=== PATIENT | male | born 1960 | race Caucasian/White ===

== ENCOUNTER 2022-07-19 09:27 | Emergency (ER) | payer MEDICARE, MEDICAID, SELFPAY ==
[2022-07-19] VITALS (9 sets, daily range): BP systolic 114–127; BP diastolic 62–79; PULSE 50–151; RESP 14–19; TEMP 36.8; O2SAT 91–99; BMI 34.1
--- NOTE | 2022-07-19 09:53 | XR_ITS ---
The [address] [address] Patient Name: YELENA NOLASCO MRN: [id number] date: 1960 Sex: M Assigned Patient Location: ER Current Patient Location: ER Accession/Order Number: [id number] Exam Date: 07/19/2022 09:58 Report Date: 07/19/2022 10:14 At the request of: STAN OLEARY Procedure: XR chest 1V Exam: Radiographs: XR chest 1V Reason for exam: Chest pain Comparison: None IMPRESSION: Minimal linear atelectasis or scarring in the left lower lung. Tracheostomy tube with tip in the midthoracic trachea. Cervical spine fusion hardware. Old left clavicle fracture. Remainder the chest is unremarkable. Electronically authenticated by: JUJU HERNANDEZ Date: 07/19/2022 10:14
--- NOTE | 2022-07-19 09:53 | ECG_ITS ---
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
[2022-07-19 10:42] LABS: Alanine Aminotransferase 40 U/L (16-63); Albumin Globulin Ratio 0.7; Albumin Level 3.2 g/dL (3.4-5.0); Alkaline Phosphatase 102 U/L (46-116); Aspartate Amino Transferase 19 U/L (15-37); BUN Creatinine Ratio 9.4; Bilirubin Total 0.3 mg/dL (0.2-1.0); Calcium 9.1 mg/dL (8.5-10.1); Carbon Dioxide 29.6 mmol/L (21.0-32.0); Chloride 88 mmol/L (98-107); Estimated GFR (African America >60 (>=60); Estimated GFR (Non-African Ame >60 (>=60); Globulin 4.6 g/dL; Glucose 123 mg/dL (74-106); Potassium 3.6 mmol/L (3.5-5.1); Sodium 126 mmol/L (136-145); Total Protein 7.8 g/dL (6.4-8.2); Troponin I High Sensitivity 5.5 pg/mL (4.0-76.1)
[2022-07-19 10:49] LABS: Basophils Absolute Auto 0.1 10^3/uL (0.0-0.1); Basophils Percent Auto 0.9 % (0.2-2.0); Eosinophils Absolute Auto 0.1 10^3/uL (0.0-0.7); Eosinophils Percent Auto 0.9 % (0.9-7.0); Hematocrit 38.5 % (42.0-54.0); Hemoglobin 12.6 g/dL (14.0-18.0); Immature Granulocytes Abs Auto 0.13 10^3/uL (0.00-0.03); Immature Granulocytes Pct Auto 0.9 % (0.0-0.5); Lymphocytes Absolute Auto 1.4 10^3/uL (1.2-3.8); Lymphocytes Percent Auto 9.6 % (20.5-60.0); Mean Corpuscular HGB Conc 32.7 g/dL (29.9-35.2); Mean Corpuscular Hemoglobin 29.3 pg (25.9-34.0); Mean Corpuscular Volume 89.5 fL (80.0-94.0); Mean Platelet Volume 8.7 fL (9.5-13.5); Monocytes Percent Auto 6.9 % (1.7-12.0); Neutrophils Percent Auto 80.8 % (43.0-75.0); Nucleated Red Blood Cells 0; Platelet Count 490 10^3/uL (150-450); Red Cell Distribution Width 13.3 % (11.0-15.0); White Blood Count 14.8 10^3/uL (4.0-11.0)
--- NOTE | 2022-07-19 10:49 | PC.NURSE ---
pt placed on 3L per trach mask. pt states he does wear O2 at night while he sleeps but did not wear it last night.
--- NOTE | 2022-07-19 10:51 | PC.NURSE ---
Patient brother at bedside asking if trach care information can be sent with patient when discharge back to care facility
[2022-07-19] MEDS: 0.9 % SODIUM CHLORIDE 1,000 ML 1000 ML IV (11:55)
== END 2022-07-19 13:13 | disposition home or self-care (01) ==
PROVIDERS: Emergency Provider Emergency Medicine; PCP Family Medicine
DX: Z43.0 Encounter for attention to tracheostomy (principal); R06.00 Dyspnea, unspecified; E87.1 Hypo-osmolality and hyponatremia
CPT/HCPCS: 36415; 71045; 80053; 83690; 83880; 84484; 85025; 93005; 99284

== ENCOUNTER 2022-10-06 03:52 | Emergency (ER) | payer MEDICARE, MEDICAID, SELFPAY ==
[2022-10-06] VITALS (10 sets, daily range): BP systolic 136; BP diastolic 96; PULSE 52–59; RESP 13–20; TEMP 36.5; O2SAT 96–99; BMI 30.6
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
--- NOTE | 2022-10-06 04:18 | XR_ITS ---
The [address] [address] Patient Name: YELENA NOLASCO MRN: [id number] date: 1960 Sex: M Assigned Patient Location: ER Current Patient Location: ER Accession/Order Number: [id number] Exam Date: 10/06/2022 04:40 Report Date: 10/06/2022 06:39 At the request of: VICKI DOBSON Procedure: XR chest 1V Exam: Radiographs: XR chest 1V Reason for exam: dyspnea Comparison: Chest x-ray dated 07/19/2022 XR/XR chest 1V IMPRESSION: Small amount of right apical scarring. Cervical spine fusion hardware. Old left clavicle fracture. Remainder the chest is unremarkable. Electronically authenticated by: JUJU HERNANDEZ Date: 10/06/2022 06:39
--- NOTE | 2022-10-06 04:18 | ECG_ITS ---
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
[2022-10-06] MEDS: ONDANSETRON PF 4 MG/2 ML VIAL IV (04:57)
[2022-10-06 05:28] LABS: Basophils Absolute Auto 0.1 10^3/uL (0.0-0.1); Eosinophils Absolute Auto 0.2 10^3/uL (0.0-0.7); Eosinophils Percent Auto 1.5 % (0.9-7.0); Hematocrit 44.4 % (42.0-54.0); Hemoglobin 15.1 g/dL (14.0-18.0); Immature Granulocytes Abs Auto 0.04 10^3/uL (0.00-0.03); Immature Granulocytes Pct Auto 0.4 % (0.0-0.5); Lymphocytes Absolute Auto 2.2 10^3/uL (1.2-3.8); Lymphocytes Percent Auto 19.8 % (20.5-60.0); Mean Corpuscular Hemoglobin 29.2 pg (25.9-34.0); Mean Corpuscular Volume 85.7 fL (80.0-94.0); Mean Platelet Volume 11.2 fL (9.5-13.5); Monocytes Percent Auto 9.4 % (1.7-12.0); Neutrophils Absolute Auto 7.5 10^3/uL (1.4-6.5); Neutrophils Percent Auto 67.9 % (43.0-75.0); Platelet Count 343 10^3/uL (150-450); Red Blood Count 5.18 10^6/uL (4.70-6.10); Red Cell Distribution Width 13.4 % (11.0-15.0); White Blood Count 11.1 10^3/uL (4.0-11.0)
[2022-10-06 06:27] LABS: Alanine Aminotransferase 31 U/L (16-63); Albumin Level 3.9 g/dL (3.4-5.0); Alkaline Phosphatase 79 U/L (46-116); Anion Gap 11.3; Aspartate Amino Transferase 22 U/L (15-37); BUN Creatinine Ratio 8.5; Bilirubin Total 0.5 mg/dL (0.2-1.0); Calcium 9.3 mg/dL (8.5-10.1); Carbon Dioxide 30.7 mmol/L (21.0-32.0); Chloride 94 mmol/L (98-107); Estimated GFR (African America >60 (>=60); Estimated GFR (Non-African Ame >60 (>=60); Globulin 4.1 g/dL; Glucose 112 mg/dL (74-106); Sodium 133 mmol/L (136-145); Troponin I High Sensitivity 6.9 pg/mL (4.0-76.1)
[2022-10-06] MEDS: POTASSIUM CHLORIDE 10 MEQ ER TABLET 40 MEQ PO (06:46)
== END 2022-10-06 07:03 | disposition home or self-care (01) ==
PROVIDERS: Emergency Provider Emergency Medicine; PCP Family Medicine
DX: R06.00 Dyspnea, unspecified (principal); Z99.81 Dependence on supplemental oxygen; Z86.718 Personal history of other venous thrombosis and embolism; Z79.899 Other long term (current) drug therapy; Z79.01 Long term (current) use of anticoagulants
CPT/HCPCS: 36415; 71045; 80053; 83880; 84484; 85025; 93005; 96374; 99285

== ENCOUNTER 2022-10-15 12:31 | Outpatient (OUT) | payer MEDICARE, MEDICAID, SELFPAY ==
[2022-10-15 13:20] LABS: Anion Gap 8.2; BUN Creatinine Ratio 18.2; Calcium 9.4 mg/dL (8.5-10.1); Carbon Dioxide 32.6 mmol/L (21.0-32.0); Chloride 101 mmol/L (98-107); Estimated GFR (African America >60 (>=60); Estimated GFR (Non-African Ame >60 (>=60); Glucose 91 mg/dL (74-106); Potassium 3.8 mmol/L (3.5-5.1); Sodium 138 mmol/L (136-145)
== END 2022-10-15 12:32 | disposition home or self-care (01) ==
PROVIDERS: PCP Family Medicine; Visit Provider Family Medicine
DX: I10 Essential (primary) hypertension (principal); E87.6 Hypokalemia; T50.905A Adverse effect of unspecified drugs, medicaments and biological substances, initial encounter
CPT/HCPCS: 36415; 80048

== ENCOUNTER 2022-12-28 08:57 | Outpatient (OUT) | payer MEDICARE, MEDICAID, SELFPAY ==
[2022-12-28 09:21] LABS: Basophils Absolute Auto 0.1 10^3/uL (0.0-0.1); Basophils Percent Auto 1.5 % (0.2-2.0); Eosinophils Absolute Auto 0.3 10^3/uL (0.0-0.7); Eosinophils Percent Auto 2.8 % (0.9-7.0); Hemoglobin 15.3 g/dL (14.0-18.0); Immature Granulocytes Abs Auto 0.03 10^3/uL (0.00-0.03); Immature Granulocytes Pct Auto 0.3 % (0.0-0.5); Lymphocytes Absolute Auto 2.5 10^3/uL (1.2-3.8); Lymphocytes Percent Auto 26.1 % (20.5-60.0); Mean Corpuscular HGB Conc 31.9 g/dL (29.9-35.2); Mean Corpuscular Hemoglobin 29.2 pg (25.9-34.0); Mean Corpuscular Volume 91.6 fL (80.0-94.0); Mean Platelet Volume 9.2 fL (9.5-13.5); Monocytes Absolute Auto 0.8 10^3/uL (0.3-0.8); Monocytes Percent Auto 8.7 % (1.7-12.0); Neutrophils Absolute Auto 5.7 10^3/uL (1.4-6.5); Neutrophils Percent Auto 60.6 % (43.0-75.0); Platelet Count 402 10^3/uL (150-450); Red Blood Count 5.24 10^6/uL (4.70-6.10); Red Cell Distribution Width 12.7 % (11.0-15.0); White Blood Count 9.4 10^3/uL (4.0-11.0)
== END 2022-12-28 08:58 | disposition home or self-care (01) ==
LOC: LAB 08:57
PROVIDERS: PCP Family Medicine
DX: Z01.812 Encounter for preprocedural laboratory examination (principal)
CPT/HCPCS: 36415; 85025

== ENCOUNTER 2023-05-19 07:25 | Outpatient (OUT) | payer MEDICARE, MEDICAID, SELFPAY ==
--- OUTSIDE RECORDS SUMMARY | 2023-05-19 07:29 | XMS_ITS | CCD ---
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 06-27-2022 Resolved: 05-15-2023 07-03-2022 Episodic Mood disorders (11 sources) Major depression, single episode; Translations: [Major depressive disorder, single episode, in full remission] Onset: 07-05-2022 Resolved: 05-15-2023 07-05-2022 Chronic Mood disorders (8 sources) Mood disorders Onset: 01-13-2023 Resolved: 05-15-2023 01-13-2023 Other fractures (9 sources) Fracture of multiple ribs ; Translations: [Multiple fractures of ribs, unspecified side, initial encounter for closed fracture] Onset: 07-05-2022 Resolved: 10-07-2022 05-31-2022 Episodic Other fractures (20 sources) Closed fracture of multiple left ribs; Translations: [Multiple fractures of ribs, left side, initial encounter for closed fracture] Onset: 06-27-2022 Resolved: 05-15-2023 07-03-2022 Episodic Other gastrointestinal disorders (20 sources) Hemorrhage into peritoneal cavity; Translations: [Hemoperitoneum] Onset: 06-27-2022 Resolved: 07-03-2022 05-31-2022 Episodic Other gastrointestinal disorders (8 sources) Oral phase dysphagia; Translations: [Dysphagia, oral phase] Onset: 09-27-2022 01-13-2023 Episodic Other nervous system disorders (20 sources) Acute pain due to injury; Translations: [Acute pain due to trauma] Onset: 06-27-2022 07-03-2022 Episodic Other nervous system disorders (1 source) Unspecified abnormalities of gait and mobility; Translations: [Unspecified abnormalities of gait and mobility] Onset: 07-23-2022 Episodic Other non-traumatic joint disorders (20 sources) Knee joint effusion; Translations: [Effusion, unspecified knee] Onset: 07-01-2022 07-03-2022 Episodic Other nutritional; endocrine; and metabolic disorders (1 source) Body mass index (BMI) 29.0-29.9, adult; Translations: [Body mass index (BMI) 29.0-29.9, adult] Onset: 10-01-2022 Episodic Other upper respiratory disease (20 sources) Tracheostomy present; Translations: [Tracheostomy status] Onset: 06-27-2022 Resolved: 10-07-2022 07-03-2022 Chronic Respiratory failure; insufficiency; arrest (adult) (20 sources) Acute hypoxemic respiratory failure; Translations: [Acute respiratory failure with hypoxia] Onset: 05-31-2022 Resolved: 06-27-2022 05-31-2022 Episodic Skull and face fractures (20 sources) Fractured nasal bones; Translations: [Fracture of nasal bones, initial encounter for closed fracture] Onset: 06-27-2022 05-31-2022 Episodic Sprains and strains (20 sources) Rupture of anterior cruciate ligament of left knee; Translations: [Sprain of anterior cruciate ligament of left knee, initial encounter] Onset: 07-01-2022 07-22-2022 Episodic Superficial injury; contusion (8 sources) Abrasion of head; Translations: [Abrasion of scalp, initial encounter] Onset: 07-19-2022 Resolved: 10-07-2022 10-07-2022 Episodic Unclassified (1 source) CONTACT W/AND (SUSP) EXPOS COVID-19; Translations: [CONTACT W/AND (SUSP) EXPOS COVID-19] Onset: 02-01-2022 Results Test Name Value Interpretation Reference Range Facility APTTon 05-01-2023 aPTT Coag (PPP) [Time] 41 s High Pr [facility] Comment on above: NEW REFERENCE RANGE BASIC METABOLIC PANLon 04-30 Anion gap [Moles/Vol] 10 mmol/L Normal 5-15 [facility] Comment on above: Performed By: #### P INR, 49517-0 #### [facility] ([id number]) [address] [place] [address] #### BMP, CBCA #### [facility] ([id number]) [address], [address] [place] [address] Calcium [Mass/Vol] 9.6 mg/dL Normal 8.5-10.5 [facility] Comment on above: Performed By: #### P INR, 94702-1 #### [facility] ([id number]) [address] [place] [address] 09540 #### BMP, CBCA #### [facility] ([id number]) [address], [address] [place] [address] Chloride [Moles/Vol] 101 mmol/L Normal 98-109 [facility] Comment on above: Performed By: #### P INR, 80620-3 #### [facility] ([id number]) [address] [place] [address] 08974 #### BMP, CBCA #### [facility] ([id number]) [address], [address] [place] [address] CO2 [Moles/Vol] 29 mmol/L Normal 22-32 [facility] Comment on above: Performed By: #### P INR, 25591-7 #### [facility] ([id number]) [address] [place] [address]281 #### CAROL CBCA #### [facility] ([id number]) [address], [address] [place] [address] Creatinine [Mass/Vol] 0.50 mg/dL Low 0.60-1.30 [facility] Comment on above: Result Comment: METH OD TRACEABLE TO IDMS STANDARD Performed By: #### P INR, 83348-0 #### [facility] ([id number]) [address] [place] [address]37 #### CAROL CBCA #### [facility] ([id number]) [address], [address] [place] [address] eGFR (CKD-EPI) NON-RACE DEPENDENT >90 Normal >59 [facility] Comment on above: Result Comment: Reported eGFR is based on the CKD-EPI 2020 equation that does not use a race coefficient. Performed By: #### P INR, 86088-3 #### [facility] ([id number]) [address] [place] [address]79 #### CAROL CBCA #### [facility] ([id number]) [address], [address] [place] [address] Glucose [Mass/Vol] 83 mg/dL Normal 65-99 [facility] Comment on above: Performed By: #### P INR, 80144-1 #### [facility] ([id number]) [address] [place] [address] 16300 #### CAROL, CBCA #### [facility] ([id number]) [address], [address] [place] [address] Potassium [Moles/Vol] 3.7 mmol/L Normal 3.5-5.0 [facility] Comment on above: Performed By: #### P INR, 58979-3 #### [facility] ([id number]) [address] [place] [address] 58631 #### BMP, CBCA #### [facility] ([id number]) [address], [address] [place] [address] Sodium [Moles/Vol] 140 mmol/L Normal 134-146 [facility] Comment on above: Performed By: #### P INR, 28742-1 #### [facility] ([id number]) [address] [place] [address] 27247 #### BMP, CBCA #### [facility] ([id number]) [address], [address] [place] [address] Urea nitrogen [Mass/Vol] 10 mg/dL Normal 5-27 [facility] Comment on above: Performed By: #### P INR, 40678-1 #### [facility] ([id number]) [address] [place] [address] #### BMP, CBCA #### [facility] ([id number]) [address], [address] [place] [address] Basic Metabolic Panelon 04-17 Anion gap [Moles/Vol] 10 mmol/L 5 - 15 mmol/L [facility] Calcium [Mass/Vol] 9.6 mg/dL 8.5 - 10. 5 mg/dL [facility] Chloride [Moles/Vol] 101 mmol/L 98 - 10 9 mmol/L [facility] CO2 [Moles/Vol] 29 mmol/L 22 - 32 mmol/L [facility] Creatinine [Mass/Vol] 0.50 mg/dL Low 0.60 - 1.30 mg/dL [facility] Comment on above: METHOD TRACEABLE TO IDMS STANDARD eGFR (CKD-EPI)non-race dependent - PINF [facility] Comment on above: Reported eGFR is based on the CKD-EPI 2020 equation that does not use a race coefficient. Glucose [Mass/Vol] 83 mg/dL 65 - 99 mg/dL [facility] Interpretation and review of laboratory results Abnormal [facility] Potassium [Moles/Vol] 3.7 mmol/L 3.5 - 5.0 mmol/L [facility] Sodium [Moles/Vol] 140 mmol/L 134 - 146 mmol/L [facility] Urea nitrogen [Mass/Vol] 10 mg/dL 5 - 27 mg/dL [facility] CBC AND AUTO DIFFon 05-01-19 ABSOLUTE BASOPHIL 0.2 X10E9/L Normal 0.0-0.2 [facility] Comment on above: Performed By: #### P INR, 41083-0 #### [facility] ([id number]) [address] [place] [address] 84894 #### BMP, CBCA #### [facility] ([id number]) [address], [address] [place] [address] Basophils/100 WBC (Bld) 2.0 % Normal [facility] Comment on above: Performed By: #### P INR, 00090-3 #### [facility] ([id number]) [address] [place] [address] 35046 #### BMP, CBCA #### [facility] ([id number]) [address], [address] [place] [address] Eosinophils (Bld) [#/Vol] 0.1 10*3/uL Normal 0.0-0.4 [facility] Comment on above: Performed By: #### P INR, 33428-9 #### [facility] ([id number]) [address] [place] [address] 84591 #### BMP, CBCA #### [facility] ([id number]) [address], [address] [place] [address] Eosinophils/100 WBC (Bld) 1.0 % Normal [facility] Comment on above: Performed By: #### P INR, 37951-6 #### [facility] ([id number]) [address] [place] [address] 89355 #### BMP, CBCA #### [facility] ([id number]) [address], [address] [place] [address] Erythrocyte distribution width (RBC) [Ratio] 14.3 % Normal 11.5-15.0 [facility] Comment on above: Performed By: #### P INR, 64304-3 #### [facility] ([id number]) [address] [place] [address] 68543 #### BMP, CBCA #### [facility] ([id number]) [address], [address] [place] [address] Hematocrit (Bld) [Volume fraction] 45.0 % Normal 39-49 [facility] Comment on above: Performed By: #### P INR, 17149-6 #### [facility] ([id number]) [address] [place] [address] 80985 #### BMP, CBCA #### [facility] ([id number]) [address], [address] [place] [address] Hemoglobin (Bld) [Mass/Vol] 14.8 g/dL Normal 13.0-17.0 [facility] Comment on above: Performed By: #### P INR, 22786-7 #### [facility] ([id number]) [address] [place] [address] 69810 #### BMP, CBCA #### [facility] ([id number]) [address], [address] [place] [address] Lymphocytes (Bld) [#/Vol] 4.4 10*3/uL High 1.0-3.5 [facility] Comment on above: Performed By: #### P INR, 93514-3 #### [facility] ([id number]) [address] [place] [address] 14296 #### BMP, CBCA #### [facility] ([id number]) [address], [address] [place] [address] Lymphocytes/100 WBC (Bld) 38.0 % Normal [facility] Comment on above: Performed By: #### P INR, 69150-7 #### [facility] ([id number]) [address] [place] [address] 60744 #### BMP, CBCA #### [facility] ([id number]) [address], [address] [place] [address] MCH (RBC) [Entitic mass] 30.1 pg Normal 27-34 [facility] Comment on above: Performed By: #### P INR, 44461-7 #### [facility] ([id number]) [address] [place] [address] 97274 #### BMP, CBCA #### [facility] ([id number]) [address], [address] [place] [address] MCHC (RBC) [Mass/Vol] 32.9 g/dL Normal 32-36 [facility] Comment on above: Performed By: #### P INR, 53948-2 #### [facility] ([id number]) [address] [place] [address] 90504 #### BMP, CBCA #### [facility] ([id number]) [address], [address] [place] [address] MCV (RBC) [Entitic vol] 92 fL Normal 80-100 [facility] Comment on above: Performed By: #### P INR, 96475-5 #### [facility] ([id number]) [address] [place] [address] 37996 #### BMP, CBCA #### [facility] ([id number]) [address], [address] [place] [address] Monocytes (Bld) [#/Vol] 0.7 10*3/uL Normal 0-0.9 [facility] Comment on above: Performed By: #### P INR, 21804-9 #### [facility] ([id number]) [address] [place] [address] 52592 #### BMP, CBCA #### [facility] ([id number]) [address], [address] [place] [address] Monocytes/100 WBC (Bld) 6.0 % Normal [facility] Comment on above: Performed By: #### P INR, 74867-7 #### [facility] ([id number]) [address] [place] [address] 73950 #### BMP, CBCA #### [facility] ([id number]) [address], [address] [place] [address] MPV PLATELET CLUMPS PREC LUDE COUNT Normal 7-12 [facility] Comment on above: Performed By: #### P INR, 43009-4 #### [facility] ([id number]) [address] [place] [address] 15338 #### BMP, CBCA #### [facility] ([id number]) [address], [address] [place] [address] MYELOCYTE 1.0 % Normal [facility] Comment on above: Performed By: #### P INR, 32714-0 #### [facility] ([id number]) [address] [place] [address] 28289 #### BMP, CBCA #### [facility] ([id number]) [address], [address] [place] [address] Neutrophils (Bld) [#/Vol] 6.2 10*3/uL Normal 1.5-6.6 [facility] Comment on above: Performed By: #### P INR, 49504-4 #### [facility] ([id number]) [address] [place] [address] 05591 #### BMP, CBCA #### [facility] ([id number]) [address] [place] [address] PLATELET COUNT ESTIMATE OF PLATELET S, NORMAL Normal 150-450 [facility] Comment on above: Result Comment: PLAT ELET CLUMPS PRECLUDE COUNT Performed By: #### P INR, 99579-3 #### [facility] ([id number]) [address] [place] [address] 88231 #### BMP, CBCA #### [facility] ([id number]) [address], [address] [place] [address] RBC COUNT 4.92 X10E12/L Normal 4.10-5.70 [facility] Comment on above: Performed By: #### P INR, 29435-4 #### [facility] ([id number]) [address] [place] [address] 47785 #### BMP, CBCA #### [facility] ([id number]) [address] [place] [address] RBC morphology finding Nom (Bld) NORMAL Normal [facility] Comment on above: Performed By: #### P INR, 88587-1 #### [facility] ([id number]) [address] [place] [address] 55009 #### BMP, CBCA #### [facility] ([id number]) [address], [address] [place] [address] SEG NEUTROPHIL 52.0 % Normal [facility] Comment on above: Performed By: #### P INR, 97605-1 #### [facility] ([id number]) [address] [place] [address] #### BMP, CBCA #### [facility] ([id number]) [address], [address] [place] [address] WBC (Bld) [#/Vol] 11.7 10*3/uL High 4.0-11.0 [facility] Comment on above: Performed By: #### P INR, 26982-2 #### [facility] ([id number]) [address] [place] [address] 09699 #### BMP, CBCA #### [facility] ([id number]) [address], [address] [place] [address] CBC auto differentialon - Basophils (Bld) [#/Vol] 0.2 10*3/uL [facility] Basophils/100 WBC (Bld) 2.0 % [facility] Eosinophils (Bld) [#/Vol] 0.1 10*3/uL [facility] Eosinophils/100 WBC (Bld) 1.0 % [facility] Erythrocyte distribution width (RBC) [Ratio] 14.3 % 11.5 - 15.0 % [facility] Hematocrit (Bld) [Volume fraction] 45.0 % 39 - 49 % [facility] Hemoglobin (Bld) [Mass/Vol] 14.8 g/dL 13.0 - 17.0 g/dL [facility] Interpretation and review of laboratory results Abnormal [facility] Lymphocytes (Bld) [#/Vol] 4.4 10*3/uL High [facility] Lymphocytes/100 WBC (Bld) 38.0 % [facility] MCH (RBC) [Entitic mass] 30.1 pg 27 - 34 pg [facility] MCHC (RBC) [Mass/Vol] 32.9 g/dL 32 - 3 6 g/dL [facility] MCV (RBC) [Entitic vol] 92 fL 80 - 100 fL [facility] Monocytes (Bld) [#/Vol] 0.7 10*3/uL [facility] Monocytes/100 WBC (Bld) 6.0 % [facility] Myelocytes/100 WBC (Bld) 1.0 % [facility] Neutrophils (Bld) [#/Vol] 6.2 10*3/uL [facility] Platelet mean volume (Bld) [Entitic vol] PLATELET CLUMPS PRECLUDE COUNT 7 - 12 fL [facility] Platelets (Bld) [#/Vol] ESTIMATE OF PLATELETS, NORMAL [facility] Comment on above: PLATELET CLUMPS PREC LUDE COUNT Polymorphonuclear cells/100 WBC (Bld) NORMAL [facility] RBC (Bld) [#/Vol] 4.92 10*6/uL [facility] Segmented neutrophils/100 WBC (Bld) 52.0 % [facility] WBC corrected for nucl RBC Auto (Bld) [#/Vol] 11.7 High [facility] No Panel Informationon 04-30 Interpretation and review of laboratory results Abnormal [facility] PROTIME AND INRon 05-01-2023 INR Coag (PPP) [Relative time] 1.2 {INR} High 0.8-1.1 [facility] Comment on above: Performed By: #### P INR, 38687-3 #### [facility] ([id number]) [address] [place] [address], [place] [address] #### BMP, CBCA #### [facility] ([id number]) [address], [address] [place] [address] PT Coag (PPP) [Time] 13.4 s High 9.8-13.2 [facility] Comment on above: Result Comment: NEW REFERENCE RANGE Performed By: #### P INR, 52279-0 #### [facility] ([id number]) [address] [place] [address] #### CAROL, CBCA #### [facility] ([id number]) [address] [place] [address], [address] [place] [address] Protime & INRon 05-01-2023 INR Coag (PPP) [Relative time] 1.2 {INR} High [facility] Coag (PPP) [Time] 13.4 s High [facility] Comment on above: NEW REFERENCE RANGE XR Chest PA and Lateralon Yelena Ferreira MD - 05/01/2023 Clinical history:Preop evaluation. PA and lateral chest:1424 Comparison:None Findings: 2 views of the chest were obtained. 2 views of the chest were obtained. A total of 4 images were submitted. There is no focal pulmonary opacity. No pneumothorax or pleural effusion is present. There is mild aortic tortuosity of uncertain chronicity. IMPRESSION: No acute infiltrate or pulmonary edema. Finalized by Yelena Ferreira MD on 05/01/2023 1:23 PM [facility] Study observation (narrative) [employer] XR Chest PA and LateralOrder ed By: Yelena Ferreira on 05-01-2023 [facility] Work Phone: aPTT Coag (PPP) [Time]on aPTT Coag (Bld) [Time] 41 s High 26-37 [facility] Comment on above: Result Comment: NEW REFERENCE RANGE Performed By: #### P INR, 42753-2 #### [facility] ([id number]) [address] [place] [address] 11381 #### BMP, CBCA #### [facility] ([id number]) [address] [place] [address], [address] [place] [address] Surgical Pathologyon 024 Surgical Pathology Normal [facility] Comment on above: Result Comment: [facility] [address] [place] [address] Surgical Pathology Consultation Patient Name:YELENA BENITEZ:1960 (Age: 62)Gender:MTaken:4Reported:04/01/2023hysician(s):Wiliam Trevino MD ([phone])Copy To: Rec. #:[id number]: #[id number] Final Pathologic Diagnosis 1. Colon polyp at 100 cm; polypectomy: Hyperplastic polyp (2 fragments). 2. Colon polyp at 90 cm; polypectomy: Tubular adenoma. 3. Colon polyp at 85 cm; polypectomy: Slight focal hyperplastic changes suggestive of hyperplastic polyp. 4. Colon polyp at 75 cm; polypectomy: Tubular adenoma. 5. Rectal polyp; polypectomy: Hyperplastic polyp. 6. Polyp; polypectomy: Hyperplastic polyp. Report Electronically Signed Out [facility]/04/01/2023Eloy Parekh MD [place] [address], License number: [id number]. Clinical History Positive FIT test. Gross Description 1. Received in formalin labeled BLACK, colon polyp at 100 cm are two light parker soft tissue bits, 0.3 and 0.4 cm. The specimen is filtered and entirely submitted in a single cassette. (1, ns, [id number],m3) DM. 2. Received in formalin labeled BLACK, colon polyp at 90 cm is a light parker soft tissue bit, 0.2 cm. The specimen is filtered and entirely submitted in a single cassette. (1, ns, [id number],m3) DM. 3. Received in formalin labeled BLACK, colon polyp at 85 cm is a light parker soft tissue bit, 0.2 cm. The specimen is filtered and entirely submitted in a single cassette. (1, ns, [id number],m3) DM. 4. Received in formalin labeled BLACK, colon polyp at 75 cm is a light parker soft tissue bit, 0.3 cm. The specimen is filtered and entirely submitted in a single cassette. (1, ns, [id number],m3) DM. 5. Received in formalin labeled BLACK, rectal polyp is a light parker soft tissue bit, 0.3 cm. The specimen is filtered and entirely submitted in a single cassette. (1, ns, [id number],m3) DM. 6. Received in formalin labeled BLACK, anal verge polyp is a light parker soft tissue bit, 0.4 cm. The specimen is filtered and entirely submitted in a single cassette. (1, ns, [id number],m3) DM. dm/03/29/2023GR Specimen(s) Received 1: Colon polyps at 100cm 2: Colon polyp at 90cm 3: Colon polyp at 85cm 4: Colon polyp at 75cm 5: Rectal polyp 6: Anal verge polyp Fee Codes(s): 1; 04401 2; 47614 3; 63597 4; 33599 5; 74831 6; 78548 Progress Noteson 12-31-2022 Lawn [employer]ower Authentication Interface Message Text Normal [employer] [facility] Progress Noteson 11-22-2022 Lawn Mower Authentication Interface Message Text Normal [employer] La[employer]ower Authentication Interface Message Text Patient was identified by name, address, and date of . Provider notified. Pt notified of high blood pressure. States in a lot of pain. Will follow with PCP as needed for medication changes. Savana Madrid RN Normal [employer] [facility] Telephone Encounteron 2022 La[employer]ower Authentication Interface Message Text Patient aware. Normal [facility] [employer] [facility] La[employer] Authentication Interface Message Text Normal [facility] [employer] [facility] Cardiologyon 10-01-2022 P wave axis 36 degrees [facility] P-R Interval 146 ms [facility] interval 446 ms [facility] Q-T interval corrected 446 ms [facility] QRS axis -25 degrees [facility] QRS duration 94 ms [facility] T wave axis 8 degrees [facility] No Panel Informationon 10-01 Diagnosis Normal sinus rhythm Moderate voltage criteria for LVH, may be normal variant Borderline No previous ECGs available Confirmed by MISAEL MCGRAW ([id number]) on 10/01/2022 11:17:54 PM [facility] P wave [facility] by EKG 60 BPM Metr [facility] Patient Instructionson 10-01 Lawn Mower Authentication Interface Message Text Normal [employer] [facility] PSE Appt H AND Kenan Lawn Mower Authentication Interface Message Text Normal [facility] Telephone Encounteron 2022 Lawn Mower Authentication Interface Message Text Situation: Pt calling to reschedule today's appt with Radiology Background: Pt had surgery scheduled today at 8 am Assessment: Pt is currently in [facility] which is almost 2 hours away from . Recommendation: Pt will call back after 8 am Normal The [facility] Progress Noteson 08-30-2022 Lawn Mower Authentication Interface Message Text Normal [facility] Lawn Mower Authentication Interface Message Text Patient was identified by name and date of . Patient at risk for falls:Yes Falls Risk protocol implemented: Yes wheelchair in locked position when not in use for transport Normal [facility] Lawn Mower Authentication Interface Message Text Normal [facility] XR CLAVICLE LEFT 2 VIEWSon 0 08-30-2022 XR CLAVICLE LEFT 2 VIEWS Normal [facility] Patient Instructionson 08-21 Lawn Mower Authentication Interface Message Text Normal [facility] Progress Noteson 08-21-2022 Lawn Mower Authentication Interface Message Text Patient was identified by name and date of . ROMEL Mariano Patient in exam room, vital signs taken, ready for MD exam. Normal [facility] Lawn Mower Authentication Interface Message Text Normal [facility] AUDIOGRAMon 08-14-2022 [facility] Patient Instructionson 08-14 Lawn Mower Authentication Interface Message Text Normal [facility] Progress Noteson 08-14-2022 Lawn Mower Authentication Interface Message Text Normal [facility] Lawn Mower Authentication Interface Message Text Normal [facility] Lawn Mower Authentication Interface Message Text Identification was verified by patient verbalizing his name and date of . Patient in exam room, vital signs taken, ready for MD exam. Normal [facility] Telephone Encounteron 2022 Lawn Mower Authentication Interface Message Text Normal [facility] Progress Noteson 08-12-2022 Lawn Mower Authentication Interface Message Text Normal [facility] Telephone Encounteron 2022 Lawn Mower Authentication Interface Message Text Normal [facility] Lawn Mower Authentication Interface Message Text Normal [facility] Patient Instructionson 08-07 Lawn Mower Authentication Interface Message Text -no need for further neurosurgery follow up -follow up with your other doctors - ENT, orthopedics, vascular surgery -ok to continue your xarelto Normal [facility] Progress Noteson 08-07-2022 Lawn Mower Authentication Interface Message Text Normal [facility] Lawn Mower Authentication Interface Message Text Patient was identified by name and date of . Travis Mathur Patient at risk for falls:No Falls Risk protocol implemented: N/A Normal [facility] Telephone Encounteron 2022 Lawn Mower Authentication Interface Message Text Normal [facility] CT HEAD W/O CONTRASTon 08-02 CT HEAD W/O CONTRAST Normal [facility] Head WO contrastOrdered B y: Lucho Orr on 08-02-2022 CT DLP 831.38 (mGy.cm) [facility] Work Phone: CT Series Topogram,HEAD WO [facility] Work Phone: CTDI VOL 0.11 (mGy),44.68 (mGy) [facility] Work Phone: PHANTOM TYPE IEC Head Dosimetry Phantom,IEC Head Dosimetry Phantom [facility] Work Phone: [facility] Work Phone: CT Head WO contraston 2022 EXAMINATION: CT HEAD W/O CONTRAST 08/02/2022 08:11 AM CLINICAL HISTORY: f/u RT contusion ASSOCIATED DIAGNOSIS: Intracranial contusion (HCC) ORDERING PROVIDER: TENISHA MCGRATH TECHNOLOGISTS NOTE: COMPARISON: Head CTs from 06/16/2022 06/15/2022, and 06/01/2022 TECHNIQUE: Thin axial imaging of the head was performed without intravenous contrast. FINDINGS: No acute intracranial hemorrhage or CT evidence of acute territorial infarction. No mass, significant mass effect, or extra-axial fluid collection. There is unchanged encephalomalacia of the right occipital pole, likely sequelae of prior parenchymal contusion. No significant stigmata of prior right temporal parenchymal contusion. Remote right petrous temporal skull base fractures are unchanged. Scattered paranasal sinus mucosal thickening with complete opacification of the maxillary sinuses. Improved aeration of the tympanomastoid cavities. 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 MACRO: None RADIOLOGY Lucho Orr MD - 08/02/2022 EXAMINATION: CT HEAD W/O CONTRAST 08/02/2022 08:11 AM CLINICAL HISTORY: f/u RT contusion ASSOCIATED DIAGNOSIS: Intracranial contusion (HCC) ORDERING PROVIDER: TENISHA MCGRATH TECHNOLOGISTS NOTE: COMPARISON: Head CTs from 06/16/2022 06/15/2022, and 06/01/2022 TECHNIQUE: Thin axial imaging of the head was performed without intravenous contrast. FINDINGS: No acute intracranial hemorrhage or CT evidence of acute territorial infarction. No mass, significant mass effect, or extra-axial fluid collection. There is unchanged encephalomalacia of the right occipital pole, likely sequelae of prior parenchymal contusion. No significant stigmata of prior right temporal parenchymal contusion. Remote right petrous temporal skull base fractures are unchanged. Scattered paranasal sinus mucosal thickening with complete opacification of the maxillary sinuses. Improved aeration of the tympanomastoid cavities. 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 MACRO: None [facility] Radiology Study observation (narrative) [facility] Telephone Encounteron 2022 Lawn Mower Authentication Interface Message Text Left a voicemail for the facility patient is staying at- gave them the number to call and schedule an optho appointment for the patient. Normal [facility] Progress Noteson 07-22-2022 Lawn Mower Authentication Interface Message Text Patient was identified by name and date of . Frederic Whitney Patient was dispensed and fitted with a hinged wrap around knee brace. Care and instructions provided. Normal [facility] Lawn Mower Authentication Interface Message Text Normal [facility] Lawn Mower Authentication Interface Message Text Patient was identified by name and date of . Jasmin Mendoza RN Patient at risk for falls:Yes Falls Risk protocol implemented: Yes Patient on cart Jasmin Mendoza RN Normal [facility] Lawn Mower Authentication Interface Message Text Normal [facility] XR CLAVICLE LEFT 2 VIEWSon 0 07-22-2022 XR CLAVICLE LEFT 2 VIEWS Normal [facility] XR Clavicle - left Viewson 0 07-22-2022 EXAMINATION: XR CLAV ICLE LEFT 2 VIEWSPRO/LT 07/22/2022 01:30 PM CLINICAL HISTORY: f/u fracture healing ASSOCIATED DIAGNOSIS: Closed displaced fracture of shaft of left clavicle, initial encounter ORDERING PROVIDER: NAZ REAGAN TECHNOLOGISTS NOTE: COMPARISON: XR CLAVICLE LEFT 2 VIEWS 06/19/2022, 1:08 PM FINDINGS: Bone: Healing, comminuted, displaced fracture of the clavicular mid diaphysis with unchanged alignment of the fracture fragments and callus formation and persistent radiolucent fracture lines at the fracture site. Lower cervical anterior spinal fixation hardware. No destructive bone lesion. Joint: Mild acromioclavicular joint osteoarthritis. No dislocation. Soft tissues: Tracheostomy tube terminating overlying the tracheal air column. IMPRESSION: 1. Healing, comminuted, displaced fracture of the left clavicular mid diaphysis. 2. Mild left acromioclavicular joint osteoarthritis. 3. Tracheostomy tube. 4. Lower cervical anterior spinal fixation hardware. Left clavicle MACRO: None RADIOLOGY Valdez Saldana, DO - 07/22/2022 EXAMINATION: XR CLAVICLE LEFT 2 VIEWSPRO/LT 07/22/2022 01:30 PM CLINICAL HISTORY: f/u fracture healing ASSOCIATED DIAGNOSIS: Closed displaced fracture of shaft of left clavicle, initial encounter ORDERING PROVIDER: NAZ BENTLEY NOTE: COMPARISON: XR CLAVICLE LEFT 2 VIEWS 06/19/2022, 1:08 PM FINDINGS: Bone: Healing, comminuted, displaced fracture of the clavicular mid diaphysis with unchanged alignment of the fracture fragments and callus formation and persistent radiolucent fracture lines at the fracture site. Lower cervical anterior spinal fixation hardware. No destructive bone lesion. Joint: Mild acromioclavicular joint osteoarthritis. No dislocation. Soft tissues: Tracheostomy tube terminating overlying the tracheal air column. IMPRESSION: 1. Healing, comminuted, displaced fracture of the left clavicular mid diaphysis. 2. Mild left acromioclavicular joint osteoarthritis. 3. Tracheostomy tube. 4. Lower cervical anterior spinal fixation hardware. Left clavicle MACRO: None [facility] Radiology Study observation (narrative) [facility] XR Clavicle - left ViewsOrde red By: Valdez Saldana on 07-22-2022 [facility] Work Phone: Progress Noteson 07-11-2022 Lawn Mower Authentication Interface Message Text Orders placed for follow up appointments post hospitalization after trauma at the request of Post-hospital facility for scheduled follow ups from service related to inpatient stay. Normal [facility] Tele[facility] Encounteron 2022 Lawn Mower Authentication Interface Message Text Normal [facility] Telephone Encounteron 2022 Lawn Mower Authentication Interface Message Text Called SWATHI of [facility]. Left Neva muñiz msg informing of pt's appts scheduled on 07/22/22 with providers names, times and appt location. If any questions please call ortho dept. [phone] Normal [facility] Telephone Encounteron 2022 Lawn Mower Authentication Interface Message Text Normal [facility] Care Plan Noteon 07-04-2022 Lawn Mower Authentication Interface Message Text Normal [facility] Lawn Mower Authentication Interface Message Text Normal [facility] Discharge Planning Noteon Lawn Mower Authentication Interface Message Text Normal [facility] Progress Noteson 07-04-2022 Lawn Mower Authentication Interface Message Text Normal [facility] Care Plan Noteon 07-03-2022 Lawn Mower Authentication Interface Message Text Normal [facility] Consultson 07-03-2022 Lawn Mower Authentication Interface Message Text Normal [facility] Lawn Mower Authentication Interface Message Text Normal [facility] Progress Noteson 07-03-2022 Lawn Mower Authentication Interface Message Text Facilities oxygen max is 5L and the need to order pt's tube feeds. SW canceled the transport and will attempt dc tomorrow SW will continue to follow ZACHERY Gordon Normal [facility] Lawn Mower Authentication Interface Message Text Normal [facility] Lawn Mower Authentication Interface Message Text Normal [facility] Lawn Mower Authentication Interface Message Text Pt is rec for SNF Pt has been accepted by [facility] Precert is pending SW will continue to follow ZACHERY Gordon Normal [facility] Consultson 07-02-2022 Lawn Mower Authentication Interface Message Text Normal [facility] Progress Noteson 07-02-2022 Lawn Mower Authentication Interface Message Text Pt is rec for SNF Pt has been accepted by [facility] Precert is pending SW will continue to follow ZACHERY Gordon Normal [facility] Lawn Mower Authentication Interface Message Text Normal [facility] Care Plan Noteon 07-01-2022 Lawn Mower Authentication Interface Message Text Normal [facility] Consultson 07-01-2022 Lawn Mower Authentication Interface Message Text Normal [facility] MR KNEE LEFT W/Oon MR KNEE LEFT W/O Normal [facility] Progress Noteson 07-01-2022 Lawn Mower Authentication Interface Message Text Normal [facility] Lawn Mower Authentication Interface Message Text Normal [facility] Lawn Mower Authentication Interface Message Text Normal [facility] Care Plan Noteon 06-30-2022 Lawn Mower Authentication Interface Message Text Normal [facility] Consultson 06-30-2022 Lawn Mower Authentication Interface Message Text Normal [facility] Progress Noteson 06-30-2022 Lawn Mower Authentication Interface Message Text Normal [facility] Care Plan Noteon 06-29-2022 Lawn Mower Authentication Interface Message Text Normal [facility] Consultson 06-29-2022 Lawn Mower Authentication Interface Message Text Normal [facility] Lawn Mower Authentication Interface Message Text Normal [facility] Progress Noteson 06-29-2022 Lawn Mower Authentication Interface Message Text ENT reengaged to re-examine patient's right ear since it started bothering him --muffled hearing. Exam showed evidence of old dried blood mixed with cerumen. TM intact. Recs: apply ofloxacin drops to right ear as well. Normal [facility] Lawn Mower Authentication Interface Message Text Normal [facility] BASIC METABOLIC PANELon 06-17 Anion gap [Moles/Vol] 13 mmol/L Normal 10-20 [facility] Comment on above: Performed By: #### P HOS, MG, CH8 ####[facility] [id number] [place], [place], Calcium [Mass/Vol] 9.1 mg/dL Normal 8.4-10.4 [facility] Comment on above: Performed By: #### P HOS, MG, CH8 ####[facility] [id number] [place], [place], Chloride [Moles/Vol] 96 mmol/L Low 97-111 [facility] Comment on above: Performed By: #### P HOS, MG, CH8 ####[facility] [id number] [place], [place], CO2 [Moles/Vol] 30 mmol/L Normal 21-30 [facility] Comment on above: Performed By: #### P AUNDREA MG, CH8 ####[facility] [id number] [place], [place], Creatinine [Mass/Vol] 0.27 mg/dL Low 0.80-1.30 [facility] Comment on above: Performed By: #### P HOS MG, CH8 ####[facility] [id number] [place], [place], ESTIMATED GFR (CKD-EPI) 141 mL/min/1.73sqm Normal >=60 [facility] Comment on above: Result Comment: 2020 CKD EPI Equation using Creatinine without RaceComment: Estimated glomerular filtration rate (eGFR) is calculated without a race coefficient. Values should be interpreted in the context of the patient's full clinical presentation.Reference:1. Eddie C, Addy M, Griselda TORRES, et al.. A Unifying Approach for GFR Estimation: Recommendations of the NKF-ASN Task Force on Reassessing the Inclusion of Race in Diagnosing Kidney Disease. [place] Journal of Kidney Diseases 2021;79(2):268-88.e1.2. N Engl J Med 2020 Vol. 385 Issue 19 Pages 6893-3724 Performed By: #### Alexey GUILLAUME MG, CH8 ####[facility] [id number] [place], [place], Glucose [Mass/Vol] 109 mg/dL Normal 80-116 [facility] Comment on above: Performed By: #### P HOS MG, CH8 ####[facility] [id number] [place], [place], Potassium [Moles/Vol] 3.8 mmol/L Normal 3.3-5.3 [facility] Comment on above: Performed By: #### P HOS MG, CH8 ####[facility] [id number] [place], Sodium [Moles/Vol] 135 mmol/L Normal 135-148 [facility] Comment on above: Performed By: #### P HOS MG, CH8 ####S PATHOLOGY [id number] [place], Urea nitrogen [Mass/Vol] 16 mg/dL Normal 8-22 [facility] Comment on above: Performed By: #### P AUNDREA, MG, CH8 ####S PATHOLOGY [id number] [place], [place], COMPLETE BLOOD COUNTon 06-28 Erythrocyte distribution width (RBC) [Ratio] 14.8 % High 11.5-14.5 [facility] Comment on above: Performed By: #### C BC ####[facility] PATHOLOGY [id number] [place], [place], Hematocrit (Bld) [Volume fraction] 34.7 % Low 41.0-53.0 [facility] Comment on above: Performed By: #### C BC ####[facility] PATHOLOGY [id number] [place], Hemoglobin (Bld) [Mass/Vol] 11.4 g/dL Low 13.9-16.3 [facility] Comment on above: Performed By: #### C BC ####[facility] PATHOLOGY [id number] [place], [place], MCH (RBC) [Entitic mass] 29.8 pg Normal 26.0-34.0 [facility] Comment on above: Performed By: #### C BC ####[facility] PATHOLOGY [id number] [place], MCHC (RBC) [Mass/Vol] 32.9 g/dL Normal 32.0-35.9 [facility] Comment on above: Performed By: #### C BC ####[facility] PATHOLOGY [id number] [place], MCV (RBC) [Entitic vol] 91 fL Normal 80-100 [facility] Comment on above: Performed By: #### C BC ####S PATHOLOGY [id number] [place], Platelet mean volume (Bld) [Entitic vol] 7.2 fL Low 7.5-11.2 [facility] Comment on above: Performed By: #### C BC ####S PATHOLOGY [id number] [place], [place], Platelets (Bld) [#/Vol] 570 10*3/uL High 150-400 [facility] Comment on above: Performed By: #### C BC ####S PATHOLOGY [id number] [place], RBC (Bld) [#/Vol] 3.84 10*6/uL Low 4.50-5.90 [facility] Comment on above: Performed By: #### C BC ####S PATHOLOGY [id number] [place], WBC (Bld) [#/Vol] 10.8 10*3/uL Normal 4.5-11.5 [facility] Comment on above: Performed By: #### C BC ####[facility] PATHOLOGY [id number] [place], [place], Care Plan Noteon 06-28-2022 Lawn Mower Authentication Interface Message Text Normal [facility] Consultson 06-28-2022 Lawn Mower Authentication Interface Message Text Normal [facility] Lawn Mower Authentication Interface Message Text Normal [facility] Lawn Mower Authentication Interface Message Text Normal [facility] MAGNESIUMon 06-28-2022 Magnesium [Mass/Vol] 2.0 mg/dL Normal 1.6-2.8 [facility] Comment on above: Performed By: #### P HOS, MG, CH8 ####[facility] [id number] [place], [place], PHOSPHORUSon 06-28-2022 Phosphate [Mass/Vol] 4.0 mg/dL Normal 2.5-4.8 [facility] Comment on above: Performed By: #### P HOS, MG, CH8 ####[facility] [id number] [place], [place], Progress Noteson 06-28-2022 Lawn Mower Authentication Interface Message Text Normal [facility] Lawn Mower Authentication Interface Message Text [place] messaged the SW that to accept the pt must be denied by 5 [facility] SW will continue to follow Anmol Stringer [employer] SYSTEM ENGINEER Normal [facility] Lawn Mower Authentication Interface Message Text Normal [facility] Lawn Mower Authentication Interface Message Text Pt's trach was downsized 06/27 (6-0 proximal cuffed XLT Shiley) Normal [facility] XR KNEE LEFT AP+LAT 2 VIEWSo n 06-28-2022 XR KNEE LEFT AP+LAT 2 VIEWS Normal [facility] BASIC METABOLIC PANELon 06-17 Anion gap [Moles/Vol] 14 mmol/L Normal 10-20 [facility] Comment on above: Performed By: #### Tee Starkey MG, PHOS ####[facility] [id number] [place], Calcium [Mass/Vol] 9.0 mg/dL Normal 8.4-10.4 [facility] Comment on above: Performed By: #### Tee Starkey MG, PHOS ####[facility] [id number] [place], Chloride [Moles/Vol] 98 mmol/L Normal 97-111 [facility] Comment on above: Performed By: #### Tee Starkey MG, PHOS ####[facility] [id number] [place], CO2 [Moles/Vol] 28 mmol/L Normal 21-30 [facility] Comment on above: Performed By: #### Tee Starkey MG, PHOS ####[facility] [id number] [place], Creatinine [Mass/Vol] 0.30 mg/dL Low 0.80-1.30 [facility] Comment on above: Performed By: #### Tee HSuzi MG, PHOS ####[facility] [id number] [place], ESTIMATED GFR (CKD-EPI) 136 mL/min/1.73sqm Normal >=60 [facility] Comment on above: Result Comment: 2020 CKD EPI Equation using Creatinine without RaceComment: Estimated glomerular filtration rate (eGFR) is calculated without a race coefficient. Values should be interpreted in the context of the patient's full clinical presentation.Reference:1. Eddie C, Addy M, Griselda DC, et al.. A Unifying Approach for GFR Estimation: Recommendations of the NKF-ASN Task Force on Reassessing the Inclusion of Race in Diagnosing Kidney Disease. [place] Journal of Kidney Diseases 2021;79(2):268-88.e1.2. N Engl J Med 1 Vol. 385 Issue 19 Pages 2416-3143 Performed By: #### Tee Starkey MG, PHOS ####[facility] [id number] [place], Glucose [Mass/Vol] 118 mg/dL High 80-116 [facility] Comment on above: Performed By: #### Tee Starkey MG, PHOS ####[facility] [id number] [place], Potassium [Moles/Vol] 4.0 mmol/L Normal 3.3-5.3 [facility] Comment on above: Performed By: #### Tee H8 MG, PHOS ####[facility] [id number] [place], Sodium [Moles/Vol] 136 mmol/L Normal 135-148 [facility] Comment on above: Performed By: #### Tee HSuzi MG, PHOS ####[facility] [id number] [place], Urea nitrogen [Mass/Vol] 19 mg/dL Normal 8-22 [facility] Comment on above: Performed By: #### Tee H8 MG, PHOS ####[facility] [id number] [place], COMPLETE BLOOD COUNTon 06-27 Erythrocyte distribution width (RBC) [Ratio] 15.2 % High 11.5-14.5 [facility] Comment on above: Performed By: #### C BC ####[facility] [id number] [place], Hematocrit (Bld) [Volume fraction] 34.7 % Low 41.0-53.0 [facility] Comment on above: Performed By: #### C BC ####[facility] PATHOLOGY [id number] [place], Hemoglobin (Bld) [Mass/Vol] 11.2 g/dL Low 13.9-16.3 [facility] Comment on above: Performed By: #### C BC ####[facility] PATHOLOGY [id number] [place], MCH (RBC) [Entitic mass] 29.5 pg Normal 26.0-34.0 [facility] Comment on above: Performed By: #### C BC ####[facility] PATHOLOGY [id number] [place], MCHC (RBC) [Mass/Vol] 32.2 g/dL Normal 32.0-35.9 [facility] Comment on above: Performed By: #### C BC ####[facility] PATHOLOGY [id number] [place], MCV (RBC) [Entitic vol] 92 fL Normal 80-100 [facility] Comment on above: Performed By: #### C BC ####[facility] PATHOLOGY [id number] [place], Platelet mean volume (Bld) [Entitic vol] 7.7 fL Normal 7.5-11.2 [facility] Comment on above: Performed By: #### C BC ####[facility] PATHOLOGY [id number] [place], Platelets (Bld) [#/Vol] 640 10*3/uL High 150-400 [facility] Comment on above: Performed By: #### C BC ####[facility] PATHOLOGY [id number] [place], RBC (Bld) [#/Vol] 3.79 10*6/uL Low 4.50-5.90 [facility] Comment on above: Performed By: #### C BC ####[facility] PATHOLOGY [id number] [place], WBC (Bld) [#/Vol] 11.5 10*3/uL Normal 4.5-11.5 [facility] Comment on above: Performed By: #### Tee BC ####[facility] [id number] [place], Care Plan Noteon 06-27-2022 Lawn Mower Authentication Interface Message Text Normal [facility] Lawn Mower Authentication Interface Message Text Normal [facility] Consultson 06-27-2022 Lawn Mower Authentication Interface Message Text Normal [facility] Lawn Mower Authentication Interface Message Text Normal [facility] [place] MODIFIED BARIUM SWALLOWon 06-27-2022 [place] MODIFIED BARIUM SWALLOW Normal [facility] MAGNESIUMon 06-27-2022 Magnesium [Mass/Vol] 2.0 mg/dL Normal 1.6-2.8 [facility] Comment on above: Performed By: #### Tee Starkey, MG, PHOS ####[facility] [id number] [place], PHOSPHORUSon 06-27-2022 Phosphate [Mass/Vol] 4.2 mg/dL Normal 2.5-4.8 [facility] Comment on above: Performed By: #### Tee Starkey, MG, PHOS ####[facility] [id number] [place], [place], Progress Noteson 06-27-2022 Lawn Mower Authentication Interface Message Text Normal [facility] Lawn Mower Authentication Interface Message Text Normal [facility] BASIC METABOLIC PANELon 06-17 Anion gap [Moles/Vol] 11 mmol/L Normal 10-20 [facility] Comment on above: Performed By: #### TERESA Marshall, PHOS ####[facility] [id number] [place], Calcium [Mass/Vol] 8.9 mg/dL Normal 8.4-10.4 [facility] Comment on above: Performed By: #### TERESA Marshall, PHOS ####[facility] [id number] [place], Chloride [Moles/Vol] 98 mmol/L Normal 97-111 [facility] Comment on above: Performed By: #### TERESA Marshall, PHOS ####[facility] [id number] [place], CO2 [Moles/Vol] 29 mmol/L Normal 21-30 [facility] Comment on above: Performed By: #### TERESA Marshall PHOS ####[facility] [id number] [place], Creatinine [Mass/Vol] 0.29 mg/dL Low 0.80-1.30 [facility] Comment on above: Performed By: #### TERESA Marshall, SKYLERS ####[facility] [id number] [place], ESTIMATED GFR (CKD-EPI) 138 mL/min/1.73sqm Normal >=60 [facility] Comment on above: Result Comment: 2020 CKD EPI Equation using Creatinine without RaceComment: Estimated glomerular filtration rate (eGFR) is calculated without a race coefficient. Values should be interpreted in the context of the patient's full clinical presentation.Reference:1. Eddie C, Addy M, Griselda TORRES, et al.. A Unifying Approach for GFR Estimation: Recommendations of the NKF-ASN Task Force on Reassessing the Inclusion of Race in Diagnosing Kidney Disease. [place] Journal of Kidney Diseases 2021;79(2):268-88.e1.2. N Engl J Med 1 Vol. 385 Issue 19 Pages 1880-9615 Performed By: #### TERESA Marshall PHOS ####[facility] [id number] [place], Glucose [Mass/Vol] 114 mg/dL Normal 80-116 [facility] Comment on above: Performed By: #### TERESA Marshall PHOS ####[facility] [id number] [place], Potassium [Moles/Vol] 3.9 mmol/L Normal 3.3-5.3 [facility] Comment on above: Performed By: ###TERESA Caceres, SKYLERS ####[facility] [id number] [place], Sodium [Moles/Vol] 134 mmol/L Low 135-148 [facility] Comment on above: Performed By: #### TERESA Marshall, NAHID ####S PATHOLOGY [id number] [place], Urea nitrogen [Mass/Vol] 19 mg/dL Normal 8-22 [facility] Comment on above: Performed By: #### TERESA Marshall, NAHID ####S PATHOLOGY [id number] [place], COMPLETE BLOOD COUNTon 06-26 Erythrocyte distribution width (RBC) [Ratio] 14.7 % High 11.5-14.5 [facility] Comment on above: Performed By: #### C BC ####S PATHOLOGY [id number] [place], Hematocrit (Bld) [Volume fraction] 33.1 % Low 41.0-53.0 [facility] Comment on above: Performed By: #### C BC ####[facility] PATHOLOGY [id number] [place], Hemoglobin (Bld) [Mass/Vol] 10.9 g/dL Low 13.9-16.3 [facility] Comment on above: Performed By: #### C BC ####S PATHOLOGY [id number] [place], MCH (RBC) [Entitic mass] 30.2 pg Normal 26.0-34.0 [facility] Comment on above: Performed By: #### C BC ####S PATHOLOGY [id number] [place], MCHC (RBC) [Mass/Vol] 33.0 g/dL Normal 32.0-35.9 [facility] Comment on above: Performed By: #### C BC ####[facility] [id number] [place], MCV (RBC) [Entitic vol] 91 fL Normal 80-100 [facility] Comment on above: Performed By: #### C BC ####[facility] [id number] [place], Platelet mean volume (Bld) [Entitic vol] 7.6 fL Normal 7.5-11.2 [facility] Comment on above: Performed By: #### C BC ####S PATHOLOGY [id number] [place], Platelets (Bld) [#/Vol] 650 10*3/uL High 150-400 [facility] Comment on above: Performed By: #### C BC ####S PATHOLOGY [id number] [place], RBC (Bld) [#/Vol] 3.62 10*6/uL Low 4.50-5.90 [facility] Comment on above: Performed By: #### C BC ####S PATHOLOGY [id number] [place], WBC (Bld) [#/Vol] 10.0 10*3/uL Normal 4.5-11.5 [facility] Comment on above: Performed By: #### C BC ####[facility] PATHOLOGY [id number] [place], Care Plan Noteon 06-26-2022 Lawn Mower Authentication Interface Message Text Normal [facility] Consultson 06-26-2022 Lawn Mower Authentication Interface Message Text Normal [facility] Lawn Mower Authentication Interface Message Text Normal [facility] Lawn Mower Authentication Interface Message Text Normal [facility] Lawn Mower Authentication Interface Message Text Normal [facility] Lawn Mower Authentication Interface Message Text Normal [facility] MAGNESIUMon 06-26-2022 Magnesium [Mass/Vol] 2.1 mg/dL Normal 1.6-2.8 [facility] Comment on above: Performed By: #### TERESA Marshall, PHOS ####[facility] [id number] [place], PHOSPHORUSon 06-26-2022 Phosphate [Mass/Vol] 4.0 mg/dL Normal 2.5-4.8 [facility] Comment on above: Performed By: #### TERESA Marshall, PHOS ####[facility] PATH[facility] [id number] [place], Progress Noteson 06-26-2022 Lawn Mower Authentication Interface Message Text Normal [facility] Lawn Mower Authentication Interface Message Text Normal [facility] BASIC METABOLIC PANELon 05-0 Anion gap [Moles/Vol] 12 mmol/L Normal 10-20 [facility] Comment on above: Performed By: #### NAHID Marshall CH8 ####[facility] PATH[facility] [id number] [place], Calcium [Mass/Vol] 8.7 mg/dL Normal 8.4-10.4 [facility] Comment on above: Performed By: #### NAHID Marshall CH8 ####[facility] PATH[facility] [id number] [place], Chloride [Moles/Vol] 98 mmol/L Normal 97-111 [facility] Comment on above: Performed By: #### NAHID Marshall CH8 ####[facility] PATHOLOG[facility] [id number] [place], CO2 [Moles/Vol] 29 mmol/L Normal 21-30 [facility] Comment on above: Performed By: #### NAHID Marshall CH8 ####[facility] PATHOLOG[facility] [id number] [place], Creatinine [Mass/Vol] 0.32 mg/dL Low 0.80-1.30 [facility] Comment on above: Performed By: #### NAHID Marshall CH8 ####[facility] [id number] [place], ESTIMATED GFR (CKD-EPI) 134 mL/min/1.73sqm Normal >=60 [facility] Comment on above: Result Comment: 2020 CKD EPI Equation using Creatinine without RaceComment: Estimated glomerular filtration rate (eGFR) is calculated without a race coefficient. Values should be interpreted in the context of the patient's full clinical presentation.Reference:1. Eddie C, Addy M, Griselda TORRES, et al.. A Unifying Approach for GFR Estimation: Recommendations of the NKF-ASN Task Force on Reassessing the Inclusion of Race in Diagnosing Kidney Disease. [place] Journal of Kidney Diseases 2021;79(2):268-88.e1.2. N Engl J Med 2020 Vol. 385 Issue 19 Pages 6728-1610 Performed By: #### NAHID Marshall CH8 ####[facility] PATH[facility] [id number] [place], Glucose [Mass/Vol] 117 mg/dL High 80-116 [facility] Comment on above: Performed By: #### NAHID Marshall CH8 ####[facility] PATH[facility] [id number] [place], Potassium [Moles/Vol] 4.2 mmol/L Normal 3.3-5.3 [facility] Comment on above: Performed By: #### NAHID Marshall CH8 ####S PATHOLOGY [id number] [place], Sodium [Moles/Vol] 135 mmol/L Normal 135-148 [facility] Comment on above: Performed By: #### NAHID Marshall CH8 ####S PATHOLOGY [id number] [place], Urea nitrogen [Mass/Vol] 18 mg/dL Normal 8-22 [facility] Comment on above: Performed By: #### NAHID Marshall CH8 ####S PATHOLOGY [id number] [place], COMPLETE BLOOD COUNTon 06-25 Erythrocyte distribution width (RBC) [Ratio] 15.0 % High 11.5-14.5 [facility] Comment on above: Performed By: #### C BC ####[facility] [id number] [place], Hematocrit (Bld) [Volume fraction] 33.3 % Low 41.0-53.0 [facility] Comment on above: Performed By: #### C BC ####[facility] PATH[facility] [id number] [place], Hemoglobin (Bld) [Mass/Vol] 10.9 g/dL Low 13.9-16.3 [facility] Comment on above: Performed By: #### Tee BC ####[facility] PATHOLOG[facility] [id number] [place], MCH (RBC) [Entitic mass] 30.0 pg Normal 26.0-34.0 [facility] Comment on above: Performed By: #### C BC ####[facility] PATHOLOGY [id number] [place], MCHC (RBC) [Mass/Vol] 32.6 g/dL Normal 32.0-35.9 [facility] Comment on above: Performed By: #### C BC ####[facility] PATHOLOGY [id number] [place], MCV (RBC) [Entitic vol] 92 fL Normal 80-100 [facility] Comment on above: Performed By: #### C BC ####[facility] PATHOLOGY [id number] [place], Platelet mean volume (Bld) [Entitic vol] 7.8 fL Normal 7.5-11.2 [facility] Comment on above: Performed By: #### C BC ####[facility] PATHOLOGY [id number] [place], Platelets (Bld) [#/Vol] 686 10*3/uL High 150-400 [facility] Comment on above: Performed By: #### C BC ####[facility] PATHOLOGY [id number] [place], RBC (Bld) [#/Vol] 3.63 10*6/uL Low 4.50-5.90 [facility] Comment on above: Performed By: #### C BC ####[facility] PATHOLOGY [id number] [place], WBC (Bld) [#/Vol] 11.0 10*3/uL Normal 4.5-11.5 [facility] Comment on above: Performed By: #### C BC ####S PATHOLOGY [id number] [place], Care Plan Noteon 06-25-2022 Lawn Mower Authentication Interface Message Text Normal [facility] Consultson 06-25-2022 Lawn Mower Authentication Interface Message Text Normal [facility] Lawn Mower Authentication Interface Message Text Normal [facility] Lawn Mower Authentication Interface Message Text PM AND R consult received and case is currently being reviewed by Dr. Valdez Zavaleta. This liaison will follow and update CM/SW when determination is made. Thank you for the consult. Please reach out with any questions. Ry Goel, [employer] MANAGER PM AND R Liaison Normal [facility] MAGNESIUMon 06-25-2022 Magnesium [Mass/Vol] 2.0 mg/dL Normal 1.6-2.8 [facility] Comment on above: Performed By: #### M G, PHOS, CH8 ####[facility] PATHOLOG[facility] [id number] [place], PHOSPHORUSon 06-25-2022 Phosphate [Mass/Vol] 3.6 mg/dL Normal 2.5-4.8 [facility] Comment on above: Performed By: #### M G, PHOS, CH8 ####[facility] PATHOLOG[facility] [id number] [place], Progress Noteson 06-25-2022 Lawn Mower Authentication Interface Message Text Normal [facility] [facility] Lawn Mower Authentication Interface Message Text Normal [facility] Lawn Mower Authentication Interface Message Text Normal [facility] BASIC METABOLIC PANELon 05- Anion gap [Moles/Vol] 12 mmol/L Normal 10-20 [facility] Comment on above: Performed By: #### P HOS, CH8, MG ####[facility] PATHOLOGY [id number] [place], Calcium [Mass/Vol] 8.6 mg/dL Normal 8.4-10.4 [facility] Comment on above: Performed By: #### P HOS, CH8, MG ####[facility] PATHOLOGY [id number] [place], Chloride [Moles/Vol] 100 mmol/L Normal 97-111 [facility] Comment on above: Performed By: #### P HOS, CH8, MG ####[facility] PATHOLOG[facility] [id number] [place], CO2 [Moles/Vol] 27 mmol/L Normal 21-30 [facility] Comment on above: Performed By: #### P HOS, CH8, MG ####[facility] PATHOLOG[facility] [id number] [place], Creatinine [Mass/Vol] 0.27 mg/dL Low 0.80-1.30 [facility] Comment on above: Performed By: #### P HOS, CH8, MG ####[facility] PATHOLOG[facility] [id number] [place], ESTIMATED GFR (CKD-EPI) 141 mL/min/1.73sqm Normal >=60 [facility] Comment on above: Result Comment: 2020 CKD EPI Equation using Creatinine without RaceComment: Estimated glomerular filtration rate (eGFR) is calculated without a race coefficient. Values should be interpreted in the context of the patient's full clinical presentation.Reference:1. Eddie C, Addy M, Griselda TORRES, et al.. A Unifying Approach for GFR Estimation: Recommendations of the NKF-ASN Task Force on Reassessing the Inclusion of Race in Diagnosing Kidney Disease. [place] Journal of Kidney Diseases 2021;79(2):268-88.e1.2. N Engl J Med 2020 Vol. 385 Issue 19 Pages 3416-6712 Performed By: #### P HOS, CH8, MG ####[facility] PATHOLOG[facility] [id number] [place], Glucose [Mass/Vol] 120 mg/dL High 80-116 The [facility] Comment on above: Performed By: #### P HOS, CH8, MG ####[facility] PATHOLOGY [id number] [place], Potassium [Moles/Vol] 4.2 mmol/L Normal 3.3-5.3 [facility] Comment on above: Performed By: #### P HOS, CH8, MG ####[facility] PATHOLOGY [id number] [place], Sodium [Moles/Vol] 135 mmol/L Normal 135-148 [facility] Comment on above: Performed By: #### P HOS, CH8, MG ####[facility] PATHOLOGY [id number] [place], Urea nitrogen [Mass/Vol] 19 mg/dL Normal 8-22 [facility] Comment on above: Performed By: #### P HOS, CH8, MG ####[facility] PATHOLOGY [id number] [place], COMPLETE BLOOD COUNTon 06-24 Erythrocyte distribution width (RBC) [Ratio] 15.1 % High 11.5-14.5 [facility] Comment on above: Performed By: #### C BC ####[facility] PATHOLOGY [id number] [place] [address], Hematocrit (Bld) [Volume fraction] 32.1 % Low 41.0-53.0 [facility] Comment on above: Performed By: #### C BC ####[facility] PATHOLOGY [id number] [place] [address], Hemoglobin (Bld) [Mass/Vol] 10.7 g/dL Low 13.9-16.3 [facility] Comment on above: Performed By: #### C BC ####[facility] PATHOLOGY [id number] [place] [address], MCH (RBC) [Entitic mass] 31.0 pg Normal 26.0-34.0 [facility] Comment on above: Performed By: #### C BC ####[facility] PATHOLOGY [id number] [place] [address], MCHC (RBC) [Mass/Vol] 33.5 g/dL Normal 32.0-35.9 [facility] Comment on above: Performed By: #### C BC ####[facility] PATHOLOGY [id number] [place] [address], MCV (RBC) [Entitic vol] 92 fL Normal 80-100 [facility] Comment on above: Performed By: #### C BC ####[facility] PATHOLOGY [id number] [place] [address], Platelet mean volume (Bld) [Entitic vol] 7.8 fL Normal 7.5-11.2 [facility] Comment on above: Performed By: #### C BC ####[facility] PATHOLOGY [id number] [place] [address], Platelets (Bld) [#/Vol] 660 10*3/uL High 150-400 [facility] Comment on above: Performed By: #### C BC ####[facility] PATH[facility] [id number] [place], RBC (Bld) [#/Vol] 3.47 10*6/uL Low 4.50-5.90 [facility] Comment on above: Performed By: #### C BC ####[facility] PATHOLOG[facility] [id number] [place], WBC (Bld) [#/Vol] 10.4 10*3/uL Normal 4.5-11.5 [facility] Comment on above: Performed By: #### C BC ####[facility] PATHOLOG[facility] [id number] [place], Care Plan Noteon 06-24-2022 Lawn Mower Authentication Interface Message Text Normal [facility] Consultson 06-24-2022 Lawn Mower Authentication Interface Message Text Normal [facility] Lawn Mower Authentication Interface Message Text Normal [facility] Lawn Mower Authentication Interface Message Text Normal [facility] MAGNESIUMon 06-24-2022 Magnesium [Mass/Vol] 2.1 mg/dL Normal 1.6-2.8 [facility] Comment on above: Performed By: #### P HOS, CH8, MG ####[facility] PATHOLOGY [id number] [place], PHOSPHORUSon 06-24-2022 Phosphate [Mass/Vol] 3.7 mg/dL Normal 2.5-4.8 [facility] Comment on above: Performed By: #### P HOS, CH8, MG ####[facility] PATHOLOGY [id number] [place], Progress Noteson 06-24-2022 Lawn Mower Authentication Interface Message Text Normal [facility] Treatment Plan Noteon 2022 Lawn Mower Authentication Interface Message Text Normal [facility] BASIC METABOLIC PANELon 05- Anion gap [Moles/Vol] 12 mmol/L Normal 10-20 [facility] Comment on above: Performed By: #### P HOS, CH8, MG ####[facility] PATHOLOGY [id number] [place], Calcium [Mass/Vol] 8.6 mg/dL Normal 8.4-10.4 [facility] Comment on above: Performed By: #### P HOS, CH8, MG ####[facility] PATHOLOG[facility] [id number] [place], Chloride [Moles/Vol] 99 mmol/L Normal 97-111 [facility] Comment on above: Performed By: #### P HOS, CH8, MG ####[facility] PATHOLOGY [id number] [place], CO2 [Moles/Vol] 28 mmol/L Normal 21-30 [facility] Comment on above: Performed By: #### P HOS, CH8, MG ####[facility] PATHOLOG[facility] [id number] [place], Creatinine [Mass/Vol] 0.32 mg/dL Low 0.80-1.30 [facility] Comment on above: Performed By: #### P HOS, CH8, MG ####[facility] PATHOLOG[facility] [id number] [place], ESTIMATED GFR (CKD-EPI) 134 mL/min/1.73sqm Normal >=60 [facility] Comment on above: Result Comment: 2020 CKD EPI Equation using Creatinine without RaceComment: Estimated glomerular filtration rate (eGFR) is calculated without a race coefficient. Values should be interpreted in the context of the patient's full clinical presentation.Reference:1. Eddie C, Addy M, Griselda TORRES, et al.. A Unifying Approach for GFR Estimation: Recommendations of the NKF-ASN Task Force on Reassessing the Inclusion of Race in Diagnosing Kidney Disease. [place] Journal of Kidney Diseases 2021;79(2):268-88.e1.2. N Engl J Med 1 Vol. 385 Issue 19 Pages 1843-4950 Performed By: #### P HOS, CH8, MG ####[facility] PATH[facility] [id number] [place], Glucose [Mass/Vol] 111 mg/dL Normal 80-116 [facility] Comment on above: Performed By: #### P HOS, CH8, MG ####[facility] PATHOLOGY [id number] [place], Potassium [Moles/Vol] 4.3 mmol/L Normal 3.3-5.3 [facility] Comment on above: Performed By: #### P HOS, CH8, MG ####[facility] PATHOLOGY [id number] [place], Sodium [Moles/Vol] 135 mmol/L Normal 135-148 [facility] Comment on above: Performed By: #### P HOS, CH8, MG ####[facility] PATHOLOGY [id number] [place], Urea nitrogen [Mass/Vol] 13 mg/dL Normal 8-22 [facility] Comment on above: Performed By: #### P HOS, CH8, MG ####[facility] PATHOLOGY [id number] [place], COMPLETE BLOOD COUNTon 06-23 Erythrocyte distribution width (RBC) [Ratio] 15.3 % High 11.5-14.5 [facility] Comment on above: Performed By: #### C BC ####S PATHOLOGY [id number] [place], Hematocrit (Bld) [Volume fraction] 32.8 % Low 41.0-53.0 [facility] Comment on above: Performed By: #### C BC ####[facility] PATH[facility] [id number] [place], Hemoglobin (Bld) [Mass/Vol] 10.7 g/dL Low 13.9-16.3 [facility] Comment on above: Performed By: #### C BC ####[facility] PATH[facility] [id number] [place], MCH (RBC) [Entitic mass] 30.1 pg Normal 26.0-34.0 [facility] Comment on above: Performed By: #### C BC ####[facility] PATHOLOG[facility] [id number] [place], MCHC (RBC) [Mass/Vol] 32.5 g/dL Normal 32.0-35.9 [facility] Comment on above: Performed By: #### C BC ####[facility] PATHOLOGY [id number] [place], MCV (RBC) [Entitic vol] 93 fL Normal 80-100 [facility] Comment on above: Performed By: #### C BC ####[facility] PATHOLOGY [id number] [place], Platelet mean volume (Bld) [Entitic vol] 7.7 fL Normal 7.5-11.2 [facility] Comment on above: Performed By: #### C BC ####[facility] PATHOLOGY [id number] [place], Platelets (Bld) [#/Vol] 736 10*3/uL High 150-400 [facility] Comment on above: Performed By: #### C BC ####[facility] PATHOLOGY [id number] [place] [address], RBC (Bld) [#/Vol] 3.54 10*6/uL Low 4.50-5.90 [facility] Comment on above: Performed By: #### C BC ####[facility] PATHOLOGY [id number] [place] [address], WBC (Bld) [#/Vol] 12.3 10*3/uL High 4.5-11.5 [facility] Comment on above: Performed By: #### C BC ####[facility] PATHOLOGY [id number] [place], Care Plan Noteon 06-23-2022 Lawn Mower Authentication Interface Message Text Normal [facility] MAGNESIUMon 06-23-2022 Magnesium [Mass/Vol] 2.1 mg/dL Normal 1.6-2.8 [facility] Comment on above: Performed By: #### P HOS, CH8, MG ####S PATHOLOGY [id number] [place], PHOSPHORUSon 06-23-2022 Phosphate [Mass/Vol] 3.7 mg/dL Normal 2.5-4.8 [facility] Comment on above: Performed By: #### P HOS CH8, MG ####[facility] PATH[facility] [id number] [place], Progress Noteson 06-23-2022 Lawn Mower Authentication Interface Message Text Normal [facility] Lawn Mower Authentication Interface Message Text Normal [facility] BASIC METABOLIC PANELon 05-0 Anion gap [Moles/Vol] 14 mmol/L Normal 10-20 [facility] Comment on above: Performed By: #### NAHID Marshall CH8 ####[facility] PATH[facility] [id number] [place], Calcium [Mass/Vol] 8.3 mg/dL Low 8.4-10.4 [facility] Comment on above: Performed By: #### NAHID Marshall, CH8 ####[facility] [id number] [place], [place], Chloride [Moles/Vol] 103 mmol/L Normal 97-111 [facility] Comment on above: Performed By: #### NAHID Marshall, CH8 ####[facility] [id number] [place], CO2 [Moles/Vol] 25 mmol/L Normal 21-30 [facility] Comment on above: Performed By: #### NAHID Marshall, CH8 ####[facility] [id number] [place], Creatinine [Mass/Vol] 0.33 mg/dL Low 0.80-1.30 [facility] Comment on above: Performed By: #### NAHID Marshall, CH8 ####[facility] [id number] [place], ESTIMATED GFR (CKD-EPI) 132 mL/min/1.73sqm Normal >=60 [facility] Comment on above: Result Comment: 2020 CKD EPI Equation using Creatinine without RaceComment: Estimated glomerular filtration rate (eGFR) is calculated without a race coefficient. Values should be interpreted in the context of the patient's full clinical presentation.Reference:1. Eddie Oliveira, Addy M, Griselda TORRES, et al.. A Unifying Approach for GFR Estimation: Recommendations of the NKF-ASN Task Force on Reassessing the Inclusion of Race in Diagnosing Kidney Disease. [place] Journal of Kidney Diseases 2021;79(2):268-88.e1.2. N Engl J Med 2020 Vol. 385 Issue 19 Pages 9281-4625 Performed By: #### NAHID Marshall CH8 ####[facility] [id number] [place], Glucose [Mass/Vol] 123 mg/dL High 80-116 [facility] Comment on above: Performed By: #### NAHID Marshall CH8 ####[facility] [id number] [place], Potassium [Moles/Vol] 4.5 mmol/L Normal 3.3-5.3 [facility] Comment on above: Performed By: #### NAHID Marshall CH8 ####S PATHOLOGY [id number] [place], Sodium [Moles/Vol] 137 mmol/L Normal 135-148 [facility] Comment on above: Performed By: #### NAHID Marshall CH8 ####[facility] [id number] [place], Urea nitrogen [Mass/Vol] 13 mg/dL Normal 8-22 [facility] Comment on above: Performed By: #### NAHID Marshall CH8 ####[facility] [id number] [place], COMPLETE BLOOD COUNTon 06-22 Erythrocyte distribution width (RBC) [Ratio] 15.6 % High 11.5-14.5 [facility] Comment on above: Performed By: #### Tee BC ####[facility] [id number] [place], Hematocrit (Bld) [Volume fraction] 30.8 % Low 41.0-53.0 [facility] Comment on above: Performed By: #### Tee BC ####[facility] [id number] [place], Hemoglobin (Bld) [Mass/Vol] 9.9 g/dL Low 13.9-16.3 [facility] Comment on above: Performed By: #### C BC ####[facility] PATHOLOGY [id number] [place], MCH (RBC) [Entitic mass] 29.8 pg Normal 26.0-34.0 [facility] Comment on above: Performed By: #### C BC ####[facility] PATHOLOGY [id number] [place], MCHC (RBC) [Mass/Vol] 32.1 g/dL Normal 32.0-35.9 [facility] Comment on above: Performed By: #### C BC ####[facility] PATHOLOGY [id number] [place], MCV (RBC) [Entitic vol] 93 fL Normal 80-100 [facility] Comment on above: Performed By: #### C BC ####[facility] PATHOLOGY [id number] [place] [address], Platelet mean volume (Bld) [Entitic vol] 7.8 fL Normal 7.5-11.2 [facility] Comment on above: Performed By: #### C BC ####[facility] PATHOLOGY [id number] [place], Platelets (Bld) [#/Vol] 743 10*3/uL High 150-400 [facility] Comment on above: Performed By: #### C BC ####[facility] PATHOLOGY [id number] [place], RBC (Bld) [#/Vol] 3.31 10*6/uL Low 4.50-5.90 [facility] Comment on above: Performed By: #### C BC ####[facility] PATHOLOGY [id number] [place], WBC (Bld) [#/Vol] 11.5 10*3/uL Normal 4.5-11.5 [facility] Comment on above: Performed By: #### C BC ####[facility] PATHOLOGY [id number] [place], MAGNESIUMon 06-22-2022 Magnesium [Mass/Vol] 2.1 mg/dL Normal 1.6-2.8 [facility] Comment on above: Performed By: #### NAHID Marshall CH8 ####[facility] [id number] [place], PHOSPHORUSon 06-22-2022 Phosphate [Mass/Vol] 3.9 mg/dL Normal 2.5-4.8 [facility] Comment on above: Performed By: #### NAHID Marshall CH8 ####[facility] PATH[facility] [id number] [place], Progress Noteson 06-22-2022 Lawn Mower Authentication Interface Message Text Normal [facility] Lawn Mower Authentication Interface Message Text Normal [facility] Lawn Mower Authentication Interface Message Text Normal [facility] 1:1 Interactionon 06-21-2022 Lawn Mower Authentication Interface Message Text Normal [facility] ANTI FXA-LMW HEPARINon 06-21 ANTI FXA-LMW HEPARIN ASSAY 0.78 IU/mL Normal [facility] Comment on above: Order Comment: The r ecommended therapeutic range for treatment of thrombosis with Low Molecular Weight Heparin is 0.5 - 1.0 IU/mLThe recommended range for VTE prophylaxis with Low Molecular Weight Heparin is 0.2 - 0.4 IU/mL. Performed By: #### A XL ####[facility] [id number] [place], BASIC METABOLIC PANELon Anion gap [Moles/Vol] 11 mmol/L Normal 10-20 [facility] Comment on above: Performed By: #### P HOS, MG, CH8 ####[facility] [id number] [place], Calcium [Mass/Vol] 8.2 mg/dL Low 8.4-10.4 [facility] Comment on above: Performed By: #### P HOS, MG, CH8 ####[facility] PATH[facility] [id number] [place], Chloride [Moles/Vol] 102 mmol/L Normal 97-111 [facility] Comment on above: Performed By: #### P HOS, MG, CH8 ####[facility] [id number] [place], CO2 [Moles/Vol] 27 mmol/L Normal 21-30 [facility] Comment on above: Performed By: #### P HOS, MG, CH8 ####[facility] [id number] [place], Creatinine [Mass/Vol] 0.29 mg/dL Low 0.80-1.30 [facility] Comment on above: Performed By: #### P HOS, MG, CH8 ####[facility] [id number] [place], ESTIMATED GFR (CKD-EPI) 138 mL/min/1.73sqm Normal >=60 [facility] Comment on above: Result Comment: 2020 CKD EPI Equation using Creatinine without RaceComment: Estimated glomerular filtration rate (eGFR) is calculated without a race coefficient. Values should be interpreted in the context of the patient's full clinical presentation.Reference:1. Eddie C, Addy M, Griselda DC, et al.. A Unifying Approach for GFR Estimation: Recommendations of the NKF-ASN Task Force on Reassessing the Inclusion of Race in Diagnosing Kidney Disease. [place] Journal of Kidney Diseases 2021;79(2):268-88.e1.2. N Engl J Med 2020 Vol. 385 Issue 19 Pages 6797-0194 Performed By: #### P HOS, MG, CH8 ####[facility] [id number] [place], Glucose [Mass/Vol] 120 mg/dL High 80-116 [facility] Comment on above: Performed By: #### P HOS, MG, CH8 ####[facility] [id number] [place], Potassium [Moles/Vol] 4.3 mmol/L Normal 3.3-5.3 [facility] Comment on above: Performed By: #### P HOS, MG, CH8 ####[facility] [id number] [place], Sodium [Moles/Vol] 136 mmol/L Normal 135-148 [facility] Comment on above: Performed By: #### P AUNDREA MG, CH8 ####[facility] PATHOLOGY [id number] [place], Urea nitrogen [Mass/Vol] 15 mg/dL Normal 8-22 [facility] Comment on above: Performed By: #### P AUNDREA MG, CH8 ####[facility] PATHOLOGY [id number] [place], COMPLETE BLOOD COUNTon 06-21 Erythrocyte distribution width (RBC) [Ratio] 15.9 % High 11.5-14.5 [facility] Comment on above: Performed By: #### C BC ####[facility] PATHOLOGY [id number] [place], Hematocrit (Bld) [Volume fraction] 30.7 % Low 41.0-53.0 [facility] Comment on above: Performed By: #### C BC ####[facility] PATHOLOGY [id number] [place], Hemoglobin (Bld) [Mass/Vol] 9.7 g/dL Low 13.9-16.3 [facility] Comment on above: Performed By: #### C BC ####[facility] PATHOLOGY [id number] [place], MCH (RBC) [Entitic mass] 29.5 pg Normal 26.0-34.0 [facility] Comment on above: Performed By: #### C BC ####[facility] PATHOLOGY [id number] [place], MCHC (RBC) [Mass/Vol] 31.6 g/dL Low 32.0-35.9 [facility] Comment on above: Performed By: #### C BC ####[facility] PATHOLOGY [id number] [place], MCV (RBC) [Entitic vol] 93 fL Normal 80-100 [facility] Comment on above: Performed By: #### C BC ####S PATHOLOGY [id number] [place], Platelet mean volume (Bld) [Entitic vol] 8.0 fL Normal 7.5-11.2 [facility] Comment on above: Performed By: #### C BC ####[facility] PATHOLOGY [id number] [place], Platelets (Bld) [#/Vol] 714 10*3/uL High 150-400 [facility] Comment on above: Performed By: #### C BC ####[facility] PATHOLOGY [id number] [place] [address], RBC (Bld) [#/Vol] 3.29 10*6/uL Low 4.50-5.90 [facility] Comment on above: Performed By: #### C BC ####[facility] PATHOLOGY [id number] [place] [address], WBC (Bld) [#/Vol] 11.7 10*3/uL High 4.5-11.5 [facility] Comment on above: Performed By: #### C BC ####[facility] PATHOLOGY [id number] [place] [address], MAGNESIUMon 06-21-2022 Magnesium [Mass/Vol] 2.1 mg/dL Normal 1.6-2.8 [facility] Comment on above: Performed By: #### P HOS, MG, CH8 ####[facility] PATHOLOGY [id number] [place] [address], PHOSPHORUSon 06-21-2022 Phosphate [Mass/Vol] 3.2 mg/dL Normal 2.5-4.8 [facility] Comment on above: Performed By: #### P HOS, MG, CH8 ####[facility] PATHOLOGY [id number] [place], BASIC METABOLIC PANELon Anion gap [Moles/Vol] 13 mmol/L Normal 10-20 [facility] Comment on above: Performed By: #### C H8, PHOS, MG ####[facility] PATHOLOGY [id number] [place], Calcium [Mass/Vol] 8.0 mg/dL Low 8.4-10.4 [facility] Comment on above: Performed By: #### NAHID Franks MG ####[facility] [id number] [place], Chloride [Moles/Vol] 104 mmol/L Normal 97-111 [facility] Comment on above: Performed By: #### NAHID Franks, MG ####[facility] [id number] [place], CO2 [Moles/Vol] 25 mmol/L Normal 21-30 [facility] Comment on above: Performed By: #### NAHID Franks MG ####[facility] PATH[facility] [id number] [place], Creatinine [Mass/Vol] 0.29 mg/dL Low 0.80-1.30 [facility] Comment on above: Performed By: #### NAHID Franks MG ####[facility] [id number] [place], ESTIMATED GFR (CKD-EPI) 138 mL/min/1.73sqm Normal >=60 [facility] Comment on above: Result Comment: 2020 CKD EPI Equation using Creatinine without RaceComment: Estimated glomerular filtration rate (eGFR) is calculated without a race coefficient. Values should be interpreted in the context of the patient's full clinical presentation.Reference:1. Eddie C, Addy M, Griselda TORRES, et al.. A Unifying Approach for GFR Estimation: Recommendations of the NKF-ASN Task Force on Reassessing the Inclusion of Race in Diagnosing Kidney Disease. [place] Journal of Kidney Diseases 2021;79(2):268-88.e1.2. N Engl J Med 1 Vol. 385 Issue 19 Pages 7487-1156 Performed By: #### NAHID Franks MG ####[facility] [id number] [place], Glucose [Mass/Vol] 129 mg/dL High 80-116 [facility] Comment on above: Performed By: #### NAHID Franks, MG ####[facility] PATH[facility] [id number] [place], Potassium [Moles/Vol] 4.5 mmol/L Normal 3.3-5.3 [facility] Comment on above: Performed By: #### C HNAHID Archer, MG ####[facility] PATH[facility] [id number] [place], Sodium [Moles/Vol] 137 mmol/L Normal 135-148 [facility] Comment on above: Performed By: #### C HNAHID Archer, MG ####[facility] [id number] [place], Urea nitrogen [Mass/Vol] 14 mg/dL Normal 8-22 [facility] Comment on above: Performed By: #### NAHID Franks, MG ####[facility] [id number] [place], COMPLETE BLOOD COUNTon 06-20 Erythrocyte distribution width (RBC) [Ratio] 15.8 % High 11.5-14.5 [facility] Comment on above: Performed By: #### C BC ####[facility] PATHOLOGY [id number] [place], Hematocrit (Bld) [Volume fraction] 28.0 % Low 41.0-53.0 [facility] Comment on above: Performed By: #### C BC ####[facility] PATHOLOGY [id number] [place], Hemoglobin (Bld) [Mass/Vol] 8.9 g/dL Low 13.9-16.3 [facility] Comment on above: Performed By: #### C BC ####[facility] [id number] [place], MCH (RBC) [Entitic mass] 29.4 pg Normal 26.0-34.0 [facility] Comment on above: Performed By: #### C BC ####[facility] PATH[facility] [id number] [place], MCHC (RBC) [Mass/Vol] 31.6 g/dL Low 32.0-35.9 [facility] Comment on above: Performed By: #### C BC ####S PATHOLOGY [id number] [place], MCV (RBC) [Entitic vol] 93 fL Normal 80-100 [facility] Comment on above: Performed By: #### C BC ####S PATHOLOGY [id number] [place], Platelet mean volume (Bld) [Entitic vol] 8.2 fL Normal 7.5-11.2 [facility] Comment on above: Performed By: #### C BC ####[facility] PATHOLOGY [id number] [place], Platelets (Bld) [#/Vol] 774 10*3/uL High 150-400 [facility] Comment on above: Performed By: #### C BC ####[facility] PATHOLOGY [id number] [place], RBC (Bld) [#/Vol] 3.02 10*6/uL Low 4.50-5.90 [facility] Comment on above: Performed By: #### C BC ####[facility] PATHOLOGY [id number] [place], WBC (Bld) [#/Vol] 11.7 10*3/uL High 4.5-11.5 [facility] Comment on above: Performed By: #### C BC ####[facility] PATHOLOGY [id number] [place], MAGNESIUMon 06-20-2022 Magnesium [Mass/Vol] 2.1 mg/dL Normal 1.6-2.8 [facility] Comment on above: Performed By: #### C H8, PHOS, MG ####S PATHOLOGY [id number] [place], PARTIAL THROMBOPLASTIN TIMEo n 06-20-2022 aPTT Coag (Bld) [Time] 69 s High 25-37 Th [facility] Comment on above: Performed By: #### A PTT ####S PATHOLOGY [id number] [place], PHOSPHORUSon 06-20-2022 Phosphate [Mass/Vol] 3.9 mg/dL Normal 2.5-4.8 [facility] Comment on above: Performed By: #### C H8 PHOS, MG ####[facility] [id number] [place], Progress Noteson 06-20-2022 Lawn Mower Authentication Interface Message Text Normal [facility] Lawn Mower Authentication Interface Message Text Social Work ICU Note Note entered in error. See previous inpatient SW notes from SW needs/DC plan. Normal [facility] Lawn Mower Authentication Interface Message Text Normal [facility] Lawn Mower Authentication Interface Message Text Normal The [employer] [facility] BASIC METABOLIC PANELon Anion gap [Moles/Vol] 12 mmol/L Normal 10-20 [facility] Comment on above: Performed By: #### P HOS, CH8, MG ####[facility] PATH[facility] [id number] [place], Calcium [Mass/Vol] 8.1 mg/dL Low 8.4-10.4 [facility] Comment on above: Performed By: #### P HOS, CH8, MG ####[facility] PATH[facility] [id number] [place], Chloride [Moles/Vol] 106 mmol/L Normal 97-111 [facility] Comment on above: Performed By: #### P HOS, CH8, MG ####[facility] PATH[facility] [id number] [place], CO2 [Moles/Vol] 26 mmol/L Normal 21-30 [facility] Comment on above: Performed By: #### P HOS, CH8, MG ####[facility] PATH[facility] [id number] [place], Creatinine [Mass/Vol] 0.27 mg/dL Low 0.80-1.30 [facility] Comment on above: Performed By: #### P HOS, CH8, MG ####[facility] PATH[facility] [id number] [place], ESTIMATED GFR (CKD-EPI) 141 mL/min/1.73sqm Normal >=60 [facility] Comment on above: Result Comment: 2020 CKD EPI Equation using Creatinine without RaceComment: Estimated glomerular filtration rate (eGFR) is calculated without a race coefficient. Values should be interpreted in the context of the patient's full clinical presentation.Reference:1. Eddie Oliveira, Addy M, Griselda TORRES, et al.. A Unifying Approach for GFR Estimation: Recommendations of the NKF-ASN Task Force on Reassessing the Inclusion of Race in Diagnosing Kidney Disease. [place] Journal of Kidney Diseases 2021;79(2):268-88.e1.2. N Engl J Med 2020 Vol. 385 Issue 19 Pages 6740-0661 Performed By: #### P HOS CH8, MG ####[facility] PATH[facility] [id number] [place], Glucose [Mass/Vol] 104 mg/dL Normal 80-116 [facility] Comment on above: Performed By: #### P HOS CH8, MG ####[facility] PATH[facility] [id number] [place], Potassium [Moles/Vol] 4.5 mmol/L Normal 3.3-5.3 [facility] Comment on above: Performed By: #### P HOS CH8, MG ####[facility] PATH[facility] [id number] [place], Sodium [Moles/Vol] 139 mmol/L Normal 135-148 [facility] Comment on above: Performed By: #### P HOS, CH8, MG ####[facility] PATH[facility] [id number] [place], Urea nitrogen [Mass/Vol] 14 mg/dL Normal 8-22 [facility] Comment on above: Performed By: #### P HOS CH8, MG ####[facility] PATH[facility] [id number] [place], COMPLETE BLOOD COUNTon 06-19 Erythrocyte distribution width (RBC) [Ratio] 15.7 % High 11.5-14.5 [facility] Comment on above: Performed By: #### C BC ####[facility] PATH[facility] [id number] [place], Hematocrit (Bld) [Volume fraction] 27.7 % Low 41.0-53.0 [facility] Comment on above: Performed By: #### C BC ####[facility] PATHOLOGY [id number] [place], Hemoglobin (Bld) [Mass/Vol] 8.6 g/dL Low 13.9-16.3 [facility] Comment on above: Performed By: #### C BC ####[facility] PATHOLOGY [id number] [place] [address], MCH (RBC) [Entitic mass] 29.0 pg Normal 26.0-34.0 [facility] Comment on above: Performed By: #### C BC ####[facility] PATHOLOGY [id number] [place] [address], MCHC (RBC) [Mass/Vol] 31.0 g/dL Low 32.0-35.9 [facility] Comment on above: Performed By: #### C BC ####[facility] PATHOLOGY [id number] [place] [address], MCV (RBC) [Entitic vol] 93 fL Normal 80-100 [facility] Comment on above: Performed By: #### C BC ####[facility] PATHOLOGY [id number] [place] [address], Platelet mean volume (Bld) [Entitic vol] 8.9 fL Normal 7.5-11.2 [facility] Comment on above: Performed By: #### C BC ####[facility] PATHOLOGY [id number] [place] [address], Platelets (Bld) [#/Vol] 646 10*3/uL High 150-400 [facility] Comment on above: Performed By: #### C BC ####[facility] PATHOLOGY [id number] [place] [address], RBC (Bld) [#/Vol] 2.96 10*6/uL Low 4.50-5.90 [facility] Comment on above: Performed By: #### C BC ####[facility] PATHOLOGY [id number] [place] [address] [place], WBC (Bld) [#/Vol] 12.1 10*3/uL High 4.5-11.5 [facility] Comment on above: Performed By: #### C BC ####[facility] PATH[facility] [id number] [place], Consultson 06-19-2022 Lawn Mower Authentication Interface Message Text Normal [facility] Lawn Mower Authentication Interface Message Text Normal [facility] Lawn Mower Authentication Interface Message Text Normal [facility] Lawn Mower Authentication Interface Message Text Normal [facility] Lawn Mower Authentication Interface Message Text Normal [facility] MAGNESIUMon 06-19-2022 Magnesium [Mass/Vol] 2.2 mg/dL Normal 1.6-2.8 [facility] Comment on above: Performed By: #### P HOS, CH8, MG ####[facility] PATH[facility] [id number] [place], PHOSPHORUSon 06-19-2022 Phosphate [Mass/Vol] 3.5 mg/dL Normal 2.5-4.8 [facility] Comment on above: Performed By: #### P HOS, CH8, MG ####[facility] PATH[facility] [id number] [place], Progress Noteson 06-19-2022 Lawn Mower Authentication Interface Message Text Normal [facility] Lawn Mower Authentication Interface Message Text This encounter was opened in error. Patient was a No-Show. Please disregard. Normal [facility] Lawn Mower Authentication Interface Message Text Normal [facility] Lawn Mower Authentication Interface Message Text Normal [facility] Lawn Mower Authentication Interface Message Text Normal [facility] XR CLAVICLE LEFT 2 VIEWSon 0 06-19-2022 XR CLAVICLE LEFT 2 VIEWS Normal [facility] BASIC METABOLIC PANELon 05 Anion gap [Moles/Vol] 10 mmol/L Normal 10-20 [facility] Comment on above: Performed By: #### M G, PHOS, CH8 ####[facility] [id number] [place], Calcium [Mass/Vol] 8.0 mg/dL Low 8.4-10.4 [facility] Comment on above: Performed By: #### NAHID Marshall CH8 ####[facility] [id number] [place], Chloride [Moles/Vol] 107 mmol/L Normal 97-111 [facility] Comment on above: Performed By: #### NAHID Marshall CH8 ####[facility] [id number] [place], CO2 [Moles/Vol] 27 mmol/L Normal 21-30 [facility] Comment on above: Performed By: #### NAHID Marshall CH8 ####[facility] PATH[facility] [id number] [place], Creatinine [Mass/Vol] 0.28 mg/dL Low 0.80-1.30 [facility] Comment on above: Performed By: #### NAHID Marshall CH8 ####[facility] [id number] [place], ESTIMATED GFR (CKD-EPI) 139 mL/min/1.73sqm Normal >=60 [facility] Comment on above: Result Comment: 2020 CKD EPI Equation using Creatinine without RaceComment: Estimated glomerular filtration rate (eGFR) is calculated without a race coefficient. Values should be interpreted in the context of the patient's full clinical presentation.Reference:1. Eddie C, Addy M, Griselda TORRES, et al.. A Unifying Approach for GFR Estimation: Recommendations of the NKF-ASN Task Force on Reassessing the Inclusion of Race in Diagnosing Kidney Disease. [place] Journal of Kidney Diseases 2021;79(2):268-88.e1.2. N Engl J Med 2020 Vol. 385 Issue 19 Pages 4893-0297 Performed By: #### NAHID Marshall CH8 ####[facility] [id number] [place], [place], Glucose [Mass/Vol] 120 mg/dL High 80-116 [facility] Comment on above: Performed By: #### NAHID Marshall CH8 ####[facility] [id number] [place], Potassium [Moles/Vol] 4.3 mmol/L Normal 3.3-5.3 [facility] Comment on above: Performed By: #### NAHID Marshall CH8 ####[facility] PATHOLOGY [id number] [place], Sodium [Moles/Vol] 140 mmol/L Normal 135-148 [facility] Comment on above: Performed By: #### NAHID Marshall CH8 ####[facility] PATHOLOGY [id number] [place], Urea nitrogen [Mass/Vol] 13 mg/dL Normal 8-22 [facility] Comment on above: Performed By: #### NAHID Marshall CH8 ####[facility] PATHOLOGY [id number] [place], COMPLETE BLOOD COUNTon 06-18 Erythrocyte distribution width (RBC) [Ratio] 16.2 % High 11.5-14.5 [facility] Comment on above: Performed By: #### C BC ####[facility] PATHOLOGY [id number] [place], Hematocrit (Bld) [Volume fraction] 26.4 % Low 41.0-53.0 [facility] Comment on above: Performed By: #### C BC ####[facility] PATHOLOGY [id number] [place], Hemoglobin (Bld) [Mass/Vol] 8.4 g/dL Low 13.9-16.3 [facility] Comment on above: Performed By: #### C BC ####S PATHOLOGY [id number] [place], MCH (RBC) [Entitic mass] 29.9 pg Normal 26.0-34.0 [facility] Comment on above: Performed By: #### C BC ####S PATHOLOGY [id number] [place], MCHC (RBC) [Mass/Vol] 31.7 g/dL Low 32.0-35.9 [facility] Comment on above: Performed By: #### C BC ####S PATHOLOGY [id number] [place], MCV (RBC) [Entitic vol] 95 fL Normal 80-100 [facility] Comment on above: Performed By: #### C BC ####S PATHOLOGY [id number] [place], Platelet mean volume (Bld) [Entitic vol] 8.4 fL Normal 7.5-11.2 [facility] Comment on above: Performed By: #### C BC ####S PATHOLOGY [id number] [place], Platelets (Bld) [#/Vol] 692 10*3/uL High 150-400 [facility] Comment on above: Performed By: #### C BC ####[facility] PATHOLOGY [id number] [place], RBC (Bld) [#/Vol] 2.80 10*6/uL Low 4.50-5.90 [facility] Comment on above: Performed By: #### C BC ####[facility] PATHOLOGY [id number] [place], WBC (Bld) [#/Vol] 13.3 10*3/uL High 4.5-11.5 [facility] Comment on above: Performed By: #### C BC ####[facility] PATHOLOGY [id number] [place], Care Plan Noteon 06-18-2022 Lawn Mower Authentication Interface Message Text Normal [facility] Consultson 06-18-2022 Lawn Mower Authentication Interface Message Text Normal [facility] Lawn Mower Authentication Interface Message Text Normal [facility] MAGNESIUMon 06-18-2022 Magnesium [Mass/Vol] 2.2 mg/dL Normal 1.6-2.8 [facility] Comment on above: Performed By: #### NAHID Marshall, CH8 ####[facility] PATHOLOGY [id number] [place], PARTIAL THROMBOPLASTIN TIMEo n 06-18-2022 aPTT Coag (Bld) [Time] 66 s High 25-37 [facility] Comment on above: Performed By: #### A PTT ####[facility] [id number] [place], PHOSPHORUSon 06-18-2022 Phosphate [Mass/Vol] 3.5 mg/dL Normal 2.5-4.8 [facility] Comment on above: Performed By: #### NAHID Marshall CH8 ####[facility] [id number] [place], Progress Noteson 06-18-2022 Lawn Mower Authentication Interface Message Text Normal [facility] Lawn Mower Authentication Interface Message Text Normal [facility] Lawn Mower Authentication Interface Message Text Normal [facility] Lawn Mower Authentication Interface Message Text Normal [facility] BASIC METABOLIC PANELon 05 Anion gap [Moles/Vol] 9 mmol/L Low 10-20 [facility] Comment on above: Performed By: #### TERESA Marshall PHOS ####[facility] [id number] [place], Calcium [Mass/Vol] 7.8 mg/dL Low 8.4-10.4 [facility] Comment on above: Performed By: ###TERESA Caceres PHOS ####[facility] [id number] [place], Chloride [Moles/Vol] 109 mmol/L Normal 97-111 [facility] Comment on above: Performed By: #### TERESA Marshall PHOS ####[facility] [id number] [place], CO2 [Moles/Vol] 27 mmol/L Normal 21-30 [facility] Comment on above: Performed By: #### TERESA Marshall PHOS ####[facility] [id number] [place], Creatinine [Mass/Vol] 0.23 mg/dL Low 0.80-1.30 [facility] Comment on above: Performed By: #### TERESA Marshall PHOS ####[facility] [id number] [place], ESTIMATED GFR (CKD-EPI) 148 mL/min/1.73sqm Normal >=60 [facility] Comment on above: Result Comment: 2020 CKD EPI Equation using Creatinine without RaceComment: Estimated glomerular filtration rate (eGFR) is calculated without a race coefficient. Values should be interpreted in the context of the patient's full clinical presentation.Reference:1. Eddie C, Addy M, Griselda TORRES, et al.. A Unifying Approach for GFR Estimation: Recommendations of the NKF-ASN Task Force on Reassessing the Inclusion of Race in Diagnosing Kidney Disease. [place] Journal of Kidney Diseases 2021;79(2):268-88.e1.2. N Engl J Med 1 Vol. 385 Issue 19 Pages 9515-7969 Performed By: #### TERESA Marshall, PHOS ####[facility] [id number] [place], Glucose [Mass/Vol] 111 mg/dL Normal 80-116 [facility] Comment on above: Performed By: #### TERESA Marshall, PHOS ####[facility] [id number] [place], Potassium [Moles/Vol] 4.2 mmol/L Normal 3.3-5.3 [facility] [facility] Comment on above: Performed By: #### TERESA Marshall, PHOS ####[facility] [id number] [place], Sodium [Moles/Vol] 141 mmol/L Normal 135-148 [facility] Comment on above: Performed By: #### TERESA Marshall, PHOS ####[facility] [id number] [place], Urea nitrogen [Mass/Vol] 13 mg/dL Normal 8-22 [facility] Comment on above: Performed By: #### TERESA Marshall, PHOS ####[facility] [id number] [place], COMPLETE BLOOD COUNTon 06-17 Erythrocyte distribution width (RBC) [Ratio] 16.0 % High 11.5-14.5 [facility] Comment on above: Performed By: #### C BC ####[facility] PATHOLOGY [id number] [place], Hematocrit (Bld) [Volume fraction] 26.2 % Low 41.0-53.0 [facility] Comment on above: Performed By: #### C BC ####[facility] PATHOLOGY [id number] [place], Hemoglobin (Bld) [Mass/Vol] 8.5 g/dL Low 13.9-16.3 [facility] Comment on above: Performed By: #### C BC ####[facility] PATHOLOGY [id number] [place], MCH (RBC) [Entitic mass] 30.7 pg Normal 26.0-34.0 [facility] Comment on above: Performed By: #### C BC ####[facility] PATHOLOGY [id number] [place], MCHC (RBC) [Mass/Vol] 32.4 g/dL Normal 32.0-35.9 [facility] Comment on above: Performed By: #### C BC ####[facility] PATHOLOGY [id number] [place], MCV (RBC) [Entitic vol] 95 fL Normal 80-100 [facility] Comment on above: Performed By: #### C BC ####[facility] PATHOLOGY [id number] [place], Platelet mean volume (Bld) [Entitic vol] 8.6 fL Normal 7.5-11.2 [facility] Comment on above: Performed By: #### C BC ####[facility] PATHOLOGY [id number] [place], Platelets (Bld) [#/Vol] 679 10*3/uL High 150-400 [facility] Comment on above: Performed By: #### C BC ####[facility] PATHOLOGY [id number] [place], RBC (Bld) [#/Vol] 2.76 10*6/uL Low 4.50-5.90 [facility] Comment on above: Performed By: #### C BC ####[facility] [id number] [place], WBC (Bld) [#/Vol] 14.8 10*3/uL High 4.5-11.5 [facility] Comment on above: Performed By: #### C BC ####[facility] [id number] [place], Care Plan Noteon 06-17-2022 Lawn Mower Authentication Interface Message Text Normal [facility] Consultson 06-17-2022 Lawn Mower Authentication Interface Message Text Normal [facility] MAGNESIUMon 06-17-2022 Magnesium [Mass/Vol] 2.1 mg/dL Normal 1.6-2.8 [facility] Comment on above: Performed By: #### M G CH8, PHOS ####[facility] [id number] [place], PARTIAL THROMBOPLASTIN TIMEo n 06-17-2022 aPTT Coag (Bld) [Time] 65 s High 25-37 Th e [facility] Comment on above: Performed By: #### A PTT ####[facility] [id number] [place], PHOSPHORUSon 06-17-2022 Phosphate [Mass/Vol] 3.3 mg/dL Normal 2.5-4.8 [facility] Comment on above: Performed By: #### M G, CH8, PHOS ####[facility] [id number] [place], Progress Noteson 06-17-2022 Lawn Mower Authentication Interface Message Text Normal [facility] Lawn Mower Authentication Interface Message Text Normal [facility] Lawn Mower Authentication Interface Message Text Normal [facility] BASIC METABOLIC PANELon -3 Anion gap [Moles/Vol] 8 mmol/L Low 10-20 [facility] Comment on above: Performed By: #### P HOS, CH8, MG ####[facility] [id number] [place], Calcium [Mass/Vol] 7.9 mg/dL Low 8.4-10.4 [facility] Comment on above: Performed By: #### P HOS, CH8, MG ####[facility] [id number] [place], Chloride [Moles/Vol] 111 mmol/L Normal 97-111 [facility] Comment on above: Performed By: #### P HOS, CH8, MG ####[facility] [id number] [place], CO2 [Moles/Vol] 28 mmol/L Normal 21-30 [facility] Comment on above: Performed By: #### P HOS, CH8, MG ####[facility] [id number] [place], Creatinine [Mass/Vol] 0.27 mg/dL Low 0.80-1.30 [facility] Comment on above: Performed By: #### P HOS, CH8, MG ####[facility] [id number] [place], ESTIMATED GFR (CKD-EPI) 141 mL/min/1.73sqm Normal >=60 [facility] Comment on above: Result Comment: 2020 CKD EPI Equation using Creatinine without RaceComment: Estimated glomerular filtration rate (eGFR) is calculated without a race coefficient. Values should be interpreted in the context of the patient's full clinical presentation.Reference:1. Eddie C, Addy M, Griselda TORRES, et al.. A Unifying Approach for GFR Estimation: Recommendations of the NKF-ASN Task Force on Reassessing the Inclusion of Race in Diagnosing Kidney Disease. [place] Journal of Kidney Diseases 202;79(2):268-88.e1.2. N Engl J Med 2020 Vol. 385 Issue 19 Pages 1984-3350 Performed By: #### P HOS, CH8, MG ####[facility] [id number] [place], Glucose [Mass/Vol] 125 mg/dL High 80-116 [facility] Comment on above: Performed By: #### P HOS, CH8, MG ####[facility] [id number] [place], Potassium [Moles/Vol] 4.4 mmol/L Normal 3.3-5.3 [facility] Comment on above: Performed By: #### P AUNDREA CH8, MG ####S PATHOLOGY [id number] [place], Sodium [Moles/Vol] 143 mmol/L Normal 135-148 [facility] Comment on above: Performed By: #### P AUNDREA CH8, MG ####S PATHOLOGY [id number] [place], Urea nitrogen [Mass/Vol] 14 mg/dL Normal 8-22 [facility] Comment on above: Performed By: #### P RAQUEL GUILLAUME8, MG ####[facility] PATHOLOGY [id number] [place], COMPLETE BLOOD COUNTon 06-16 Erythrocyte distribution width (RBC) [Ratio] 15.6 % High 11.5-14.5 [facility] Comment on above: Performed By: #### C BC ####[facility] PATHOLOGY [id number] [place], Hematocrit (Bld) [Volume fraction] 26.3 % Low 41.0-53.0 [facility] Comment on above: Performed By: #### C BC ####[facility] PATHOLOGY [id number] [place], Hemoglobin (Bld) [Mass/Vol] 8.5 g/dL Low 13.9-16.3 [facility] Comment on above: Performed By: #### C BC ####S PATHOLOGY [id number] [place], MCH (RBC) [Entitic mass] 30.5 pg Normal 26.0-34.0 [facility] Comment on above: Performed By: #### C BC ####S PATHOLOGY [id number] [place] [address], MCHC (RBC) [Mass/Vol] 32.3 g/dL Normal 32.0-35.9 [facility] Comment on above: Performed By: #### C BC ####S PATHOLOGY [id number] [place], MCV (RBC) [Entitic vol] 95 fL Normal 80-100 [facility] Comment on above: Performed By: #### C BC ####S PATHOLOGY [id number] [place], Platelet mean volume (Bld) [Entitic vol] 8.9 fL Normal 7.5-11.2 [facility] Comment on above: Performed By: #### C BC ####[facility] PATHOLOGY [id number] [place], Platelets (Bld) [#/Vol] 666 10*3/uL High 150-400 [facility] Comment on above: Performed By: #### C BC ####[facility] PATHOLOGY [id number] [place], RBC (Bld) [#/Vol] 2.78 10*6/uL Low 4.50-5.90 [facility] Comment on above: Performed By: #### C BC ####[facility] PATHOLOGY [id number] [place], WBC (Bld) [#/Vol] 16.3 10*3/uL High 4.5-11.5 [facility] Comment on above: Performed By: #### C BC ####[facility] PATHOLOGY [id number] [place], CT HEAD W/O CONTRASTon 06-16 CT HEAD W/O CONTRAST Normal [facility] Care Plan Noteon 06-16-2022 Lawn Mower Authentication Interface Message Text Normal [facility] MAGNESIUMon 06-16-2022 Magnesium [Mass/Vol] 2.1 mg/dL Normal 1.6-2.8 [facility] Comment on above: Performed By: #### P HOS, CH8, MG ####[facility] PATHOLOGY [id number] [place], PARTIAL THROMBOPLASTIN TIMEo n 06-16-2022 aPTT Coag (Bld) [Time] 63 s High 25-37 Th e [facility] Comment on above: Performed By: #### A PTT ####S PATHOLOGY [id number] [place], aPTT Coag (Bld) [Time] 46 s High -37 [facility] Comment on above: Performed By: #### A PTT ####[facility] [id number] [place], aPTT Coag (Bld) [Time] 32 s Normal -37 [facility] Comment on above: Performed By: #### A PTT ####[facility] [id number] [place], aPTT Coag (Bld) [Time] 34 s Normal -37 [facility] Comment on above: Performed By: #### A PTT ####[facility] PATHOLOGY [id number] [place], PHOSPHORUSon 06-16-2022 Phosphate [Mass/Vol] 3.2 mg/dL Normal 2.5-4.8 [facility] Comment on above: Performed By: #### P HOS, CH8, MG ####S PATHOLOGY [id number] [place], Progress Noteson 06-16-2022 Lawn Mower Authentication Interface Message Text [email or web address] [id number] Normal [facility] Lawn Mower Authentication Interface Message Text Normal [facility] Lawn Mower Authentication Interface Message Text Normal [facility] BASIC METABOLIC PANELon - Anion gap [Moles/Vol] 11 mmol/L Normal 10-20 [facility] Comment on above: Performed By: #### C H8, MG, PHOS ####[facility] [id number] [place], Calcium [Mass/Vol] 7.6 mg/dL Low 8.4-10.4 [facility] Comment on above: Performed By: #### C H8, MG, PHOS ####[facility] [id number] [place], Chloride [Moles/Vol] 112 mmol/L High 97-111 [facility] Comment on above: Performed By: #### Tee Starkey MG, PHOS ####[facility] [id number] [place], CO2 [Moles/Vol] 28 mmol/L Normal 21-30 [facility] Comment on above: Performed By: #### MG Tiny, PHOS ####[facility] [id number] [place], Creatinine [Mass/Vol] 0.26 mg/dL Low 0.80-1.30 [facility] Comment on above: Performed By: #### Tee Starkey MG, PHOS ####[facility] [id number] [place], ESTIMATED GFR (CKD-EPI) 142 mL/min/1.73sqm Normal >=60 [facility] Comment on above: Result Comment: 2020 CKD EPI Equation using Creatinine without RaceComment: Estimated glomerular filtration rate (eGFR) is calculated without a race coefficient. Values should be interpreted in the context of the patient's full clinical presentation.Reference:1. Eddie C, Addy M, Griselda TORRES, et al.. A Unifying Approach for GFR Estimation: Recommendations of the NKF-ASN Task Force on Reassessing the Inclusion of Race in Diagnosing Kidney Disease. [place] Journal of Kidney Diseases 2021;79(2):268-88.e1.2. N Engl J Med 2020 Vol. 385 Issue 19 Pages 2773-6807 Performed By: #### Tee H8 MG, PHOS ####[facility] [id number] [place], Glucose [Mass/Vol] 132 mg/dL High 80-116 [facility] Comment on above: Performed By: #### Tee H8 MG, PHOS ####[facility] [id number] [place], Potassium [Moles/Vol] 4.2 mmol/L Normal 3.3-5.3 [facility] Comment on above: Performed By: #### C H8, MG, PHOS ####S PATHOLOGY [id number] [place], Sodium [Moles/Vol] 147 mmol/L Normal 135-148 [facility] Comment on above: Performed By: #### C H8, MG, PHOS ####S PATHOLOGY [id number] [place], Urea nitrogen [Mass/Vol] 20 mg/dL Normal 8-22 [facility] Comment on above: Performed By: #### C H8, MG, PHOS ####[facility] PATHOLOGY [id number] [place], BLOOD GAS, ARTERIALon 2022 CR SEFERINO 4.9 mmol/L High -2.0-2.0 [facility] Comment on above: Performed By: #### C R BGA ####[facility] PATHOLOGY [id number] [place] [address], CR PCO2 39.4 mm Hg Normal 35.0-45.0 [facility] Comment on above: Performed By: #### C R BGA ####S PATHOLOGY [id number] [place], CR PHA 7.472 High 7.35-7.45 [facility] Comment on above: Performed By: #### C R BGA ####[facility] [id number] [place], CR PO2 85 mm Hg Normal 80-100 [facility] Comment on above: Performed By: #### C R BGA ####[facility] [id number] [place], FIO2 (CATEGORY) 60% Normal [facility] Comment on above: Performed By: #### C R BGA ####[facility] [id number] [place], HCO3 (Bld) [Moles/Vol] 29 mmol/L High 22-28 [facility] Comment on above: Performed By: #### C R BGA ####[facility] PATHOLOGY [id number] [place], MODE Vent Normal [facility] Comment on above: Performed By: #### C R BGA ####[facility] PATHOLOGY [id number] [place], Oxygen saturation in Blood 96.9 % Normal >=95.1 [facility] Comment on above: Performed By: #### C R BGA ####[facility] PATHOLOGY [id number] [place] [address], COMPLETE BLOOD COUNTon 06-15 Erythrocyte distribution width (RBC) [Ratio] 15.3 % High 11.5-14.5 [facility] Comment on above: Performed By: #### C BC ####[facility] PATHOLOGY [id number] [place] [address], Hematocrit (Bld) [Volume fraction] 26.2 % Low 41.0-53.0 [facility] Comment on above: Performed By: #### C BC ####[facility] PATHOLOGY [id number] [place] [address], Hemoglobin (Bld) [Mass/Vol] 8.2 g/dL Low 13.9-16.3 [facility] Comment on above: Performed By: #### C BC ####[facility] PATHOLOGY [id number] [place] [address], MCH (RBC) [Entitic mass] 30.0 pg Normal 26.0-34.0 [facility] Comment on above: Performed By: #### C BC ####[facility] PATHOLOGY [id number] [place] [address], MCHC (RBC) [Mass/Vol] 31.3 g/dL Low 32.0-35.9 [facility] Comment on above: Performed By: #### C BC ####[facility] PATHOLOGY [id number] [place], MCV (RBC) [Entitic vol] 96 fL Normal 80-100 [facility] Comment on above: Performed By: #### C BC ####[facility] PATHOLOGY [id number] [place], Platelet mean volume (Bld) [Entitic vol] 9.3 fL Normal 7.5-11.2 [facility] Comment on above: Performed By: #### C BC ####[facility] PATHOLOGY [id number] [place], Platelets (Bld) [#/Vol] 631 10*3/uL High 150-400 [facility] Comment on above: Performed By: #### C BC ####[facility] PATHOLOGY [id number] [place], RBC (Bld) [#/Vol] 2.74 10*6/uL Low 4.50-5.90 [facility] Comment on above: Performed By: #### C BC ####[facility] PATHOLOGY [id number] [place], WBC (Bld) [#/Vol] 17.7 10*3/uL High 4.5-11.5 [facility] Comment on above: Performed By: #### C BC ####[facility] PATHOLOGY [id number] [place], [place] HEAD W/O CONTRASTon 06-15 CT HEAD W/O CONTRAST Normal [facility] Care Plan Noteon 06-15-2022 Lawn Mower Authentication Interface Message Text Normal [facility] Lawn Mower Authentication Interface Message Text Patient actively working towards care plan goals. Normal [facility] MAGNESIUMon 06-15-2022 Magnesium [Mass/Vol] 2.2 mg/dL Normal 1.6-2.8 [facility] Comment on above: Performed By: #### C H8, MG, PHOS ####[facility] PATHOLOGY [id number] [place], PARTIAL THROMBOPLASTIN TIMEo n 06-15-2022 aPTT Coag (Bld) [Time] 33 s Normal 25-37 Th e [facility] Comment on above: Performed By: #### A PTT ####[facility] PATHOLOGY [id number] [place], PHOSPHORUSon 04-29-2023 Phosphate [Mass/Vol] 3.2 mg/dL Normal 2.5-4.8 [facility] Comment on above: Performed By: #### C H8, MG, PHOS ####[facility] [id number] [place], Progress Noteson 06-15-2022 Lawn Mower Authentication Interface Message Text Normal [facility] Lawn Mower Authentication Interface Message Text Normal [facility] BASIC METABOLIC PANELon 05-19 Anion gap [Moles/Vol] 12 mmol/L Normal 10-20 [facility] Communications System Comment on above: Performed By: #### C H8, PHOS, MG ####[facility] [id number] [place], [place], Calcium [Mass/Vol] 7.5 mg/dL Low 8.4-10.4 [facility] Comment on above: Performed By: #### C H8, PHOS, MG ####[facility] [id number] [place], Chloride [Moles/Vol] 113 mmol/L High 97-111 [facility] Comment on above: Performed By: #### C H8, PHOS, MG ####[facility] [id number] [place], CO2 [Moles/Vol] 29 mmol/L Normal 21-30 [facility] Comment on above: Performed By: #### C H8, PHOS, MG ####[facility] [id number] [place], Creatinine [Mass/Vol] 0.39 mg/dL Low 0.80-1.30 [facility] Comment on above: Performed By: #### C H8, PHOS, MG ####[facility] [id number] [place], ESTIMATED GFR (CKD-EPI) 126 mL/min/1.73sqm Normal >=60 [facility] Comment on above: Result Comment: 2020 CKD EPI Equation using Creatinine without RaceComment: Estimated glomerular filtration rate (eGFR) is calculated without a race coefficient. Values should be interpreted in the context of the patient's full clinical presentation.Reference:1. Eddie C, Addy M, Griselda DC, et al.. A Unifying Approach for GFR Estimation: Recommendations of the NKF-ASN Task Force on Reassessing the Inclusion of Race in Diagnosing Kidney Disease. [place] Journal of Kidney Diseases 2021;79(2):268-88.e1.2. N Engl J Med 2020 Vol. 385 Issue 19 Pages 1048-4740 Performed By: #### NAHID Franks MG ####[facility] [id number] [place], Glucose [Mass/Vol] 136 mg/dL High 80-116 [facility] Comment on above: Performed By: #### NAHID Franks MG ####[facility] [id number] [place], Potassium [Moles/Vol] 3.7 mmol/L Normal 3.3-5.3 [facility] Comment on above: Performed By: #### NAHID Franks MG ####[facility] [id number] [place], Sodium [Moles/Vol] 150 mmol/L High 135-148 [facility] Comment on above: Performed By: #### NAHID Franks MG ####[facility] [id number] [place], Urea nitrogen [Mass/Vol] 28 mg/dL High 8-22 [facility] Comment on above: Performed By: #### NAHID Franks MG ####[facility] [id number] [place], BLOOD CULTUREon 06-14-2022 Bacteria identified Cx Nom (Bld) C BLOOD: No Growth Normal [facility] Comment on above: Performed By: #### C BLOOD ####[facility] Ffeygirnv5449 [place], [place] BLOOD GAS, ARTERIALon 2022 CR SEFERINO 6.0 mmol/L High -2.0-2.0 [facility] Comment on above: Performed By: #### C R BGA ####[facility] [id number] [place], CR PCO2 38.1 mm Hg Normal 35.0-45.0 [facility] Comment on above: Performed By: #### C R BGA ####[facility] PATHOLOGY [id number] [place], CR PHA 7.499 High 7.35-7.45 [facility] Comment on above: Performed By: #### C R BGA ####[facility] PATHOLOGY [id number] [place], CR PO2 89 mm Hg Normal 80-100 [facility] Comment on above: Performed By: #### C R BGA ####[facility] PATHOLOGY [id number] [place] [address], FIO2 (CATEGORY) 70% Normal [facility] Comment on above: Performed By: #### C R BGA ####[facility] PATHOLOGY [id number] [place], HCO3 (Bld) [Moles/Vol] 29 mmol/L High 22-28 [facility] Comment on above: Performed By: #### C R BGA ####[facility] PATHOLOGY [id number] [place] [address], MODE Vent Normal [facility] Comment on above: Performed By: #### C R BGA ####[facility] PATHOLOGY [id number] [place], Oxygen saturation in Blood 97.5 % Normal >=95.1 [facility] Comment on above: Performed By: #### C R BGA ####[facility] PATHOLOGY [id number] [place], COMPLETE BLOOD COUNTon 06-14 Erythrocyte distribution width (RBC) [Ratio] 15.4 % High 11.5-14.5 [facility] Comment on above: Performed By: #### C BC ####[facility] PATHOLOGY [id number] [place], Hematocrit (Bld) [Volume fraction] 24.9 % Low 41.0-53.0 [facility] Comment on above: Performed By: #### C BC ####[facility] PATHOLOGY [id number] [place], Hemoglobin (Bld) [Mass/Vol] 7.9 g/dL Low 13.9-16.3 [facility] Comment on above: Performed By: #### C BC ####[facility] PATHOLOGY [id number] [place], MCH (RBC) [Entitic mass] 29.5 pg Normal 26.0-34.0 [facility] Comment on above: Performed By: #### C BC ####[facility] PATHOLOGY [id number] [place], MCHC (RBC) [Mass/Vol] 31.7 g/dL Low 32.0-35.9 [facility] Comment on above: Performed By: #### C BC ####[facility] PATHOLOGY [id number] [place], MCV (RBC) [Entitic vol] 93 fL Normal 80-100 [facility] Comment on above: Performed By: #### C BC ####[facility] PATHOLOGY [id number] [place], Platelet mean volume (Bld) [Entitic vol] 9.3 fL Normal 7.5-11.2 [facility] Comment on above: Performed By: #### C BC ####[facility] PATHOLOGY [id number] [place], Platelets (Bld) [#/Vol] 633 10*3/uL High 150-400 [facility] Comment on above: Performed By: #### C BC ####[facility] PATHOLOGY [id number] [place], RBC (Bld) [#/Vol] 2.67 10*6/uL Low 4.50-5.90 [facility] Comment on above: Performed By: #### C BC ####[facility] PATHOLOGY [id number] [place], WBC (Bld) [#/Vol] 17.8 10*3/uL High 4.5-11.5 [facility] Comment on above: Performed By: #### C BC ####[facility] [id number] [place], [place], [place] CHEST/ABD/PELVIS W/ CONTR Christa 06-14-2022 CT CHEST/ABD/PELVIS W/ CONTRAST Normal [facility] Care Plan Noteon 06-14-2022 Lawn Mower Authentication Interface Message Text Normal [facility] Consultson 06-14-2022 Lawn Mower Authentication Interface Message Text Normal [facility] MAGNESIUMon 06-14-2022 Magnesium [Mass/Vol] 2.3 mg/dL Normal 1.6-2.8 [facility] Comment on above: Performed By: #### Tee Starkey, PHOS, MG ####[facility] [id number] [place], PHOSPHORUSon 06-14-2022 Phosphate [Mass/Vol] 2.6 mg/dL Normal 2.5-4.8 [facility] Comment on above: Performed By: #### Tee Starkey, PHOS, MG ####[facility] [id number] [place], Progress Noteson 06-14-2022 Lawn Mower Authentication Interface Message Text Normal [facility] Lawn Mower Authentication Interface Message Text Normal [facility] Lawn Mower Authentication Interface Message Text Normal [facility] BASIC METABOLIC PANELon 05-19 Anion gap [Moles/Vol] 10 mmol/L Normal 10-20 [facility] Comment on above: Performed By: #### Tee Starkey, MG, PHOS ####[facility] [id number] [place], Calcium [Mass/Vol] 7.1 mg/dL Low 8.4-10.4 [facility] Comment on above: Performed By: #### Tee Starkey, MG, PHOS ####[facility] [id number] [place], Chloride [Moles/Vol] 110 mmol/L Normal 97-111 [facility] Comment on above: Performed By: #### Tee Starkey, MG, PHOS ####[facility] [id number] [place], CO2 [Moles/Vol] 30 mmol/L Normal 21-30 [facility] Comment on above: Performed By: #### MG Franks PHOS ####[facility] [id number] [place], Creatinine [Mass/Vol] 0.50 mg/dL Low 0.80-1.30 [facility] Comment on above: Performed By: #### MG Tiny PHOS ####[facility] [id number] [place], ESTIMATED GFR (CKD-EPI) 117 mL/min/1.73sqm Normal >=60 [facility] Comment on above: Result Comment: 2020 CKD EPI Equation using Creatinine without RaceComment: Estimated glomerular filtration rate (eGFR) is calculated without a race coefficient. Values should be interpreted in the context of the patient's full clinical presentation.Reference:1. Eddie C, Addy M, Griselda TORRES, et al.. A Unifying Approach for GFR Estimation: Recommendations of the NKF-ASN Task Force on Reassessing the Inclusion of Race in Diagnosing Kidney Disease. [place] Journal of Kidney Diseases 2021;79(2):268-88.e1.2. N Engl J Med 1 Vol. 385 Issue 19 Pages 6614-5584 Performed By: #### MG Franks PHOS ####[facility] [id number] [place], Glucose [Mass/Vol] 184 mg/dL High 80-116 [facility] Comment on above: Performed By: #### MG Franks PHOS ####[facility] [id number] [place], Potassium [Moles/Vol] 3.7 mmol/L Normal 3.3-5.3 [facility] Comment on above: Performed By: #### MG Tiny, PHOS ####[facility] [id number] [place], Sodium [Moles/Vol] 146 mmol/L Normal 135-148 [facility] Comment on above: Performed By: #### C H8, MG, PHOS ####S PATHOLOGY [id number] [place], Urea nitrogen [Mass/Vol] 39 mg/dL High 8-22 [facility] Comment on above: Performed By: #### C H8, MG, PHOS ####S PATHOLOGY [id number] [place], BLOOD GAS, ARTERIALon 2022 CR SEFERINO 7.4 mmol/L High -2.0-2.0 [facility] Comment on above: Performed By: #### C R BGA ####[facility] PATHOLOGY [id number] [place], CR PCO2 39.8 mm Hg Normal 35.0-45.0 [facility] Comment on above: Performed By: #### C R BGA ####[facility] PATHOLOGY [id number] [place], CR PHA 7.502 High 7.35-7.45 [facility] Comment on above: Performed By: #### C R BGA ####[facility] PATHOLOGY [id number] [place], CR PO2 71 mm Hg Low 80-100 [facility] Comment on above: Performed By: #### C R BGA ####S PATHOLOGY ERVCTCEYNX8858 [place], FIO2 (CATEGORY) 60% Normal [facility] Comment on above: Performed By: #### C R BGA ####S PATHOLOGY [id number] [place], HCO3 (Bld) [Moles/Vol] 31 mmol/L High 22-28 [facility] Comment on above: Performed By: #### C R BGA ####S PATHOLOGY [id number] [place], MODE Vent Normal [facility] Comment on above: Performed By: #### C R BGA ####S PATHOLOGY [id number] [place], Oxygen saturation in Blood 94.9 % Low >=95.1 [facility] Comment on above: Performed By: #### C R BGA ####[facility] PATHOLOGY [id number] [place] [address], COMPLETE BLOOD COUNTon 06-13 Erythrocyte distribution width (RBC) [Ratio] 15.1 % High 11.5-14.5 [facility] Comment on above: Performed By: #### C BC ####[facility] PATHOLOGY [id number] [place] [address], Hematocrit (Bld) [Volume fraction] 23.3 % Low 41.0-53.0 [facility] Comment on above: Performed By: #### C BC ####[facility] PATHOLOGY [id number] [place] [address], Hemoglobin (Bld) [Mass/Vol] 7.3 g/dL Low 13.9-16.3 [facility] Comment on above: Performed By: #### C BC ####[facility] PATHOLOGY [id number] [place] [address], MCH (RBC) [Entitic mass] 29.3 pg Normal 26.0-34.0 [facility] Comment on above: Performed By: #### C BC ####[facility] PATHOLOGY [id number] [place] [address], MCHC (RBC) [Mass/Vol] 31.2 g/dL Low 32.0-35.9 [facility] Comment on above: Performed By: #### C BC ####[facility] PATHOLOGY [id number] [place] [address], MCV (RBC) [Entitic vol] 94 fL Normal 80-100 [facility] Comment on above: Performed By: #### C BC ####[facility] PATHOLOGY [id number] [place] [address], Platelet mean volume (Bld) [Entitic vol] 9.3 fL Normal 7.5-11.2 [facility] Comment on above: Performed By: #### C BC ####[facility] PATHOLOGY [id number] [place] [address], Platelets (Bld) [#/Vol] 577 10*3/uL High 150-400 [facility] Comment on above: Performed By: #### C BC ####[facility] [id number] [place], RBC (Bld) [#/Vol] 2.48 10*6/uL Low 4.50-5.90 [facility] Comment on above: Performed By: #### C BC ####[facility] [id number] [place], WBC (Bld) [#/Vol] 20.1 10*3/uL High 4.5-11.5 [facility] Comment on above: Performed By: #### C BC ####[facility] [id number] [place], Care Plan Noteon 06-13-2022 Lawn Mower Authentication Interface Message Text Normal [facility] Consultson 06-13-2022 Lawn Mower Authentication Interface Message Text Normal [facility] Lawn Mower Authentication Interface Message Text Normal [facility] MAGNESIUMon 06-13-2022 Magnesium [Mass/Vol] 2.7 mg/dL Normal 1.6-2.8 [facility] Comment on above: Performed By: #### C H8, MG, PHOS ####[facility] [id number] [place], PHOSPHORUSon 06-13-2022 Phosphate [Mass/Vol] 2.4 mg/dL Low 2.5-4.8 [facility] Comment on above: Performed By: #### C H8, MG, PHOS ####[facility] [id number] [place], Progress Noteson 06-13-2022 Lawn Mower Authentication Interface Message Text Normal [facility] Lawn Mower Authentication Interface Message Text Normal [facility] XR CHEST AP OR PA 1 VIEWon 0 06-13-2022 XR CHEST AP OR PA 1 VIEW Normal [facility] Anesthesia Postprocedure Belkis luationon 06-12-2022 Lawn Mower Authentication Interface Message Text Normal [facility] Anesthesia Preprocedure Eval uationon 06-12-2022 Lawn Mower Authentication Interface Message Text Normal [facility] Anesthesia Transfer Of Careo n 06-12-2022 Lawn Mower Authentication Interface Message Text Normal [facility] BASIC METABOLIC PANELon 05-19 Anion gap [Moles/Vol] 10 mmol/L Normal 10-20 [facility] Comment on above: Performed By: #### C HSuzi PHOS, MG ####[facility] [id number] [place], Calcium [Mass/Vol] 7.3 mg/dL Low 8.4-10.4 [facility] Comment on above: Performed By: #### Tee HSuzi PHOS, MG ####[facility] [id number] [place], Chloride [Moles/Vol] 112 mmol/L High 97-111 [facility] Comment on above: Performed By: #### Tee HSuzi PHOS, MG ####[facility] [id number] [place], CO2 [Moles/Vol] 30 mmol/L Normal 21-30 [facility] Comment on above: Performed By: #### Tee HSuzi PHOS, MG ####[facility] [id number] [place], Creatinine [Mass/Vol] 0.45 mg/dL Low 0.80-1.30 [facility] Comment on above: Performed By: #### Tee HSuzi PHOS, MG ####[facility] [id number] [place], ESTIMATED GFR (CKD-EPI) 121 mL/min/1.73sqm Normal >=60 [facility] Comment on above: Result Comment: 2020 CKD EPI Equation using Creatinine without RaceComment: Estimated glomerular filtration rate (eGFR) is calculated without a race coefficient. Values should be interpreted in the context of the patient's full clinical presentation.Reference:1. Eddie Oliveira, Addy M, Griselda TORRES, et al.. A Unifying Approach for GFR Estimation: Recommendations of the NKF-ASN Task Force on Reassessing the Inclusion of Race in Diagnosing Kidney Disease. [place] Journal of Kidney Diseases 2021;79(2):268-88.e1.2. N Engl J Med 1 Vol. 385 Issue 19 Pages 2384-7867 Performed By: #### NAHID Franks MG ####[facility] [id number] [place], Glucose [Mass/Vol] 145 mg/dL High 80-116 [facility] Comment on above: Performed By: #### NAHID Franks MG ####[facility] [id number] [place], Potassium [Moles/Vol] 3.7 mmol/L Normal 3.3-5.3 [facility] Comment on above: Performed By: #### NAHID Franks MG ####[facility] [id number] [place], Sodium [Moles/Vol] 148 mmol/L Normal 135-148 [facility] Comment on above: Performed By: #### NAHID Franks MG ####[facility] [id number] [place], Urea nitrogen [Mass/Vol] 31 mg/dL High 8-22 [facility] Comment on above: Performed By: #### NAHID Franks MG ####[facility] [id number] [place], BLOOD GAS, ARTERIALon 2022 CR SEFERINO 7.2 mmol/L High -2.0-2.0 [facility] Comment on above: Performed By: #### C R BGA ####[facility] [id number] [place], CR PCO2 38.8 mm Hg Normal 35.0-45.0 [facility] Comment on above: Performed By: #### C R BGA ####[facility] [id number] [place], CR PHA 7.508 High 7.35-7.45 [facility] Comment on above: Performed By: #### C R BGA ####S PATHOLOGY [id number] [place], CR PO2 67 mm Hg Low 80-100 [facility] Comment on above: Performed By: #### C R BGA ####[facility] [id number] [place], FIO2 (CATEGORY) 60% Normal [facility] Comment on above: Performed By: #### C R BGA ####S PATHOLOGY [id number] [place], HCO3 (Bld) [Moles/Vol] 31 mmol/L High 22-28 [facility] Comment on above: Performed By: #### C R BGA ####[facility] PATHOLOGY [id number] [place], MODE Vent Normal [facility] Comment on above: Performed By: #### C R BGA ####[facility] PATHOLOGY [id number] [place], Oxygen saturation in Blood 94.7 % Low >=95.1 [facility] Comment on above: Performed By: #### C R BGA ####[facility] PATHOLOGY [id number] [place], Blood Attestationon 06-13-19 Lawn Mower Authentication Interface Message Text Normal [facility] Brief Operative Noteon 06-12 Lawn Mower Authentication Interface Message Text Normal [facility] COMPLETE BLOOD COUNTon 06-12 Erythrocyte distribution width (RBC) [Ratio] 15.0 % High 11.5-14.5 [facility] Comment on above: Performed By: #### C BC ####[facility] PATHOLOGY [id number] [place], Hematocrit (Bld) [Volume fraction] 24.7 % Low 41.0-53.0 [facility] Comment on above: Performed By: #### C BC ####S PATHOLOGY [id number] [place], Hemoglobin (Bld) [Mass/Vol] 7.9 g/dL Low 13.9-16.3 [facility] Comment on above: Performed By: #### C BC ####S PATHOLOGY [id number] [place], MCH (RBC) [Entitic mass] 29.7 pg Normal 26.0-34.0 [facility] Comment on above: Performed By: #### C BC ####[facility] [id number] [place], MCHC (RBC) [Mass/Vol] 32.0 g/dL Normal 32.0-35.9 [facility] Comment on above: Performed By: #### C BC ####S PATHOLOGY [id number] [place], MCV (RBC) [Entitic vol] 93 fL Normal 80-100 [facility] Comment on above: Performed By: #### C BC ####[facility] PATHOLOGY [id number] [place], Platelet mean volume (Bld) [Entitic vol] 9.3 fL Normal 7.5-11.2 [facility] Comment on above: Performed By: #### C BC ####[facility] PATHOLOGY [id number] [place], Platelets (Bld) [#/Vol] 585 10*3/uL High 150-400 [facility] Comment on above: Performed By: #### C BC ####[facility] PATHOLOGY [id number] [place], RBC (Bld) [#/Vol] 2.66 10*6/uL Low 4.50-5.90 [facility] Comment on above: Performed By: #### C BC ####S PATHOLOGY [id number] [place], WBC (Bld) [#/Vol] 24.4 10*3/uL High 4.5-11.5 [facility] Comment on above: Performed By: #### C BC ####[facility] [id number] [place], Care Plan Noteon 06-12-2022 Lawn Mower Authentication Interface Message Text Normal [facility] MAGNESIUMon 06-12-2022 Magnesium [Mass/Vol] 2.4 mg/dL Normal 1.6-2.8 [facility] Comment on above: Performed By: #### C H8, SKYLERS, MG ####[facility] [id number] [place], OP Noteon 06-12-2022 Lawn Mower Authentication Interface Message Text Normal [facility] OR Nursingon 06-12-2022 Lawn Mower Authentication Interface Message Text 5 minute notification given to unit, extra trach collar and obturator sent with chart and patient Normal [facility] Lawn Mower Authentication Interface Message Text Reort and 1/2 hour notice called to ICU nurse. Normal [facility] PHOSPHORUSon 06-12-2022 Phosphate [Mass/Vol] 2.4 mg/dL Low 2.5-4.8 [facility] Comment on above: Performed By: #### C H8, PHOS, MG ####[facility] [id number] [place], Progress Noteson 06-12-2022 Lawn Mower Authentication Interface Message Text Normal [facility] Lawn Mower Authentication Interface Message Text Normal [facility] Lawn Mower Authentication Interface Message Text Normal [facility] XA INS ENDOVAS VENA CAVA HEATHER TER (JODI)on 06-12-2022 XA INS ENDOVAS VENA CAVA FILTER (JODI) Normal [facility] XR CHEST AP OR PA 1 VIEWon 0 06-12-2022 XR CHEST AP OR PA 1 VIEW Normal [facility] XR CHEST AP OR PA 1 VIEW Normal [facility] XR Chest Single viewon 06-12 EXAMINATION: XR CHES T AP OR PA 1 VIEW 06/12/2022 10:06 AM CLINICAL HISTORY: s/p tracheostomy ASSOCIATED DIAGNOSIS: s/p tracheostomy ORDERING PROVIDER: CARLOS ALBERTO [employer] NOTE: COMPARISON: XR CHEST AP OR PA 1 VIEW 06/12/2022, 6:17 AM FINDINGS: Limitation: Body habitus and suboptimal inspiratory volume. Semi-recumbant exam. Sensitivity for pneumothorax, pleural fluid, or fluid overload, if present, will be decreased on an examination done supine or near supine. Lines, tubes, and devices: Tracheostomy appears as expected.. Lungs and pleura: Lower zone atelectasis. Some consolidation is not excluded Cardiomediastinal silhouette: Cardiac silhouette is not enlarged Musculoskeletal: Limited visualization. IMPRESSION: Tracheostomy tube appears as expected. Lower zone atelectasis. Some consolidation/aspiration is not excludable Likewise, given the inspiratory volume as well as semirecumbent nature of the study, the examination will be limited with respect to evaluation for fluid status MACRO: None RADIOLOGY Negrito Spain MD - 06/12/2022 EXAMINATION: XR CHEST AP OR PA 1 VIEW 06/12/2022 10:06 AM CLINICAL HISTORY: s/p tracheostomy ASSOCIATED DIAGNOSIS: s/p tracheostomy ORDERING PROVIDER: CARLOS ALBERTO SMITH TECHNOLOGISTS NOTE: COMPARISON: XR CHEST AP OR PA 1 VIEW 06/12/2022, 6:17 AM FINDINGS: Limitation: Body habitus and suboptimal inspiratory volume. Semi-recumbant exam. Sensitivity for pneumothorax, pleural fluid, or fluid overload, if present, will be decreased on an examination done supine or near supine. Lines, tubes, and devices: Tracheostomy appears as expected.. Lungs and pleura: Lower zone atelectasis. Some consolidation is not excluded Cardiomediastinal silhouette: Cardiac silhouette is not enlarged Musculoskeletal: Limited visualization. IMPRESSION: Tracheostomy tube appears as expected. Lower zone atelectasis. Some consolidation/aspiration is not excludable Likewise, given the inspiratory volume as well as semirecumbent nature of the study, the examination will be limited with respect to evaluation for fluid status MACRO: None [facility] Study observation (narrative) [facility] XR Chest Single viewOrdered By: Negrito [place] on 06-12-2022 [employer] Work Phone: BASIC METABOLIC PANELon 05-19 Anion gap [Moles/Vol] 9 mmol/L Low 10-20 The [facility] [facility] Comment on above: Performed By: #### C MG Lalito PHOS ####[facility] [id number] [place], [address] Calcium [Mass/Vol] 7.4 mg/dL Low 8.4-10.4 [facility] Comment on above: Performed By: #### C H8, MG, PHOS ####[facility] [id number] [place], Chloride [Moles/Vol] 113 mmol/L High 97-111 [facility] Comment on above: Performed By: #### Tee H8 MG, PHOS ####[facility] [id number] [place], CO2 [Moles/Vol] 32 mmol/L High 21-30 [facility] Comment on above: Performed By: #### Tee H8 MG, PHOS ####[facility] [id number] [place], Creatinine [Mass/Vol] 0.53 mg/dL Low 0.80-1.30 [facility] Comment on above: Performed By: #### Tee HSuzi MG, PHOS ####[facility] [id number] [place], ESTIMATED GFR (CKD-EPI) 115 mL/min/1.73sqm Normal >=60 [facility] Comment on above: Result Comment: 2020 CKD EPI Equation using Creatinine without RaceComment: Estimated glomerular filtration rate (eGFR) is calculated without a race coefficient. Values should be interpreted in the context of the patient's full clinical presentation.Reference:1. Eddie C, Addy M, Griselda TORRES, et al.. A Unifying Approach for GFR Estimation: Recommendations of the NKF-ASN Task Force on Reassessing the Inclusion of Race in Diagnosing Kidney Disease. [place] Journal of Kidney Diseases 2021;79(2):268-88.e1.2. N Engl J Med 2020 Vol. 385 Issue 19 Pages 0455-3004 Performed By: #### C H8, MG, PHOS ####[facility] [id number] [place], Glucose [Mass/Vol] 144 mg/dL High 80-116 [facility] Comment on above: Performed By: #### C H8, MG, PHOS ####[facility] [id number] [place], Potassium [Moles/Vol] 4.2 mmol/L Normal 3.3-5.3 [facility] Comment on above: Performed By: #### MG Franks PHOS ####S PATHOLOGY [id number] [place], Sodium [Moles/Vol] 150 mmol/L High 135-148 [facility] Comment on above: Performed By: #### MG Tiny, NAHID ####S PATHOLOGY [id number] [place], Urea nitrogen [Mass/Vol] 33 mg/dL High 8-22 [facility] Comment on above: Performed By: #### MG Tiny, NAHID ####[facility] PATHOLOGY [id number] [place], BLOOD GAS, ARTERIALon 2022 CR SEFERINO 6.4 mmol/L High -2.0-2.0 [facility] Comment on above: Performed By: #### C R BGA ####[facility] PATHOLOGY [id number] [place], CR PCO2 39.9 mm Hg Normal 35.0-45.0 [facility] Comment on above: Performed By: #### C R BGA ####[facility] PATHOLOGY [id number] [place], CR PHA 7.489 High 7.35-7.45 [facility] Comment on above: Performed By: #### C R BGA ####[facility] [id number] [place], CR PO2 62 mm Hg Low 80-100 [facility] Comment on above: Performed By: #### C R BGA ####S PATHOLOGY [id number] [place], FIO2 (CATEGORY) 50% Normal [facility] Comment on above: Performed By: #### C R BGA ####S PATHOLOGY [id number] [place], HCO3 (Bld) [Moles/Vol] 30 mmol/L High 22-28 [facility] Comment on above: Performed By: #### C R BGA ####S PATHOLOGY [id number] [place], MODE Vent Normal [facility] Comment on above: Performed By: #### C R BGA ####S PATHOLOGY [id number] [place], Oxygen saturation in Blood 91.4 % Low >=95.1 [facility] Comment on above: Performed By: #### C R BGA ####[facility] PATHOLOGY [id number] [place], CR % O2 SAT Normal >=95.1 [facility] Comment on above: Result Comment: Canc ellation requested by nurseValentinas is a corrected result. Previous result on 06/11/2022 at 0026 EDT was 99.0 % Performed By: #### C R BGA ####[facility] PATHOLOGY [id number] [place] [address], CR SEFERINO Normal -2.0-2.0 [facility] Comment on above: Result Comment: Canc ellation requested by nurseValentinas is a corrected result. Previous result on 06/11/2022 at 0026 EDT was 6.3 mmol/L Performed By: #### C R BGA ####[facility] PATHOLOGY [id number] [place] [address], CR HCO3 Normal 22-28 [facility] Comment on above: Result Comment: Canc ellation requested by nurseValentinas is a corrected result. Previous result on 06/11/2022 at 0026 EDT was 30 mmol/L Performed By: #### C R BGA ####S PATHOLOGY [id number] [place], CR PCO2 Normal 35.0-45.0 [facility] Comment on above: Result Comment: Canc ellation requested by nurseValentinas is a corrected result. Previous result on 06/11/2022 at 0026 EDT was 42.4 mm Hg Performed By: #### C R BGA ####S PATHOLOGY [id number] [place], [place] PHA Normal 7.35-7.45 [facility] Comment on above: Result Comment: Canc ellation requested by Dony is a corrected result. Previous result on 06/11/2022 at 0026 EDT was 7.467 Performed By: #### C R BGA ####[facility] [id number] [place], CR PO2 Normal 80-100 [facility] Comment on above: Result Comment: Canc ellation requested by Dony is a corrected result. Previous result on 06/11/2022 at 0026 EDT was 128 mm Hg Performed By: #### C R BGA ####[facility] [id number] [place], FIO2 (CATEGORY) Normal [facility] Comment on above: Result Comment: This is a corrected result. Previous result on 06/11/2022 at 0026 EDT was 50% Performed By: #### C R BGA ####[facility] [id number] [place], MODE Normal [facility] Comment on above: Result Comment: This is a corrected result. Previous result on 06/11/2022 at 0026 EDT was Vent Performed By: #### C R BGA ####[facility] [id number] [place], COMPLETE BLOOD COUNTon 06-11 Erythrocyte distribution width (RBC) [Ratio] 14.8 % High 11.5-14.5 [facility] Comment on above: Performed By: #### C BC ####[facility] [id number] [place], Hematocrit (Bld) [Volume fraction] 26.6 % Low 41.0-53.0 [facility] Comment on above: Performed By: #### C BC ####[facility] [id number] [place], Hemoglobin (Bld) [Mass/Vol] 8.1 g/dL Low 13.9-16.3 [facility] Comment on above: Performed By: #### C BC ####[facility] [id number] [place], MCH (RBC) [Entitic mass] 28.5 pg Normal 26.0-34.0 [facility] Comment on above: Performed By: #### C BC ####[facility] PATHOLOGY [id number] [place], MCHC (RBC) [Mass/Vol] 30.6 g/dL Low 32.0-35.9 [facility] Comment on above: Performed By: #### C BC ####[facility] PATHOLOGY [id number] [place], MCV (RBC) [Entitic vol] 93 fL Normal 80-100 [facility] Comment on above: Performed By: #### C BC ####[facility] PATHOLOGY [id number] [place], Platelet mean volume (Bld) [Entitic vol] 9.2 fL Normal 7.5-11.2 [facility] Comment on above: Performed By: #### C BC ####[facility] PATHOLOGY [id number] [place], Platelets (Bld) [#/Vol] 523 10*3/uL High 150-400 [facility] Comment on above: Performed By: #### C BC ####[facility] PATHOLOGY [id number] [place], RBC (Bld) [#/Vol] 2.85 10*6/uL Low 4.50-5.90 [facility] Comment on above: Performed By: #### C BC ####[facility] PATHOLOGY [id number] [place], WBC (Bld) [#/Vol] 31.6 10*3/uL Critically high 4.5-11.5 [facility] Comment on above: Performed By: #### C BC ####[facility] PATHOLOGY [id number] [place], Care Plan Noteon 06-11-2022 Lawn M[employer] Authentication Interface Message Text Normal [facility] Consultson 06-11-2022 Lawn Mower Authentication Interface Message Text Normal [facility] Lawn Mower Authentication Interface Message Text Normal [facility] MAGNESIUMon 06-11-2022 Magnesium [Mass/Vol] 2.4 mg/dL Normal 1.6-2.8 [facility] Comment on above: Performed By: #### Tee Starkey MG, PHOS ####[facility] [id number] [place], PHOSPHORUSon 06-11-2022 Phosphate [Mass/Vol] 2.6 mg/dL Normal 2.5-4.8 [facility] Comment on above: Performed By: #### Tee Starkey MG, PHOS ####[facility] [id number] [place], Post-Procedure Noteon 2022 Lawn Mower Authentication Interface Message Text Normal [facility] Progress Noteson 06-11-2022 Lawn Mower Authentication Interface Message Text Normal [facility] Lawn Mower Authentication Interface Message Text Normal [facility] XR CHEST AP OR PA 1 VIEWon 0 06-11-2022 XR CHEST AP OR PA 1 VIEW Normal [facility] XR CHEST AP OR PA 1 VIEW Normal [facility] XR CHEST AP OR PA 1 VIEW Normal [facility] BASIC METABOLIC PANELon 05-19 Anion gap [Moles/Vol] 11 mmol/L Normal 10-20 [facility] Comment on above: Performed By: #### Tee Starkey, PHOEly MG ####[facility] [id number] [place], Calcium [Mass/Vol] 7.6 mg/dL Low 8.4-10.4 [facility] Comment on above: Performed By: #### Tee Starkey, PHOS, MG ####[facility] [id number] [place], Chloride [Moles/Vol] 113 mmol/L High 97-111 [facility] Comment on above: Performed By: #### Tee Starkey, PHOS, MG ####[facility] [id number] [place], CO2 [Moles/Vol] 29 mmol/L Normal 21-30 [facility] Comment on above: Performed By: #### NAHID Franks MG ####[facility] [id number] [place], Creatinine [Mass/Vol] 0.40 mg/dL Low 0.80-1.30 [facility] Comment on above: Performed By: #### NAHID Franks MG ####[facility] [id number] [place], ESTIMATED GFR (CKD-EPI) 125 mL/min/1.73sqm Normal >=60 [facility] Comment on above: Result Comment: 2020 CKD EPI Equation using Creatinine without RaceComment: Estimated glomerular filtration rate (eGFR) is calculated without a race coefficient. Values should be interpreted in the context of the patient's full clinical presentation.Reference:1. Eddie Oliveira, Addy M, Griselda TORRES, et al.. A Unifying Approach for GFR Estimation: Recommendations of the NKF-ASN Task Force on Reassessing the Inclusion of Race in Diagnosing Kidney Disease. [place] Journal of Kidney Diseases 2021;79(2):268-88.e1.2. N Engl J Med 2020 Vol. 385 Issue 19 Pages 2380-4522 Performed By: #### NAHID Franks MG ####[facility] [id number] [place], Glucose [Mass/Vol] 175 mg/dL High 80-116 [facility] Comment on above: Performed By: #### NAHID Franks MG ####[facility] JGEEGDUSCJ5012 [place], Potassium [Moles/Vol] 4.0 mmol/L Normal 3.3-5.3 [facility] Comment on above: Performed By: #### NAHID Franks MG ####[facility] [id number] [place], Sodium [Moles/Vol] 149 mmol/L High 135-148 [facility] Comment on above: Performed By: #### NAHID Franks MG ####[facility] [id number] [place], Urea nitrogen [Mass/Vol] 26 mg/dL High 8-22 [facility] Comment on above: Performed By: #### C H8, PHOS, MG ####[facility] PATHOLOGY [id number] [place], BLOOD CULTUREon 06-10-2022 Bacteria identified Cx Nom (Bld) C BLOOD: No Growth Normal [facility] Comment on above: Performed By: #### C BLOOD ####[facility] Otbptmige7278 [place], [place] BLOOD GAS, ARTERIALon 2022 CR SEFERINO 5.8 mmol/L High -2.0-2.0 [facility] Comment on above: Performed By: #### C R BGA ####[facility] PATHOLOGY [id number] [place], CR PCO2 39.6 mm Hg Normal 35.0-45.0 [facility] Comment on above: Performed By: #### C R BGA ####[facility] PATHOLOGY [id number] [place] [address], CR PHA 7.483 High 7.35-7.45 [facility] Comment on above: Performed By: #### C R BGA ####[facility] PATHOLOGY [id number] [place] [address], CR PO2 61 mm Hg Low 80-100 [facility] Comment on above: Performed By: #### C R BGA ####[facility] PATHOLOGY [id number] [place], FIO2 (CATEGORY) 50% Normal [facility] Comment on above: Performed By: #### C R BGA ####[facility] PATHOLOGY [id number] [place], HCO3 (Bld) [Moles/Vol] 29 mmol/L High 22-28 [facility] Comment on above: Performed By: #### C R BGA ####[facility] PATHOLOGY [id number] [place], MODE Vent Normal [facility] Comment on above: Performed By: #### C R BGA ####[facility] PATHOLOGY [id number] [place], Oxygen saturation in Blood 92.0 % Low >=95.1 [facility] Comment on above: Performed By: #### C R BGA ####[facility] PATHOLOGY [id number] [place], CLOSTRIDIUM DIFFICILEon 05-19 CLOSTRIDIUM DIFFICILE Negative Normal Negative [facility] Comment on above: Order Comment: Resul ts obtained by using a real-time PCR based qualitative in vitro diagnostic test for the direct detection of the C. difficile toxin A gene (tcdA) and toxin B gene (tcdB) targets in stool specimens.Results should be interpreted in conjunction with information from the patient clinical evaluation and other diagnostic testing Performed By: #### C DD ####[facility] [address] [place], [place] [address] COMPLETE BLOOD COUNTon 06-10 Erythrocyte distribution width (RBC) [Ratio] 15.1 % High 11.5-14.5 [facility] Comment on above: Performed By: #### C BC ####[facility] PATHOLOGY [id number] [place], Hematocrit (Bld) [Volume fraction] 27.8 % Low 41.0-53.0 [facility] Comment on above: Performed By: #### C BC ####[facility] PATHOLOGY [id number] [place], Hemoglobin (Bld) [Mass/Vol] 8.8 g/dL Low 13.9-16.3 [facility] Comment on above: Performed By: #### C BC ####[facility] PATHOLOGY [id number] [place], MCH (RBC) [Entitic mass] 29.3 pg Normal 26.0-34.0 [facility] Comment on above: Performed By: #### C BC ####[facility] PATHOLOGY [id number] [place], MCHC (RBC) [Mass/Vol] 31.6 g/dL Low 32.0-35.9 [facility] Comment on above: Performed By: #### C BC ####[facility] PATHOLOGY [id number] [place], MCV (RBC) [Entitic vol] 93 fL Normal 80-100 [facility] Comment on above: Performed By: #### C BC ####S PATHOLOGY [id number] [place], Platelet mean volume (Bld) [Entitic vol] 8.8 fL Normal 7.5-11.2 [facility] Comment on above: Performed By: #### C BC ####[facility] PATHOLOGY [id number] [place], Platelets (Bld) [#/Vol] 528 10*3/uL High 150-400 [facility] Comment on above: Performed By: #### C BC ####[facility] PATHOLOGY [id number] [place], RBC (Bld) [#/Vol] 3.00 10*6/uL Low 4.50-5.90 [facility] Comment on above: Performed By: #### C BC ####[facility] PATHOLOGY [id number] [place], WBC (Bld) [#/Vol] 29.7 10*3/uL Critically high 4.5-11.5 [facility] Comment on above: Performed By: #### C BC ####[facility] PATHOLOGY [id number] [place], Care Plan Noteon 06-10-2022 Lawn Mower Authentication Interface Message Text Normal [facility] Consultson 06-10-2022 Lawn Mower Authentication Interface Message Text Normal [facility] MAGNESIUMon 06-10-2022 Magnesium [Mass/Vol] 2.4 mg/dL Normal 1.6-2.8 [facility] Comment on above: Performed By: #### Tee H8, PHOS, MG ####[facility] PATHOLOGY [id number] [place], PHOSPHORUSon 06-10-2022 Phosphate [Mass/Vol] 2.6 mg/dL Normal 2.5-4.8 [facility] Comment on above: Performed By: #### C H8, PHOS, MG ####[facility] [id number] [place], [address] Procedureson 06-10-2022 Lawn Mower Authentication Interface Message Text Normal [facility] Lawn Mower Authentication Interface Message Text Normal [facility] Lawn Mower Authentication Interface Message Text Normal [facility] Progress Noteson 06-10-2022 Lawn Mower Authentication Interface Message Text Normal [facility] Lawn Mower Authentication Interface Message Text Normal [facility] Lawn Mower Authentication Interface Message Text Preliminary Vascular Lab Report Duplex Bilateral Upper Extremity Vein Scan There is evidence of superficial vein thrombus in the right basilic vein and left cephalic vein. Official report to follow. Ashley Kramer RVT Normal [facility] Lawn Mower Authentication Interface Message Text Normal [facility] RESPIRATORY CULTURE, MISCon 06-10-2022 CLYDE Normal [facility] Comment on above: Order Comment: No No rmal Upper Respiratory Velvet Performed By: #### C RESP ####[facility] Afialfkca0233 [place], [place] RESPIRATORY CULTURE, MISC Normal [facility] Comment on above: Order Comment: No No rmal Upper Respiratory Velvet Performed By: #### C RESP ####[facility] Pkzxbddsq5653 [place], [place] RESPIRATORY CULTURE, MISC MRSA: Methicillin-Resistant Staphylococcus aureus NOT detected by chromagar screen. C RESP: No Growth GRAM STAIN: No Polymorphonuclear Leukocytes seen No Squamous Epithelial Cells seen No organisms seen Normal [facility] Comment on above: Performed By: #### C RESP ####[facility] Xvhosjksg1614 [place], [place] Treatment Plan Noteon 2022 Lawn Mower Authentication Interface Message Text Normal [facility] XR CHEST 1 VIEW AP OR PAon 0 06-10-2022 XR CHEST 1 VIEW AP OR PA Normal [facility] XR CHEST AP OR PA 1 VIEWon 0 06-10-2022 XR CHEST AP OR PA 1 VIEW Normal [facility] BASIC METABOLIC PANELon - Anion gap [Moles/Vol] 13 mmol/L Normal 10-20 [facility] Comment on above: Performed By: #### C H8, PHOS, MG ####[facility] [id number] [place], Calcium [Mass/Vol] 7.5 mg/dL Low 8.4-10.4 [facility] Comment on above: Performed By: #### C H8, PHOS, MG ####[facility] [id number] [place], Chloride [Moles/Vol] 113 mmol/L High 97-111 [facility] Comment on above: Performed By: #### C H8, PHOS, MG ####[facility] [id number] [place], CO2 [Moles/Vol] 26 mmol/L Normal 21-30 [facility] Comment on above: Performed By: #### C H8, PHOS, MG ####[facility] [id number] [place], Creatinine [Mass/Vol] 0.44 mg/dL Low 0.80-1.30 [facility] Comment on above: Performed By: #### C H8, PHOS, MG ####[facility] [id number] [place], ESTIMATED GFR (CKD-EPI) 121 mL/min/1.73sqm Normal >=60 [facility] Comment on above: Result Comment: 2020 CKD EPI Equation using Creatinine without RaceComment: Estimated glomerular filtration rate (eGFR) is calculated without a race coefficient. Values should be interpreted in the context of the patient's full clinical presentation.Reference:1. Eddie C, Addy M, Griselda TORRES, et al.. A Unifying Approach for GFR Estimation: Recommendations of the NKF-ASN Task Force on Reassessing the Inclusion of Race in Diagnosing Kidney Disease. [place] Journal of Kidney Diseases 2021;79(2):268-88.e1.2. N Engl J Med 1 Vol. 385 Issue 19 Pages 8366-0756 Performed By: #### C H8, PHOS, MG ####[facility] [id number] [place], Glucose [Mass/Vol] 143 mg/dL High 80-116 [facility] Comment on above: Performed By: #### Tee HNAHID Archer, MG ####S PATHOLOGY [id number] [place], Potassium [Moles/Vol] 4.2 mmol/L Normal 3.3-5.3 [facility] Comment on above: Performed By: #### Tee HNAHID Archer MG ####S PATHOLOGY [id number] [place], Sodium [Moles/Vol] 148 mmol/L Normal 135-148 [facility] Comment on above: Performed By: #### Tee HNAHID Archer MG ####[facility] PATHOLOGY [id number] [place], Urea nitrogen [Mass/Vol] 26 mg/dL High 8-22 [facility] Comment on above: Performed By: #### NAHID Franks MG ####[facility] PATHOLOGY [id number] [place], BLOOD GAS, ARTERIALon 2022 CR SEFERINO 3.1 mmol/L High -2.0-2.0 [facility] Comment on above: Performed By: #### C R BGA ####[facility] [id number] [place], CR PCO2 42.1 mm Hg Normal 35.0-45.0 [facility] Comment on above: Performed By: #### C R BGA ####[facility] [id number] [place], CR PHA 7.427 Normal 7.35-7.45 [facility] Comment on above: Performed By: #### C R BGA ####S PATHOLOGY [id number] [place], CR PO2 76 mm Hg Low 80-100 [facility] Comment on above: Performed By: #### C R BGA ####[facility] [id number] [place], [place], FIO2 (CATEGORY) 50% Normal [facility] Comment on above: Performed By: #### C R BGA ####[facility] PATHOLOGY [id number] [place], [place], HCO3 (Bld) [Moles/Vol] 27 mmol/L Normal 22-28 Th e [facility] Comment on above: Performed By: #### C R BGA ####[facility] PATHOLOGY [id number] [place], [place], MODE Vent Normal [facility] Comment on above: Performed By: #### C R BGA ####[facility] PATHOLOGY [id number] [place], Oxygen saturation in Blood 95.1 % Normal >=95.1 [facility] Comment on above: Performed By: #### C R BGA ####[facility] PATHOLOGY [id number] [place] [address], COMPLETE BLOOD COUNTon 06-09 Erythrocyte distribution width (RBC) [Ratio] 14.6 % High 11.5-14.5 [facility] Comment on above: Performed By: #### C BC ####[facility] PATHOLOGY [id number] [place] [address], Hematocrit (Bld) [Volume fraction] 26.2 % Low 41.0-53.0 [facility] Comment on above: Performed By: #### C BC ####[facility] PATHOLOGY [id number] [place], Hemoglobin (Bld) [Mass/Vol] 8.6 g/dL Low 13.9-16.3 [facility] Comment on above: Performed By: #### C BC ####[facility] PATHOLOGY [id number] [place] [address], MCH (RBC) [Entitic mass] 30.0 pg Normal 26.0-34.0 [facility] Comment on above: Performed By: #### C BC ####[facility] PATHOLOGY [id number] [place], MCHC (RBC) [Mass/Vol] 32.7 g/dL Normal 32.0-35.9 [facility] Comment on above: Performed By: #### C BC ####[facility] [id number] [place], MCV (RBC) [Entitic vol] 92 fL Normal 80-100 [facility] Comment on above: Performed By: #### C BC ####[facility] PATHOLOGY [id number] [place], Platelet mean volume (Bld) [Entitic vol] 9.2 fL Normal 7.5-11.2 [facility] Comment on above: Performed By: #### C BC ####[facility] PATHOLOGY [id number] [place] [address], Platelets (Bld) [#/Vol] 463 10*3/uL High 150-400 [facility] Comment on above: Performed By: #### Tee BC ####[facility] PATHOLOGY [id number] [place] [address], RBC (Bld) [#/Vol] 2.85 10*6/uL Low 4.50-5.90 [facility] Comment on above: Performed By: #### Tee BC ####[facility] PATHOLOGY [id number] [place] [address], WBC (Bld) [#/Vol] 24.9 10*3/uL High 4.5-11.5 [facility] Comment on above: Performed By: #### Tee BC ####[facility] PATHOLOGY [id number] [place] [address], Care Plan Noteon 06-09-2022 Lawn Mower Authentication Interface Message Text Normal [facility] MAGNESIUMon 06-09-2022 Magnesium [Mass/Vol] 2.3 mg/dL Normal 1.6-2.8 [facility] Comment on above: Performed By: #### Tee Starkey, PHOS, MG ####[facility] PATHOLOGY [id number] [place] [address], PHOSPHORUSon 06-09-2022 Phosphate [Mass/Vol] 3.2 mg/dL Normal 2.5-4.8 [facility] Comment on above: Performed By: #### Tee Starkey, PHOS, MG ####[facility] PATHOLOGY [id number] [place] [address], [place], Progress Noteson 06-09-2022 Lawn Mower Authentication Interface Message Text Normal [facility] XR CHEST 1 VIEW AP OR PAon 0 06-09-2022 XR CHEST 1 VIEW AP OR PA Normal [facility] XR CHEST 1 VIEW AP OR PA Normal [facility] BASIC METABOLIC PANELon - Anion gap [Moles/Vol] 10 mmol/L Normal 10-20 [facility] Comment on above: Performed By: #### P HOS, CH8, MG ####[facility] [id number] [place], Calcium [Mass/Vol] 7.7 mg/dL Low 8.4-10.4 [facility] Comment on above: Performed By: #### P HOS, CH8, MG ####[facility] [id number] [place], Chloride [Moles/Vol] 115 mmol/L High 97-111 [facility] Comment on above: Performed By: #### P HOS, CH8, MG ####[facility] QOUVXFAPWL9327 [place], CO2 [Moles/Vol] 28 mmol/L Normal 21-30 [facility] Comment on above: Performed By: #### P HOS, CH8, MG ####[facility] [id number] [place], Creatinine [Mass/Vol] 0.47 mg/dL Low 0.80-1.30 [facility] Comment on above: Performed By: #### P HOS, CH8, MG ####[facility] [id number] [place], ESTIMATED GFR (CKD-EPI) 119 mL/min/1.73sqm Normal >=60 [facility] Comment on above: Result Comment: 2020 CKD EPI Equation using Creatinine without RaceComment: Estimated glomerular filtration rate (eGFR) is calculated without a race coefficient. Values should be interpreted in the context of the patient's full clinical presentation.Reference:1. Eddie Oliveira, Addy M, Griselda TORRES, et al.. A Unifying Approach for GFR Estimation: Recommendations of the NKF-ASN Task Force on Reassessing the Inclusion of Race in Diagnosing Kidney Disease. [place] Journal of Kidney Diseases 2021;79(2):268-88.e1.2. N Engl J Med 1 Vol. 385 Issue 19 Pages 5142-6011 Performed By: #### P HOS, CH8, MG ####[facility] [id number] [place], Glucose [Mass/Vol] 128 mg/dL High 80-116 [facility] Comment on above: Performed By: #### P HOS, CH8, MG ####[facility] [id number] [place], Potassium [Moles/Vol] 3.8 mmol/L Normal 3.3-5.3 [facility] Comment on above: Performed By: #### P HOS, CH8, MG ####[facility] EUDOEMRVSZ8862 [place], Sodium [Moles/Vol] 149 mmol/L High 135-148 [facility] Comment on above: Performed By: #### P HOS, CH8, MG ####[facility] [id number] [place], Urea nitrogen [Mass/Vol] 25 mg/dL High 8-22 [facility] Comment on above: Performed By: #### P HOS, CH8, MG ####[facility] [id number] [place], BLOOD GAS, ARTERIALon 2022 CR SEFERINO 1.6 mmol/L Normal -2.0-2.0 [facility] Comment on above: Performed By: #### C R BGA ####[facility] [id number] [place], CR PCO2 42.2 mm Hg Normal 35.0-45.0 [facility] Comment on above: Performed By: #### C R BGA ####[facility] [id number] [place], CR PHA 7.406 Normal 7.35-7.45 [facility] Comment on above: Performed By: #### C R BGA ####[facility] PATHOLOGY [id number] [place], CR PO2 96 mm Hg Normal 80-100 [facility] Comment on above: Performed By: #### C R BGA ####[facility] PATHOLOGY [id number] [place], FIO2 (CATEGORY) 50% Normal [facility] Comment on above: Performed By: #### C R BGA ####[facility] PATHOLOGY [id number] [place], HCO3 (Bld) [Moles/Vol] 26 mmol/L Normal 22-28 e [facility] Comment on above: Performed By: #### C R BGA ####[facility] PATHOLOGY [id number] [place] [address], MODE Vent Normal [facility] Comment on above: Performed By: #### C R BGA ####[facility] PATHOLOGY [id number] [place] [address], Oxygen saturation in Blood 97.5 % Normal >=95.1 [facility] Comment on above: Performed By: #### C R BGA ####[facility] PATHOLOGY [id number] [place] [address], CR SEFERINO 2.5 mmol/L High -2.0-2.0 [facility] Comment on above: Performed By: #### C R BGA ####[facility] PATHOLOGY GYOHXOJAOT[address] [place] [address], CR PCO2 39.6 mm Hg Normal 35.0-45.0 [facility] Comment on above: Performed By: #### C R BGA ####[facility] PATHOLOGY [id number] [place], CR PHA 7.438 Normal 7.35-7.45 [facility] Comment on above: Performed By: #### C R BGA ####[facility] PATHOLOGY [id number] [place] [address], CR PO2 84 mm Hg Normal 80-100 [facility] Comment on above: Performed By: #### C R BGA ####S PATHOLOGY [id number] [place], FIO2 (CATEGORY) 60% Normal [facility] Comment on above: Performed By: #### C R BGA ####[facility] PATHOLOGY [id number] [place], HCO3 (Bld) [Moles/Vol] 26 mmol/L Normal 22-28 e [facility] Comment on above: Performed By: #### C R BGA ####[facility] PATHOLOGY [id number] [place], MODE Vent Normal [facility] Comment on above: Performed By: #### C R BGA ####[facility] PATHOLOGY [id number] [place], Oxygen saturation in Blood 96.9 % Normal >=95.1 [facility] Comment on above: Performed By: #### C R BGA ####[facility] PATHOLOGY [id number] [place] [address], COMPLETE BLOOD COUNTon 06-08 Erythrocyte distribution width (RBC) [Ratio] 14.7 % High 11.5-14.5 [facility] Comment on above: Performed By: #### C BC ####[facility] PATHOLOGY [id number] [place] [address], Hematocrit (Bld) [Volume fraction] 25.6 % Low 41.0-53.0 [facility] Comment on above: Performed By: #### C BC ####[facility] PATHOLOGY [id number] [place] [address], Hemoglobin (Bld) [Mass/Vol] 8.2 g/dL Low 13.9-16.3 [facility] Comment on above: Performed By: #### C BC ####[facility] PATHOLOGY [id number] [place], MCH (RBC) [Entitic mass] 29.9 pg Normal 26.0-34.0 [facility] Comment on above: Performed By: #### C BC ####[facility] PATHOLOGY [id number] [place], MCHC (RBC) [Mass/Vol] 32.1 g/dL Normal 32.0-35.9 [facility] Comment on above: Performed By: #### C BC ####[facility] PATHOLOGY [id number] [place], MCV (RBC) [Entitic vol] 93 fL Normal 80-100 [facility] Comment on above: Performed By: #### C BC ####[facility] PATHOLOGY [id number] [place], Platelet mean volume (Bld) [Entitic vol] 9.2 fL Normal 7.5-11.2 [facility] Comment on above: Performed By: #### C BC ####[facility] PATHOLOGY [id number] [place], Platelets (Bld) [#/Vol] 371 10*3/uL Normal 150-400 [facility] Comment on above: Performed By: #### C BC ####[facility] PATHOLOGY [id number] [place], RBC (Bld) [#/Vol] 2.76 10*6/uL Low 4.50-5.90 [facility] Comment on above: Performed By: #### C BC ####[facility] PATHOLOGY [id number] [place] [address], WBC (Bld) [#/Vol] 24.7 10*3/uL High 4.5-11.5 [facility] Comment on above: Performed By: #### C BC ####[facility] PATHOLOGY [id number] [place] [address], Care Plan Noteon 06-08-2022 Lawn Mower Authentication Interface Message Text Normal [facility] Lawn Mower Authentication Interface Message Text Normal [facility] MAGNESIUMon 06-08-2022 Magnesium [Mass/Vol] 2.2 mg/dL Normal 1.6-2.8 [facility] Comment on above: Performed By: #### P HOS, CH8, MG ####[facility] PATHOLOGY [id number] [place], PHOSPHORUSon 06-08-2022 Phosphate [Mass/Vol] 3.9 mg/dL Normal 2.5-4.8 [facility] Comment on above: Performed By: #### P AUNDREA CH8, MG ####S PATHOLOGY [id number] [place], Progress Noteson 06-08-2022 Lawn Mower Authentication Interface Message Text Normal [facility] Lawn Mower Authentication Interface Message Text Normal [facility] XR CHEST 1 VIEW AP OR PAon 0 06-08-2022 XR CHEST 1 VIEW AP OR PA Normal [facility] XR CHEST 1 VIEW AP OR PA Normal [facility] BASIC METABOLIC PANELon - Anion gap [Moles/Vol] 12 mmol/L Normal 10-20 [facility] Comment on above: Performed By: #### C H8 ####S PATHOLOGY CDEUHOVKSR7129 [place], CO2 [Moles/Vol] 27 mmol/L Normal 21-30 [facility] Comment on above: Performed By: #### C H8 ####S PATHOLOGY [id number] [place], Glucose [Mass/Vol] 128 mg/dL High 80-116 [facility] Comment on above: Performed By: #### C H8 ####S PATHOLOGY [id number] [place], Potassium [Moles/Vol] 3.9 mmol/L Normal 3.3-5.3 [facility] Comment on above: Performed By: #### C H8 ####S PATHOLOGY VKTDVPVOSQ8844 [place], Sodium [Moles/Vol] 150 mmol/L High 135-148 [facility] Comment on above: Performed By: #### C H8 ####[facility] ZOKGDDVVSX7386 [place], Anion gap [Moles/Vol] 10 mmol/L Normal 10-20 [facility] Comment on above: Performed By: #### C H8 ####S PATHOLOGY FROIICOUFY3470 [place], Calcium [Mass/Vol] 7.8 mg/dL Low 8.4-10.4 [facility] Comment on above: Performed By: #### C H8 ####S PATHOLOGY [id number] [place], Performed By: #### TERESA Marshall, PHOS ####S PATHOLOGY [id number] [place], Chloride [Moles/Vol] 115 mmol/L High 97-111 [facility] Comment on above: Performed By: #### C H8 ####[facility] [id number] [place], Performed By: #### Sam Cleveland CH8, PHOS ####[facility] PATHOLOGY [id number] [place], CO2 [Moles/Vol] 30 mmol/L Normal 21-30 [facility] Comment on above: Performed By: #### C H8 ####[facility] SNWAJKMHJW2536 [place], Creatinine [Mass/Vol] 0.48 mg/dL Low 0.80-1.30 [facility] Comment on above: Performed By: #### C H8 ####S PATHOLOGY [id number] [place], ESTIMATED GFR (CKD-EPI) 118 mL/min/1.73sqm Normal >=60 [facility] Comment on above: Result Comment: 2020 CKD EPI Equation using Creatinine without RaceComment: Estimated glomerular filtration rate (eGFR) is calculated without a race coefficient. Values should be interpreted in the context of the patient's full clinical presentation.Reference:1. Eddie C, Addy M, Griselda TORRES, et al.. A Unifying Approach for GFR Estimation: Recommendations of the NKF-ASN Task Force on Reassessing the Inclusion of Race in Diagnosing Kidney Disease. [place] Journal of Kidney Diseases 2021;79(2):268-88.e1.2. N Engl J Med 1 Vol. 385 Issue 19 Pages 1094-1606 Performed By: #### C H8 ####S PATHOLOGY [id number] [place], Glucose [Mass/Vol] 133 mg/dL High 80-116 [facility] Comment on above: Performed By: #### Tee H8 ####S PATHOLOGY [id number] [place], Potassium [Moles/Vol] 3.7 mmol/L Normal 3.3-5.3 [facility] Comment on above: Performed By: #### Tee H8 ####S PATHOLOGY RAXTAEZTBX8806 [place], Sodium [Moles/Vol] 151 mmol/L High 135-148 [facility] Comment on above: Performed By: #### Tee Hurst8 ####S PATHOLOGY TSLYCFHBNY1141 [place], Urea nitrogen [Mass/Vol] 27 mg/dL High 8-22 [facility] Comment on above: Performed By: #### Tee Starkey ####[facility] PATHOLOGY [id number] [place] [address], Anion gap [Moles/Vol] 13 mmol/L Normal 10-20 [facility] Comment on above: Performed By: #### TERESA Marshall PHOS ####[facility] PATHOLOGY [id number] [place], CO2 [Moles/Vol] 29 mmol/L Normal 21-30 [facility] Comment on above: Performed By: ###TERESA Caceres PHOS ####S PATHOLOGY [id number] [place], Creatinine [Mass/Vol] 0.50 mg/dL Low 0.80-1.30 [facility] Comment on above: Performed By: ###Valentina Starkey ####[facility] [id number] [place] [address], Performed By: #### TERESA Marshall PHOS ####S PATHOLOGY [id number] [place], ESTIMATED GFR (CKD-EPI) 117 mL/min/1.73sqm Normal >=60 [facility] Comment on above: Result Comment: 2020 CKD EPI Equation using Creatinine without RaceComment: Estimated glomerular filtration rate (eGFR) is calculated without a race coefficient. Values should be interpreted in the context of the patient's full clinical presentation.Reference:1. Eddie Oliveira, Addy M, Griselda TORRES, et al.. A Unifying Approach for GFR Estimation: Recommendations of the NKF-ASN Task Force on Reassessing the Inclusion of Race in Diagnosing Kidney Disease. [place] Journal of Kidney Diseases 2021;79(2):268-88.e1.2. N Engl J Med 2020 Vol. 385 Issue 19 Pages 4229-1398 Performed By: #### Tee H8 ####[facility] [id number] [place], Performed By: #### TERESA Marshall, PHOS ####[facility] [id number] [place], Glucose [Mass/Vol] 151 mg/dL High 80-116 [facility] Comment on above: Performed By: #### TERESA Marshall, PHOS ####[facility] [id number] [place], Potassium [Moles/Vol] 3.5 mmol/L Normal 3.3-5.3 [facility] Comment on above: Performed By: #### Sam Cleveland CH8, PHOS ####[facility] [id number] [place], Sodium [Moles/Vol] 153 mmol/L High 135-148 [facility] Comment on above: Performed By: #### Sam Cleveland CH8, PHOS ####[facility] [id number] [place], Urea nitrogen [Mass/Vol] 28 mg/dL High 8-22 [facility] Comment on above: Performed By: #### Sam Cleveland CH8, PHOS ####[facility] [id number] [place], BLOOD CULTUREon 06-07-2022 Bacteria identified Cx Nom (Bld) C BLOOD: No Growth Normal [facility] Comment on above: Performed By: #### C BLOOD ####[facility] Pqabsfgxc9451 [place], [place] BLOOD GAS, ARTERIALon 2022 CR SEFERINO 4.8 mmol/L High -2.0-2.0 [facility] Comment on above: Performed By: #### C R BGA ####[facility] PATHOLOGY [id number] [place], CR PCO2 45.9 mm Hg High 35.0-45.0 [facility] Comment on above: Performed By: #### C R BGA ####[facility] PATHOLOGY [id number] [place], CR PHA 7.421 Normal 7.35-7.45 [facility] Comment on above: Performed By: #### C R BGA ####[facility] PATHOLOGY [id number] [place], CR PO2 72 mm Hg Low 80-100 [facility] Comment on above: Performed By: #### C R BGA ####[facility] PATHOLOGY [id number] [place], FIO2 (CATEGORY) 60% Normal [facility] Comment on above: Performed By: #### C R BGA ####[facility] PATHOLOGY [id number] [place], HCO3 (Bld) [Moles/Vol] 29 mmol/L High 22-28 Th [facility] Comment on above: Performed By: #### C R BGA ####S PATHOLOGY [id number] [place], MODE Vent Normal [facility] Comment on above: Performed By: #### C R BGA ####S PATHOLOGY [id number] [place], Oxygen saturation in Blood 94.2 % Low >=95.1 [facility] Comment on above: Performed By: #### C R BGA ####[facility] PATHOLOGY [id number] [place], COMPLETE BLOOD COUNTon 06-07 Erythrocyte distribution width (RBC) [Ratio] 14.7 % High 11.5-14.5 [facility] Comment on above: Performed By: #### C BC ####[facility] PATHOLOGY [id number] [place] [address], Hematocrit (Bld) [Volume fraction] 25.1 % Low 41.0-53.0 [facility] Comment on above: Performed By: #### C BC ####[facility] PATHOLOGY [id number] [place] [address], Hemoglobin (Bld) [Mass/Vol] 8.0 g/dL Low 13.9-16.3 [facility] Comment on above: Performed By: #### C BC ####[facility] PATHOLOGY [id number] [place] [address], MCH (RBC) [Entitic mass] 29.2 pg Normal 26.0-34.0 [facility] Comment on above: Performed By: #### C BC ####[facility] PATHOLOGY [id number] [place] [address], MCHC (RBC) [Mass/Vol] 31.6 g/dL Low 32.0-35.9 [facility] Comment on above: Performed By: #### C BC ####[facility] PATHOLOGY [id number] [place], MCV (RBC) [Entitic vol] 92 fL Normal 80-100 [facility] Comment on above: Performed By: #### C BC ####[facility] PATHOLOGY [id number] [place] [address], Platelet mean volume (Bld) [Entitic vol] 9.0 fL Normal 7.5-11.2 [facility] Comment on above: Performed By: #### C BC ####[facility] PATHOLOGY [id number] [place] [address], Platelets (Bld) [#/Vol] 306 10*3/uL Normal 150-400 [facility] Comment on above: Performed By: #### C BC ####[facility] PATHOLOGY [id number] [place] [address], RBC (Bld) [#/Vol] 2.73 10*6/uL Low 4.50-5.90 [facility] Comment on above: Performed By: #### C BC ####[facility] [id number] [place], WBC (Bld) [#/Vol] 27.4 10*3/uL Critically high 4.5-11.5 [facility] Comment on above: Performed By: #### C BC ####[facility] [id number] [place], [place], [place] CHEST/ABD/PELVIS W/ CONTR Christa 06-07-2022 CT CHEST/ABD/PELVIS W/ CONTRAST Normal [facility] Care Plan Noteon 06-07-2022 Lawn Mower Authentication Interface Message Text Normal [facility] Consultson 06-07-2022 Lawn Mower Authentication Interface Message Text Normal [facility] Lawn Mower Authentication Interface Message Text Normal [facility] MAGNESIUMon 06-07-2022 Magnesium [Mass/Vol] 2.1 mg/dL Normal 1.6-2.8 [facility] Comment on above: Performed By: #### Sam Cleveland CH8, PHOS ####[facility] [id number] [place], PHOSPHORUSon 06-07-2022 Phosphate [Mass/Vol] 3.4 mg/dL Normal 2.5-4.8 [facility] Comment on above: Performed By: #### TERESA Marshall, PHOS ####[facility] [id number] [place], Progress Noteson 06-07-2022 Lawn Mower Authentication Interface Message Text Normal [facility] Lawn Mower Authentication Interface Message Text Normal [facility] Lawn Mower Authentication Interface Message Text Normal The [facility] Progress Notes - NoteWritero n 06-07-2022 Lawn Mower Authentication Interface Message Text Normal [facility] RESPIRATORY CULTURE, MISCon 06-07-2022 CLYDE Normal [facility] Comment on above: Order Comment: THIS IS A PRELIMINARY REPORT. Final results will follow. Results of the preliminary report may be modified as additional information becomes available. Performed By: #### C RESP ####[facility] [address]fzkv[address] [place], [place] RESPIRATORY CULTURE, MISC Normal [facility] Comment on above: Order Comment: THIS IS A PRELIMINARY REPORT. Final results will follow. Results of the preliminary report may be modified as additional information becomes available. Performed By: #### C RESP ####[facility] [address]osb27[address] [place], [place] XR CHEST 1 VIEW AP OR PAon 0 06-07-2022 XR CHEST 1 VIEW AP OR PA Normal [facility] 1:1 Interactionon 06-06-2022 Lawn Mower Authentication Interface Message Text Normal [facility] BASIC METABOLIC PANELon 05-19 Anion gap [Moles/Vol] 13 mmol/L Normal 10-20 [facility] Comment on above: Performed By: #### C H8 ####S PATHOLOGY [id number] [place], [place], Calcium [Mass/Vol] 8.0 mg/dL Low 8.4-10.4 [facility] Comment on above: Performed By: #### C H8 ####S PATHOLOGY [id number] [place], Chloride [Moles/Vol] 113 mmol/L High 97-111 [facility] Comment on above: Performed By: #### C H8 ####S PATHOLOGY LXETRPAXWM6141 [place], CO2 [Moles/Vol] 30 mmol/L Normal 21-30 [facility] Comment on above: Performed By: #### C H8 ####S PATHOLOGY CMGJHCZCCR6275 [place], Creatinine [Mass/Vol] 0.52 mg/dL Low 0.80-1.30 [facility] Comment on above: Performed By: #### C H8 ####S PATHOLOGY WEYIGOPWEE0936 [place], ESTIMATED GFR (CKD-EPI) 115 mL/min/1.73sqm Normal >=60 [facility] Comment on above: Result Comment: 2020 CKD EPI Equation using Creatinine without RaceComment: Estimated glomerular filtration rate (eGFR) is calculated without a race coefficient. Values should be interpreted in the context of the patient's full clinical presentation.Reference:1. Eddie C, Addy M, Griselda TORRES, et al.. A Unifying Approach for GFR Estimation: Recommendations of the NKF-ASN Task Force on Reassessing the Inclusion of Race in Diagnosing Kidney Disease. [place] Journal of Kidney Diseases 2021;79(2):268-88.e1.2. N Engl J Med 1 Vol. 385 Issue 19 Pages 4359-6852 Performed By: #### C H8 ####[facility] [id number] [place], Glucose [Mass/Vol] 135 mg/dL High 80-116 [facility] Comment on above: Performed By: #### Tee H8 ####[facility] LEIZQYUZRW5722 [place], Potassium [Moles/Vol] 3.4 mmol/L Normal 3.3-5.3 [facility] Comment on above: Performed By: #### Tee H8 ####[facility] WRFHDCCPQX4864 [place], Sodium [Moles/Vol] 153 mmol/L High 135-148 [facility] Comment on above: Performed By: #### C H8 ####[facility] STEQEEDCPX0875 [place], Urea nitrogen [Mass/Vol] 27 mg/dL High 8-22 [facility] Comment on above: Performed By: #### Tee H8 ####[facility] [id number] [place], Anion gap [Moles/Vol] 10 mmol/L Normal 10-20 [facility] Comment on above: Performed By: ###NAHID Caceres CH8 ####[facility] [id number] [place], Calcium [Mass/Vol] 7.9 mg/dL Low 8.4-10.4 [facility] Comment on above: Performed By: #### M G, PHOS, CH8 ####[facility] INNXESTCDK8519 [place], Chloride [Moles/Vol] 113 mmol/L High 97-111 [facility] Comment on above: Performed By: #### NAHID Marshall CH8 ####[facility] [id number] [place], CO2 [Moles/Vol] 34 mmol/L High 21-30 [facility] Comment on above: Performed By: #### NAHID Marshall CH8 ####S PATHOLOGY XEYREWQTPO6615 [place], Creatinine [Mass/Vol] 0.48 mg/dL Low 0.80-1.30 [facility] Comment on above: Performed By: #### NAHID Marshall CH8 ####S PATHOLOGY [id number] [place], ESTIMATED GFR (CKD-EPI) 118 mL/min/1.73sqm Normal >=60 [facility] Comment on above: Result Comment: 2020 CKD EPI Equation using Creatinine without RaceComment: Estimated glomerular filtration rate (eGFR) is calculated without a race coefficient. Values should be interpreted in the context of the patient's full clinical presentation.Reference:1. Eddie C, Addy M, Griselda TORRES, et al.. A Unifying Approach for GFR Estimation: Recommendations of the NKF-ASN Task Force on Reassessing the Inclusion of Race in Diagnosing Kidney Disease. [place] Journal of Kidney Diseases 2021;79(2):268-88.e1.2. N Engl J Med 2020 Vol. 385 Issue 19 Pages 5407-0486 Performed By: #### NAHID Marshall CH8 ####[facility] [id number] [place], Glucose [Mass/Vol] 130 mg/dL High 80-116 [facility] Comment on above: Performed By: #### NAHID Marshall CH8 ####[facility] [id number] [place], Potassium [Moles/Vol] 3.5 mmol/L Normal 3.3-5.3 [facility] Comment on above: Performed By: #### NAHID Marshall, CH8 ####S PATHOLOGY [id number] [place], Sodium [Moles/Vol] 153 mmol/L High 135-148 [facility] Comment on above: Performed By: #### NAHID Marshall, CH8 ####S PATHOLOGY TKTPGUWTGP4533 [place], Urea nitrogen [Mass/Vol] 27 mg/dL High 8-22 [facility] Comment on above: Performed By: #### NAHID Marshall CH8 ####S PATHOLOGY KSKECSPWMC1724 [place], BLOOD GAS, ARTERIALon 2022 CR SEFERINO 8.7 mmol/L High -2.0-2.0 [facility] Comment on above: Performed By: #### C R BGA ####S PATHOLOGY GBLHHQADLT4988 [place], CR PCO2 43.9 mm Hg Normal 35.0-45.0 [facility] Comment on above: Performed By: #### C R BGA ####S PATHOLOGY UJDYAXHBQG5770 [place], CR PHA 7.486 High 7.35-7.45 [facility] Comment on above: Performed By: #### C R BGA ####[facility] [id number] [place], [place], CR PO2 53 mm Hg Low 80-100 [facility] Comment on above: Performed By: #### C R BGA ####[facility] EXADWXQZOP7089 [place], FIO2 (CATEGORY) 60% Normal [facility] Comment on above: Performed By: #### C R BGA ####[facility] UOLQEIDPEJ0143 [place], HCO3 (Bld) [Moles/Vol] 33 mmol/L High 22-28 e [facility] Comment on above: Performed By: #### C R BGA ####[facility] [id number] [place], MODE Vent Normal [facility] Comment on above: Performed By: #### C R BGA ####[facility] PATHOLOGY [id number] [place], Oxygen saturation in Blood 88.2 % Low >=95.1 [facility] Comment on above: Performed By: #### C R BGA ####[facility] PATHOLOGY UBOHWJSUSM[address] [place] [address], COMPLETE BLOOD COUNTon 06-06 Erythrocyte distribution width (RBC) [Ratio] 14.7 % High 11.5-14.5 [facility] Comment on above: Performed By: #### C BC ####[facility] PATHOLOGY [id number] [place] [address], Hematocrit (Bld) [Volume fraction] 23.2 % Low 41.0-53.0 [facility] Comment on above: Performed By: #### C BC ####[facility] PATHOLOGY [id number] [place] [address], Hemoglobin (Bld) [Mass/Vol] 7.4 g/dL Low 13.9-16.3 [facility] Comment on above: Performed By: #### C BC ####[facility] PATHOLOGY [id number] [place], MCH (RBC) [Entitic mass] 29.3 pg Normal 26.0-34.0 [facility] Comment on above: Performed By: #### C BC ####[facility] PATHOLOGY [id number] [place] [address], MCHC (RBC) [Mass/Vol] 32.0 g/dL Normal 32.0-35.9 [facility] Comment on above: Performed By: #### C BC ####[facility] PATHOLOGY [id number] [place] [address], MCV (RBC) [Entitic vol] 92 fL Normal 80-100 [facility] Comment on above: Performed By: #### C BC ####[facility] PATHOLOGY [id number] [place] [address], Platelet mean volume (Bld) [Entitic vol] 8.8 fL Normal 7.5-11.2 [facility] Comment on above: Performed By: #### C BC ####S PATHOLOGY [id number] [place], Platelets (Bld) [#/Vol] 244 10*3/uL Normal 150-400 [facility] Comment on above: Performed By: #### C BC ####[facility] PATHOLOGY [id number] [place], RBC (Bld) [#/Vol] 2.53 10*6/uL Low 4.50-5.90 [facility] Comment on above: Performed By: #### C BC ####[facility] PATHOLOGY [id number] [place], WBC (Bld) [#/Vol] 28.3 10*3/uL Critically high 4.5-11.5 [facility] Comment on above: Performed By: #### Tee BC ####[facility] PATHOLOGY [id number] [place], Care Plan Noteon 06-06-2022 Lawn Mower Authentication Interface Message Text Normal [facility] Consultson 06-06-2022 Lawn Mower Authentication Interface Message Text Normal [facility] MAGNESIUMon 06-06-2022 Magnesium [Mass/Vol] 2.2 mg/dL Normal 1.6-2.8 [facility] Comment on above: Performed By: ###NAHID Caceres CH8 ####[facility] [id number] [place], PHOSPHORUSon 06-06-2022 Phosphate [Mass/Vol] 1.8 mg/dL Low 2.5-4.8 [facility] Comment on above: Performed By: ###NAHID Caceres CH8 ####[facility] [id number] [place], Progress Noteson 06-06-2022 Lawn Mower Authentication Interface Message Text Chart accessed for [employer] follow up Normal [facility] Lawn Mower Authentication Interface Message Text Normal [facility] XR CHEST 1 VIEW AP OR PAon 0 06-06-2022 XR CHEST 1 VIEW AP OR PA Normal [facility] BASIC METABOLIC PANELon 04-1 Anion gap [Moles/Vol] 12 mmol/L Normal 10-20 [facility] Comment on above: Performed By: #### C H8, MG, PHOS ####[facility] OBMUFTOKEK6221 [place], Calcium [Mass/Vol] 7.6 mg/dL Low 8.4-10.4 [facility] Comment on above: Performed By: #### C H8, MG, PHOS ####[facility] MEJXEUUFMY6889 [place], Chloride [Moles/Vol] 114 mmol/L High 97-111 [facility] Comment on above: Performed By: #### C H8, MG, PHOS ####[facility] KVECMNHNXR2559 [place], CO2 [Moles/Vol] 28 mmol/L Normal -30 [facility] Comment on above: Performed By: #### C H8, MG, PHOS ####[facility] PATH[facility] OIWNNOUPZT5316 [place], Creatinine [Mass/Vol] 0.45 mg/dL Low 0.80-1.30 [facility] Comment on above: Performed By: #### C H8, MG, PHOS ####[facility] TIONXZTTJW5111 [place], ESTIMATED GFR (CKD-EPI) 121 mL/min/1.73sqm Normal >=60 The [facility] Comment on above: Result Comment: 2020 CKD EPI Equation using Creatinine without RaceComment: Estimated glomerular filtration rate (eGFR) is calculated without a race coefficient. Values should be interpreted in the context of the patient's full clinical presentation.Reference:1. Eddie Oliveira, Addy M, Griselda TORRES, et al.. A Unifying Approach for GFR Estimation: Recommendations of the NKF-ASN Task Force on Reassessing the Inclusion of Race in Diagnosing Kidney Disease. [place] Journal of Kidney Diseases 202;79(2):268-88.e1.2. N Engl J Med 2020 Vol. 385 Issue 19 Pages 0937-5519 Performed By: #### MG Franks PHOS ####S PATHOLOGY YIDTGBMCWU9742 [place], Glucose [Mass/Vol] 123 mg/dL High 80-116 [facility] Comment on above: Performed By: #### MG Franks PHOS ####S PATHOLOGY CDNUENLQSD8947 [place], Potassium [Moles/Vol] 3.8 mmol/L Normal 3.3-5.3 [facility] Comment on above: Performed By: #### MG Franks PHOS ####S PATHOLOGY BQOVMRUOVG7754 [place], Sodium [Moles/Vol] 150 mmol/L High 135-148 [facility] Comment on above: Performed By: #### MG Franks PHOS ####S PATHOLOGY APNQBVBELM9646 [place], Urea nitrogen [Mass/Vol] 23 mg/dL High 8-22 [facility] Comment on above: Performed By: #### MG Franks PHOS ####[facility] PATHOLOGY [id number] [place], BLOOD CULTUREon 06-05-2022 Bacteria identified Cx Nom (Bld) C BLOOD: No Growth Normal [facility] Comment on above: Performed By: #### C BLOOD ####[facility] Vewywwvdl8161 [place], [place] BLOOD GAS, ARTERIALon 2022 CR SEFERINO 5.6 mmol/L High -2.0-2.0 [facility] Comment on above: Performed By: #### C R BGA ####[facility] GIBAOGCGHZ8301 [place], CR PCO2 42.4 mm Hg Normal 35.0-45.0 [facility] Comment on above: Performed By: #### C R BGA ####[facility] YKMSOZKVLG040[address] [place] [address], CR PHA 7.457 High 7.35-7.45 [facility] Comment on above: Performed By: #### C R BGA ####[facility] PATHOLOGY LXOYTTSEBB596[address] [place] [address], CR PO2 146 mm Hg High 80-100 [facility] Comment on above: Performed By: #### C R BGA ####[facility] PATHOLOGY [id number] [place] [address], FIO2 (CATEGORY) 100% Normal [facility] Comment on above: Performed By: #### C R BGA ####[facility] PATHOLOGY [id number] [place] [address], HCO3 (Bld) [Moles/Vol] 30 mmol/L High 22-28 Th e [facility] Comment on above: Performed By: #### C R BGA ####[facility] PATHOLOGY [id number] [place] [address], MODE Vent Normal [facility] Comment on above: Performed By: #### C R BGA ####[facility] PATHOLOGY [id number] [place] [address], Oxygen saturation in Blood 99.0 % Normal >=95.1 [facility] Comment on above: Performed By: #### C R BGA ####[facility] PATHOLOGY [id number] [place] [address], CR SEFERINO 5.3 mmol/L High -2.0-2.0 [facility] Comment on above: Performed By: #### C R BGA ####[facility] PATHOLOGY SQKAXOWXLR877[address] [place] [address], CR PCO2 46.8 mm Hg High 35.0-45.0 [facility] Comment on above: Performed By: #### C R BGA ####[facility] PATHOLOGY [id number] [place] [address], CR PHA 7.420 Normal 7.35-7.45 [facility] Comment on above: Performed By: #### C R BGA ####[facility] PATHOLOGY [id number] [place] [address], [place], CR PO2 141 mm Hg High 80-100 [facility] Comment on above: Performed By: #### C R BGA ####S PATHOLOGY QNHSVPPVRJ3637 [place], FIO2 (CATEGORY) 100% Normal [facility] Comment on above: Performed By: #### C R BGA ####S PATHOLOGY JTCWAZPNMA5987 [place], HCO3 (Bld) [Moles/Vol] 30 mmol/L High 22-28 e [facility] Comment on above: Performed By: #### C R BGA ####S PATHOLOGY GTHGZDMQYM1055 [place], MODE Vent Normal [facility] Comment on above: Performed By: #### C R BGA ####[facility] PATHOLOGY [id number] [place], Oxygen saturation in Blood 99.0 % Normal >=95.1 [facility] Comment on above: Performed By: #### C R BGA ####[facility] PATHOLOGY [id number] [place], COMPLETE BLOOD COUNTon 06-05 Erythrocyte distribution width (RBC) [Ratio] 14.5 % Normal 11.5-14.5 [facility] Comment on above: Performed By: #### C BC ####[facility] PATHOLOGY [id number] [place], Hematocrit (Bld) [Volume fraction] 22.7 % Low 41.0-53.0 [facility] Comment on above: Performed By: #### C BC ####S PATHOLOGY [id number] [place], Hemoglobin (Bld) [Mass/Vol] 7.6 g/dL Low 13.9-16.3 [facility] Comment on above: Performed By: #### C BC ####[facility] PATHOLOGY [id number] [place], MCH (RBC) [Entitic mass] 30.2 pg Normal 26.0-34.0 [facility] Comment on above: Performed By: #### C BC ####S PATHOLOGY ZTPAIMJDHO1992 [place], MCHC (RBC) [Mass/Vol] 33.5 g/dL Normal 32.0-35.9 [facility] Comment on above: Performed By: #### C BC ####S PATHOLOGY [id number] [place], MCV (RBC) [Entitic vol] 90 fL Normal 80-100 [facility] Comment on above: Performed By: #### C BC ####S PATHOLOGY ESFOSGMCDB9972 [place], Platelet mean volume (Bld) [Entitic vol] 8.4 fL Normal 7.5-11.2 [facility] Comment on above: Performed By: #### C BC ####[facility] PATHOLOGY [id number] [place], Platelets (Bld) [#/Vol] 198 10*3/uL Normal 150-400 [facility] Comment on above: Performed By: #### C BC ####S PATHOLOGY JLNHNEWUNE3034 [place], RBC (Bld) [#/Vol] 2.52 10*6/uL Low 4.50-5.90 [facility] Comment on above: Performed By: #### C BC ####S PATHOLOGY [id number] [place], WBC (Bld) [#/Vol] 23.6 10*3/uL High 4.5-11.5 [facility] Comment on above: Performed By: #### C BC ####S PATHOLOGY RIVKRWMJAX2619 [place], Care Plan Noteon 06-05-2022 Lawn Mower Authentication Interface Message Text Normal [facility] MAGNESIUMon 06-05-2022 Magnesium [Mass/Vol] 2.2 mg/dL Normal 1.6-2.8 [facility] Comment on above: Performed By: #### C H8, MG, PHOS ####S PATHOLOGY [id number] [place], PHOSPHORUSon 06-05-2022 Phosphate [Mass/Vol] 1.7 mg/dL Low 2.5-4.8 [facility] Comment on above: Performed By: #### C H8, MG, PHOS ####[facility] YCNOVQUZCC0939 [place], Progress Noteson 06-05-2022 Lawn Mower Authentication Interface Message Text Normal [facility] Lawn Mower Authentication Interface Message Text Normal [facility] Lawn Mower Authentication Interface Message Text Normal [facility] Lawn Mower Authentication Interface Message Text 2054 Dr. Baez notified of critical blood culture: anaerobic bottle yields Gram Positive Cocci In Clusters and Staphylococcus aureus. Dr. Baez read back critical results. New orders received. Normal [facility] XR CHEST 1 VIEW AP OR PAon 0 06-05-2022 XR CHEST 1 VIEW AP OR PA Normal [facility] BASIC METABOLIC PANELon 05-18 Anion gap [Moles/Vol] 10 mmol/L Normal 10-20 [facility] Comment on above: Performed By: #### Tee HSuzi MG, PHOS ####[facility] LAKORDLIWR8089 [place], Calcium [Mass/Vol] 7.7 mg/dL Low 8.4-10.4 [facility] Comment on above: Performed By: #### Tee H8, MG, PHOS ####[facility] [id number] [place], Chloride [Moles/Vol] 112 mmol/L High 97-111 [facility] Comment on above: Performed By: #### C H8, MG, PHOS ####[facility] [id number] [place], CO2 [Moles/Vol] 27 mmol/L Normal 21-30 [facility] Comment on above: Performed By: #### C H8, MG, PHOS ####[facility] PATH[facility] YSZLXJNMRJ0607 [place], Creatinine [Mass/Vol] 0.63 mg/dL Low 0.80-1.30 [facility] Comment on above: Performed By: #### MG Tiny PHOS ####[facility] PATH[facility] NHSFFBTFNL0345 [place], ESTIMATED GFR (CKD-EPI) 109 mL/min/1.73sqm Normal >=60 [facility] Comment on above: Result Comment: 2020 CKD EPI Equation using Creatinine without RaceComment: Estimated glomerular filtration rate (eGFR) is calculated without a race coefficient. Values should be interpreted in the context of the patient's full clinical presentation.Reference:1. Eddie C, Addy M, Griselda TORRES, et al.. A Unifying Approach for GFR Estimation: Recommendations of the NKF-ASN Task Force on Reassessing the Inclusion of Race in Diagnosing Kidney Disease. [place] Journal of Kidney Diseases 2021;79(2):268-88.e1.2. N Engl J Med 2020 Vol. 385 Issue 19 Pages 2834-4610 Performed By: #### MG Franks PHOS ####[facility] KWRMAVQBTQ3706 [place], Glucose [Mass/Vol] 137 mg/dL High 80-116 [facility] Comment on above: Performed By: #### MG Franks PHOS ####[facility] PATH[facility] TTTBMRZLBH0201 [place], Potassium [Moles/Vol] 3.8 mmol/L Normal 3.3-5.3 [facility] Comment on above: Performed By: #### MG Tiny, PHOS ####[facility] PATH[facility] TNPSECVEBO8905 [place], Sodium [Moles/Vol] 145 mmol/L Normal 135-148 [facility] Comment on above: Performed By: #### MG Tiny PHOS ####[facility] PATH[facility] [id number] [place], Urea nitrogen [Mass/Vol] 33 mg/dL High 8-22 [facility] Comment on above: Performed By: #### MG Franks PHOS ####[facility] BOPBZQFKDT8019 [place], BLOOD GAS, ARTERIALon 2022 CR % O2 SAT > 99.4 Normal >=95.1 [facility] Comment on above: Performed By: #### C R BGA ####S PATHOLOGY HDYGAOCDPE9721 [place], CR SEFERINO 4.4 mmol/L High -2.0-2.0 [facility] Comment on above: Performed By: #### C R BGA ####[facility] PATHOLOGY [id number] [place], CR PCO2 44.9 mm Hg Normal 35.0-45.0 [facility] Comment on above: Performed By: #### C R BGA ####[facility] PATHOLOGY [id number] [place] [address], CR PHA 7.423 Normal 7.35-7.45 [facility] Comment on above: Performed By: #### C R BGA ####[facility] PATHOLOGY [id number] [place] [address], CR PO2 144 mm Hg High 80-100 [facility] Comment on above: Performed By: #### C R BGA ####[facility] PATHOLOGY [id number] [place] [address], FIO2 (CATEGORY) 100% Normal [facility] Comment on above: Performed By: #### C R BGA ####[facility] PATHOLOGY [id number] [place] [address], HCO3 (Bld) [Moles/Vol] 29 mmol/L High 22-28 Th e [facility] Comment on above: Performed By: #### C R BGA ####S PATHOLOGY ZTLTEQIVAV8682 [place], MODE Vent Normal [facility] Comment on above: Performed By: #### C R BGA ####S PATHOLOGY WREKMRMVOS7019 [place], CR SEFERINO 2.9 mmol/L High -2.0-2.0 [facility] Comment on above: Performed By: #### C R BGA ####[facility] [id number] [place], [place], CR PCO2 43.9 mm Hg Normal 35.0-45.0 [facility] Comment on above: Performed By: #### C R BGA ####[facility] PATHOLOGY [id number] [place] [address], CR PHA 7.409 Normal 7.35-7.45 [facility] Comment on above: Performed By: #### C R BGA ####[facility] PATHOLOGY [id number] [place] [address], CR PO2 86 mm Hg Normal 80-100 [facility] Comment on above: Performed By: #### C R BGA ####[facility] PATHOLOGY [id number] [place] [address], FIO2 (CATEGORY) 60% Normal [facility] Comment on above: Performed By: #### C R BGA ####[facility] PATHOLOGY [id number] [place] [address], HCO3 (Bld) [Moles/Vol] 27 mmol/L Normal 22-28 e [facility] Comment on above: Performed By: #### C R BGA ####[facility] PATHOLOGY [id number] [place] [address], MODE Vent Normal [facility] Comment on above: Performed By: #### C R BGA ####[facility] PATHOLOGY [id number] [place] [address], Oxygen saturation in Blood 97.3 % Normal >=95.1 [facility] Comment on above: Performed By: #### C R BGA ####[facility] PATHOLOGY [id number] [place], [place], CR SEFERINO 2.0 mmol/L Normal -2.0-2.0 [facility] Comment on above: Performed By: #### C R BGA ####[facility] PATHOLOGY [id number] [place] [address], CR PCO2 46.0 mm Hg High 35.0-45.0 [facility] Comment on above: Performed By: #### C R BGA ####[facility] [id number] [place], [place], CR PHA 7.384 Normal 7.35-7.45 [facility] Comment on above: Performed By: #### C R BGA ####[facility] PATHOLOGY [id number] [place], [place], CR PO2 111 mm Hg High 80-100 [facility] Comment on above: Performed By: #### C R BGA ####[facility] PATHOLOGY [id number] [place], FIO2 (CATEGORY) 80% Normal [facility] Comment on above: Performed By: #### C R BGA ####[facility] PATHOLOGY [id number] [place] [address], Oxygen saturation in Blood 98.9 % Normal >=95.1 [facility] Comment on above: Performed By: #### C R BGA ####[facility] PATHOLOGY [id number] [place] [address], COMPLETE BLOOD COUNT 06-04 Erythrocyte distribution width (RBC) [Ratio] 14.3 % Normal 11.5-14.5 [facility] Comment on above: Performed By: #### C BC ####[facility] PATHOLOGY [id number] [place] [address], Hematocrit (Bld) [Volume fraction] 22.6 % Low 41.0-53.0 [facility] Comment on above: Performed By: #### C BC ####[facility] PATHOLOGY [id number] [place] [address], Hemoglobin (Bld) [Mass/Vol] 7.5 g/dL Low 13.9-16.3 [facility] Comment on above: Performed By: #### C BC ####[facility] PATHOLOGY [id number] [place] [address], MCH (RBC) [Entitic mass] 30.1 pg Normal 26.0-34.0 [facility] Comment on above: Performed By: #### C BC ####[facility] PATHOLOGY [id number] [place] [address], MCHC (RBC) [Mass/Vol] 33.5 g/dL Normal 32.0-35.9 [facility] Comment on above: Performed By: #### C BC ####[facility] PATHOLOGY [id number] [place], MCV (RBC) [Entitic vol] 90 fL Normal 80-100 [facility] Comment on above: Performed By: #### C BC ####[facility] PATHOLOGY [id number] [place], Platelet mean volume (Bld) [Entitic vol] 8.9 fL Normal 7.5-11.2 [facility] Comment on above: Performed By: #### C BC ####[facility] PATHOLOGY [id number] [place], Platelets (Bld) [#/Vol] 179 10*3/uL Normal 150-400 [facility] Comment on above: Performed By: #### C BC ####[facility] PATHOLOGY [id number] [place] [address], RBC (Bld) [#/Vol] 2.51 10*6/uL Low 4.50-5.90 [facility] Comment on above: Performed By: #### C BC ####[facility] PATHOLOG[facility] [id number] [place], WBC (Bld) [#/Vol] 22.9 10*3/uL High 4.5-11.5 [facility] Comment on above: Performed By: #### C BC ####[facility] PATHOLOGY [id number] [place] [address], Erythrocyte distribution width (RBC) [Ratio] 13.4 % Normal 11.5-14.5 [facility] Comment on above: Performed By: #### C BC ####[facility] PATHOLOGY [id number] [place], Hematocrit (Bld) [Volume fraction] 18.3 % Critically low 41.0-53.0 [facility] Comment on above: Performed By: #### C BC ####S PATHOLOGY [id number] [place] [address], Hemoglobin (Bld) [Mass/Vol] 5.8 g/dL Critically low 13.9-16.3 [facility] Comment on above: Performed By: #### C BC ####[facility] PATHOLOG[facility] [id number] [place], MCH (RBC) [Entitic mass] 29.5 pg Normal 26.0-34.0 [facility] Comment on above: Performed By: #### C BC ####[facility] PATHOLOGY [id number] [place] [address], MCHC (RBC) [Mass/Vol] 31.6 g/dL Low 32.0-35.9 [facility] Comment on above: Performed By: #### C BC ####[facility] PATHOLOGY [id number] [place] [address], MCV (RBC) [Entitic vol] 93 fL Normal 80-100 [facility] Comment on above: Performed By: #### C BC ####[facility] PATHOLOGY [id number] [place] [address], Platelet mean volume (Bld) [Entitic vol] 8.7 fL Normal 7.5-11.2 [facility] Comment on above: Performed By: #### C BC ####[facility] PATHOLOGY [id number] [place] [address], Platelets (Bld) [#/Vol] 189 10*3/uL Normal 150-400 [facility] Comment on above: Performed By: #### C BC ####[facility] PATHOLOGY [id number] [place] [address], RBC (Bld) [#/Vol] 1.96 10*6/uL Low 4.50-5.90 [facility] Comment on above: Performed By: #### C BC ####[facility] PATHOLOGY [id number] [place] [address], WBC (Bld) [#/Vol] 22.3 10*3/uL High 4.5-11.5 [facility] Comment on above: Performed By: #### C BC ####[facility] PATHOLOGY [id number] [place] [address], Erythrocyte distribution width (RBC) [Ratio] 13.4 % Normal 11.5-14.5 [facility] Comment on above: Performed By: #### C BC ####[facility] PATHOLOGY [id number] [place] [address], Hematocrit (Bld) [Volume fraction] 18.3 % Critically low 41.0-53.0 [facility] Comment on above: Performed By: #### C BC ####[facility] PATHOLOGY [id number] [place] [address], Hemoglobin (Bld) [Mass/Vol] 6.0 g/dL Critically low 13.9-16.3 [facility] Comment on above: Performed By: #### C BC ####[facility] PATHOLOGY [id number] [place] [address], MCH (RBC) [Entitic mass] 30.2 pg Normal 26.0-34.0 [facility] Comment on above: Performed By: #### C BC ####[facility] PATHOLOGY [id number] [place] [address], MCHC (RBC) [Mass/Vol] 32.7 g/dL Normal 32.0-35.9 [facility] Comment on above: Performed By: #### C BC ####[facility] PATHOLOGY [id number] [place] [address], MCV (RBC) [Entitic vol] 92 fL Normal 80-100 [facility] Comment on above: Performed By: #### C BC ####[facility] PATHOLOGY [id number] [place] [address], Platelet mean volume (Bld) [Entitic vol] 8.9 fL Normal 7.5-11.2 [facility] Comment on above: Performed By: #### C BC ####[facility] PATHOLOGY [id number] [place] [address], Platelets (Bld) [#/Vol] 187 10*3/uL Normal 150-400 [facility] Comment on above: Performed By: #### C BC ####[facility] PATHOLOGY [id number] [place], RBC (Bld) [#/Vol] 1.98 10*6/uL Low 4.50-5.90 [facility] Comment on above: Performed By: #### C BC ####S PATHOLOGY [id number] [place], WBC (Bld) [#/Vol] 22.7 10*3/uL High 4.5-11.5 [facility] Comment on above: Performed By: #### C BC ####[facility] PATHOLOGY [id number] [place], MAGNESIUMon 06-04-2022 Magnesium [Mass/Vol] 2.2 mg/dL Normal 1.6-2.8 [facility] Comment on above: Performed By: #### C H8, MG, PHOS ####[facility] PATHOLOGY [id number] [place], PHOSPHORUSon 06-04-2022 Phosphate [Mass/Vol] 1.4 mg/dL Low 2.5-4.8 [facility] Comment on above: Performed By: #### C H8, MG, PHOS ####[facility] PATHOLOGY [id number] [place], [place], Procedureson 06-04-2022 Lawn Mower Authentication Interface Message Text Normal [facility] Progress Noteson 06-04-2022 Lawn Mower Authentication Interface Message Text Normal [facility] Lawn Mower Authentication Interface Message Text Normal [facility] Lawn Mower Authentication Interface Message Text Normal [facility] RED BLOOD CELL COMPONENTon 0 06-04-2022 BB ORDER ITEM Product status info to follow Normal [facility] Comment on above: Performed By: #### R AMBROCIO ####S PATHOLOGY [id number] [place], RED BLOOD CELL UNIT STATUSon 06-04-2022 BLOOD PRODUCT CODE [id number] Normal [facility] Comment on above: Performed By: #### R BU ####S PATHOLOGY [id number] [place] [address], BLOOD PRODUCT DESCRIPTION Red Blood Cells Normal [facility] Comment on above: Performed By: #### R BU ####S PATHOLOGY [id number] [place], BLOOD PRODUCT STATUS Transfused Normal [facility] Comment on above: Performed By: #### R BU ####S PATHOLOGY [id number] [place], BLOOD PRODUCT UNIT INFO [id number] Normal [facility] Comment on above: Performed By: #### R BU ####S PATHOLOGY [id number] [place], BLOOD PRODUCT UNIT INFO [id number] Normal [facility] Comment on above: Performed By: #### R BU ####S PATHOLOGY [id number] [place], BLOOD PRODUCT UNIT TYPE 9500 Normal [facility] Comment on above: Result Comment: O Ne g Performed By: #### R BU ####S PATHOLOGY [id number] [place], CROSSMATCH INTERPRETATION Compatible (E) Normal [facility] Comment on above: Performed By: #### R BU ####[facility] PATHOLOGY [id number] [place], TYPE AND SCREENon 06-04-2022 ABO and Rh group Nom (Bld) Blood group O Rh(D) negative Normal [facility] Comment on above: Result Comment: Weak D (Du) testing not performed on this specimen. Two or more specimens were previously tested as Weak D negative on this patient. Performed By: #### T S ####S PATHOLOGY [id number] [place], ABSC INT Negative Normal [facility] Comment on above: Performed By: #### T S ####S PATHOLOGY [id number] [place], XR CHEST 1 VIEW AP OR PAon 0 06-04-2022 XR CHEST 1 VIEW AP OR PA Normal [facility] XR KNEE LEFT AP+LATon 2022 XR KNEE LEFT AP+LAT Normal [facility] XR LT FEMUR MIN 2 VIEWSon XR LT FEMUR MIN 2 VIEWS Normal [facility] BASIC METABOLIC PANELon 04-1 Anion gap [Moles/Vol] 13 mmol/L Normal 10-20 [facility] Comment on above: Performed By: #### P HOS, TRIG, MG, CH8 ####[facility] [id number] [place], Calcium [Mass/Vol] 7.7 mg/dL Low 8.4-10.4 [facility] Comment on above: Performed By: #### P HOS, TRIG, MG, CH8 ####[facility] [id number] [place], Chloride [Moles/Vol] 109 mmol/L Normal 97-111 [facility] Comment on above: Performed By: #### P HOS, TRIG, MG, CH8 ####[facility] [id number] [place], CO2 [Moles/Vol] 25 mmol/L Normal 21-30 [facility] Comment on above: Performed By: #### P HOS, TRIG, MG, CH8 ####[facility] [id number] [place], Creatinine [Mass/Vol] 1.13 mg/dL Normal 0.80-1.30 [facility] Comment on above: Performed By: #### P HOS, TRIG, MG, CH8 ####S PATHOLOGY [id number] [place], ESTIMATED GFR (CKD-EPI) 74 mL/min/1.73sqm Normal >=60 [facility] Comment on above: Result Comment: 2020 CKD EPI Equation using Creatinine without RaceComment: Estimated glomerular filtration rate (eGFR) is calculated without a race coefficient. Values should be interpreted in the context of the patient's full clinical presentation.Reference:1. Eddie C, Addy M, Griselda TORRES, et al.. A Unifying Approach for GFR Estimation: Recommendations of the NKF-ASN Task Force on Reassessing the Inclusion of Race in Diagnosing Kidney Disease. [place] Journal of Kidney Diseases 2021;79(2):268-88.e1.2. N Engl J Med 2020 Vol. 385 Issue 19 Pages 3851-2305 Performed By: #### P HOS, TRIG, MG, CH8 ####[facility] [id number] [place], Glucose [Mass/Vol] 126 mg/dL High 80-116 [facility] Comment on above: Performed By: #### P HOS, TRIG, MG, CH8 ####[facility] [id number] [place], Potassium [Moles/Vol] 4.7 mmol/L Normal 3.3-5.3 [facility] Comment on above: Performed By: #### P HOS, TRIG, MG, CH8 ####[facility] [id number] [place], Sodium [Moles/Vol] 142 mmol/L Normal 135-148 [facility] Comment on above: Performed By: #### P HOS, TRIG, MG, CH8 ####[facility] [id number] [place], Urea nitrogen [Mass/Vol] 34 mg/dL High 8-22 [facility] Comment on above: Performed By: #### P HOS, TRIG, MG, CH8 ####[facility] [id number] [place], BLOOD CULTUREon 06-03-2022 Bacteria identified Cx Nom (Bld) C BLOOD: Positive Culture Report STAPHYLOCOCCUS AUREUS Anaerobic bottle yields Staphylococcus aureus Identification by nucleic acid based testing GRAM STAIN: Anaerobic bottle yields Gram Positive Cocci In Clusters Normal [facility] Comment on above: Performed By: #### C BLOOD ####[facility] Fkxopibxf9838 [place], [place] Bacteria identified Cx Nom (Bld) C BLOOD: No Growth Normal The [facility] Comment on above: Performed By: #### C BLOOD ####[facility] Tmefynwhc1216 [place], [place] CLYDE Normal The [facility] Comment on above: Performed By: #### C BLOOD ####[facility] Xcovbldya3819 [place], [place] BLOOD GAS, ARTERIALon 2022 CR SEFERINO 0.4 mmol/L Normal -2.0-2.0 [facility] Comment on above: Performed By: #### C R BGA ####[facility] PATHOLOGY [id number] [place], CR PCO2 44.0 mm Hg Normal 35.0-45.0 [facility] Comment on above: Performed By: #### C R BGA ####[facility] PATHOLOGY [id number] [place] [address], CR PHA 7.375 Normal 7.35-7.45 [facility] Comment on above: Performed By: #### C R BGA ####[facility] PATHOLOGY [id number] [place] [address], CR PO2 168 mm Hg High 80-100 [facility] Comment on above: Performed By: #### C R BGA ####[facility] PATHOLOGY [id number] [place] [address], FIO2 (CATEGORY) 90% Normal [facility] Comment on above: Result Comment: 09/02 Performed By: #### C R BGA ####[facility] PATHOLOGY [id number] [place] [address], HCO3 (Bld) [Moles/Vol] 25 mmol/L Normal 22-28 [facility] Comment on above: Performed By: #### C R BGA ####[facility] PATHOLOGY [id number] [place] [address], MODE Vent Normal [facility] Comment on above: Performed By: #### C R BGA ####[facility] PATHOLOGY [id number] [place], Oxygen saturation in Blood 99.1 % Normal >=95.1 [facility] Comment on above: Performed By: #### C R BGA ####[facility] PATHOLOGY [id number] [place] [address], CR % O2 SAT > 99.4 Normal >=95.1 [facility] Comment on above: Performed By: #### C R BGA ####[facility] PATHOLOG[facility] [id number] [place], CR SEFERINO -0.9 mmol/L Normal -2.0-2.0 [facility] Comment on above: Performed By: #### C R BGA ####[facility] PATHOLOGY [id number] [place] [address], CR PCO2 49.3 mm Hg High 35.0-45.0 [facility] Comment on above: Performed By: #### C R BGA ####[facility] PATHOLOGY [id number] [place] [address], CR PHA 7.318 Low 7.35-7.45 [facility] Comment on above: Performed By: #### C R BGA ####[facility] PATHOLOGY [id number] [place] [address], CR PO2 211 mm Hg High 80-100 [facility] Comment on above: Performed By: #### C R BGA ####[facility] PATHOLOGY [id number] [place] [address], FIO2 (CATEGORY) 100% Normal [facility] Comment on above: Performed By: #### C R BGA ####[facility] PATHOLOGY [id number] [place] [address], HCO3 (Bld) [Moles/Vol] 25 mmol/L Normal 22-28 [facility] Comment on above: Performed By: #### C R BGA ####[facility] PATHOLOGY [id number] [place] [address], MODE Vent Normal [facility] Comment on above: Performed By: #### C R BGA ####[facility] PATHOLOG[facility] [id number] [place], CR SEFERINO -1.6 mmol/L Normal -2.0-2.0 [facility] Comment on above: Performed By: #### C R BGA ####S PATHOLOGY STNAOWDZRB62[address] [place] [address], CR PCO2 49.0 mm Hg High 35.0-45.0 [facility] Comment on above: Performed By: #### C R BGA ####[facility] PATHOLOG[facility] [id number] [place], CR PHA 7.310 Low 7.35-7.45 [facility] Comment on above: Performed By: #### C R BGA ####[facility] PATHOLOGY [id number] [place] [address], CR PO2 175 mm Hg High 80-100 [facility] Comment on above: Performed By: #### C R BGA ####[facility] PATHOLOGY [id number] [place] [address], FIO2 (CATEGORY) 100% Normal [facility] Comment on above: Performed By: #### C R BGA ####[facility] PATHOLOGY [id number] [place] [address], HCO3 (Bld) [Moles/Vol] 24 mmol/L Normal 22-28 e [facility] Comment on above: Performed By: #### C R BGA ####[facility] PATHOLOGY [id number] [place] [address], MODE Vent Normal [facility] Comment on above: Performed By: #### C R BGA ####[facility] PATHOLOGY [id number] [place] [address], Oxygen saturation in Blood 99.1 % Normal >=95.1 [facility] Comment on above: Performed By: #### C R BGA ####[facility] PATHOLOGY [id number] [place] [address], CR SEFERINO -0.8 mmol/L Normal -2.0-2.0 [facility] Comment on above: Performed By: #### C R BGA ####[facility] PATHOLOGY [id number] [place] [address], CR PCO2 60.5 mm Hg High 35.0-45.0 [facility] Comment on above: Performed By: #### C R BGA ####[facility] PATHOLOGY [id number] [place] [address], CR PHA 7.257 Low 7.35-7.45 [facility] Comment on above: Performed By: #### C R BGA ####S PATHOLOGY [id number] [place], CR PO2 115 mm Hg High 80-100 [facility] Comment on above: Performed By: #### C R BGA ####S PATHOLOGY [id number] [place] [address], FIO2 (CATEGORY) 100% Normal [facility] Comment on above: Performed By: #### C R BGA ####[facility] PATHOLOGY [id number] [place] [address], HCO3 (Bld) [Moles/Vol] 26 mmol/L Normal 22-28 e [facility] Comment on above: Performed By: #### C R BGA ####[facility] PATHOLOGY [id number] [place] [address], MODE Vent Normal [facility] Comment on above: Performed By: #### C R BGA ####[facility] PATHOLOGY [id number] [place] [address], Oxygen saturation in Blood 98.2 % Normal >=95.1 [facility] Comment on above: Performed By: #### C R BGA ####[facility] PATHOLOGY [id number] [place] [address], CR SEFERINO -2.1 mmol/L Low -2.0-2.0 [facility] Comment on above: Performed By: #### C R BGA ####[facility] PATHOLOGY [id number] [place] [address], CR PCO2 69.1 mm Hg Critically high 35.0-45.0 [facility] Comment on above: Performed By: #### C R BGA ####[facility] PATHOLOGY [id number] [place] [address], CR PHA 7.197 Critically low 7.35-7.45 [facility] Comment on above: Performed By: #### C R BGA ####S PATHOLOGY [id number] [place] [address], CR PO2 120 mm Hg High 80-100 [facility] Comment on above: Performed By: #### C R BGA ####[facility] PATHOLOG[facility] [id number] [place], FIO2 (CATEGORY) 100% Normal The [facility] Comment on above: Performed By: #### C R BGA ####[facility] [id number] [place], [place], HCO3 (Bld) [Moles/Vol] 26 mmol/L Normal 22-28 Th e [facility] Comment on above: Performed By: #### C R BGA ####[facility] [id number] [place] [address], MODE Vent Normal The [facility] Comment on above: Performed By: #### C R BGA ####[facility] [id number] [place], Oxygen saturation in Blood 98.3 % Normal >=95.1 The [facility] Comment on above: Performed By: #### C R BGA ####[facility] PATH[facility]Y [id number] [place] [address], COMPLETE BLOOD COUNTon 06-03 Erythrocyte distribution width (RBC) [Ratio] 13.2 % Normal 11.5-14.5 [facility] Comment on above: Performed By: #### C BC ####[facility] PATH[facility] [id number] [place] [address], Hematocrit (Bld) [Volume fraction] 23.0 % Low 41.0-53.0 [facility] Comment on above: Performed By: #### C BC ####[facility] PATH[facility] [id number] [place] [address], Hemoglobin (Bld) [Mass/Vol] 7.6 g/dL Low 13.9-16.3 The [facility] Comment on above: Performed By: #### C BC ####[facility] PATH[facility] [id number] [place] [address], MCH (RBC) [Entitic mass] 31.1 pg Normal 26.0-34.0 The [facility] Comment on above: Performed By: #### C BC ####[facility] PATH[facility] [id number] [place] [address], MCHC (RBC) [Mass/Vol] 33.1 g/dL Normal 32.0-35.9 The [facility] Comment on above: Performed By: #### C BC ####[facility] [id number] [place], MCV (RBC) [Entitic vol] 94 fL Normal 80-100 The [facility] Comment on above: Performed By: #### C BC ####[facility] [id number] [place], Platelet mean volume (Bld) [Entitic vol] 8.3 fL Normal 7.5-11.2 The [facility] Comment on above: Performed By: #### C BC ####[facility] [id number] [place] [address], Platelets (Bld) [#/Vol] 199 10*3/uL Normal 150-400 The [facility] Comment on above: Performed By: #### C BC ####[facility] PATH[facility] [id number] [place] [address], RBC (Bld) [#/Vol] 2.45 10*6/uL Low 4.50-5.90 The [facility] Comment on above: Performed By: #### C BC ####[facility] PATH[facility] [id number] [place] [address], WBC (Bld) [#/Vol] 26.5 10*3/uL Critically high 4.5-11.5 The [facility] Comment on above: Performed By: #### C BC ####[facility] [id number] [place], MAGNESIUMon 06-03-2022 Magnesium [Mass/Vol] 2.3 mg/dL Normal 1.6-2.8 The [facility] Comment on above: Performed By: #### P HOS, TRIG, MG, CH8 ####[facility] [id number] [place], PHOSPHORUSon 06-03-2022 Phosphate [Mass/Vol] 2.9 mg/dL Normal 2.5-4.8 The [facility] Comment on above: Performed By: #### P HOS, TRIG, MG, CH8 ####[facility] [id number] [place], [place], Progress Noteson 06-03-2022 Lawn Mower Authentication Interface Message Text Normal The [employer] [facility] Lawn Mower Authentication Interface Message Text 1345: I have reviewed and agree with Patricia Reno's (Student Nurse) documentation for [id number] shift. Normal The [facility] Lawn Mower Authentication Interface Message Text Normal The [facility] Progress Notes - NoteWritero n 06-03-2022 Lawn Mower Authentication Interface Message Text 2244: Dr. Baez notified of critical pH result of 7.19 and PCO2 or 69. Dr. Baez read back these results. New orders pending. 2247: Dr. Baez notified of critical WBC result of 26.5. Dr. Baez read back results. No new orders at this time. Normal The [employer] [facility] TRIGLYCERIDESon 06-03-2022 Triglyceride [Mass/Vol] 144 mg/dL Normal <151 The [facility] [facility] Comment on above: Performed By: #### P HOS, TRIG, MG, CH8 ####[facility] [id number] [place], XR CHEST 1 VIEW AP OR PAon 0 06-03-2022 XR CHEST 1 VIEW AP OR PA Normal The [employer] [facility] 1:1 Interactionon 06-02-2022 Lawn Mower Authentication Interface Message Text Normal The [employer] [facility] BASIC METABOLIC PANELon 05-18 Anion gap [Moles/Vol] 12 mmol/L Normal 10-20 [facility] Comment on above: Performed By: #### TERESA Marshall, PHOS ####[facility] [id number] [place], Calcium [Mass/Vol] 7.7 mg/dL Low 8.4-10.4 [facility] Comment on above: Performed By: #### TERESA Marshall, PHOS ####[facility] [id number] [place], Chloride [Moles/Vol] 109 mmol/L Normal 97-111 [facility] Comment on above: Performed By: #### TERESA Marshall, PHOS ####[facility] [id number] [place], CO2 [Moles/Vol] 25 mmol/L Normal 21-30 [facility] Comment on above: Performed By: #### TERESA Marshall, PHOS ####[facility] [id number] [place], Creatinine [Mass/Vol] 1.23 mg/dL Normal 0.80-1.30 [facility] Comment on above: Performed By: #### TERESA Marshall, PHOS ####[facility] [id number] [place], ESTIMATED GFR (CKD-EPI) 67 mL/min/1.73sqm Normal >=60 [facility] Comment on above: Result Comment: 2020 CKD EPI Equation using Creatinine without RaceComment: Estimated glomerular filtration rate (eGFR) is calculated without a race coefficient. Values should be interpreted in the context of the patient's full clinical presentation.Reference:1. Eddie C, Addy M, Griselda TORRES, et al.. A Unifying Approach for GFR Estimation: Recommendations of the NKF-ASN Task Force on Reassessing the Inclusion of Race in Diagnosing Kidney Disease. [place] Journal of Kidney Diseases 2021;79(2):268-88.e1.2. N Engl J Med 2020 Vol. 385 Issue 19 Pages 9106-5128 Performed By: #### TERESA Marshall, PHOS ####[facility] [id number] [place], Glucose [Mass/Vol] 147 mg/dL High 80-116 [facility] Comment on above: Performed By: #### TERESA Marshall, PHOS ####[facility] [id number] [place], Potassium [Moles/Vol] 4.1 mmol/L Normal 3.3-5.3 [facility] Comment on above: Performed By: #### TERESA Marshall, PHOS ####[facility] [id number] [place], Sodium [Moles/Vol] 142 mmol/L Normal 135-148 The [facility] Comment on above: Performed By: #### M RAQUEL Cleveland8, PHOS ####S PATHOLOGY [id number] [place], Urea nitrogen [Mass/Vol] 23 mg/dL High 8-22 The [facility] Comment on above: Performed By: #### TERESA Marshall, PHOS ####S PATHOLOGY [id number] [place], BLOOD GAS, ARTERIALon 2022 CR SEFERINO -2.6 mmol/L Low -2.0-2.0 The [facility] Comment on above: Performed By: #### C R BGA ####[facility] PATH[facility] [id number] [place], CR PCO2 58.7 mm Hg High 35.0-45.0 The [facility] Comment on above: Performed By: #### C R BGA ####[facility] PATH[facility] [id number] [place] [address], CR PHA 7.249 Low 7.35-7.45 The [facility] Comment on above: Performed By: #### C R BGA ####[facility] PATH[facility] [id number] [place], CR PO2 72 mm Hg Low 80-100 The [facility] Comment on above: Performed By: #### C R BGA ####S PATHOLOGY [id number] [place], FIO2 (CATEGORY) 100% Normal The [facility] Comment on above: Performed By: #### C R BGA ####S PATHOLOGY [id number] [place], HCO3 (Bld) [Moles/Vol] 25 mmol/L Normal 22-28 e [facility] Comment on above: Performed By: #### C R BGA ####[facility] [id number] [place], MODE Vent Normal [facility] Comment on above: Performed By: #### C R BGA ####S PATHOLOGY [id number] [place], Oxygen saturation in Blood 92.1 % Low >=95.1 The [facility] Comment on above: Performed By: #### C R BGA ####[facility] PATHOLOGY [id number] [place] [address], CR SEFERINO 0.9 mmol/L Normal -2.0-2.0 The [facility] Comment on above: Performed By: #### C R BGA ####[facility] PATHOLOGY [id number] [place] [address], CR PCO2 49.4 mm Hg High 35.0-45.0 The [facility] Comment on above: Performed By: #### C R BGA ####[facility] PATHOLOGY [id number] [place] [address], CR PHA 7.345 Low 7.35-7.45 [facility] Comment on above: Performed By: #### C R BGA ####[facility] PATHOLOGY [id number] [place] [address], CR PO2 118 mm Hg High 80-100 The [facility] Comment on above: Performed By: #### C R BGA ####[facility] PATHOLOGY [id number] [place] [address], FIO2 (CATEGORY) 100% Normal [facility] Comment on above: Performed By: #### C R BGA ####[facility] PATHOLOGY [id number] [place] [address], HCO3 (Bld) [Moles/Vol] 26 mmol/L Normal 22-28 Th e [facility] Comment on above: Performed By: #### C R BGA ####[facility] PATH[facility] [id number] [place], MODE Vent Normal [facility] Comment on above: Performed By: #### C R BGA ####[facility] PATHOLOG[facility] [id number] [place] [address], Oxygen saturation in Blood 99.2 % Normal >=95.1 The [facility] Comment on above: Performed By: #### C R BGA ####[facility] PATHOLOG[facility] [id number] [place] [address], CR SEFERINO 1.0 mmol/L Normal -2.0-2.0 The [facility] Comment on above: Performed By: #### C R BGA ####[facility] PATHOLOG[facility] [id number] [place] [address], CR PCO2 50.1 mm Hg High 35.0-45.0 The [facility] Comment on above: Performed By: #### C R BGA ####[facility] PATHOLOGY [id number] [place] [address], CR PHA 7.343 Low 7.35-7.45 The [facility] Comment on above: Performed By: #### C R BGA ####[facility] PATHOLOG[facility] [id number] [place] [address], CR PO2 88 mm Hg Normal 80-100 The [facility] Comment on above: Performed By: #### C R BGA ####[facility] PATHOLOG[facility] [id number] [place] [address], FIO2 (CATEGORY) 100% Normal The [facility] Comment on above: Performed By: #### C R BGA ####[facility] PATHOLOGY [id number] [place] [address], HCO3 (Bld) [Moles/Vol] 26 mmol/L Normal 22-28 e [facility] Comment on above: Performed By: #### C R BGA ####[facility] PATHOLOGY [id number] [place] [address], MODE Vent Normal The [facility] Comment on above: Performed By: #### C R BGA ####[facility] PATHOLOG[facility] [id number] [place] [address], Oxygen saturation in Blood 97.0 % Normal >=95.1 The [facility] Comment on above: Performed By: #### C R BGA ####[facility] PATHOLOG[facility] [id number] [place] [address], CR SEFERINO 1.3 mmol/L Normal -2.0-2.0 The [facility] Comment on above: Performed By: #### C R BGA, LACT ####[facility] PATH[facility] [id number] [place], CR PCO2 47.1 mm Hg High 35.0-45.0 The [facility] Comment on above: Performed By: #### C R BGA, LACT ####[facility] PATHOLOG[facility] [id number] [place] [address], CR PHA 7.367 Normal 7.35-7.45 [facility] Comment on above: Performed By: #### C R BGA, LACT ####[facility] PATHOLOG[facility] [id number] [place] [address], CR PO2 77 mm Hg Low 80-100 [facility] Comment on above: Performed By: #### C R BGA, LACT ####[facility] PATHOLOGY [id number] [place] [address], FIO2 (CATEGORY) 50% Normal The [facility] Comment on above: Performed By: #### C R BGA, LACT ####[facility] PATHOLOGY [id number] [place] [address], HCO3 (Bld) [Moles/Vol] 26 mmol/L Normal 22-28 e [facility] Comment on above: Performed By: #### C R BGA, LACT ####[facility] PATHOLOG[facility] [id number] [place] [address], MODE Vent Normal [facility] Comment on above: Performed By: #### C R BGA, LACT ####[facility] PATH[facility] [id number] [place] [address], Oxygen saturation in Blood 95.7 % Normal >=95.1 [facility] Comment on above: Performed By: #### C R BGA, LACT ####[facility] [id number] [place], COMPLETE BLOOD COUNTon 06-02 Erythrocyte distribution width (RBC) [Ratio] 13.2 % Normal 11.5-14.5 The [facility] Comment on above: Performed By: #### C BC ####[facility] PATHOLOG[facility] [id number] [place] [address], Hematocrit (Bld) [Volume fraction] 22.7 % Low 41.0-53.0 The [facility] Comment on above: Performed By: #### C BC ####[facility] [id number] [place], Hemoglobin (Bld) [Mass/Vol] 7.2 g/dL Low 13.9-16.3 The [facility] Comment on above: Performed By: #### C BC ####[facility] [id number] [place], MCH (RBC) [Entitic mass] 29.7 pg Normal 26.0-34.0 [facility] Comment on above: Performed By: #### C BC ####[facility] [id number] [place], MCHC (RBC) [Mass/Vol] 31.9 g/dL Low 32.0-35.9 [facility] Comment on above: Performed By: #### C BC ####[facility] [id number] [place], MCV (RBC) [Entitic vol] 93 fL Normal 80-100 [facility] Comment on above: Performed By: #### C BC ####[facility] PATH[facility] [id number] [place], Platelet mean volume (Bld) [Entitic vol] 8.4 fL Normal 7.5-11.2 [facility] Comment on above: Performed By: #### C BC ####[facility] [id number] [place], Platelets (Bld) [#/Vol] 195 10*3/uL Normal 150-400 [facility] Comment on above: Performed By: #### C BC ####[facility] [id number] [place], RBC (Bld) [#/Vol] 2.43 10*6/uL Low 4.50-5.90 [facility] Comment on above: Performed By: #### C BC ####[facility] PATH[facility] [id number] [place], WBC (Bld) [#/Vol] 23.4 10*3/uL High 4.5-11.5 [facility] Comment on above: Performed By: #### C BC ####[facility] PATH[facility] [id number] [place], Erythrocyte distribution width (RBC) [Ratio] 13.2 % Normal 11.5-14.5 [facility] Comment on above: Performed By: #### C BC ####[facility] [id number] [place], Hematocrit (Bld) [Volume fraction] 22.2 % Low 41.0-53.0 [facility] Comment on above: Performed By: #### C BC ####[facility] [id number] [place], Hemoglobin (Bld) [Mass/Vol] 7.2 g/dL Low 13.9-16.3 [facility] Comment on above: Performed By: #### C BC ####[facility] PATHOLOG[facility] [id number] [place] [address], MCH (RBC) [Entitic mass] 29.8 pg Normal 26.0-34.0 [facility] Comment on above: Performed By: #### C BC ####[facility] PATHOLOG[facility] [id number] [place] [address], MCHC (RBC) [Mass/Vol] 32.3 g/dL Normal 32.0-35.9 [facility] Comment on above: Performed By: #### C BC ####[facility] PATH[facility] [id number] [place] [address], MCV (RBC) [Entitic vol] 92 fL Normal 80-100 The [facility] Comment on above: Performed By: #### C BC ####[facility] PATH[facility] [id number] [place], Platelet mean volume (Bld) [Entitic vol] 8.6 fL Normal 7.5-11.2 [facility] Comment on above: Performed By: #### C BC ####[facility] [id number] [place], Platelets (Bld) [#/Vol] 172 10*3/uL Normal 150-400 [facility] Comment on above: Performed By: #### C BC ####[facility] [id number] [place], RBC (Bld) [#/Vol] 2.41 10*6/uL Low 4.50-5.90 The [facility] Comment on above: Performed By: #### C BC ####[facility] [id number] [place], WBC (Bld) [#/Vol] 22.5 10*3/uL High 4.5-11.5 [facility] Comment on above: Performed By: #### C BC ####[facility] [id number] [place], Erythrocyte distribution width (RBC) [Ratio] 13.0 % Normal 11.5-14.5 [facility] Comment on above: Performed By: #### C BC ####[facility] PATHOLOG[facility] [id number] [place] [address], Hematocrit (Bld) [Volume fraction] 25.5 % Low 41.0-53.0 [facility] Comment on above: Performed By: #### C BC ####[facility] [id number] [place] [address], Hemoglobin (Bld) [Mass/Vol] 8.5 g/dL Low 13.9-16.3 [facility] Comment on above: Performed By: #### C BC ####[facility] [id number] [place], MCH (RBC) [Entitic mass] 31.0 pg Normal 26.0-34.0 [facility] Comment on above: Performed By: #### C BC ####[facility] [id number] [place] [address], MCHC (RBC) [Mass/Vol] 33.3 g/dL Normal 32.0-35.9 [facility] Comment on above: Performed By: #### C BC ####[facility] [id number] [place] [address], MCV (RBC) [Entitic vol] 93 fL Normal 80-100 [facility] Comment on above: Performed By: #### C BC ####[facility] [id number] [place], Platelet mean volume (Bld) [Entitic vol] 8.4 fL Normal 7.5-11.2 [facility] Comment on above: Performed By: #### C BC ####[facility] [id number] [place] [address], Platelets (Bld) [#/Vol] 198 10*3/uL Normal 150-400 [facility] Comment on above: Performed By: #### C BC ####[facility] [id number] [place] [address], RBC (Bld) [#/Vol] 2.74 10*6/uL Low 4.50-5.90 [facility] Comment on above: Performed By: #### C BC ####[facility] [id number] [place] [address], WBC (Bld) [#/Vol] 19.1 10*3/uL High 4.5-11.5 [facility] Comment on above: Performed By: #### C BC ####[facility] [id number] [place] [address], Erythrocyte distribution width (RBC) [Ratio] 13.1 % Normal 11.5-14.5 [facility] Comment on above: Performed By: #### C BC ####[facility] [id number] [place], Hematocrit (Bld) [Volume fraction] 25.4 % Low 41.0-53.0 [facility] Comment on above: Performed By: #### C BC ####S PATHOLOGY [id number] [place] [address], Hemoglobin (Bld) [Mass/Vol] 8.5 g/dL Low 13.9-16.3 [facility] Comment on above: Performed By: #### C BC ####[facility] [id number] [place] [address], MCH (RBC) [Entitic mass] 31.0 pg Normal 26.0-34.0 [facility] Comment on above: Performed By: #### C BC ####[facility] [id number] [place], MCHC (RBC) [Mass/Vol] 33.3 g/dL Normal 32.0-35.9 [facility] Comment on above: Performed By: #### C BC ####[facility] [id number] [place], MCV (RBC) [Entitic vol] 93 fL Normal 80-100 [facility] Comment on above: Performed By: #### C BC ####[facility] [id number] [place], Platelet mean volume (Bld) [Entitic vol] 8.4 fL Normal 7.5-11.2 [facility] Comment on above: Performed By: #### C BC ####[facility] [id number] [place] [address], Platelets (Bld) [#/Vol] 213 10*3/uL Normal 150-400 [facility] Comment on above: Performed By: #### C BC ####[facility] [id number] [place], RBC (Bld) [#/Vol] 2.73 10*6/uL Low 4.50-5.90 [facility] Comment on above: Performed By: #### C BC ####[facility] [id number] [place], WBC (Bld) [#/Vol] 15.5 10*3/uL High 4.5-11.5 [facility] Comment on above: Performed By: #### C BC ####[facility] [id number] [place], COVID/INFLUENZAon 06-02-2022 INFLUENZA A Not detected Normal Not Detected [facility] Comment on above: Order Comment: This test is intended for use only under Emergency Use Authorization (EUA). This test was developed, and its performance characteristics determined by [facility] which is certified under CLIA as qualified to perform high complexity clinical laboratory testing.Not Detected results are indicative of the absence of SARS-CoV-2 in the specimen submitted for testing. False negative results are possible based on the timing and quality of specimen submitted for testing. Result Comment: This assay was performed using [employer] RTPCR technology. Performed By: #### F RONY/COVID ####[facility] [id number] [place], INFLUENZA B Not detected Normal Not Detected [facility] Comment on above: Order Comment: This test is intended for use only under Emergency Use Authorization (EUA). This test was developed, and its performance characteristics determined by [facility] which is certified under CLIA as qualified to perform high complexity clinical laboratory testing.Not Detected results are indicative of the absence of SARS-CoV-2 in the specimen submitted for testing. False negative results are possible based on the timing and quality of specimen submitted for testing. Result Comment: This assay was performed using Marty JE RTPCR technology. Performed By: #### F RONY/COVID ####[facility] [id number] [place], [place], SARS-CoV-2 (COVID-19) RNA CALIN+probe Ql (Unsp spec) Not detected Normal Not Detected [facility] Comment on above: Order Comment: This test is intended for use only under Emergency Use Authorization (EUA). This test was developed, and its performance characteristics determined by [facility] which is certified under CLIA as qualified to perform high complexity clinical laboratory testing.Not Detected results are indicative of the absence of SARS-CoV-2 in the specimen submitted for testing. False negative results are possible based on the timing and quality of specimen submitted for testing. Result Comment: This assay was performed using Marty JE RTPCR technology. Performed By: #### F RONY/COVID ####[facility] PATHOLOGY [id number] [place], [place], CT CHEST W/ CONTRASTon 06-02 CT CHEST W/ CONTRAST Normal [facility] HEAD W/O CONTRASTon 06-02 CT HEAD W/O CONTRAST Normal [facility] Consultson 06-02-2022 Lawn Mower Authentication Interface Message Text Normal [facility] LACTIC ACIDon 06-02-2022 CR LACT 1.5 mmol/L Normal 0.5-2.0 [facility] Comment on above: Performed By: #### C R BGA, LACT ####[facility] [id number] [place], [place], MAGNESIUMon 06-02-2022 Magnesium [Mass/Vol] 1.9 mg/dL Normal 1.6-2.8 [facility] Comment on above: Performed By: #### TERESA Marshall, PHOS ####[facility] [id number] [place], PHOSPHORUSon 06-02-2022 Phosphate [Mass/Vol] 3.4 mg/dL Normal 2.5-4.8 [facility] Comment on above: Performed By: #### TERESA Marshall, PHOS ####[facility] [id number] [place], [place], Procedureson 06-02-2022 Lawn Mower Authentication Interface Message Text Normal [facility] Lawn Mower Authentication Interface Message Text Normal [facility] Progress Noteson 06-02-2022 Lawn Mower Authentication Interface Message Text Normal [facility] Lawn Mower Authentication Interface Message Text Normal [facility] Lawn Mower Authentication Interface Message Text Normal [facility] RESPIRATORY CULTURE, MISCon 06-02-2022 CLYDE Normal [facility] Comment on above: Performed By: #### C RESP ####[facility] Xygnxnbid5230 [place], [place] RESPIRATORY CULTURE, MISC Normal [facility] Comment on above: Performed By: #### C RESP ####[facility] Vosxnzbwr3482 [place], [place] XR CHEST 1 VIEW AP OR PAon 0 06-02-2022 XR CHEST 1 VIEW AP OR PA Normal [facility] XR CHEST 1 VIEW AP OR PA Normal [facility] XR CHEST 1 VIEW AP OR PA Normal [facility] 1:1 Interactionon 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 Interface Message Text Normal [facility] BASIC METABOLIC PANELon 05-18 Anion gap [Moles/Vol] 17 mmol/L Normal 10-20 [facility] Comment on above: Performed By: #### NAHID Franks, MG ####[facility] [id number] [place], Calcium [Mass/Vol] 8.2 mg/dL Low 8.4-10.4 [facility] Comment on above: Performed By: #### NAHID Franks, MG ####[facility] [id number] [place], Chloride [Moles/Vol] 102 mmol/L Normal 97-111 [facility] Comment on above: Performed By: #### NAHID Franks MG ####[facility] [id number] [place], CO2 [Moles/Vol] 27 mmol/L Normal 21-30 [facility] Comment on above: Performed By: #### NAHID Franks, MG ####[facility] PMGPENRSXO3709 [place], Creatinine [Mass/Vol] 1.25 mg/dL Normal 0.80-1.30 [facility] Comment on above: Performed By: #### NAHID Franks, MG ####[facility] [id number] [place], ESTIMATED GFR (CKD-EPI) 66 mL/min/1.73sqm Normal >=60 [facility] Comment on above: Result Comment: 2020 CKD EPI Equation using Creatinine without RaceComment: Estimated glomerular filtration rate (eGFR) is calculated without a race coefficient. Values should be interpreted in the context of the patient's full clinical presentation.Reference:1. Eddie C, Addy M, Griselda DC, et al.. A Unifying Approach for GFR Estimation: Recommendations of the NKF-ASN Task Force on Reassessing the Inclusion of Race in Diagnosing Kidney Disease. [place] Journal of Kidney Diseases 2021;79(2):268-88.e1.2. N Engl J Med 1 Vol. 385 Issue 19 Pages 7999-0923 Performed By: #### C H8, PHOS, MG ####[facility] [id number] [place], Glucose [Mass/Vol] 133 mg/dL High 80-116 [facility] Comment on above: Performed By: #### C H8, PHOS, MG ####[facility] [id number] [place], Potassium [Moles/Vol] 4.3 mmol/L Normal 3.3-5.3 [facility] Comment on above: Performed By: #### C H8, PHOS, MG ####[facility] [id number] [place], Sodium [Moles/Vol] 142 mmol/L Normal 135-148 [facility] Comment on above: Performed By: #### Tee H8, PHOS, MG ####[facility]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
--- NOTE | 2023-05-19 08:00 | CA_ITS ---
Patient Name: YELENA NOLASCO MR#: [id number] : 1960 Exam Date: 05/19/2023 Ordering Doctor: KEDAR QUINTERO ECHOCARDIOGRAM REPORT PROCEDURE: CA ECHO DOPPLER COMPLETE INDICATIONS: Hypertension, Pre-op evaluation, CAD COMPARISON: None. DESCRIPTION: COMPLETE ECHOCARDIOGRAM Real-time transthoracic echocardiography with 2D, M-mode, spectral and color flow Doppler performed. QUALITY: Technical quality was adequate. 76 , 250#, BSA 2.44 m2, BP 144/70 LEFT VENTRICLE: Normal chamber size. Mild concentric left ventricular hypertrophy. LV EF: Global left ventricular systolic function is normal; visually estimated ejection fraction is 60-65%. No significant wall motion abnormalities. DIASTOLIC: Normal diastolic function. ATRIAL SEPTUM: Visually appears intact. LEFT ATRIUM: Normal chamber size. RIGHT ATRIUM: Normal chamber size. RIGHT VENTRICLE: Normal chamber size. Normal right ventricular systolic function. TRICUSPID VALVE: Normal mobility and thickness. No stenosis with no regurgitation. MITRAL VALVE: Normal mobility and thickness. No evidence of mitral valve stenosis. Mild mitral annular calcification. Trivial mitral regurgitation. AORTIC VALVE: Normal trileaflet appearance. No visible sclerosis. Normal leaflet mobility. No evidence of aortic valve stenosis. No aortic regurgitation. AORTIC ROOT: Normal diameter and appearance. PULMONIC VALVE: Normal thickness and mobility. No stenosis. No regurgitation. PERICARDIUM: No evidence of pericardial effusion. IVC: Collapses with inspirations. CONCLUSION: 1. Global left ventricular systolic function is normal; visually estimated ejection fraction is 60 to 65% 2. Normal right ventricular size and systolic function 3. Mildly increased left ventricular wall thickness 4. Normal diastolic function 5. No significant valvular abnormalities Adult Echocardiography Procedure Report Left Ventricle LVEDD (3.7 - 5.6 cm): 4.94 cm LVESD (2.2 - 4.0 cm): 3.83 cm LVIVS thickness (0.6 - 1.2 cm): 1.12 cm LVPW thickness (0.5 - 1.0 cm): 1.15 cm LVOT Max Gradient: 3 mm[Hg] Peak Velocity (LVOT): 79.70 cm/s Mean Velocity (LVOT): 51.40 cm/s LVOT Diameter 3.10 cm Left Atrium LA Volume Index (2D A2C): 01538 mm3 Left Atrium Systolic Dimension: 4.20 cm Mitral Valve MV E to A Ratio: 1 Mitral Valve A-Wave Peak Velocity: 62.20 cm/s Mitral Valve E-Wave Peak Velocity: 60.20 cm/s Cardiovascular Orifice Area: 1.18 cm2 Right Ventricle Aorta AO Root Diam: 4.00 cm Aortic Valve AoV Area (Peak Joo): 5.62 cm2 AoV Area (VTI): 5.42 cm2 Peak Velocity(Antegrade Flow): 107.00 cm/s Peak Gradient(Antegrade Flow): 5 mm[Hg] Mean Velocity(Antegrade Flow): 75.20 cm/s Mean Gradient(Antegrade Flow): 3 mm[Hg] Velocity Time Integral: 25.20 cm Tricuspid Valve Peak Velocity: 36.20 cm/s Pulmonic Valve Peak Velocity: 84.50 cm/s Peak Gradient: 3 mm[Hg] Right Atrium Dictated by: Clarence Cortez M.D. on 05/19/2023 at 13:38 Approved by: Clarence Cortez M.D. on 05/19/2023 at 13:42
== END 2023-05-19 07:26 | disposition home or self-care (01) ==
LOC: CARD 07:25
PROVIDERS: PCP Family Medicine; Visit Provider Nurse Practitioner
DX: Z01.818 Encounter for other preprocedural examination (principal); I10 Essential (primary) hypertension
CPT/HCPCS: 93306

== ENCOUNTER 2023-06-10 09:57 | Outpatient (OUT) | payer MEDICARE, MEDICAID, SELFPAY ==
[2023-06-10 10:49] LABS: Basophils Absolute Auto 0.1 10^3/uL (0.0-0.1); Eosinophils Absolute Auto 0.3 10^3/uL (0.0-0.7); Eosinophils Percent Auto 2.1 % (0.9-7.0); Hematocrit 49.1 % (42.0-54.0); Hemoglobin 16.1 g/dL (14.0-18.0); Immature Granulocytes Abs Auto 0.06 10^3/uL (0.00-0.03); Immature Granulocytes Pct Auto 0.5 % (0.0-0.5); Lymphocytes Percent Auto 23.2 % (20.5-60.0); Mean Corpuscular HGB Conc 32.8 g/dL (29.9-35.2); Mean Corpuscular Hemoglobin 29.5 pg (25.9-34.0); Mean Corpuscular Volume 89.9 fL (80.0-94.0); Mean Platelet Volume 9.5 fL (9.5-13.5); Neutrophils Absolute Auto 8.5 10^3/uL (1.4-6.5); Neutrophils Percent Auto 65.2 % (43.0-75.0); Platelet Count 381 10^3/uL (150-450); Red Blood Count 5.46 10^6/uL (4.70-6.10); Red Cell Distribution Width 12.8 % (11.0-15.0); White Blood Count 13.1 10^3/uL (4.0-11.0)
== END 2023-06-10 09:58 | disposition home or self-care (01) ==
LOC: LAB 09:58
PROVIDERS: PCP Family Medicine
DX: H21.01 Hyphema, right eye (principal)
CPT/HCPCS: 36415; 85025

== ENCOUNTER 2023-11-14 09:22 | Outpatient (OUT) | payer MEDICARE, MEDICAID, SELFPAY ==
[2023-11-14 09:59] LABS: Alanine Aminotransferase 40 U/L (16-63); Albumin Globulin Ratio 0.9; Albumin Level 3.5 g/dL (3.4-5.0); Alkaline Phosphatase 76 U/L (46-116); Aspartate Amino Transferase 28 U/L (15-37); Bilirubin Direct 0.1 mg/dL (0.0-0.2); Bilirubin Total 0.5 mg/dL (0.2-1.0); Chol HDL Ratio 3.5; Cholesterol 184 mg/dL (<=200); HDL Cholesterol 53 mg/dL (40-60); Total Protein 7.5 g/dL (6.4-8.2); Triglycerides 70 mg/dL (<=150)
== END 2023-11-14 09:23 | disposition home or self-care (01) ==
LOC: LAB 09:25
PROVIDERS: PCP Family Medicine; Visit Provider Nurse Practitioner
DX: E78.2 Mixed hyperlipidemia (principal); I25.10 Atherosclerotic heart disease of native coronary artery without angina pectoris
CPT/HCPCS: 36415; 80061; 80076

== ENCOUNTER 2024-10-15 14:20 | Outpatient (OUT) | payer MEDICARE, MEDICAID, SELFPAY ==
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
--- OUTSIDE RECORDS SUMMARY | 2024-10-15 14:23 | XMS_ITS | Encounter Summary ---
Author Organization [employer] Address [id number] [address] [place] [address] Care Team Providers Care Concentrator Operator Name Role Phone Bean Altman Primary Care Provider [phone] Encounter Details Date Type Department Care Team (Late st Contact Info) Description 03/14/2023 Telephone [facility] - Family Medicine [address] [place] [phone] Charito Downs CMA Social History Tobacco Use Types Packs/Day Years Used Date Smoking Tobacco: Every Day Cigarettes 0.5 45 Started: 10/21/2022 Passive Smoke Exposure: Past Smokeless Tobacco: Never Alcohol Use Standard Drinks/Week Comments Not Currently 0 (1 standard drink = 0.6 oz pur e alcohol) [facility] Utilities Answer Date Recorded In the past 12 months has [employer] electric, gas, oil, or water company threatened to shut off services in your home? No 01/13/2023 Social Connection and Isolat ion Panel [NHANES] Answer Date Recorded In a typical week, how many times do you talk on the phone with family, friends, or neighbors? More than three times a week 01/13/2023 How often do you get togethe r with friends or relatives? Twice a week 01/13/2023 How often do you attend chur ch or islam services? 1 to 4 times per year 01/13/2023 Do you belong to any clubs o r organizations such as hindu groups, unions, fraternal or athletic groups, or school groups? No 01/13/2023 How often do you attend meet ings of the clubs or organizations you belong to? Never 01/13/2023 Are you , , di vorced, , never , or living with a partner? Living with partner 01/13/2023 AUDIT-C Answer Date Recorded Q1: How often do you have a drink containing alcohol? Never 01/13/2023 Q2: How many drinks containi ng alcohol do you have on a typical day when you are drinking? Patient does not drink Q3: How often do you have si x or more drinks on one occasion? Never 01/13/2023 Overall Financial Resource Strain (CARDIA) Answe r Date Recorded How hard is it for you to pa y for the very basics like food, housing, medical care, and heating? Not hard at all 01/13/2023 PHQ-2 Answer Date Recorded Total Score 1 01/13/2023 [facility] - Occupational Stress Questionnaire Answer Date Recorded Do you feel stress - tense, restless, nervous, or anxious, or unable to sleep at night because your mind is troubled all the time - these days? Not at all 01/13/2023 Exercise Vital Sign Answer Date Recorde d On average, how many days pe r week do you engage in moderate to strenuous exercise (like a brisk walk)? 0 days 01/13/2023 On average, how many minutes do you engage in exercise at this level? 0 min 01/13/2023 PRAPARE - Transportation Answer Date Re corded In the past 12 months, has l ack of transportation kept you from medical appointments or from getting medications? Yes 12/19 In the past 12 months, has l ack of transportation kept you from meetings, work, or from getting things needed for daily living? Yes 01/13/2023 Housing Instability Answer Date Recorde d Are you worried or concerned that in the next two months you may not have stable housing that you own, rent or stay in as a part of a household? No 01/13/2023 Childcare Answer Date Recorded Do problems getting child ca re make it difficult for you to work or study? No 01/13/2023 Employment Answer Date Recorded Do you need help finding a [facility] career [facility] and/or a training program? No 01/13/2023 Hunger Screening Answer Date Recorded Within the past 12 months we worried whether our food would run out before we got money to buy more. Never True 01/13/2023 Within the past 12 months th e food we bought just didn't last and we didn't have money to get more. Never True 01/13/2023 Purpose - Life Answer Date Recorded I have a purpose and direction in my life. Juan An palmira Agree 01/13/2023 Sex and Gender Information Value Date Recorded Sex Assigned at Not on file Legal Sex Male 12:09 PM EDT Gender Identity Not on file Sexual Orientation Not on file documented as of this encounter Miscellaneous Notes * Telephone Encounter - Charito Downs CMA - 03/14/2023 12:32 PM EST This patient is scheduled for his Colonoscopy for a pos FIT Test on Mar 28 at 2:30pm. Please send whichever Prep kit his insurance pays to [facility] * Telephone Encounter - Kumar Dye DO - 03/14/2023 12:32 PM EST Message noted. H&P done. Rx Sutab sent to pharmacy documented in this encounter Plan of Treatment Upcoming Encounters Date Type Department Care Team (Late st Contact Info) Description 11/04/2024 1:30 PM EDT Office Visit [facility] - [facility] Medicine [address] [place] [address] Bean Altman DO [address] [facility] [place] [address] 05/24/2025 3:00 PM EDT Office Visit [facility] - Family Medicine [address] [place] [address] documented as of this encounter Visit Diagnoses Not on filedocumented in this encounter Additional Health Concerns Assessment Noted Time PHQ-9 Depression Total Score: 1 01/14/20 23 2:13 PM EST documented as of this encounter Care Teams Concentrator Operator Relationship Specialty Start Date End Date George Altmannis G, DO [address] [facility] [place] [address] PCP - General Family Medicine 09/30/22 documented as of this encounter
--- OUTSIDE RECORDS SUMMARY | 2024-10-15 14:23 | XMS_ITS | Encounter Summary ---
Author Organization [employer] Address [id number] [address] [place] [address] Care Team Providers Care Hand Polisher Name Role Phone Bean Altman Primary Care Provider [phone] Encounter Details Date Type Department Care Team (Late st Contact Info) Description 03/10/2023 Telephone [facility] - Family Medicine [address] [place] [phone] Kena Watson CMA Social History Tobacco Use Types Packs/Day Years Used Date Smoking Tobacco: Every Day Cigarettes 0.5 45 Started: 10/21/2022 Passive Smoke Exposure: Past Smokeless Tobacco: Never Alcohol Use Standard Drinks/Week Comments Not Currently 0 (1 standard drink = 0.6 oz pur e alcohol) [facility] Utilities Answer Date Recorded In the past 12 months has [employer] electric, gas, oil, or water company threatened [...] often do you attend chur ch or denominational services? 1 to 4 times per year 01/13/2023 Do you belong to any clubs o r organizations such as episcopal groups, unions, fraternal or athletic groups, or [...] Answer Date Recorded Total Score 1 01/13/2023 [facility] - Occupational Stress [...] Recorded Do you need help finding a [facility] career center and/or a training [...] a purpose and direction in my life. Lola chavis Agree 01/13/2023 Sex and Gender Information Value Date Recorded Sex Assigned at Not on file Legal Sex Male 12:09 PM EDT Gender Identity Not on file Sexual Orientation Not on file documented as of this encounter Miscellaneous Notes * Telephone Encounter - Kena Watson CMA - 03/10/2023 1:51 PM EST Pt called and would like a refferal for a insulation engineman clearance so he can get his knee done. * Telephone Encounter - Bean Altman DO - 03/10/2023 1:51 PM EST He will need medical clearance from me. I do not see where he has any heart problems to see a insulation engineman. If he already sees a insulation engineman then he can call them and set up an appointment for medical clearance. He is somewhat new to me. [facility] * Telephone Encounter - Kena Watson CMA - 03/10/2023 1:51 PM EST I called pt and left message to call office and schedule appt with Dr Altman documented in this encounter Plan of Treatment Upcoming Encounters Date Type Department Care Team (Late st Contact Info) Description 11/04/2024 1:30 PM EDT Office Visit [facility] - [facility] Medicine [address] [place] [address] Bean Altman DO [address] [facility] [place] [address] 05/24/2025 3:00 PM EDT Office Visit [facility] - Family Medicine [address] [place] [address] documented as of this encounter Visit Diagnoses Not on filedocumented in this encounter Additional Health Concerns Assessment Noted Time PHQ-9 Depression Total Score: 1 01/14/20 2:13 PM EST documented as of this encounter Care Teams Hand Polisher Relationship Specialty Start Date End Date Bean Altman DO [address] [facility] [place] [address] PCP - General Family Medicine 09/30/22 documented as of this encounter
--- OUTSIDE RECORDS SUMMARY | 2024-10-15 14:23 | XMS_ITS | Encounter Summary ---
Author Organization [facility] tem Address [id number] [address] [place] [address] Care Team Providers Care Psych Arnp Name Role Phone Bean Altman DO Primary Care Provider [phone] Encounter Details Date Type Department Care Team (Late st Contact Info) Description 02/03/2023 Orders Only [facility] - Family Medicine [address] [place] [phone] Bean Altman DO [address] [place], [place] [phone] Posterior tibial plateau fracture, unspecified laterality, closed, initial encounter; Acute medial meniscus tear of left knee, subsequent encounter Social History Tobacco Use Types Packs/Day Years Used Date Smoking Tobacco: Every Day Cigarettes 0.5 45 Started: 10/21/2022 Passive Smoke Exposure: Past Smokeless Tobacco: Never Alcohol Use Standard Drinks/Week Comments Not Currently 0 (1 standard drink = 0.6 oz pur e alcohol) [facility] Utilities Answer Date Recorded In the past 12 months has [employer], gas, oil, or water [employer] threatened to shut off services in your [...] week 01/13/2023 How often do you attend [facility] or catholic services? 1 to 4 times per year 01/13/2023 Do you belong to any clubs o r organizations such as confucianist groups, unions, fraternal or athletic groups, or [...] Answer Date Recorded Total Score 1 01/13/2023 [facility] Occupat ional Health - Occupational Stress [...] Recorded Do you need help finding a [facility] career center and/or a training program? No [...] a purpose and direction in my life. Stron gly Agree 01/13/2023 Sex and Gender Information Value Date Recorded Sex Assigned at Not on file Legal Sex Male 12:09 PM EDT Gender Identity Not on file Sexual Orientation Not on file documented as of this encounter Plan of Treatment Upcoming Encounters Date Type Department Care Team (Late st Contact Info) Description 11/04/2024 1:30 PM EDT Office Visit [facility] - Family [facility] [address] [place] [address] Bean Altman DO [address] [facility] [place] [address] 05/24/2025 3:00 PM EDT [facility] [address] [place] [address] documented as of this encounter Procedures Procedure Name Priority Date/Time Associated Diagnosis Comments AMB REFERRAL TO ORTHOPEDIC SURGERY Routine 01/29/2023 2:50 PM EST Posterior tibial plateau fracture, unspecified laterality, closed, initial encounter Acute medial meniscus tear of left knee, subsequent encounter documented in this encounter Results * Ambulatory referral to Orthopedic Surgery ([facility]) (01/29/2023 2:50 PM EST) us Bean Altman DO OUTPATIENT REFERRAL ORDERABL ES Final Result MANUALLY TRANSCRIBED RESULTS documented in this encounter Visit Diagnoses Diagnosis Posterior tibial plateau fracture, unspecified laterality, closed, initial encounter Acute medial meniscus tear of left knee, subsequent encounter documented in this encounter Additional Health Concerns Assessment Noted Time PHQ-9 Depression Total Score: 1 01/14/20 23 2:13 PM EST documented as of this encounter Care Teams Psych Arnp Relationship Specialty Start Date End Date Bean Altman DO [address] [facility] [place] [address] PCP - General Family Medicine 09/30/22 documented as of this encounter
--- OUTSIDE RECORDS SUMMARY | 2024-10-15 14:23 | XMS_ITS | Encounter Summary ---
Author Organization [facility] Address [address] [place] [address] Care Team Providers Care Pump Room Operator Name Role Phone Bean Altman MD Primary Care Provider [phone]- [phone] Encounter Details Date Type Department Care Team (Late st Contact Info) Description 05/01/2023 External Result Encounter [facility] [address] [place] [address] Ritesh Grijalva DO [address] [place] [address] Social History Tobacco Use Types Packs/Day Years Used Date Smoking Tobacco: Every Day Cigarettes Smokeless Tobacco: Never Comments:When did you start smoking? 40 years Alcohol Use Standard Drinks/Week Comments Not Currently 0 (1 standard drink = 0.6 oz pur e alcohol) Sex and Gender Information Value Date Recorded Sex Assigned at Not on file Legal Sex Male 6:44 PM EDT Gender Identity Not on file Sexual Orientation Not on file documented as of this encounter Plan of Treatment Not on file documented as of this encounter Procedures Procedure Name Priority Date/Time Associated Diagnosis Comments XR CHEST 2 VIEWS 05/01/2023 1:25 PM EDT CBC WITH AUTO DIFFERENTIAL STAT 05/01/2023 1:02 PM EDT PARTIAL THROMBOPLASTIN TIME, ACTIVATED STAT 05/01/2023 1:02 PM EDT PROTHROMBIN TIME-INR STAT 05/01/2023 1:02 PM EDT BASIC METABOLIC PANEL STAT 05/01/2023 1:02 PM EDT documented in this encounter Results * XR chest 2 views (05/01/2023 1:25 PM EDT) Anatomical Region Laterality Modality Chest Radiographic Mary ging 05/01/2023 1:25 PM EDT Narrative 05/01/2023 1:23 PM EDT THIS EXAM WAS PERFORMED AT [facility] ([place], [place]) Clinical history:Preop evaluation. PA and lateral chest:1424 Comparison:None Findings: 2 views of the chest were obtained. 2 views of the chest were obtained. A total of 4 images were submitted. There is no focal pulmonary opacity. No pneumothorax or pleural effusion is present. There is mild aortic tortuosity of uncertain chronicity. IMPRESSION: No acute infiltrate or pulmonary edema. Finalized by Thang Ferreira MD on 05/01/2023 1:23 PM Procedure Note Radiology, Radiologist, MD - 05/01/2023 THIS EXAM WAS PERFORMED AT [facility] ([place], [place]) Clinical history:Preop evaluation. PA and lateral chest:1424 Comparison:None Findings: 2 views of the chest were obtained. 2 views of the chest were obtained.A total of 4 images were submitted. There is no focal pulmonary opacity.No pneumothorax or pleural effusion is present. There is mild aortictortuosity of uncertain chronicity. IMPRESSION: No acute infiltrate or pulmonary edema. Finalized by Thnag Ferreira MD on 05/01/2023 1:23 PM us Ritesh Grijalva DO IMG XR PROCEDURES Final Re sult * (ABNORMAL) CBC auto differential (05/01/2023 1:02 PM EDT) WHITE BLOOD CELL COUNT, WBC 11.7(H) 4.0 - 11.0 X10E9/L [facility] RED BLOOD CELL COUNT, RBC 4.92 4.10 - 5.70 X10E12/L [facility] HEMOGLOBIN 14.8 13.0 - 17.0 g/dL [facility] HEMATOCRIT 45.0 39 - 49 % [facility] MEAN CELL VOLUME, MCV 92 80 - 100 fL [facility] MEAN CELL HEMOGLOBIN, MCH 30.1 27 - 34 pg [facility] MEAN CELL HEMOGLOGIN CONCENTRATION, MCHC 32.9 32 - 36 g/dL [facility] RED CELL DISTRIBUTION WIDTH, RDW 14.3 11.5 - 15.0 % [facility] PLATELET COUNT ESTIMATE OF PLATELETS, NORMAL 150 - 450 X10E9/L [facility] Comment:PLATELET CLUMPS PREC LUDE COUNT MEAN PLATELET VOLUME, MPV PLATELET CLUMPS PRECLUDE COUNT 7 - 12 fL [facility] MYELOCYTE 1.0 % [facility] SEG NEUTROPHIL 52.0 % [facility] LYMPHOCYTE 38.0 % [facility] MONOCYTE 6.0 % [facility] EOSINOPHIL 1.0 % [facility] BASOPHIL 2.0 % [facility] ABSOLUTE NEUTROPHILS 6.2 1.5 - 6.6 X10E9/L [facility] ABSOLUTE LYMPHOCYTE 4.4(H) 1.0 - 3.5 X10E9/L [facility] ABSOLUTE MONOCYTE 0.7 0 - 0.9 X10E9/L [facility] ABSOLUTE EOSINOPHIL 0.1 0.0 - 0.4 X10E9/L [facility] ABSOLUTE BASOPHIL 0.2 0.0 - 0.2 X10E9/L [facility] RBC MORPHOLOGY NORMAL [facility] Comment:PERFORMED AT [facility] [address],[place] [address] 05/01/2023 1:02 PM EDT 05/01/2023 1:03 PM EDT Ritesh Grijalva DO LAB BLOOD ORDERABLES Final Result [facility] * (ABNORMAL) Basic metabolic panel (05/01/2023 1:02 PM EDT) [facility] Sodium 140 134 - 146 mmol/L [facility] Potassium, Bld 3.7 3.5 - 5.0 mmol/L [facility] Chloride 101 98 - 109 mmol/L [facility] Carbon Dioxide 29 22 - 32 mmol/L [facility] Anion Gap 10 5 - 15 mmol/L [facility] BUN 10 5 - 27 mg/dL [facility] Creatinine 0.50(L) 0.60 - 1.30 mg/dL [facility] Comment:METHOD TRACEABLE TO IDMS STANDARD Glucose 83 65 - 99 mg/dL [facility] Calcium 9.6 8.5 - 10.5 mg/dL [facility] EGFR >90 >59 ml/min/1.7 3sq.m [facility] Comment: Reported eGFR is based on the CKD-EPI 2020 equation that does not use a race coefficient. PERFORMED AT [facility] [address],[place] [address] 05/01/2023 1:02 PM EDT 05/01/2023 1:03 PM EDT Ritesh Grijalva DO LAB BLOOD ORDERABLES Final Result Performing Organization Address [facility] Phone Number [facility] * (ABNORMAL) APTT (05/01/2023 1:02 PM EDT) APTT 41(H) 26 - 37 sec [facility] Comment: NEW REFERENCE RANGE PERFORMED AT [address] [place] [address] 05/01/2023 1:02 PM EDT 05/01/2023 1:03 PM EDT Ritesh Grijalva DO LAB BLOOD ORDERABLES Final Result Performing Organization Address [facility] Phone Number [facility] * (ABNORMAL) Protime-INR (05/01/2023 1:02 PM EDT) PROTIME 13.4(H) 9.8 - 13.2 sec [facility] Comment:NEW REFERENCE RANGE INR 1.2(H) 0.8 - 1.1 [facility] Comment:PERFORMED AT [address] [place] [address] 05/01/2023 1:02 PM EDT 05/01/2023 1:03 PM EDT Ritesh Grijalva DO LAB BLOOD ORDERABLES Final Result Performing Organization Address [facility]/State/ZIP Co de Phone Number [facility] documented in this encounter Visit Diagnoses Not on filedocumented in this encounter Care Teams Pump Room Operator Relationship Specialty Start Date End Date Bean Altman MD PCP - General Family Medicine 01/28/23 documented as of this encounter
--- OUTSIDE RECORDS SUMMARY | 2024-10-15 14:23 | XMS_ITS | Encounter Summary ---
Author Organization [facility] tem Address [id number] [address] [place] [address] Care Team Providers Care Restrike Hammer Operator Name Role Phone Bean Altman DO Primary Care Provider [phone]- [phone] Encounter Details Date Type Department Care Team (Late st Contact Info) Description 02/19/2023 Orders Only [facility] - Family Medicine [address] [place] [phone] Bean Altman DO [address] [place] [address] Social History Tobacco Use Types Packs/Day Years Used Date Smoking Tobacco: Every Day Cigarettes 0.5 45 Started: 10/21/2022 Passive Smoke Exposure: Past Smokeless Tobacco: Never Alcohol Use Standard Drinks/Week Comments Not Currently 0 (1 standard drink = 0.6 oz pur e alcohol) [facility] Utilities Answer Date Recorded In the past 12 months has [employer], [employer], [employer] or water [employer] threatened to shut off services in your [...] often do you attend chur ch or restorationism services? 1 to 4 times per year 01/13/2023 Do you belong to any clubs o r organizations such as pentecostal groups, unions, fraternal or athletic groups, or [...] Answer Date Recorded Total Score 1 01/13/2023 [facility] of Occupat ional Health - Occupational Stress [...] Recorded Do you need help finding a l ocal career center and/or a training program? No [...] - Family Medicine [address] [place] [address] Bean Altman DO [address] [facility] [place] [address] 05/24/2025 3:00 PM EDT Office Visit [facility] - Family Medicine [address] [place] [address] documented as of this encounter Visit Diagnoses Not on filedocumented in this encounter Additional Health Concerns Assessment Noted Time PHQ-9 Depression Total Score: 1 01/14/20 2:13 PM EST documented as of this encounter Care Teams Restrike Hammer Operator Relationship Specialty Start Date End Date Bean Altman DO [address] [place] [address] PCP - General Family Medicine 09/30/22 documented as of this encounter
--- OUTSIDE RECORDS SUMMARY | 2024-10-15 14:23 | XMS_ITS | Encounter Summary ---
Author Organization [facility] Address [facility] [id number] [address] [place] [address] Care Team Providers Care Cupola Melter Helper Name Role Phone ShashiBean wick Primary Care Provider +1- [phone] Encounter Details Date Type Department Care Team (Late st Contact Info) Description 02/19/2023 Orders Only [facility] - Family Medicine [address] [place] [phone] External, Scanning Provider Social History Tobacco Use Types Packs/Day Years Used Date Smoking Tobacco: Every Day Cigarettes 0.5 45 Started: 10/21/2022 Passive Smoke Exposure: Past Smokeless Tobacco: Never Alcohol Use Standard Drinks/Week Comments Not Currently 0 (1 standard drink = 0.6 oz pur e alcohol) [facility] Utilities Answer Date Recorded In the past 12 months has e electric, gas, oil, or water company threatened [...] often do you attend chur ch or christian services? 1 to 4 times per year 01/13/2023 Do you belong to any clubs o r organizations such as christianity groups, unions, fraternal or athletic groups, or [...] Answer Date Recorded Total Score 1 01/13/2023 [facility] of Occupat ional Health - Occupational Stress [...] Recorded Do you need help finding a [facility] and/or a training program? No [...] on file documented as of this encounter Progress Notes * Bean Altman DO - 02/19/2023 11:46 AM EST His FIT test was positive. Could be a sign of colon cancer. He should come in to discuss colon cancer screening. * Aurora Hernandez CMA - 02/19/2023 11:46 AM EST Needs a colonoscopy * Charito Downs CMA - 02/19/2023 11:46 AM EST Spoke with the patient and he understands. He is scheduled for Mar 28 at 1:30pm documented in this encounter Plan of Treatment Upcoming Encounters Date Type Department Care Team (Late st Contact Info) Description 11/04/2024 1:30 PM EDT Office Visit [facility] - Family Medicine [address] [place] [address] Bean Altman DO [address] [place] [address] 05/24/2025 3:00 PM EDT Office Visit [facility] - Family Medicine [address] [place] [address] documented as of this encounter Visit Diagnoses Not on filedocumented in this encounter Additional Health Concerns Assessment Noted Time PHQ-9 Depression Total Score: 1 01/14/20 2:13 PM EST documented as of this encounter Care Teams Cupola Melter Helper Relationship Specialty Start Date End Date Bean Altman DO [address] [facility], [place] [address] PCP - General Family Medicine 09/30/22 documented as of this encounter
--- OUTSIDE RECORDS SUMMARY | 2024-10-15 14:23 | XMS_ITS | Encounter Summary ---
Author Organization [facility] Address [id number] [address] [place] [address] Care Team Providers Care Surveying Technician Name Role Phone Bean Altman DO Primary Care Provider Encounter Details Date Type Department Care Team (Late Contact Info) Description 12/11/2022 [facility] [address] [place] [phone] Bean Altman DO [address], [facility] [place] [address] Social History Tobacco Use Types Packs/Day Years Used Date Smoking Tobacco: Former Cigarettes 1 45 0 05/30/1977 - 05/30/2022 Passive Smoke Exposure: Past Smokeless Tobacco: Never Alcohol Use Standard Drinks/Week Comments Not Currently 0 (1 standard drink = 0.6 oz pur e alcohol) PHQ-2 Answer Date Recorded Total Score 0 11/07/2022 Childcare Answer Date Recorded Childcare Unknown 07/29/2018 Employment Answer Date Recorded Employment Unknown 07/29/2018 Sex and Gender Information Value Date Recorded Sex Assigned at Not on file Legal Sex Male 12:09 PM EDT Gender Identity Not on file Sexual Orientation Not on file documented as of this encounter Plan of Treatment Upcoming Encounters Date Type Department Care Team (Late Contact Info) Description 11/04/2024 1:30 PM EDT [facility] [address] [place] [address] Bean Altman DO [address], [facility] [address] 05/24/2025 3:00 PM EDT Office Visit [facility] - Family Medicine [address] [place] [address] documented as of this encounter Visit Diagnoses Not on filedocumented in this encounter Additional Health Concerns Assessment Noted Time PHQ-9 Depression Total Score: 0 11/08/19 1:49 PM EDT documented as of this encounter Care Teams Surveying Technician Relationship Specialty Start Date End Date Bean Altman DO [address], [facility] [address] PCP - General Family Medicine 09/30/22 documented as of this encounter
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
--- OUTSIDE RECORDS SUMMARY | 2024-10-15 14:23 | XMS_ITS | Encounter Summary ---
Author Organization [facility] tem Address [facility] [id number] [address] [place] [address] Care Team Providers Care Occupational Therapy Manager Name Role Phone HuyBean schulz Darlene DE LA O Primary Care Provider Encounter Details Date Type Department Care Team (Late st Contact Info) Description 03/26/2023 Orders Only [facility] - Family Medicine [address] [place] [phone] Kumar Dye DO [address] [place] [address] Occult blood positive stool (Primary Dx) Social History Tobacco Use Types Packs/Day Years Used Date Smoking Tobacco: Every Day Cigarettes 0.5 45 Started: 10/21/2022 Passive Smoke Exposure: Past Smokeless Tobacco: Never Alcohol Use Standard Drinks/Week Comments Not Currently 0 (1 standard drink = 0.6 oz pur e alcohol) [facility] Utilities Answer Date Recorded In the past 12 months has [employer], [employer], oil, or water [employer] threatened to shut off services in your [...] often do you attend chur ch or zoroastrian services? 1 to 4 times per year [...] Answer Date Recorded Total Score 1 01/13/2023 [facility] of Occupat ional Health - [...] Recorded Do you need help finding a [facility] career center and/or a training program? [...] - Family Medicine [address] [place] [address] Bean Altman DO [address] [address] 05/24/2025 3:00 PM EDT Office Visit [facility] - Family Medicine [address] [place] [address] documented as of this encounter Visit Diagnoses Diagnosis Occult blood positive stool- Primary Nonspecific abnormal finding in stool contents documented in this encounter Additional Health Concerns Assessment Noted Time PHQ-9 Depression Total Score: 1 01/14/20 2:13 PM EST documented as of this encounter Care Teams Occupational Therapy Manager Relationship Specialty Start Date End Date Bean Altman DO [address] [facility] [address] PCP - General Family Medicine 09/30/22 documented as of this encounter
--- OUTSIDE RECORDS SUMMARY | 2024-10-15 14:23 | XMS_ITS | Encounter Summary ---
Author Organization [facility] tem Address [id number] [address] [place] [address] Care Team Providers Care Senior Sourcing Manager Name Role Phone Bean Altman DO Primary Care Provider [phone] Reason for Visit * Reason Comments Med Refill Encounter Details Date Type Department Care Team ([facility] Contact Info) Description 12/09/2022 Refill [facility] Internal Medicine - Family Medicine [address] [place] [phone] Bean Altman DO [address], [facility] [place] [address] Social History Tobacco Use Types Packs/Day Years [...] Upcoming Encounters Date Type Department Care Team ([facility] Contact Info) Description 11/04/2024 1:30 PM EDT Office Visit [facility] Internal Medicine - Family Medicine [address] [place] [phone] Bean Altman DO [address] [place] [address] 05/24/2025 3:00 PM EDT Office Visit [facility] - Family Medicine [address] [place] [address] documented as of this encounter Visit Diagnoses Not on filedocumented in this encounter Additional Health Concerns Assessment Noted Time PHQ-9 Depression Total Score: 0 11/08/19 1:49 PM EDT documented as of this encounter Care Teams Senior Sourcing Manager Relationship Specialty Start Date End Date Bean Altman DO [address] [facility] [place] [address] PCP - General Family Medicine 09/30/22 documented as of this encounter
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
--- OUTSIDE RECORDS SUMMARY | 2024-10-15 14:24 | XMS_ITS | Clinical Summary ---
Author Organization [facility] Address [address] [place] [address] Care Team Providers Care Senior Application Software Engineer Name Role Phone Unavailable Primary Care Provider Unavailabl e Social History Tobacco Use Types Packs/Day Years Used Date Smoking Tobacco: Never Assessed Sex and Gender Information Value Date Recorded Sex Assigned at Not on file Legal Sex Male 4:15 PM EDT Gender Identity Not on file Sexual Orientation Not on file Plan of Treatment Health Maintenance Due Date Last Done Comments CT Colonography 1961 Colonoscopy 1961 Colorectal Cancer Screening 1961 FIT-DNA (Cologuard) 1961 FIT 1961 FOBT 1961 Sigmoidoscopy 1961 Annual Visit Topic 1962 MMR Vaccines (1 of 1 - Stand ivis series) 1962 Hepatitis C Screening 11/03/1979 PSA Test 2016 DTaP/Tdap/Td Vaccines (2 - T d or Tdap) 05/31/2032 05/31/2022 HIB Vaccines Aged Out No longer eligi ble based on patient's age to complete this topic HPV Vaccines Aged Out No longer eligi ble based on patient's age to complete this topic Hepatitis A Vaccines Aged Out No long er eligible based on patient's age to complete this topic Hepatitis B Vaccines Aged Out No long er eligible based on patient's age to complete this topic IPV Vaccines Aged Out No longer eligi ble based on patient's age to complete this topic Meningococcal Vaccine Aged Out No benny shahid eligible based on patient's age to complete this topic Pneumococcal Vaccine: Pediat rics (0 to 5 years) and At-Risk Patients (6 to 64 Years) Aged Out No longer eligi ble based on patient's age to complete this topic
--- OUTSIDE RECORDS SUMMARY | 2024-10-15 14:24 | XMS_ITS | Encounter Summary ---
Author Organization [employer] [facility] tem Address [facility]-[id number] [address] [place] [address] Care Team Providers Care Improvement Rn Name Role Phone Bean Altman DO Primary Care Provider [phone] Encounter Details Date Type Department Care Team (Late Contact Info) Description 10/15/2022 Orders Only [facility] Internal Medicine - Family Medicine [address] [place] [phone] Zoya Casarez CMA Primary hypertension; Drug-induced hypokalemia Social History Tobacco Use Types Packs/Day Years Used Date Smoking Tobacco: Former Cigarettes 1 45 0 05/30/1977 - 05/30/2022 Passive Smoke Exposure: Past Smokeless Tobacco: Never Alcohol Use Standard Drinks/Week Comments Not Currently 0 (1 standard drink = 0.6 oz pur e alcohol) PHQ-2 Answer Date Recorded Total Score 0 10/07/2022 Childcare Answer Date Recorded Childcare Unknown 07/29/2018 [...] - Family Medicine [address] [place] [address] Bean Altman DO [address], [facility] [place], [place] [phone] 05/24/2025 3:00 PM EDT Office Visit [facility] - Family Medicine [address] [place] [address] documented as of this encounter Procedures Procedure Name Priority Date/Time Associated Diagnosis Comments BASIC METABOLIC PANEL Routine 10/15/2022 Primary hypertension Drug-induced hypokalemia documented in this encounter Results * (ABNORMAL) Basic Metabolic Panel (10/15/2022) External Anion Gap 8.2 MANUALLY TRANSCRIBED RESULTS External Blood Urea Nitrogen Bun 10 7 - 18 MANUALLY TRANSCRIBED RESULTS External Calcium Ca 9.4 8.5 - 10.1 MANUALLY TRANSCRIBED RESULTS External Chloride 101 98 - 107 MANUALLY TRANSCRIBED RESULTS External Co2 / Carbon Dioxide 32.6(A) 21 - 32 MANUALLY TRANSCRIBED RESULTS External Creatinine 0.55(A) 0.70 - 1.30 MANUALLY TRANSCRIBED RESULTS External Gfr Amer >60 >60 MANUALLY TRANSCRIBED RESULTS External Gfr Non Amer >60 >60 MANUALLY TRANSCRIBED RESULTS External Glucose Fasting Or Random (Fbs) 91 74 - 106 MANUALLY TRANSCRIBED RESULTS External Potassium K 3.8 3.5 - 5.1 MANUALLY TRANSCRIBED RESULTS External Sodium Na 138 136 - 145 MANUALLY TRANSCRIBED RESULTS 10/15/2022 us Bean Altman DO LAB BLOOD ORDERABLES Final R esult MANUALLY TRANSCRIBED RESULTS documented in this encounter Visit Diagnoses Diagnosis Primary hypertension Unspecified essential hypertension Drug-induced hypokalemia documented in this encounter Additional Health Concerns Assessment Noted Time PHQ-9 Depression Total Score: 0 10/08/19 3:04 PM EDT documented as of this encounter Care Teams Improvement Rn Relationship Specialty Start Date End Date Bean Altman DO [address] [place] [address] PCP - General Family Medicine 09/30/22 documented as of this encounter
--- OUTSIDE RECORDS SUMMARY | 2024-10-15 14:24 | XMS_ITS | Encounter Summary ---
Author Organization [facility] tem Address [id number] [address] [place] [address] Care Team Providers Care Freelance Writer Name Role Phone Bean Altman DO Primary Care Provider [phone] Reason for Referral * Consultation (Routine) - Closed Specialty Diagnoses / Procedures Referred By Contac t Referred To Contact Cardiology Diagnoses Primary hypertension Bean Altman DO [address] [place] [address] Phone: tel: fax: Ghulam Hoff MD [address] [place] [address] Phone: tel: fax: Referral ID Status Reason Start Date Expiration Date V isits Requested Visits Authorized [id number] Closed Specialty Services Required 04/03/2023 04/02/2024 1 1 Encounter Details Date Type Department Care Team (Late st Contact Info) Description 04/03/2023 Orders Only [facility] Internal Medicine - Family Medicine [address] [place] [address] Bean Altman DO [address] [place] [address] Primary hypertension (Primary Dx) Social History Tobacco Use Types Packs/Day Years Used Date Smoking Tobacco: Every Day Cigarettes 0.5 45 Started: 10/21/2022 Passive Smoke Exposure: Past Smokeless Tobacco: Never Alcohol Use Standard Drinks/Week Comments Not Currently 0 (1 standard drink = 0.6 oz pur e alcohol) [facility] Utilities Answer Date Recorded In the past 12 months has th e electric, gas, oil, or water company [...] often do you attend chur ch or mosque services? 1 to 4 times per year 01/13/2023 Do you belong to any clubs o r organizations such as cheondoism groups, unions, fraternal or athletic groups, or [...] Answer Date Recorded Total Score 1 01/13/2023 [facility] [place] [facility] - Occupational Stress [...] Recorded Do you need help finding a [facility] career center and/or a training program? No [...] Medicine - Family Medicine [address] [place] [address] Bean Altman, [address] [place] [address] 05/24/2025 3:00 PM EDT Office Visit [facility] - Family Medicine [address] [place] [address] Scheduled Referrals Name Type Priority Associated Diagnoses Orde r Schedule Ambulatory referral to Cardiology ([facility]) Outpatient Referral Routine Primary hypertension 1 Occurrences starting 04/03/2023 until 04/03/2024 documented as of this encounter Visit Diagnoses Diagnosis Primary hypertension- Primary Unspecified essential hypertension documented in this encounter Additional Health Concerns Assessment Noted Time PHQ-9 Depression Total Score: 1 01/14/20 23 2:13 PM EST documented as of this encounter Care Teams Freelance Writer Relationship Specialty Start Date End Date Bean Altman DO [address] [facility], [place] [address] PCP - General Family Medicine 09/30/22 documented as of this encounter
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
--- OUTSIDE RECORDS SUMMARY | 2024-10-15 14:24 | XMS_ITS | Encounter Summary ---
Author Organization [facility] tem Address [facility] [place]-[id number] [address] [place] [address] Care Team Providers Care Press Secretary Name Role Phone Bean Altman DO Primary Care Provider [phone] Encounter Details Date Type Department Care Team (Late Contact Info) Description 10/08/2022 Orders Only [facility] Internal Medicine - Family Medicine [address] [address] External, Scanning Provider Social History Tobacco Use [...] Medicine - Family Medicine [address] [place] [address] Bean Altman DO [address], [facility] [place] [address] 05/24/2025 3:00 PM EDT Office Visit [facility] - Family Medicine [address] [place] [address] documented as of this encounter Procedures Procedure Name Priority Date/Time Associated Diagnosis Comments ECG 12-LEAD Routine 10/08/2022 9:57 AM EDT documented in this encounter Results * ECG 12 lead (10/08/2022 9:57 AM EDT) us Scanning Provider External ECG ORDERABLES Final Result MANUALLY TRANSCRIBED RESULTS documented in this encounter Visit Diagnoses Not on filedocumented in this encounter Additional Health Concerns Assessment Noted Time PHQ-9 Depression Total Score: 0 10/08/19 3:04 PM EDT documented as of this encounter Care Teams Press Secretary Relationship Specialty Start Date End Date Bean Altman DO [address] [place] [address] PCP - General Family Medicine 09/30/22 documented as of this encounter
--- OUTSIDE RECORDS SUMMARY | 2024-10-15 14:24 | XMS_ITS | Encounter Summary ---
Author Organization [employer] tem Address [facility]-[id number] [address] [place] [address] Care Team Providers Care Field Service Technician Name Role Phone Bean Altman DO Primary Care Provider Encounter Details Date Type Department Care Team (Late st Contact Info) Description 10/16/2022 Telephone [facility] Internal Medicine - Family Medicine [address] [place] [phone] Charito Downs CMA Social History Tobacco Use [...] Telephone Encounter - Charito Downs CMA - 10/16/2022 9:48 AM EDT Chelle from [employer] called and is asking for an order to be sent to [facility] [place] for Humidified Oxygen. His Right eye does not blink so it is getting irritated with the regular oxygen * Telephone Encounter - Bean Altman DO - 10/16/2022 9:48 AM EDT He isn't on oxygen. Is it for his CPAP? He should go through the specialist who orders his CPAP supplies. He was a pt of Dr. Dumont. I don't know if he sees specialist or not. He can patch his eye at night in the meantime * Telephone Encounter - Charito Downs CMA - 10/16/2022 9:48 AM EDT [facility] is going to send her an email and have her call me back * Telephone Encounter - Charito Downs CMA - 10/16/2022 9:48 AM EDT [facility] has not responded to my message. documented in this encounter Plan of Treatment Upcoming Encounters Date Type Department Care Team (Late st Contact Info) Description 11/04/2024 1:30 PM EDT Office Visit [facility] Internal Medicine - Family Medicine [address] [place] [address] Bean Altman DO [address] [place] [address] 05/24/2025 3:00 PM EDT Office Visit [facility] Internal Medicine - Family Medicine [address] [place] [address] documented as of this encounter Visit Diagnoses Not on filedocumented in this encounter Additional Health Concerns Assessment Noted Time PHQ-9 Depression Total Score: 0 10/08/19 23 3:04 PM EDT documented as of this encounter Care Teams Field Service Technician Relationship Specialty Start Date End Date Bean Altman DO [address] [place] [address] PCP - General Family Medicine 09/30/22 documented as of this encounter
--- OUTSIDE RECORDS SUMMARY | 2024-10-15 14:24 | XMS_ITS | Encounter Summary ---
Author Organization [facility] [employer] [facility] tem Address [facility]-[id number] [address] [place] [address] Care Team Providers Care Wheel Buffer Name Role Phone Bean Altman DO Primary Care Provider Encounter Details Date Type Department Care Team (Late Contact Info) Description 10/24[facility]20[facility] [address] [place] [phone] Eufemia Friend MA Social History Tobacco Use Types Packs/Day Years [...] encounter Miscellaneous Notes * Telephone Encounter - Eufemia Friend MA - 10/24/2022 4:34 PM EDT Neva from home health called, she said insurance denied another visit from delinquency prevention social worker, but theyare going to call and still do what they can without going into the home..She just wanted you to know documented in this encounter Plan of Treatment Upcoming Encounters Date Type Department Care Team (Late Contact Info) Description 11/04/2024 1:30 PM EDT Office Visit [facility] Internal Medicine - Family Medicine [address] [place] [address] Bean Altman DO [address] [place] [address] 05/24/2025 3:00 PM EDT Office Visit [facility] Internal Medicine - Family Medicine [address] [place] [address] documented as of this encounter Visit Diagnoses Not on filedocumented in this encounter Additional Health Concerns Assessment Noted Time PHQ-9 Depression Total Score: 0 10/08/19 3:04 PM EDT documented as of this encounter Care Teams Wheel Buffer Relationship Specialty Start Date End Date Bean Altman DO [address] [place] [address] PCP - General Family Medicine 09/30/22 documented as of this encounter
--- OUTSIDE RECORDS SUMMARY | 2024-10-15 14:24 | XMS_ITS | Encounter Summary ---
Author Organization [employer] Address [id number] [address] [place] [address] Care Team Providers Care Pelletizer Operator Name Role Phone ShashiBean wick Primary Care Provider [phone] Encounter Details Date Type Department Care Team (Late st Contact Info) Description 08/11/2023 Telephone [facility] Internal Medicine - Family Medicine [address] [place] [phone] Kena Watson CMA Social History Tobacco Use Types Packs/Day Years Used Date Smoking Tobacco: Every Day Cigarettes 1.9 46.4 Started: 10/21/2022 Passive Smoke Exposure: Past Smokeless Tobacco: Never Alcohol Use Standard Drinks/Week Comments Not Currently 0 (1 standard drink = 0.6 oz pur e alcohol) [facility] Utilities Answer Date Recorded In the past 12 months has [employer] electric, gas, oil, or water company threatened [...] often do you attend chur ch or christianity services? 1 to 4 times per year 01/13/2023 Do you belong to any clubs o r organizations such as sabianist groups, unions, fraternal or athletic groups, or [...] 01/13/2023 PHQ-2 Answer Date Recorded Total Score 0 08/07/2023 [facility] of Occupat ional Health - Occupational Stress [...] exercise (like a brisk walk)? 0 days 05/20/2023 On average, how many minutes do you engage in exercise at this level? 0 min 05/20/2023 PRAPARE - Transportation Answer Date Re corded In the past 12 months, has l ack of transportation kept you from medical appointments or from getting medications? No 03/2023 In the past 12 months, has l ack of transportation kept you from meetings, work, or from getting things needed for daily living? No 05/20/2023 Housing Instability Answer Date Recorde d Are [...] Do you need help finding a l al career center and/or a training program? No 01/13/2023 Hunger Screening Answer Date Recorded Within the past 12 months we worried whether our food would run out before we got money to buy more. Never True 08/07/2023 Within the past 12 months th e food we bought just didn't last and we didn't have money to get more. Never True 08/07/2023 Purpose - Life Answer Date Recorded I have a purpose and direction in my life. Stron gly Agree 01/13/2023 Sex and Gender Information Value Date Recorded Sex Assigned at Not on file Legal Sex Male 12:09 PM EDT Gender Identity Not on file Sexual Orientation Not on file documented as of this encounter Miscellaneous Notes * Telephone Encounter - Kena Watson CMA - 08/11/2023 8:10 AM EDT ----- Message from Dr. Bean Altman DO sent at 08/10/2023 9:33 PM EDT ----- His hepatitis C was negative documented in this encounter Plan of Treatment Upcoming Encounters Date Type Department Care Team (Late st Contact Info) Description 11/04/2024 1:30 PM EDT Office Visit [facility] Internal Medicine - Family Medicine [address] [place] [address] Bean Altman DO [address] [facility] [place] [address] 05/24/2025 3:00 PM EDT Office Visit [facility] Internal Medicine - Family Medicine [address] [place] [address] documented as of this encounter Visit Diagnoses Not on filedocumented in this encounter Additional Health Concerns Assessment Noted Time PHQ-9 Depression Total Score: 0 08/07/19 3:39 PM EDT documented as of this encounter Care Teams Pelletizer Operator Relationship Specialty Start Date End Date Bean Altman DO [address] [facility] [place] [address] PCP - General Family Medicine 09/30/22 documented as of this encounter
--- OUTSIDE RECORDS SUMMARY | 2024-10-15 14:24 | XMS_ITS | Encounter Summary ---
Author Organization [facility] [email or web address] [facility] tem Address [facility]-[id number] [address] [place] [address] Care Team Providers Care Nutrition Helper Name Role Phone Bean Altman DO Primary Care Provider Encounter Details Date Type Department Care Team (Late st Contact Info) Description 11/05/2022 Telephone [facility] Internal Medicine - Family Medicine [address] [place] [phone] Bean Altman DO [address] [facility] [place] [address] Social History Tobacco Use Types Packs/Day Years [...] encounter Miscellaneous Notes * Telephone Encounter - Geeta Collins - 11/05/2022 2:29 PM EDT Pt called and would like to try another script of the Erythromycin for his eye. They infection has come back. If you would like to see him let me know. Thanks * Telephone Encounter - Bean Altman DO - 11/05/2022 2:29 PM EDT Yes. I would like to see him. He is due for recheck any ways documented in this encounter Plan of Treatment Upcoming Encounters Date Type Department Care Team (Late st Contact Info) Description 11/04/2024 1:30 PM EDT Office Visit [facility] Internal Medicine - Family Medicine [address] [place] [address] Bean Altman DO [address], [facility] [address] 05/24/2025 3:00 PM EDT Office Visit [facility] Internal Medicine - Family Medicine [address] [place] [address] documented as of this encounter Visit Diagnoses Not on filedocumented in this encounter Additional Health Concerns Assessment Noted Time PHQ-9 Depression Total Score: 0 10/08/19 3:04 PM EDT documented as of this encounter Care Teams Nutrition Helper Relationship Specialty Start Date End Date Bean Altman DO [address] [place] [address] PCP - General Family Medicine 09/30/22 documented as of this encounter
--- OUTSIDE RECORDS SUMMARY | 2024-10-15 14:24 | XMS_ITS | Encounter Summary ---
Author Organization [facility] tem Address [id number] [address] [place] [address] Care Team Providers Care System Analyst Name Role Phone Bean Magana Primary Care Provider [phone] Reason for Visit * Reason Onset Date Comments Med Refill 10/15/2022 Encounter Details Date Type Department Care Team (Late st Contact Info) Description 10/14/2022 [facility] Medicine [address] [place] [phone] Zoya Casarez CMA Med Refill Social History Tobacco Use Types Packs/Day Years [...] encounter Miscellaneous Notes * Telephone Encounter - Zoya Casarez CMA - 10/14/2022 11:01 AM EDT Pt was on eye drops and an antibiotic gel for the R eye , pt needs erythromycin ophthalmology 345 grams gel for eye. They use once daily. They also noted it is starting to be more swollen around the eye. They are also requesting some additional eye drops to help his eye from drying out. * Telephone Encounter - Eufemia Friend MA - 10/14/2022 11:01 AM EDT Called again, now requestion erythromicin -said he was on in halfway, given by dr magana. * Telephone Encounter - Zoya Casarez CMA - 10/14/2022 11:01 AM EDT Pt notified, stated his face is still swelling around the eye. I told him if he does see any improvement a few days in to call back for an appt. documented in this encounter Plan of Treatment Upcoming Encounters Date Type Department Care Team (Late st Contact Info) Description 11/04/2024 1:30 PM EDT Office Visit [facility] Internal Medicine - Family Medicine [address] [place] [address] Bean Magana DO [address] [place] [address] 05/24/2025 3:00 PM EDT Office Visit [facility] Internal Medicine - Family Medicine [address] [place] [address] documented as of this encounter Visit Diagnoses Not on filedocumented in this encounter Additional Health Concerns Assessment Noted Time PHQ-9 Depression Total Score: 0 10/08/19 3:04 PM EDT documented as of this encounter Care Teams System Analyst Relationship Specialty Start Date End Date Bean Magana DO [address] [place] [address] PCP - General Family Medicine 09/30/22 documented as of this encounter
--- OUTSIDE RECORDS SUMMARY | 2024-10-15 14:24 | XMS_ITS | Encounter Summary ---
Author Organization [employer] Address [id number] [address] [place] [address] Care Team Providers Care Staff Nurse Name Role Phone Bean Altman Primary Care Provider Encounter Details Date Type Department Care Team (Late st Contact Info) Description 09/12/2022 [facility]phone [facility] Medicine [address] [place] [phone] Aurora Hernandez CMA Social History Tobacco Use Types Packs/Day Years Used Date Smoking Tobacco: Every Day Cigarettes 1 45 Started: [birth year]/30/1976; Last attempted to quit: 05/30/2022 Passive Smoke Exposure: Past Smokeless Tobacco: Never Alcohol Use Standard Drinks/Week Comments Not Currently 0 (1 standard drink = 0.6 oz pur e alcohol) Childcare Answer Date Recorded Childcare Unknown 07/29/2018 Employment Answer Date Recorded Employment Unknown 07/29/2018 Sex and Gender Information Value Date Recorded Sex Assigned at Not on file Legal Sex Male 12:09 PM EDT Gender Identity Not on file Sexual Orientation Not on file documented as of this encounter Miscellaneous Notes * Telephone Encounter - Aurora Hernandez CMA - 09/12/2022 10:18 AM EDT Pt [facility] and he got out and had to find another dr due to Dr. Dumont retiring. He did say he is out of Atorvastatin 20 mg, Hygroton 25mg, and Metotoprolol 50mg and he takes this 2x a day. He needs these sent to [facility] in [place] if you can. I did schedule him an apt with you already. * Telephone Encounter - Bean Altman DO - 09/12/2022 10:18 AM EDT Okay documented in this encounter Plan of Treatment Upcoming Encounters Date Type Department Care Team (Late st Contact Info) Description 11/04/2024 1:30 PM EDT Office Visit [facility] Internal Medicine - Family Medicine [address] [place] [address] Bean Altman DO [address] [email or web address] [place] [address] 05/24/2025 3:00 PM EDT Office Visit [facility] Internal Medicine - Family Medicine [address] [place] [address] documented as of this encounter Visit Diagnoses Not on filedocumented in this encounter Care Teams Staff Nurse Relationship Specialty Start Date End Date Bean Altman DO [address] [email or web address] [place] [address] PCP - General Family Medicine 09/30/22 documented as of this encounter
--- OUTSIDE RECORDS SUMMARY | 2024-10-15 14:24 | XMS_ITS | Encounter Summary ---
Author Organization [facility] Address [address] [facility] [place] [address] Care Team Providers Care Foster Care Therapist Name Role Phone Bean Altman MD Primary Care Provider [phone] Encounter Details Date Type Department Care Team (Late st Contact Info) Description 02/28/2023 Abstract [facility] [address] [place] [phone] Leydi Weiss, CELLULAR TOWER CLIMBER Social History Tobacco Use Types Packs/Day Years [...] on file documented as of this encounter Visit Diagnoses Not on filedocumented in this encounter Care Teams Foster Care Therapist Relationship Specialty Start Date End Date Bean Altman MD PCP - General Family Medicine 01/28/23 documented as of this encounter
--- OUTSIDE RECORDS SUMMARY | 2024-10-15 14:24 | XMS_ITS | Encounter Summary ---
Author Organization [facility] [employer] [facility] tem Address [facility]-[id number] [address] [place] [address] Care Team Providers Care Ignition Specialist Name Role Phone Bean Altman DO Primary Care Provider Encounter Details Date Type Department Care Team (Late Contact Info) Description 10/16/2022 Orders Only [facility] [address] [place] [phone] Bean Altman DO [address], [facility] [place] [place] [address] Social History Tobacco Use Types Packs/Day Years [...] Description 11/04/2024 1:30 PM EDT [facility] [address] [place] [phone] Bean Altman DO [address], [facility] [place] [address] 05/24/2025 3:00 PM EDT Office Visit [facility] Internal Medicine - Family Medicine [address] [place] [address] documented as of this encounter Visit Diagnoses Not on filedocumented in this encounter Additional Health Concerns Assessment Noted Time PHQ-9 Depression Total Score: 0 10/08/19 3:04 PM EDT documented as of this encounter Care Teams Ignition Specialist Relationship Specialty Start Date End Date Bean Altman DO [address], [facility] [place] [address] PCP - General Family Medicine 09/30/22 documented as of this encounter
--- OUTSIDE RECORDS SUMMARY | 2024-10-15 14:24 | XMS_ITS | Encounter Summary ---
Author Organization [employer] tem Address [facility]-[id number] [address] [place] [address] Care Team Providers Care Circus Supervisor Name Role Phone Bean Altman DO Primary Care Provider [phone] Reason for Referral * Speech Pathology (Routine) - Closed Specialty Diagnoses / Procedures Referred By Annmarie valencia Referred To Contact Speech Pathology Diagnoses Closed displaced fracture of left clavicle with routine healing, unspecified part of clavicle, subsequent encounter Abnormality of gait and mobility Subdural hemorrhage following injury, prolonged (more than 24 hours) loss of consciousness, subsequent encounter Complex open fracture of temporal bone with routine healing, subsequent encounter Dysphagia, unspecified type Bean Altman DO [address] [place] [address] Phone: tel: fax: Referral ID Status Reason Start Date Expiration Date V isits Requested Visits Authorized [id number] Closed Specialty Services Required 09/26/2022 09/26/2023 1 1 * Occupational Therapy (Routine) - Closed Specialty Diagnoses / Procedures Referred By Annmarie valencia Referred To Contact Occupational Therapy Diagnoses Sprain of anterior cruciate ligament of unsp knee, subs Acute torn meniscus of knee, unspecified laterality, subsequent encounter Closed displaced bicondylar fracture of left tibia with routine healing, subsequent encounter Closed displaced fracture of left clavicle with routine healing, unspecified part of clavicle, subsequent encounter Abnormality of gait and mobility Subdural hemorrhage following injury, prolonged (more than 24 hours) loss of consciousness, subsequent encounter Bean Altman DO [address], [place] [address] Phone: tel: fax: Referral ID Status Reason Start Date Expiration Date V isits Requested Visits Authorized [id number] Closed Specialty Services Required 09/26/2022 09/26/2023 1 1 Encounter Details Date Type Department Care Team (Late Contact Info) Description 09/26/2022 Orders Only [facility] Internal Medicine - Family Medicine [address] [place] [address] Bean Altman DO [address] [place] [address] Sprain of anterior cruciate ligament of unsp knee, subs (Primary Dx); Acute torn meniscus of knee, unspecified laterality, subsequent encounter; Closed displaced bicondylar fracture of left tibia with routine healing, subsequent encounter; Closed displaced fracture of left clavicle with routine healing, unspecified part of clavicle, subsequent encounter; Abnormality of gait and mobility; Subdural hemorrhage following injury, prolonged (more than 24 hours) loss of consciousness, subsequent encounter; Complex open fracture of temporal bone with routine healing, subsequent encounter; Dysphagia, unspecified type Social History Tobacco Use Types Packs/Day Years [...] - Family Medicine [address] [place] [address] Bean Altman DO [address], [facility] [place] [address] 05/24/2025 3:00 PM EDT Office Visit [facility] Internal Medicine - Family Medicine [address] [place] [address] Scheduled Referrals Name Type Priority Associated Diagnoses Order Schedule Ambulatory referral to Occupational Therapy Outpatient Referral Routine Sprain of anterior cruciate ligament of unsp knee, subs Acute torn meniscus of knee, unspecified laterality, subsequent encounter Closed displaced bicondylar fracture of left tibia with routine healing, subsequent encounter Closed displaced fracture of left clavicle with routine healing, unspecified part of clavicle, subsequent encounter Abnormality of gait and mobility Subdural hemorrhage following injury, prolonged (more than 24 hours) loss of consciousness, subsequent encounter 1 Occurrences starting 09/26/2022 until 09/27/2023 Ambulatory referral to Speech Therapy Outpatient Referral Routine Closed displaced fracture of left clavicle with routine healing, unspecified part of clavicle, subsequent encounter Abnormality of gait and mobility Subdural hemorrhage following injury, prolonged (more than 24 hours) loss of consciousness, subsequent encounter Complex open fracture of temporal bone with routine healing, subsequent encounter Dysphagia, unspecified type 1 Occurrences starting 09/26/2022 until 09/27/2023 documented as of this encounter Visit Diagnoses Diagnosis Sprain of anterior cruciate ligament of unsp knee, subs- Primary Acute torn meniscus of knee, unspecified laterality, subsequent encounter Closed displaced bicondylar fracture of left tibia with routine healing, subsequent encounter Closed displaced fracture of left clavicle with routine healing, unspecified part of clavicle, subsequent encounter Abnormality of gait and mobility Subdural hemorrhage following injury, prolonged (more than 24 hours) loss of consciousness, subsequent encounter Complex open fracture of temporal bone with routine healing, subsequent encounter Dysphagia, unspecified type documented in this encounter Care Teams Circus Supervisor Relationship Specialty Start Date End Date Bean Altman DO [address], [facility] [place] [address] PCP - General Family Medicine 09/30/22 documented as of this encounter
--- OUTSIDE RECORDS SUMMARY | 2024-10-15 14:24 | XMS_ITS | Encounter Summary ---
Author Organization [employer] tem Address [facility] [id number] [address] [place] [address] Care Team Providers Care Talent Coordinator Name Role Phone Bean Altman Primary Care Provider +1- [phone] Encounter Details Date Type Department Care Team (Late st Contact Info) Description 04/01/2023 Telephone [facility] - Family Medicine [address] [place] [phone] Kena Watson CMA Social History Tobacco Use Types Packs/Day Years Used Date Smoking Tobacco: Every Day Cigarettes 0.5 45 Started: 10/21/2022 Passive Smoke Exposure: Past Smokeless Tobacco: Never Alcohol Use Standard Drinks/Week Comments Not Currently 0 (1 standard drink = 0.6 oz pur e alcohol) [facility] Utilities Answer Date Recorded In the past 12 months has [employer], gas, oil, or water company threatened [...] often do you attend chur ch or episcopal services? 1 to 4 times per year 01/13/2023 Do you belong to any clubs o r organizations such as hoahaoism groups, unions, fraternal or athletic groups, or [...] Answer Date Recorded Total Score 1 01/13/2023 [facility] of Occupat ional Health - Occupational Stress [...] Recorded Do you need help finding a [facility], [facility] and/or a training program? No [...] Telephone Encounter - Kena Watson CMA - 04/01/2023 4:25 PM EST Pt called and would like a referral for a veterinary receptionist in [place]. He is going to have knee surgery. * Telephone Encounter - Bean Altman DO - 04/01/2023 4:25 PM EST He does not have any known coronary artery disease less I miss something before he was a patient here like a cardiac stent. Otherwise, I could do his clearance * Telephone Encounter - Kena Watson CMA - 04/01/2023 4:25 PM EST I did tell him this. I called [facility] and left message to call us back. Thank you documented in this encounter Plan of Treatment Upcoming Encounters Date Type Department Care Team (Late st Contact Info) Description 11/04/2024 1:30 PM EDT Office Visit [facility] - [facility] Medicine [address] [place] [address] Bean Altman DO [address], [facility] [place] [address] 05/24/2025 3:00 PM EDT Office Visit [facility] - [facility] Medicine [address] [place] [address] documented as of this encounter Visit Diagnoses Not on filedocumented in this encounter Additional Health Concerns Assessment Noted Time PHQ-9 Depression Total Score: 1 01/14/20 23 2:13 PM EST documented as of this encounter Care Teams Talent Coordinator Relationship Specialty Start Date End Date Bean Altman DO [address] [place] [address] PCP - General Family Medicine 09/30/22 documented as of this encounter
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
--- OUTSIDE RECORDS SUMMARY | 2024-10-15 14:24 | XMS_ITS | Encounter Summary ---
Author Organization [employer] tem Address [id number] [address] [place] [address] Care Team Providers Care Farm Mechanic Apprentice Name Role Phone Bean Altman DO Primary Care Provider Encounter Details Date Type Department Care Team (Late Contact Info) Description 10/07/2022 Orders Only [facility] - Family Medicine [address] [place] [address] External, Scanning Provider Social History Tobacco Use [...] Medicine - Family Medicine [address] [place] [address] Bean Altman DO [address], [facility] [address] 05/24/2025 3:00 PM EDT Office Visit [facility] - Family Medicine [address] [place] [address] documented as of this encounter Procedures Procedure Name Priority Date/Time Associated Diagnosis Comments XR CHEST 2 VWS Routine 10/06/2022 3:28 PM EDT documented in this encounter Results * X-ray chest 2 views (10/06/2022 3:28 PM EDT) Anatomical Region Laterality Modality Body, Chest N/A Computed Radiogr aphy us Scanning Provider External IMG DIAGNOSTIC IMAGIN G ORDERABLES Final Result documented in this encounter Visit Diagnoses Not on filedocumented in this encounter Additional Health Concerns Assessment Noted Time PHQ-9 Depression Total Score: 0 10/08/19 3:04 PM EDT documented as of this encounter Care Teams Farm Mechanic Apprentice Relationship Specialty Start Date End Date Bean Altman DO [address] [place] [address] PCP - General Family Medicine 09/30/22 documented as of this encounter
--- OUTSIDE RECORDS SUMMARY | 2024-10-15 14:24 | XMS_ITS | Encounter Summary ---
Author Organization [facility] Address [id number] [address] [place] [address] Care Team Providers Care Compression Molding Machine Setter Name Role Phone Bean Altman DO Primary Care Provider +1- [phone] Reason for Visit * Reason Comments Med Refill Encounter Details Date Type Department Care Team (Late st Contact Info) Description 04/28/2023 Refill [facility] - Family Medicine [address] [place] [phone] Bean Altman DO [address] [place] [address] Primary hypertension Social History Tobacco Use Types Packs/Day Years Used Date Smoking Tobacco: Every Day Cigarettes 0.5 45 Started: 10/21/2022 Passive Smoke Exposure: Past Smokeless Tobacco: Never Alcohol Use Standard Drinks/Week Comments Not Currently 0 (1 standard drink = 0.6 oz pur e alcohol) [facility] Utilities Answer Date Recorded In the past 12 months has [employer], gas, oil, or water [employer] threatened to shut off services in your [...] often do you attend chur ch or alevism services? 1 to 4 times per year 01/13/2023 Do you belong to any clubs o r organizations such as jain groups, unions, fraternal or athletic groups, or [...] Answer Date Recorded Total Score 1 01/13/2023 [facility] of Occupat ional Health - Occupational Stress [...] Recorded Do you need help finding a [facility] career [facility] and/or a training program? No [...] - Family Medicine [address] [place] [address] Bean Altman DO [address] [facility] [place] [address] 05/24/2025 3:00 PM EDT Office Visit [facility] - Family Medicine [address] [place] [address] documented as of this encounter Visit Diagnoses Diagnosis Primary hypertension Unspecified essential hypertension documented in this encounter Additional Health Concerns Assessment Noted Time PHQ-9 Depression Total Score: 1 01/14/20 2:13 PM EST documented as of this encounter Care Teams Compression Molding Machine Setter Relationship Specialty Start Date End Date Bean Altman DO [address] [facility] [facility] [address] PCP - General Family Medicine 09/30/22 documented as of this encounter
--- OUTSIDE RECORDS SUMMARY | 2024-10-15 14:24 | XMS_ITS | Encounter Summary ---
Author Organization [employer] tem Address [id number] [address] [place] [address] Care Team Providers Care Software Verification Engineer Name Role Phone Bean Altman DO Primary Care Provider Encounter Details Date Type Department Care Team (Late Contact Info) Description 07/19/2022 Orders Only [facility] - Family Medicine [address] [place] [address] External, Scanning Provider Social History Tobacco Use [...] Medicine - Family Medicine [address] [place] [address] Bean Altman DO [address] [place] [address] 05/24/2025 3:00 PM EDT Office Visit [facility] - Family Medicine [address] [place] [address] documented as of this encounter Procedures Procedure Name Priority Date/Time Associated Diagnosis Comments XR CHEST 1 VW Routine 07/19/2022 documented in this encounter Results * X-ray chest 1 view (07/19/2022) Anatomical Region Laterality Modality Body, Chest N/A Computed Radiogr aphy us Scanning Provider External IMG DIAGNOSTIC IMAGIN G ORDERABLES Final Result documented in this encounter Visit Diagnoses Not on filedocumented in this encounter Care Teams Software Verification Engineer Relationship Specialty Start Date End Date Bean Altman DO [address] [place] [address] PCP - General Family Medicine 09/30/22 documented as of this encounter
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
--- OUTSIDE RECORDS SUMMARY | 2024-10-15 14:24 | XMS_ITS | Encounter Summary ---
[id number] [address] [place] [address] Care Team Providers Care Hand Trimmer Name Role Phone Bean Altman Primary Care Provider [phone] Encounter Details Date Type Department Care Team (Late st Contact Info) Description 01/19/2024 Telephone [facility] Internal Medicine - Family Medicine [address] [place] [id number] Aurora Hernandez CMA Social History Tobacco Use Types Packs/Day Years Used Date Smoking Tobacco: Every Day Cigarettes 1.9 46.4 Started: 10/21/2022 Passive Smoke Exposure: Past Smokeless Tobacco: Never Alcohol Use Standard Drinks/Week Comments Not Currently 0 (1 standard drink = 0.6 oz pur e alcohol) [facility] Utilities Answer Date Recorded In the past 12 months has [employer] electric, gas, oil, or water company threatened [...] often do you attend chur ch or yarsani services? 1 to 4 times per year 01/13/2023 Do you belong to any clubs o r organizations such as voodoo groups, unions, fraternal or athletic groups, or [...] Answer Date Recorded Total Score 0 08/07/2023 [facility] - Occupational [...] Recorded Do you need help finding a [facility] career center and/or a training program? [...] Telephone Encounter - Aurora Hernandez CMA - 01/19/2024 11:00 AM EST Patient called and stated and said that [facility] is out of the 4mg Tizanidine and was wondering if you could send in the 2mg 2x a day instead. * Telephone Encounter - Aurora Hernandez CMA - 01/19/2024 11:00 AM EST Please send in the 4mg they now have them and the 2mg are needing a PA documented in this encounter Plan of Treatment Upcoming Encounters Date Type Department Care Team (Late st Contact Info) Description 11/04/2024 1:30 PM EDT Office Visit [facility] Medicine - Family Medicine [address] [place] [address] Bean Altman, DO [address] [facility] [place] [address] 05/24/2025 3:00 PM EDT Office Visit [facility] Medicine - Family Medicine [address] [place] [address] documented as of this encounter Visit Diagnoses Not on filedocumented in this encounter Additional Health Concerns Assessment Noted Time PHQ-9 Depression Total Score: 0 08/07/19 24 3:39 PM EDT documented as of this encounter Care Teams Hand Trimmer Relationship Specialty Start Date End Date Bean Altman DO [address] [place] [address] PCP - General Family Medicine 09/30/22 documented as of this encounter
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
--- OUTSIDE RECORDS SUMMARY | 2024-10-15 14:28 | XMS_ITS | CCD ---
Author Organization [facility] CliniSyct Care Team Providers Care Machine Shop Supervisor Name Role Phone HOUSE, DR BECERRA Attending Unavailable HOUSE, DR BECERRA Admitting Unavailable HOUSE, DR BECERRA Primary Care Unavailable HOUSE, DR BECERRA Consulting Unavailable HOUSE, DR BECERRA Attending Unavailable HOUSE, DR BECERRA Admitting Unavailable HOUSE, DR BECERRA Primary Care Unavailable DO Reema Delarosa Emergency Provider Unavai labfidel NON STAFF Primary Care Provider Unavailabl e Unavailable Primary Care Provider Unavailabl e NON STAFF Primary Care Unavailable Reema Delarosa Attending Unavailable Reema Delarosa Admitting Unavailable Bubba WOODS, Sneha Unavailable [phone] Wiliam Tenorio MD Unavailable [phone] Zohreh Driscoll MD Unavailable Kaleb MALONE-DIESEL ENGINE II PIPE FITTER, Tomisha Unavailable ALCIRA SUJATHA Admitting Unavailable REEMA DELAROSA Referring Unavailable PROVIDER, UNKNOWN Attending Unavailable JOCELYNUSO, SUJATHA Admitting Unavailable PROVIDER, UNKNOWN Attending Unavailable REEMA DELAROSA Referring Unavailable PROVIDER, UNKNOWN Attending Unavailable MALUSO, SUJATHA Admitting Unavailable REEMA DELAROSA Referring Unavailable JOCELYNUSO, SUJATHA Admitting Unavailable PROVIDER, UNKNOWN Attending Unavailable REEMA DELAROSA Referring Unavailable JOCELYNUSO, SUJATHA Admitting Unavailable PROVIDER, UNKNOWN Attending Unavailable REEMA DELAROSA Referring Unavailable PROVIDER, UNKNOWN Attending Unavailable MALUSO, SUJATHA Admitting Unavailable REEMA DELAROSA Referring Unavailable PROVIDER, UNKNOWN Admitting Unavailable REEMA DELAROSA Referring Unavailable PROVIDER, UNKNOWN Attending Unavailable PROVIDER, UNKNOWN Admitting Unavailable TENISHA MCGRATH Referring Unavailable PROVIDER, UNKNOWN Attending Unavailable PROVIDER, UNKNOWN Admitting Unavailable NAZ REAGAN Referring Unavailable PROVIDER, UNKNOWN Attending Unavailable JOCELYNUSO, [...] SOCIAL WORK SERVICE Consulting Unavailable REQUEST, IP RCIS SERVICE Consulting Unavaila ble CONSULT, IP PM Consulting Unavailable SUJATHA ELI Admitting Unavailable PROVIDER, UNKNOWN Attending Unavailable REEMA DELAROSA Referring Unavailable SUJATHA ELI Admitting Unavailable PROVIDER, UNKNOWN Attending Unavailable REEMA DELAROSA Referring Unavailable Lincoln WOODS, Mian Unavailable Bean Garnica MD Primary Care Provider [phone] Wiliam Tenorio MD Unavailable Americo WOODS, Zohreh Unavailable EBAN GARNICA Referring Unavailable NANCYNG, BEAN [place] Primary Care Unavailable VALDEZ GRIJALVA Referring Unavailable BEAN GARNICA Primary Care Unavailable VALDEZ GRIJALVA Referring Unavailable BEAN GARNICA Primary Care Unavailable VALDEZ GRIJALVA Referring Unavailable BEAN GARNICA Primary Care Unavailable NAHUN, BEAN [place] Referring Unavailable VALDEZ GRIJALVA Admitting Unavailable VALDEZ GRIJALVA Attending Unavailable VALDEZ GRIJALVA Referring Unavailable BEAN GARNICA Primary Care Unavailable MATTHEW WOO Attending Unavailable BEAN GARNICA Primary Care Unavailable NANCYNG, BEAN G Referring Unavailable FURLONG, BEAN G Primary Care Unavailable FURLONG, BEAN G Attending Unavailable NANCYNG, BEAN G Referring Unavailable FURLONG, BEAN G Primary Care Unavailable FURLONG, BEAN G Referring Unavailable FURLONG, BEAN G Primary Care Unavailable FURLONG, BEAN G Referring Unavailable FURLONG, BEAN G Primary Care Unavailable FURLONG, BEAN G Referring Unavailable FURLOBEAN SCHULZ Primary Care Unavailable WILIAM TREVINO Admitting Unavailable YUHAWILIAM Nj Attending Unavailable FURLONG, BEAN [place] Primary Care Unavailable YUHASWILIAM Attending Unavailable YUHASWILIAM Referring Unavailable FURLONG, BEAN [place] Primary Care Unavailable GENETVALDEZ GRAY Attending Unavailable GENET, VALDEZ Heart Attending Unavailable APLING, LEYDI Lin Attending Unavailable LIMALADONNA Attending Unavailable APLING, LEYDI Lin Referring Unavailable TATTERSALL, ROB Attending Unavailable APLING, LEYDI B Referring Unavailable TATTERSALL, ROB Attending Unavailable APLING, LEYDI Lin Referring Unavailable GRACIA, RYAN Attending Unavailable APLING, LEYDI Lin Referring Unavailable GRACIA, RYAN Attending Unavailable APLING, LEYDI B Referring Unavailable TATTERSALL, ROB Attending Unavailable APLING, LEYDI B Referring Unavailable GRACIA, RYAN Attending Unavailable APLING, LEYDI Lin Referring Unavailable APLING, LEYDI Lin Attending Unavailable TATTERSALL, ROB Attending Unavailable APLING, LEYDI B Referring Unavailable TATTERSALL, ROB Attending Unavailable APLING, LEYDI B Referring Unavailable GRACIA, RYAN Attending Unavailable APLING, LEYDI B Referring Unavailable GRACIA, RYAN Attending Unavailable APLING, LEYDI B Referring Unavailable LIMALADONNA Attending Unavailable APLING, LEYDI B Referring Unavailable GRACIA, RYAN Attending Unavailable APLING, LEYDI B Referring Unavailable APLING, LEYDI B Attending Unavailable KELBLESAVANA Mccabe Attending Unavailable APLING, LEYDI B Referring Unavailable GRACIA, RYAN Attending Unavailable APLING, LEYDI B Referring Unavailable GRACIA, RYAN Attending Unavailable APLING, LEYDI B Referring Unavailable LIMALADONNA Attending Unavailable APLING, LEYDI B Referring Unavailable GRACIA, RYAN Attending Unavailable APLING, LEYDI B Referring Unavailable GRACIA, RYAN Attending Unavailable APLING, LEYDI B Referring Unavailable GRACIA, RYAN Attending Unavailable APLING, LEYDI B Referring Unavailable APLING, LEYDI Lin Attending Unavailable APLING, LEYDI Lin Referring Unavailable VALDEZ GRIJALVA Attending Unavailable Unavailable Primary Care Provider Unavailfranca e Bean Garnica DO Primary Care Provider Unavailable Primary Care Provider Unavailfranca e BEAN GARNICA Referring Unavailable BEAN GARNICA Primary Care Unavailable BEAN GARNICA Referring Unavailable SHASHILOJOEY, BEAN [place] Primary Care Unavailable Furlong Bean DE LA O Primary Care Provider Shashilong DO, Bean [place] Primary Care Provider FURLONG, BEAN G Attending Unavailable FURLONG, BEAN G Referring Unavailable FURLONG, BEAN G Primary Care Unavailable FURLONG, BEAN G Attending Unavailable FURLONG, BEAN G Referring Unavailable FURLONG, BEAN G Primary Care Unavailable FURLONG, BEAN G Referring Unavailable FURLONG, BEAN G Primary Care Unavailable RUFUS CAST Attending Unavailable EDUARD, BALJINDER Attending Unavailable EDUARD, BALJINDER Attending Unavailable ALLRED, JALEESA Attending Unavailable ALLRED, JALEESA Referring Unavailable HERSHNERCAS Attending Unavailable FURLONG, BEAN LALI Primary Care Unavailab le ALLRED, JALEESA Admitting Unavailable ALLRED, JALEESA Attending Unavailable ALLRED, JALEESA Referring Unavailable HERSHNER, CAS A Attending Unavailable FURLONG, BEAN LALI Primary Care Unavailab le ALLRED, JALEESA Referring Unavailable ALLRED, JALEESA Attending Unavailable FURLONG, BEAN LALI Primary Care Unavailab le ALLRED, JALEESA Referring Unavailable FURLONG, BEAN LALI Primary Care Unavailab le ALLRED, JALEESA Referring Unavailable FURLONG, BEAN LALI Primary Care Unavailab Jefferson, Gina Attending Provider Shashidelano Bean Primary Care Provider [phone] Medications Current Medications Medication Drug Class(es) Dates Sig (Normalized) Sig (Original) acetaminophen 500 mg oral tablet (20 sources) Start: 09-29-2022 take 2 tablets by mouth every six hours as needed acetaminophen (TYLENOL EXTRA STRENGTH) 500 mg tablet 2 tablet NEEDED EVERY 6 HOURS (route: oral) 09/29/2022 Active Start: 07-03-2022 End: 07-17-2022 take [id number] mg intragastric route every six hours acetaminophen (TYLENOL) 650 MG/20.3ML SOLN oral solution 20 mL by G Tube route every 6 (six) hours for 14 days. 1120 mL 0 07/03/2022 07/17/2022 aspirin 81 mg delayed release oral tablet (20 sources) Platelet Aggregation Inhibitor, Nonsteroidal Anti-inflammatory Drug Start: 08-07-2023 take 1 tablet by mouth in the morning aspirin 81 mg Indications: Coronary artery disease involving [place] coronary artery of [place] heart without angina pectoris Take 1 tablet (81 mg total) by mouth in the morning. 08/07/2023 Active Start: 09-29-2022 End: 05-21-2023 take 1 tablet by mouth in the morning aspirin 81 mg Indications: Coronary artery disease involving [place] coronary artery of [place] heart without angina pectoris Take 1 tablet (81 mg total) by mouth in the morning. 08/07/2023 Active atorvastatin 80 mg oral tablet (20 sources) HMG-CoA Reductase Inhibitor Start: 04-22-2023 atorvastatin (LIPITO R) 80 mg tablet Take 1 tablet (80 mg total) by mouth. 04/22/2023 Active Start: 01-17-2023 End: 05-21-2023 take 1 tablet by mouth in the morning atorvastatin (LIPITOR) 40 mg tablet Take 1 tablet (40 mg total) by mouth in the morning. 90 tablet 1 04/21/2023 Active Start: 09-14-2017 take 1 tablet by karin once daily chlorthalidone 25 mg oral tablet (20 sources) Thiazide-like Diuretic Start: 05-09-2022 End: 08-30-2024 take 1 tablet by mouth once daily chlorthalidone (HYGROTON) 25 mg tablet Indications: Primary hypertension Take 1 tablet (25 mg total) by mouth daily. 90 tablet 08/30/2024 Active dexamethasone 0.001 mg/mg / neomycin 0.0035 mg/mg / polymyxin b 10 unt/mg ophthalmic ointment (20 sources) Aminoglycoside Antibacterial, Polymyxin-class Antibacterial, Corticosteroid Start: 06-12-2023 neomycin-polymyxin- dexAMETHasone (Polydex) 3.5-33205-7.1 ointment ophthalmic ointment APPLY IN THE RIGHT EYE THREE TIMES DAILY FOR 1 WEEK 06/12/2023 Active erythromycin 0.005 mg/mg ophthalmic ointment (12 sources) Macrolide, Macrolide Antimicrobial Start: 11-07-2022 End: 05-21-2023 erythromycin (ILOTYCIN) ophthalmic ointment Indications: Chronic conjunctivitis of right eye, unspecified chronic conjunctivitis type Administer 1.25 cm (0.5 inches total) to the right eye every 6 (six) hours. 3.5 g 1 11/07/2022 05/21/2023 Discontinued (Therapy completed) Start: 09-14-2017 esomeprazole 40 mg delayed release oral capsule (20 sources) Proton Pump Inhibitor Start: 09-14-2017 End: 06-30-2024 take 1 capsule by mouth once daily ezetimibe 10 mg oral tablet (14 sources) Dietary Cholesterol Absorption Inhibitor ezetimibe (ZETIA) 10 mg tablet Take 1 tablet (10 mg total) by mouth. Active fluticasone propionate 0.05 mg/actuat metered dose nasal spray (20 sources) Corticosteroid Start: 05-08-2022 End: 07-31-2023 take 1 spray(s) nasal route once daily fluticasone propionate (FLONASE) 50 mcg/actuation nasal spray instill 1 (ONE) spray IN EACH NOSTRIL DAILY 16 mL 5 07/31/2023 Active Start: 05-08-2022 take 1 spray(s) nasa l route once daily fluticasone (Flonase) 50 MCG/ACT nasal spray instill 1 (ONE) spray IN EACH NOSTRIL DAILY 05/08/2022 Active take 1 spray(s) nasa l route once daily fluticasone (FLONASE) 50 mcg/actuation nasal spray Use 1 [place] in each nostril once daily. Active 30 actuat fluticasone furoate 0.2 mg/actuat / vilanterol 0.025 mg/actuat dry powder inhaler (20 sources) Corticosteroid, beta2-Adrenergic Agonist Start: 07-31-2023 take 1 puff(s) by mouth once daily fluticasone furoate-vilanteroL (BREO ELLIPTA) 200-25 mcg/dose blister with device inhale 1 puff by mouth once daily 28 each 5 07/31/2023 Active Start: 04-08-2022 End: 07-31-2023 take 1 puff(s) by inhalation in the morning Breo Ellipta 200-25 MCG/ACT aerosol powder Inhale 1 puff in the morning. 04/08/2022 Active Start: 04-08-2022 take 1 puff(s) by mouth once d aily Breo Ellipta 200-25 MCG/ACT AEPB ellipta inhaler Inhale 1 Puff by mouth daily. 0 04/08/2022 Active BREO ELLIPTA 200 -25 mcg/dose inhaler Inhale as instructed once daily. Active gabapentin 600 mg oral tablet (20 sources) Anti-epileptic Agent Start: 04-01-2024 End: 07-19-2024 take 1 tablet by mouth three times daily gabapentin (NEURONTIN) 600 mg tablet Indications: Acute torn meniscus of knee, unspecified laterality, subsequent encounter TAKE 1 TABLET BY MOUTH THREE TIMES DAILY 90 tablet 2 07/19/2024 Active Start: 05-07-2022 End: 03-30-2024 take 1 tablet by mouth three times daily gabapentin (NEURONTIN) 600 mg tablet Indications: Acute torn meniscus of knee, unspecified laterality, subsequent encounter Take 1 tablet (600 mg total) by mouth 3 (three) times a day. 90 tablet 1 04/01/2024 Active Start: 09-14-2017 take 1 tablet by karin th once daily hydroCHLOROthiazide 12.5 mg / lisinopril 10 mg oral tablet (2 sources) Thiazide Diuretic, Angiotensin Converting Enzyme Inhibitor Start: 09-14-2017 take 1 tablet by mouth once daily melatonin 10 mg oral tablet (20 sources) Start: 07-03-2022 melatonin 10 MG TABS tablet 1 Tablet by PEG Tube route at bedtime for 14 days. 14 Tablet 0 07/03/2022 Active metoprolol tartrate 50 mg oral tablet (20 sources) beta-Adrenergic Francine Start: 05-08-2022 End: 06-08-2024 take 1 tablet by mouth in the morning, then take 1 tablet by mouth at bedtime metoprolol tartrate (LOPRESSOR) 50 mg tablet Take 1 tablet (50 mg total) by mouth in the morning and 1 tablet (50 mg total) before bedtime. 180 tablet 1 06/08/2024 Active Start: 09-14-2017 take 1 tablet by mouth once da breanna mineral oil 0.425 mg/mg / petrolatum 0.568 mg/mg ophthalmic ointment (20 sources) Start: 11-07-2022 REFRESH LACRI- LUBE 56.8-42.5 % ointment Indications: Chronic conjunctivitis of right eye, unspecified chronic conjunctivitis type APPLY 1 (ONE) application IN THE RIGHT EYE AT BEDTIME 7 g 1 11/07/2022 Active Start: 11-07-2022 White Petrolat um-Mineral Oil (LACRI-LUBE) 56.8-42.5 % oint APPLY 1 (ONE) application IN THE RIGHT EYE AT BEDTIME 11/07/2022 Active Start: 08-21-2022 End: 09-20-2022 white petrolatum (REFRESH LA CRI-LUBE) OINT ophthalmic ointment Indications: Facial nerve paralysis Place 1 Application in the right eye at bedtime. 7 g 2 08/21/2022 09/20/2022 Active Start: 07-03-2022 End: 08-02-2022 white petrolatum (SYSTANE/SO OTHE NIGHT TIME) ophthalmic ointment Place 1 Inch in the right eye 4 times daily. 1 Each 1 07/03/2022 08/02/2022 pantoprazole 40 mg oral granules (7 sources) Proton Pump Inhibitor take 40 mg by mouth once daily pantoprazole (PROTONIX) 40 MG PACK oral packet Take 40 mg by mouth daily. 0 Active PARoxetine hydrochloride 20 mg oral tablet (2 sources) Serotonin Reuptake Inhibitor Start: 09-15-19 18 take 1 tablet by mouth once daily potassium chloride 10 meq extended release oral tablet (20 sources) Start: 01-15-20 23 End: 05-25-19 25 potassium chloride (K-TAB,KLOR-CON) 10 MEQ CR tablet Indications: Drug-induced hypokalemia Take 1 tablet (10 mEq total) by mouth in the morning. 30 tablet 4 05/24/2024 Active prednisoLONE acetate 10 mg/ml ophthalmic suspension (3 sources) Corticosteroid Start: 05-26-19 25 prednisoLONE acetate (PRED FORTE) 1 % ophthalmic suspension Use 1 drop in the right eye as directed. Starting TOMORROW place one drop in operative eye four times a day. 05/25/2024 Active sod sulf-pot chloride-mag sulf 1.479-0.188- 0.225 gram tablet (10 sources) Start: 03-26-19 24 End: 05-21-19 24 sod sulf-pot chloride-mag sulf 1.479-0.188- 0.225 gram tablet Indications: Occult blood positive stool Take 12 tablets twice a day as per instructions 24 tablet 0 03/26/2023 05/21/2023 Discontinued (Therapy completed) Start: 03-26-2023 sod sulf-pot c hloride-mag sulf 1.479-0.188- 0.225 gram tablet Indications: Occult blood positive stool Take 12 tablets twice a day as per instructions 24 tablet 0 03/26/2023 Active Start: 03-26-2023 sod sulf-pot c hloride-mag sulf 1.479-0.188- 0.225 gram tablet Indications: Occult blood positive stool Take 12 tablets twice a day as per instructions 24 tablet 0 03/26/2023 Suspended Sutab 3512-608-658 MG tablet (4 sources) Start: 03-26-2023 Sutab 1479-225 -188 MG tablet Take 12 tablets twice a day as per instructions 03/26/2023 Active tiZANidine 4 mg oral tablet (20 sources) Central alpha-2 Adrenergic Agonist Start: 01-20-2024 End: 07-16-2024 take 1 tablet by mouth every six hours as needed for muscle spasms tiZANidine (ZANAFLEX) 4 mg tablet TAKE 1 TABLET BY MOUTH EVERY 6 HOURS NEEDED FOR MUSCLE SPASMS 90 tablet 1 07/16/2024 Active Start: 01-19-2024 End: 01-20-2024 take 1 capsule by mouth once daily at bedtime tiZANidine (ZANAFLEX) 2 MG capsule Take 2 capsules (4 mg total) by mouth once daily at bedtime. 60 capsule 01/19/2024 01/20/2024 Discontinued (Availability) Start: 07-07-2022 take 1 tablet by karin th at bedtime tiZANidine (Zanaflex) 4 MG tablet Take 1 tablet by mouth at bedtime 07/07/2022 Active Start: 09-14-2017 End: 01-19-2024 take 1 tablet by mouth once daily in the evening tiZANidine (ZANAFLEX) 4 mg tablet take 1 tablet by mouth every evening 30 tablet 5 07/23/2023 01/19/2024 Discontinued (Availability) traZODone hydrochloride 50 mg oral tablet (20 sources) Serotonin Reuptake Inhibitor Start: 07-03-2022 trazodone (DESYREL) 50 mg tablet 1 Tablet by NG Tube route at bedtime for 14 days. 14 Tablet 0 07/03/2022 Active varenicline (5 sources) Partial Cholinergic Nicotinic Agonist Start: 05-12-2024 End: 08-10-2024 varenicline tartrate (CHANTIX) 0.5 mg (11)- 1 mg (42) tablet Use as directed on package instructions, try to quit smoking after 1 week. 05/12/2024 08/10/2024 Active Completed/Discontinued Medications Medication Drug Class(es) Dates Sig (Normalized) Sig (Original) benoxinate hydrochloride 4 mg/ml / fluorescein sodium 3 mg/ml ophthalmic solution (2 sources) Diagnostic Dye Start: 04-13-2024 End: 04-14-2024 fluorescein-benoxi rowdy 0.3-0.4 % 1 Drop (FLURESS) Start: 04-13-2024 End: 04-14-2024 1 Drop, BOTH EYES, DIRECT ED, Starting on Fri04/13/24 at 1500, Until Fri04/14/24 at 0259, Administer for applanation tonometry. In the event of a Fluress shortage, administer Linda-Fluor 1 drop into both eyes as directed for applanation tonometry, OPHT CLINIC MED ORDERS doxazosin 4 mg oral tablet (20 sources) alpha-Adrenergic Francine Start: 12-10-2022 take 1 tablet by mouth once daily doxazosin (CARDURA) 4 mg tablet Take 1 tablet (4 mg total) by mouth nightly. 90 tablet 1 12/10/2022 Suspended Start: 07-04-2022 doxazosin (CAR DURA) 4 MG tablet 1 Tablet by G Tube route daily for 14 days. 14 Tablet 0 07/04/2022 Active Gauze Pads & Dressings (POLYMEM Max) 8 X 8 MISC topical dressing (1 source) Start: 07-04-2022 End: 07-18-2022 Gauze Pads & Dressings (POLYMEM Max) 8 X 8 MISC topical dressing Apply 1 Each topically daily for 14 days. Apply topically to inferior aspect of trach site to prevent skin breakdown/protect skin 14 Each 0 07/04/2022 07/18/2022 glycerin 2 mg/ml / hypromellose 2 mg/ml / polyethylene glycol 400 10 mg/ml ophthalmic solution (5 sources) Non-Standardiz ed Chemical Allergen Start: 07-03-2022 End: 08-02-2022 take 1 drop(s) into the eye(s) every two hours glycerin-hypromellose- (ARTIFICIAL TEARS) 0.2-0.2-1 % SOLN ophthalmic solution Place 1 Drop in the right eye every 2 hours. 18 mL 0 07/03/2022 08/02/2022 oxyCODONE hydrochloride 1 mg/ml oral solution (1 source) Opioid Agonist Start: 07-03-2022 End: 07-10-2022 take 5 mL by mouth every six hours as needed oxyCODONE (ROXICODONE) 5 mg/5 mL oral solution Indications: Acute pain due to trauma Take 5 mL by mouth every 6 hours as needed for up to 7 days. 140 mL 0 07/03/2022 07/10/2022 predniSONE 20 mg oral tablet (2 sources) Start: 09-14-2017 End: 09-19-2017 take 3 tablets by mouth once daily Prednisone 20 mg tablet Discontinued 60 MG PO Daily 15 September 14, 2017 12:00am September 18, 2017 12:00am September 19, 2017 12:03am Start: 09-14-2017 End: 09-19-2017 take 60 mg by mouth once daily Prednisone Discontinued 60 MG PO Daily 15 September 14, 2017 12:00am September 19, 2017 12:03am proparacaine hydrochloride 5 mg/ml ophthalmic solution (2 sources) Local Anesthetic Start: 04-13-2024 End: 04-14-2024 proparacaine 0.5 % 1 Drop (ALCAINE) Start: 04-13-2024 End: 04-14-2024 1 Drop, BOTH EYES, DIRECT ED, Starting on Fri04/13/24 at 1500, Until Fri04/14/24 at 0259, Administer for pneumo tonometry, tonopen tonometry, or pachymetry. In the event of a proparacaine shortage, administer tetracaine 0.5% ophthalmic drops 1 drop in both eyes as directed for pneumo tonometry, tonopen tonometry, or pachymetry, OPHT CLINIC MED ORDERS rivaroxaban 20 mg oral tablet (20 sources) Factor Xa Inhibitor Start: 07-12-2022 End: 10-10-2022 take 1 tablet by mouth once daily at dinner Rivaroxaban (Xarelto) 20 MG tablet Take 1 Tablet by mouth daily (with dinner). 90 Tablet 0 07/12/2022 10/10/2022 Start: 07-03-2022 End: 07-11-2022 take 1 tablet by mouth twice daily at mealtime Rivaroxaban (XARELTO) 15 MG tablet Take 1 Tablet by mouth 2 times daily (with meals) for 16 doses. 16 Tablet 0 07/03/2022 07/11/2022 tropicamide 10 mg/ml ophthalmic solution (2 sources) Anticholinergic Start: 04-13-2024 End: 04-14-2024 tropicamide 1 % 1 Drop (MYDRIACYL) Start: 04-13-2024 End: 04-14-2024 1 Drop, BOTH EYES, DIRECT ED, Starting on Fri04/13/24 at 1500, Until Fri04/14/24 at 0259, Administer for dilation, OPHT CLINIC MED ORDERS Problems Active Problems Problem Classification Problem Date Documented Da te Episodic/Chronic Acute cerebrovascular disease (20 sources) Subarachnoid hemorrhage; Translations: [Hematoma of subdural space of neuraxis] Onset: 3 Resolved: 4 05-31-2022 Chronic Comment on above: Problem List clean-u p per request of Phys. EHR Cmte Administrative/social admission (2 sources) Tobacco abuse counseling; Translations: [Tobacco abuse counseling] Onset: 5 Episodic Cataract (3 sources) Nuclear sclerosis; Translations: [Age-related nuclear cataract, bilateral] Onset: 5 03-11-2024 Chronic Chronic obstructive pulmonary disease and bronchiectasis (20 sources) Emphysematous bronchitis; Translations: [Obstructive chronic bronchitis without exacerbation] Onset: 3 02-04-2023 Chronic Chronic obstructive pulmonary disease and bronchiectasis (1 source) Chronic obstructive pulmonary disease and bronchiectasis; Translations: [Other specified chronic obstructive pulmonary disease] Onset: 3 Coagulation and hemorrhagic disorders (2 sources) Coagulation defect, unspecified; Translations: [Disorder of hemostatic system] Onset: 4 04-30-2023 Chronic Coronary atherosclerosis and other heart disease (20 sources) Coronary arteriosclerosis; Translations: [Atherosclerotic heart disease of [place] coronary artery without angina pectoris] Onset: 4 08-07-2023 Chronic Crushing injury or internal injury (20 sources) Bilateral contusion of lungs; Translations: [Contusion of lung, bilateral, initial encounter] Onset: 3 Resolved: 4 05-31-2022 Episodic Comment on above: Problem List clean-u p per request of Phys. EHR Cmte Disorders of lipid metabolism (20 sources) Hyperlipidemia; Translations: [Other hyperlipidemia] Onset: 3 02-04-2023 Chronic Esophageal disorders (20 sources) Gastroesophageal reflux disease without esophagitis; Translations: [Gastro-esophageal reflux disease without esophagitis] Onset: 3 02-04-2023 Chronic Essential hypertension (20 sources) Hypertensive disorder; Translations: [Essential (primary) hypertension] Onset: 3 05-31-2022 Chronic Comment on above: Problem List clean-u p per request of Phys. EHR Cmte Fluid and electrolyte disorders (20 sources) Acute hypokalemia; Translations: [Hypokalemia] Onset: 3 05-31-2022 Episodic Comment on above: Problem List clean-u p per request of Phys. EHR Cmte Fracture of upper limb (20 sources) Fracture of clavicle; Translations: [Fracture of unspecified part of unspecified clavicle, initial encounter for closed fracture] Onset: 3 05-31-2022 Episodic Comment on above: Problem List clean-u p per request of Phys. EHR Cmte Inflammation; infection of eye (except that caused by tuberculosis or sexually transmitteddisease) (2 sources) Keratitis; Translations: [Other keratitis] 08-21-2022 Episodic Joint disorders and dislocations; trauma-related (2 sources) Derangement of left knee; Translations: [Unspecified internal derangement of left knee] 04-01-2023 Chronic Nonspecific chest pain (1 source) Chest pain, unspecified; Translations: [Chest pain, unspecified] Onset: 3 Episodic Osteoarthritis (2 sources) Arthritis of left knee; Translations: [Unilateral primary osteoarthritis, left knee] 10-07-2023 Chronic Other aftercare (3 sources) Surgical follow-up; Translations: [Encounter for follow-up examination after completed treatment for conditions other than malignant neoplasm] 05-26-2024 Episodic Other aftercare (1 source) Encounter for follow-up examination after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 024 Surgical Pathology Normal [facility] Comment on above: Result Comment: [facility] [address] [place], [place] [address] Surgical Pathology Consultation Patient Name:YELENA BENITEZ:1960 (Age: 62)Gender:MTaken:4Reported:04/01/2023hysician(s):Wiliam Trevino MD ([phone])Copy To: Rec. #:[id number]: #[id number] Final Pathologic Diagnosis 1. Colon polyp at 100 cm; polypectomy: Hyperplastic polyp (2 fragments). 2. Colon polyp at 90 cm; polypectomy: Tubular adenoma. 3. Colon polyp at 85 cm; polypectomy: Slight focal hyperplastic changes suggestive of hyperplastic polyp. 4. Colon polyp at 75 cm; polypectomy: Tubular adenoma. 5. Rectal polyp; polypectomy: Hyperplastic polyp. 6. Polyp; polypectomy: Hyperplastic polyp. Report Electronically Signed Out [facility]/04/01/2023Eloy Parekh MD Interpretation performed at [facility], [address] [place] [address], License number: [id number]. Clinical History Positive FIT test. Gross Description 1. Received in formalin labeled BLACK, colon polyp at 100 cm are two light parker soft tissue bits, 0.3 and 0.4 cm. The specimen is filtered and entirely submitted in a single cassette. (1, ns, [id number],m3) DM. 2. Received in formalin labeled BLACK, colon polyp at 90 cm is a light parker soft tissue bit, 0.2 cm. The specimen is filtered and entirely submitted in a single cassette. (1, ns, [id number],m3) DM. 3. Received in formalin labeled BLACK, colon polyp at 85 cm is a light parker soft tissue bit, 0.2 cm. The specimen is filtered and entirely submitted in a single cassette. (1, ns, [id number],m3) DM. 4. Received in formalin labeled BLACK, colon polyp at 75 cm is a light parker soft tissue bit, 0.3 cm. The specimen is filtered and entirely submitted in a single cassette. (1, ns, [id number],m3) DM. 5. Received in formalin labeled BLACK, rectal polyp is a light parker soft tissue bit, 0.3 cm. The specimen is filtered and entirely submitted in a single cassette. (1, ns, [id number],m3) DM. 6. Received in formalin labeled BLACK, anal verge polyp is a light parker soft tissue bit, 0.4 cm. The specimen is filtered and entirely submitted in a single cassette. (1, ns, [id number],m3) DM. dm//11/2023GR Specimen(s) Received 1: Colon polyps at 100cm 2: Colon polyp at 90cm 3: Colon polyp at 85cm 4: Colon polyp at 75cm 5: Rectal polyp 6: Anal verge polyp Fee Codes(s): 1; 46495 2; 79561 3; 63170 4; 06320 5; 13986 6; 78098 Progress Noteson 12-31-2022 Fraud Manager Authentication Interface Message Text Normal [facility] Progress Noteson 11-22-2022 Fraud Manager Authentication Interface Message Text Normal [facility] Fraud Manager Authentication Interface Message Text Patient was identified by name, address, and date of . Provider notified. Pt notified of high blood pressure. States in a lot of pain. Will follow with PCP as needed for medication changes. Savana Madrid RN Normal [facility] Telephone Encounteron 2022 Fraud Manager Authentication Interface Message Text Patient aware. Normal [facility] Fraud Manager Authentication Interface Message Text Normal [facility] Cardiologyon 10-01-2022 P wave axis 36 degrees [facility] P-R Interval 146 ms [facility] Q[facility]T interval 446 ms [facility]T interval corrected 446 ms [facility] QRS axis -25 degrees [facility] QRS duration 94 ms [facility] T wave axis 8 degrees [facility] No Panel Informationon 10-01 Diagnosis Normal sinus rhythm Moderate voltage criteria for LVH, may be normal variant Borderline No previous ECGs available Confirmed by MISAEL MCGRAW ([id number]) on 10/01/2022 11:17:54 PM [facility] P wave Atrium by EKG 60 BPM [facility] Patient Instructionson 10-01 Fraud Manager Authentication Interface Message Text Normal [facility] PSE Appt H AND Kenan Fraud Manager Authentication Interface Message Text Normal [facility] Telephone Encounteron 2022 Fraud Manager Authentication Interface Message Text Situation: Pt calling to reschedule today's appt with Radiology Background: Pt had surgery scheduled today at 8 am Assessment: Pt is currently in [facility] which is almost 2 hours away from . Recommendation: Pt will call back after 8 am Normal [facility] Progress Noteson 08-30-2022 Fraud Manager Authentication Interface Message Text Normal [facility] Fraud Manager Authentication Interface Message Text Patient was identified by name and date of . Patient at risk for falls:Yes Falls Risk protocol implemented: Yes wheelchair in locked position when not in use for transport Normal [facility] Fraud Manager Authentication Interface Message Text Normal [facility] XR CLAVICLE LEFT 2 VIEWSon 0 08-30-2022 XR CLAVICLE LEFT 2 VIEWS Normal [facility] Patient Instructionson 08-21 Fraud Manager Authentication Interface Message Text Normal [facility] Progress Noteson 08-21-2022 Fraud Manager Authentication Interface Message Text Patient was identified by name and date of . ROMEL Mariano Patient in exam room, vital signs taken, ready for MD exam. Normal [facility] Fraud Manager Authentication Interface Message Text Normal [facility] AUDIOGRAMon 08-14-2022 [facility] Patient Instructionson 08-14 Fraud Manager Authentication Interface Message Text Normal [facility] Progress Noteson 08-14-2022 Fraud Manager Authentication Interface Message Text Normal [facility] Fraud Manager Authentication Interface Message Text Normal [facility] Fraud Manager Authentication Interface Message Text Identification was verified by patient verbalizing his name and date of . Patient in exam room, vital signs taken, ready for MD exam. Normal [facility] Telephone Encounteron 2022 Fraud Manager Authentication Interface Message Text Normal [facility] Progress Noteson 08-12-2022 Fraud Manager Authentication Interface Message Text Normal [facility] Telephone Encounteron 2022 Fraud Manager Authentication Interface Message Text Normal [facility] Fraud Manager Authentication Interface Message Text Normal [facility] Patient Instructionson 08-07 Fraud Manager Authentication Interface Message Text -no need for further neurosurgery follow up -follow up with your other doctors - ENT, orthopedics, vascular surgery -ok to continue your xarelto Normal [facility] Progress Noteson 08-07-2022 Fraud Manager Authentication Interface Message Text Normal [facility] Fraud Manager Authentication Interface Message Text Patient was identified by name and date of . Travis Mathur Patient at risk for falls:No Falls Risk protocol implemented: N/A Normal [facility] Telephone Encounteron 2022 Fraud Manager Authentication Interface Message Text Normal [facility] CT HEAD W/O CONTRASTon 08-02 CT HEAD W/O CONTRAST Normal [facility] CT Head WO contrastOrdered B y: Lucho Orr on 08-02-2022 CT DLP 831.38 (mGy.cm) [facility] Work Phone: CT Series Topogram,HEAD WO [facility] Work Phone: CTDI VOL 0.11 (mGy),44.68 (mGy) [facility] Work Phone: PHANTOM TYPE IEC Head Dosimetry Phantom,IEC Head Dosimetry Phantom [facility] Work Phone: [facility] Work Phone: CT Head WO contraston 2022 [...] of the right occipital pole. MACRO: None [facility] Rad[facility] Study observation (narrative) [facility] Telephone Encounteron 2022 Fraud Manager Authentication Interface Message Text Left a voicemail for the facility patient is staying at- gave them the number to call and schedule an optho appointment for the patient. Normal [facility] Progress Noteson 07-22-2022 Fraud Manager Authentication Interface Message Text Patient was identified by name and date of . Frederic Whitney Patient was dispensed and fitted with a hinged wrap around knee brace. Care and instructions provided. Normal [facility] Fraud Manager Authentication Interface Message Text Normal [facility] Fraud Manager Authentication Interface Message Text Patient was identified by name and date of . Jasmin Mendoza RN Patient at risk for falls:Yes Falls Risk protocol implemented: Yes Patient on cart Jasmin Mendoza RN Normal [facility] Fraud Manager Authentication Interface Message Text Normal [facility] XR CLAVICLE LEFT 2 VIEWSon 0 07-22-2022 XR CLAVICLE LEFT 2 VIEWS Normal [facility] XR Clavicle - left Viewson 0 [...] spinal fixation hardware. Left clavicle MACRO: None [facility] Radiology Study observation (narrative) [facility] XR Clavicle - left ViewsOrde red By: Valdez Saldana on 07-22-2022 [facility] Work Phone: Progress Noteson 07-11-2022 Fraud Manager Authentication Interface Message Text Orders placed for follow up appointments post hospitalization after trauma at the request of Post-hospital facility for scheduled follow ups from service related to inpatient stay. Normal [facility] Telephone Encounteron 2022 Fraud Manager Authentication Interface Message Text Normal [facility] Telephone Encounteron 2022 Fraud Manager Authentication Interface Message Text Called [facility]ATHI of [facility]. Olga heart msg informing of pt's appts scheduled on 07/22/22 with providers names, times and appt location. If any questions please call ortho dept. [phone] Normal [facility] Telephone Encounteron 2022 Fraud Manager Authentication Interface Message Text Normal [facility] Care Plan Noteon 07-04-2022 Fraud Manager Authentication Interface Message Text Normal [facility] Fraud Manager Authentication Interface Message Text Normal [facility] Discharge Planning Noteon Fraud Manager Authentication Interface Message Text Normal [facility] Progress Noteson 07-04-2022 Fraud Manager Authentication Interface Message Text Normal [facility] Care Plan Noteon 07-03-2022 Fraud Manager Authentication Interface Message Text Normal [facility] Consultson 07-03-2022 Fraud Manager Authentication Interface Message Text Normal [facility] Fraud Manager Authentication Interface Message Text Normal [facility] Progress Noteson 07-03-2022 Fraud Manager Authentication Interface Message Text Facilities oxygen max is 5L and the need to order pt's tube feeds. SW canceled the transport and will attempt dc tomorrow SW will continue to follow ZACHERY Gordon Normal [facility] Fraud Manager Authentication Interface Message Text Normal [facility] Fraud Manager Authentication Interface Message Text Normal [facility] Fraud Manager Authentication Interface Message Text Pt is rec for SNF Pt has been accepted by [facility] Precert is pending SW will continue to follow ZACHERY Gordon Normal [facility] Consultson 07-02-2022 Fraud Manager Authentication Interface Message Text Normal [facility] Progress Noteson 07-02-2022 Fraud Manager Authentication Interface Message Text Pt is rec for SNF Pt has been accepted by [facility] Precert is pending SW will continue to follow ZACHERY Gordon Normal [facility] Fraud Manager Authentication Interface Message Text Normal [facility] Care Plan Noteon 07-01-2022 Fraud Manager Authentication Interface Message Text Normal [facility] Consultson 07-01-2022 Fraud Manager Authentication Interface Message Text Normal [facility] MR KNEE LEFT W/Oon MR KNEE LEFT W/O Normal [facility] Progress Noteson 07-01-2022 Fraud Manager Authentication Interface Message Text Normal [facility] Fraud Manager Authentication Interface Message Text Normal [facility] Fraud Manager Authentication Interface Message Text Normal [facility] Care Plan Noteon 06-30-2022 Fraud Manager Authentication Interface Message Text Normal [facility] Consultson 06-30-2022 Fraud Manager Authentication Interface Message Text Normal [facility] Progress Noteson 06-30-2022 Fraud Manager Authentication Interface Message Text Normal [facility] Care Plan Noteon 06-29-2022 Fraud Manager Authentication Interface Message Text Normal [facility] Consultson 06-29-2022 Fraud Manager Authentication Interface Message Text Normal [facility] Fraud Manager Authentication Interface Message Text Normal [facility] Progress Noteson 06-29-2022 Fraud Manager Authentication Interface Message Text ENT reengaged to re-examine patient's right ear since it started bothering him --muffled hearing. Exam showed evidence of old dried blood mixed with cerumen. TM intact. Recs: apply ofloxacin drops to right ear as well. Normal [facility] Fraud Manager Authentication Interface Message Text Normal [facility] BASIC METABOLIC PANELon 06-17 Anion gap [Moles/Vol] 13 mmol/L Normal 10-20 [facility] Comment on above: Performed By: #### P HOS, MG, CH8 ####[facility] [id number] [place], [place], Calcium [Mass/Vol] 9.1 mg/dL Normal 8.4-10.4 [facility] Comment on above: Performed By: #### P HOS, MG, CH8 ####[facility] [id number] [place], [place], Chloride [Moles/Vol] 96 mmol/L Low 97-111 [facility] Comment on above: Performed By: #### P HOS, MG, CH8 ####[facility] [id number] [place], [place], CO2 [Moles/Vol] 30 mmol/L Normal 21-30 [facility] Comment on above: Performed By: #### P HOS MG, CH8 ####[facility] [id number] [place], [place], Creatinine [Mass/Vol] 0.27 mg/dL Low 0.80-1.30 [facility] Comment on above: Performed By: #### P HOS MG, CH8 ####[facility] [id number] [place], [place], ESTIMATED GFR (CKD-EPI) 141 mL/min/1.73sqm Normal >=60 [facility] Comment on above: Result Comment: 2020 [...] Inclusion of Race in Diagnosing Kidney Disease. [place] Journal of Kidney Diseases 2021;79(2):268-88.e1.2. N Engl J Med 2020 Vol. 385 Issue 19 Pages 2662-0217 Performed By: #### P AUNDREA MG, CH8 ####[facility] [id number] [place], [place], Glucose [Mass/Vol] 109 mg/dL Normal 80-116 [facility] Comment on above: Performed By: #### P HOS MG, CH8 ####[facility] [id number] [place], [place], Potassium [Moles/Vol] 3.8 mmol/L Normal 3.3-5.3 [facility] Comment on above: Performed By: #### P HOS MG, CH8 ####[facility] [id number] [place], Sodium [Moles/Vol] 135 mmol/L Normal 135-148 [facility] Comment on above: Performed By: #### P AUNDREA MG, CH8 ####S PATHOLOGY [id number] [place], Urea nitrogen [Mass/Vol] 16 mg/dL Normal 8-22 [facility] Comment on above: Performed By: #### P HOS MG, CH8 ####S PATHOLOGY [id number] [place], [place], COMPLETE BLOOD COUNTon 06-28 Erythrocyte distribution width (RBC) [Ratio] 14.8 % High 11.5-14.5 [facility] Comment on above: Performed By: #### C BC ####S PATHOLOGY [id number] [place], [place], Hematocrit (Bld) [Volume fraction] 34.7 % Low 41.0-53.0 [facility] Comment on above: Performed By: #### C BC ####[facility] [id number] [place], [place], Hemoglobin (Bld) [Mass/Vol] 11.4 g/dL Low 13.9-16.3 [facility] Comment on above: Performed By: #### C BC ####[facility] [id number] [place], [place], MCH (RBC) [Entitic mass] 29.8 pg Normal 26.0-34.0 [facility] Comment on above: Performed By: #### C BC ####S PATHOLOGY [id number] [place], MCHC (RBC) [Mass/Vol] 32.9 g/dL Normal 32.0-35.9 [facility] Comment on above: Performed By: #### C BC ####[facility] [id number] [place], MCV (RBC) [Entitic vol] 91 fL Normal 80-100 [facility] Comment on above: Performed By: #### C BC ####[facility] [id number] [place], [place], Platelet mean volume (Bld) [Entitic vol] 7.2 fL Low 7.5-11.2 [facility] Comment on above: Performed By: #### C BC ####S PATHOLOGY [id number] [place], Platelets (Bld) [#/Vol] 570 10*3/uL High 150-400 [facility] Comment on above: Performed By: #### C BC ####S PATHOLOGY [id number] [place], [place], RBC (Bld) [#/Vol] 3.84 10*6/uL Low 4.50-5.90 [facility] Comment on above: Performed By: #### C BC ####[facility] [id number] [place], [place], WBC (Bld) [#/Vol] 10.8 10*3/uL Normal 4.5-11.5 [facility] Comment on above: Performed By: #### C BC ####[facility] [id number] [place], [place], Care Plan Noteon 06-28-2022 Fraud Manager Authentication Interface Message Text Normal [facility] Consultson 06-28-2022 Fraud Manager Authentication Interface Message Text Normal [facility] Fraud Manager Authentication Interface Message Text Normal [facility] Fraud Manager Authentication Interface Message Text Normal [facility] MAGNESIUMon 06-28-2022 Magnesium [Mass/Vol] 2.0 mg/dL Normal 1.6-2.8 [facility] Comment on above: Performed By: #### P HOS, MG, CH8 ####[facility] [id number] [place], [place], PHOSPHORUSon 06-28-2022 Phosphate [Mass/Vol] 4.0 mg/dL Normal 2.5-4.8 [facility] Comment on above: Performed By: #### P HOS, MG, CH8 ####[facility] [id number] [place], [place], Progress Noteson 06-28-2022 Fraud Manager Authentication Interface Message Text Normal [facility] Fraud Manager Authentication Interface Message Text Weaver messaged the SW that to accept the pt must be denied by 5 other facilities Pt has been denied from : [facility] is still pending SW will continue to follow Anmol VELEZ,VOCATIONAL REHABILITATION TEACHER Normal [facility] Fraud Manager Authentication Interface Message Text Normal [facility] Fraud Manager Authentication Interface Message Text Pt's trach was downsized 06/27 (6-0 proximal cuffed XLT Shiley) Normal [facility] XR KNEE LEFT AP+LAT 2 VIEWSo n 06-28-2022 XR KNEE LEFT AP+LAT 2 VIEWS Normal [facility] BASIC METABOLIC PANELon 06-17 Anion gap [Moles/Vol] 14 mmol/L Normal 10-20 [facility] Comment on above: Performed By: #### MG Tiny PHOS ####[facility] [id number] [place], Calcium [Mass/Vol] 9.0 mg/dL Normal 8.4-10.4 [facility] Comment on above: Performed By: #### MG Tiny PHOS ####[facility] [id number] [place], Chloride [Moles/Vol] 98 mmol/L Normal 97-111 [facility] Comment on above: Performed By: #### MG Tiny PHOS ####[facility] [id number] [place], CO2 [Moles/Vol] 28 mmol/L Normal 21-30 [facility] Comment on above: Performed By: #### MG Tiny PHOS ####[facility] [id number] [place], Creatinine [Mass/Vol] 0.30 mg/dL Low 0.80-1.30 [facility] Comment on above: Performed By: #### MG Tiny PHOS ####[facility] [id number] [place], ESTIMATED GFR (CKD-EPI) 136 mL/min/1.73sqm Normal >=60 [facility] Comment on above: Result Comment: 2020 [...] Inclusion of Race in Diagnosing Kidney Disease. [place] Journal of Kidney Diseases 2021;79(2):268-88.e1.2. N Engl J Med 1 Vol. 385 Issue 19 Pages 7535-5325 Performed By: #### C H8, MG, PHOS ####[facility] [id number] [place], Glucose [Mass/Vol] 118 mg/dL High 80-116 [facility] [place] Comment on above: Performed By: #### C H8, MG, PHOS ####[facility] [id number] [place], Potassium [Moles/Vol] 4.0 mmol/L Normal 3.3-5.3 [facility] Comment on above: Performed By: #### C H8, MG, PHOS ####[facility] [id number] [place], Sodium [Moles/Vol] 136 mmol/L Normal 135-148 [facility] Comment on above: Performed By: #### C H8, MG, PHOS ####[facility] [id number] [place], Urea nitrogen [Mass/Vol] 19 mg/dL Normal 8-22 [facility] Comment on above: Performed By: #### C H8, MG, PHOS ####[facility] [id number] [place], COMPLETE BLOOD COUNTon 06-27 Erythrocyte distribution width (RBC) [Ratio] 15.2 % High 11.5-14.5 [facility] [place] Comment on above: Performed By: #### C BC ####[facility] [id number] [place], Hematocrit (Bld) [Volume fraction] 34.7 % Low 41.0-53.0 [facility] Comment on above: Performed By: #### C BC ####[facility] [id number] [place], Hemoglobin (Bld) [Mass/Vol] 11.2 g/dL Low 13.9-16.3 [facility] Comment on above: Performed By: #### C BC ####[facility] [id number] [place], MCH (RBC) [Entitic mass] 29.5 pg Normal 26.0-34.0 [facility] Comment on above: Performed By: #### C BC ####[facility] [id number] [place], MCHC (RBC) [Mass/Vol] 32.2 g/dL Normal 32.0-35.9 [facility] Comment on above: Performed By: #### C BC ####[facility] [id number] [place], MCV (RBC) [Entitic vol] 92 fL Normal 80-100 [facility] Comment on above: Performed By: #### C BC ####[facility] [id number] [place], Platelet mean volume (Bld) [Entitic vol] 7.7 fL Normal 7.5-11.2 [facility] Comment on above: Performed By: #### C BC ####[facility] [id number] [place], Platelets (Bld) [#/Vol] 640 10*3/uL High 150-400 [facility] Comment on above: Performed By: #### C BC ####[facility] [id number] [place], RBC (Bld) [#/Vol] 3.79 10*6/uL Low 4.50-5.90 [facility] Comment on above: Performed By: #### C BC ####[facility] [id number] [place], WBC (Bld) [#/Vol] 11.5 10*3/uL Normal 4.5-11.5 [facility] Comment on above: Performed By: #### Tee BC ####[facility] [id number] [place], Care Plan Noteon 06-27-2022 Fraud Manager Authentication Interface Message Text Normal [facility] Fraud Manager Authentication Interface Message Text Normal [facility] Consultson 06-27-2022 Fraud Manager Authentication Interface Message Text Normal [facility] Fraud Manager Authentication Interface Message Text Normal [facility] [place] MODIFIED BARIUM SWALLOWon 06-27-2022 [place] MODIFIED BARIUM SWALLOW Normal [facility] MAGNESIUMon 06-27-2022 Magnesium [Mass/Vol] 2.0 mg/dL Normal 1.6-2.8 [facility] Comment on above: Performed By: #### Tee H8, MG, PHOS ####[facility] [id number] [place], PHOSPHORUSon 06-27-2022 Phosphate [Mass/Vol] 4.2 mg/dL Normal 2.5-4.8 [facility] [place] Comment on above: Performed By: #### Tee HSuzi, MG, PHOS ####[facility] [id number] [place], Progress Noteson 06-27-2022 Fraud Manager Authentication Interface Message Text Normal [facility] Fraud Manager Authentication Interface Message Text Normal [facility] BASIC METABOLIC PANELon 06-17 Anion gap [Moles/Vol] 11 mmol/L Normal 10-20 [facility] Comment on above: Performed By: #### TERESA Marshall, PHOS ####[facility] [id number] [place], Calcium [Mass/Vol] 8.9 mg/dL Normal 8.4-10.4 [facility] Comment on above: Performed By: #### TERESA Marshall, PHOS ####[facility] [id number] [place], Chloride [Moles/Vol] 98 mmol/L Normal 97-111 [facility] [place] Comment on above: Performed By: #### TERESA Marshall, PHOS ####[facility] [id number] [place], CO2 [Moles/Vol] 29 mmol/L Normal 21-30 [facility] Comment on above: Performed By: #### TERESA Marshall, PHOS ####[facility] [id number] [place], Creatinine [Mass/Vol] 0.29 mg/dL Low 0.80-1.30 [facility] Comment on above: Performed By: #### TERESA Marshall, PHOS ####[facility] [id number] [place], ESTIMATED GFR (CKD-EPI) 138 mL/min/1.73sqm Normal >=60 [facility] Comment on above: Result Comment: 2020 [...] Inclusion of Race in Diagnosing Kidney Disease. [place] Journal of Kidney Diseases 2021;79(2):268-88.e1.2. N Engl J Med 2020 Vol. 385 Issue 19 Pages 7356-2964 Performed By: #### TERESA Marshall, PHOS ####[facility] [id number] [place], Glucose [Mass/Vol] 114 mg/dL Normal 80-116 [facility] Comment on above: Performed By: #### TERESA Marshall, PHOS ####[facility] [id number] [place], Potassium [Moles/Vol] 3.9 mmol/L Normal 3.3-5.3 [facility] [place] Comment on above: Performed By: #### TERESA Marshall, PHOS ####[facility] [id number] [place], Sodium [Moles/Vol] 134 mmol/L Low 135-148 [facility] Comment on above: Performed By: #### TERESA Marshall, NAHID ####S PATHOLOGY [id number] [place], Urea nitrogen [Mass/Vol] 19 mg/dL Normal 8-22 [facility] Comment on above: Performed By: #### TERESA Marshall, NAHID ####[facility] [id number] [place], COMPLETE BLOOD COUNTon 06-26 Erythrocyte distribution width (RBC) [Ratio] 14.7 % High 11.5-14.5 [facility] Comment on above: Performed By: #### C BC ####[facility] [id number] [place], Hematocrit (Bld) [Volume fraction] 33.1 % Low 41.0-53.0 [facility] Comment on above: Performed By: #### C BC ####[facility] [id number] [place] [address], Hemoglobin (Bld) [Mass/Vol] 10.9 g/dL Low 13.9-16.3 [facility] Comment on above: Performed By: #### C BC ####[facility] [id number] [place], MCH (RBC) [Entitic mass] 30.2 pg Normal 26.0-34.0 [facility] Comment on above: Performed By: #### C BC ####[facility] [id number] [place], MCHC (RBC) [Mass/Vol] 33.0 g/dL Normal 32.0-35.9 [facility] Comment on above: Performed By: #### C BC ####[facility] [id number] [place], MCV (RBC) [Entitic vol] 91 fL Normal 80-100 [facility] Comment on above: Performed By: #### C BC ####S PATHOLOGY [id number] [place], Platelet mean volume (Bld) [Entitic vol] 7.6 fL Normal 7.5-11.2 [facility] Comment on above: Performed By: #### C BC ####S PATHOLOGY [id number] [place], Platelets (Bld) [#/Vol] 650 10*3/uL High 150-400 [facility] Comment on above: Performed By: #### C BC ####S PATHOLOGY [id number] [place], RBC (Bld) [#/Vol] 3.62 10*6/uL Low 4.50-5.90 [facility] [place] Comment on above: Performed By: #### C BC ####[facility] [id number] [place], WBC (Bld) [#/Vol] 10.0 10*3/uL Normal 4.5-11.5 [facility] [place] Comment on above: Performed By: #### C BC ####[facility] [id number] [place], Care Plan Noteon 06-26-2022 Fraud Manager Authentication Interface Message Text Normal [facility] Consultson 06-26-2022 Fraud Manager Authentication Interface Message Text Normal [facility] Fraud Manager Authentication Interface Message Text Normal [facility] Fraud Manager Authentication Interface Message Text Normal [facility] Fraud Manager Authentication Interface Message Text Normal [facility] Fraud Manager Authentication Interface Message Text Normal [facility] MAGNESIUMon 06-26-2022 Magnesium [Mass/Vol] 2.1 mg/dL Normal 1.6-2.8 [facility] Comment on above: Performed By: #### TERESA Marshall, PHOS ####S PATHOLOGY [id number] [place], PHOSPHORUSon 06-26-2022 Phosphate [Mass/Vol] 4.0 mg/dL Normal 2.5-4.8 [facility] Comment on above: Performed By: #### TERESA Marshall, PHOS ####S PATHOLOGY [id number] [place], Progress Noteson 06-26-2022 Fraud Manager Authentication Interface Message Text Normal [facility] Fraud Manager Authentication Interface Message Text Normal [facility] BASIC METABOLIC PANELon 05 Anion gap [Moles/Vol] 12 mmol/L Normal 10-20 [facility] Comment on above: Performed By: #### NAHID Marshall CH8 ####[facility] [id number] [place], Calcium [Mass/Vol] 8.7 mg/dL Normal 8.4-10.4 [facility] [place] Comment on above: Performed By: #### NAHID Marshall CH8 ####[facility] [id number] [place], Chloride [Moles/Vol] 98 mmol/L Normal 97-111 [facility] Comment on above: Performed By: #### NAHID Marshall CH8 ####[facility] [id number] [place], CO2 [Moles/Vol] 29 mmol/L Normal 21-30 [facility] [place] Comment on above: Performed By: #### NAHID Marshall CH8 ####[facility] [id number] [place], Creatinine [Mass/Vol] 0.32 mg/dL Low 0.80-1.30 [facility] [place] Comment on above: Performed By: #### NAHID Marshall CH8 ####[facility] [id number] [place], ESTIMATED GFR (CKD-EPI) 134 mL/min/1.73sqm Normal >=60 [facility] Comment on above: Result Comment: 2020 [...] Inclusion of Race in Diagnosing Kidney Disease. [place] Journal of Kidney Diseases 2021;79(2):268-88.e1.2. N Engl J Med 2020 Vol. 385 Issue 19 Pages 5309-6910 Performed By: #### NAHID Marshall CH8 ####[facility] [id number] [place], Glucose [Mass/Vol] 117 mg/dL High 80-116 [facility] Comment on above: Performed By: #### NAHID Marshall CH8 ####[facility] [id number] [place], Potassium [Moles/Vol] 4.2 mmol/L Normal 3.3-5.3 [facility] Comment on above: Performed By: #### NAHID Marshall CH8 ####[facility] [id number] [place], Sodium [Moles/Vol] 135 mmol/L Normal 135-148 [facility] Comment on above: Performed By: #### NAHID Marshall CH8 ####[facility] [id number] [place], Urea nitrogen [Mass/Vol] 18 mg/dL Normal 8-22 [facility] Comment on above: Performed By: #### NAHID Marshall CH8 ####[facility] [id number] [place], COMPLETE BLOOD COUNTon 06-25 Erythrocyte distribution width (RBC) [Ratio] 15.0 % High 11.5-14.5 [facility] Comment on above: Performed By: #### Tee ROUSSEAU ####[facility] [id number] [place], Hematocrit (Bld) [Volume fraction] 33.3 % Low 41.0-53.0 [facility] Comment on above: Performed By: #### Tee BC ####[facility] [id number] [place], Hemoglobin (Bld) [Mass/Vol] 10.9 g/dL Low 13.9-16.3 [facility] Comment on above: Performed By: #### Tee BC ####[facility] [id number] [place], MCH (RBC) [Entitic mass] 30.0 pg Normal 26.0-34.0 [facility] [place] Comment on above: Performed By: #### C BC ####S PATHOLOGY [id number] [place], MCHC (RBC) [Mass/Vol] 32.6 g/dL Normal 32.0-35.9 [facility] Comment on above: Performed By: #### C BC ####[facility] [id number] [place], MCV (RBC) [Entitic vol] 92 fL Normal 80-100 [facility] [place] Comment on above: Performed By: #### C BC ####[facility] [id number] [place], Platelet mean volume (Bld) [Entitic vol] 7.8 fL Normal 7.5-11.2 [facility] [place] Comment on above: Performed By: #### C BC ####[facility] [id number] [place], Platelets (Bld) [#/Vol] 686 10*3/uL High 150-400 [facility] [place] Comment on above: Performed By: #### C BC ####[facility] [id number] [place], RBC (Bld) [#/Vol] 3.63 10*6/uL Low 4.50-5.90 [facility] [place] Comment on above: Performed By: #### C BC ####S PATHOLOGY [id number] [place], WBC (Bld) [#/Vol] 11.0 10*3/uL Normal 4.5-11.5 [facility] [place] Comment on above: Performed By: #### C BC ####S PATHOLOGY [id number] [place], Care Plan Noteon 06-25-2022 Fraud Manager Authentication Interface Message Text Normal [facility] Consultson 06-25-2022 Fraud Manager Authentication Interface Message Text Normal [facility] Fraud Manager Authentication Interface Message Text Normal [facility] Fraud Manager Authentication Interface Message Text PM AND R consult received and case is currently being reviewed by Dr. Valdez Zavaleta. This liaison will follow and update CM/SW when determination is made. Thank you for the consult. Please reach out with any questions. Ry Goel, AED TRAINER PM AND R Liaison Normal [facility] MAGNESIUMon 06-25-2022 Magnesium [Mass/Vol] 2.0 mg/dL Normal 1.6-2.8 [facility] Comment on above: Performed By: #### M G, PHOS, CH8 ####[facility] [id number] [place], PHOSPHORUSon 06-25-2022 Phosphate [Mass/Vol] 3.6 mg/dL Normal 2.5-4.8 [facility] Comment on above: Performed By: #### M G, PHOS, CH8 ####[facility] [id number] [place], Progress Noteson 06-25-2022 Fraud Manager Authentication Interface Message Text Normal [facility] Fraud Manager Authentication Interface Message Text Normal [facility] Fraud Manager Authentication Interface Message Text Normal [facility] BASIC METABOLIC PANELon 05- Anion gap [Moles/Vol] 12 mmol/L Normal 10-20 [facility] [place] Comment on above: Performed By: #### P HOS, CH8, MG ####[facility] [id number] [place], Calcium [Mass/Vol] 8.6 mg/dL Normal 8.4-10.4 [facility] [place] Comment on above: Performed By: #### P HOS, CH8, MG ####[facility] [id number] [place], Chloride [Moles/Vol] 100 mmol/L Normal 97-111 [facility] Comment on above: Performed By: #### P HOS, CH8, MG ####[facility] [id number] [place], CO2 [Moles/Vol] 27 mmol/L Normal 21-30 [facility] Comment on above: Performed By: #### P HOS, CH8, MG ####[facility] [id number] [place], Creatinine [Mass/Vol] 0.27 mg/dL Low 0.80-1.30 [facility] Comment on above: Performed By: #### P HOS, CH8, MG ####[facility] [id number] [place], ESTIMATED GFR (CKD-EPI) 141 mL/min/1.73sqm Normal >=60 [facility] [place] Comment on above: Result Comment: 2020 [...] Inclusion of Race in Diagnosing Kidney Disease. [place] Journal of Kidney Diseases 2021;79(2):268-88.e1.2. N Engl J Med 2020 Vol. 385 Issue 19 Pages 7303-6251 Performed By: #### P HOS CH8, MG ####[facility] [id number] [place], Glucose [Mass/Vol] 120 mg/dL High 80-116 [facility] Comment on above: Performed By: #### P HOS, CH8, MG ####[facility] [id number] [place], Potassium [Moles/Vol] 4.2 mmol/L Normal 3.3-5.3 [facility] Comment on above: Performed By: #### P HOS CH8, MG ####[facility] [id number] [place], Sodium [Moles/Vol] 135 mmol/L Normal 135-148 [facility] Comment on above: Performed By: #### P HOS, CH8, MG ####[facility] [id number] [place], Urea nitrogen [Mass/Vol] 19 mg/dL Normal 8-22 [facility] Comment on above: Performed By: #### P HOS, CH8, MG ####[facility] [address]VWYLT[address] [place] [address], COMPLETE BLOOD COUNTon 06-24 Erythrocyte distribution width (RBC) [Ratio] 15.1 % High 11.5-14.5 [facility] [place] Comment on above: Performed By: #### C BC ####[facility] [id number] [place] [address], Hematocrit (Bld) [Volume fraction] 32.1 % Low 41.0-53.0 [facility] Comment on above: Performed By: #### C BC ####[facility] [id number] [place], Hemoglobin (Bld) [Mass/Vol] 10.7 g/dL Low 13.9-16.3 [facility] Comment on above: Performed By: #### C BC ####[facility] [address]HYAXV[address] [place] [address], MCH (RBC) [Entitic mass] 31.0 pg Normal 26.0-34.0 [facility] [place] Comment on above: Performed By: #### C BC ####[facility] [id number] [place] [address], MCHC (RBC) [Mass/Vol] 33.5 g/dL Normal 32.0-35.9 [facility] Comment on above: Performed By: #### C BC ####[facility] [id number] [place], MCV (RBC) [Entitic vol] 92 fL Normal 80-100 [facility] Comment on above: Performed By: #### C BC ####[facility] [id number] [place], Platelet mean volume (Bld) [Entitic vol] 7.8 fL Normal 7.5-11.2 [facility] Comment on above: Performed By: #### C BC ####[facility] [id number] [place] [address] [place], Platelets (Bld) [#/Vol] 660 10*3/uL High 150-400 [facility] Comment on above: Performed By: #### C BC ####S PATHOLOGY [id number] [place], RBC (Bld) [#/Vol] 3.47 10*6/uL Low 4.50-5.90 [facility] Comment on above: Performed By: #### C BC ####[facility] [id number] [place], WBC (Bld) [#/Vol] 10.4 10*3/uL Normal 4.5-11.5 [facility] [place] Comment on above: Performed By: #### C BC ####S PATHOLOGY [id number] [place], Care Plan Noteon 06-24-2022 Fraud Manager Authentication Interface Message Text Normal [facility] Consultson 06-24-2022 Fraud Manager Authentication Interface Message Text Normal [facility] Fraud Manager Authentication Interface Message Text Normal [facility] Fraud Manager Authentication Interface Message Text Normal [facility] MAGNESIUMon 06-24-2022 Magnesium [Mass/Vol] 2.1 mg/dL Normal 1.6-2.8 [facility] Comment on above: Performed By: #### P HOS, CH8, MG ####[facility] [id number] [place] PHOSPHORUSon 06-24-2022 Phosphate [Mass/Vol] 3.7 mg/dL Normal 2.5-4.8 [facility] Comment on above: Performed By: #### P HOS, CH8, MG ####[facility] [id number] [place], Progress Noteson 06-24-2022 Fraud Manager Authentication Interface Message Text Normal [facility] Treatment Plan Noteon 2022 Fraud Manager Authentication Interface Message Text Normal [facility] BASIC METABOLIC PANELon 05- Anion gap [Moles/Vol] 12 mmol/L Normal 10-20 The [facility] Comment on above: Performed By: #### P HOS, CH8, MG ####[facility] [id number] [place], [place], Calcium [Mass/Vol] 8.6 mg/dL Normal 8.4-10.4 [facility] Comment on above: Performed By: #### P HOS, CH8, MG ####[facility] [id number] [place], Chloride [Moles/Vol] 99 mmol/L Normal 97-111 [facility] [place] Comment on above: Performed By: #### P HOS, CH8, MG ####[facility] [id number] [place], CO2 [Moles/Vol] 28 mmol/L Normal 21-30 [facility] [place] Comment on above: Performed By: #### P HOS, CH8, MG ####[facility] PATH[facility] [id number] [place], Creatinine [Mass/Vol] 0.32 mg/dL Low 0.80-1.30 [facility] [place] Comment on above: Performed By: #### P HOS, CH8, MG ####[facility] [id number] [place], ESTIMATED GFR (CKD-EPI) 134 mL/min/1.73sqm Normal >=60 [facility] [place] Comment on above: Result Comment: 2020 [...] Inclusion of Race in Diagnosing Kidney Disease. [place] Journal of Kidney Diseases 2021;79(2):268-88.e1.2. N Engl J Med 2020 Vol. 385 Issue 19 Pages 8609-8171 Performed By: #### P HOS, CH8, MG ####[facility] [id number] [place], Glucose [Mass/Vol] 111 mg/dL Normal 80-116 [facility] Comment on above: Performed By: #### P HOS, CH8, MG ####[facility] PATHOLOG[facility] [id number] [place], Potassium [Moles/Vol] 4.3 mmol/L Normal 3.3-5.3 [facility] Comment on above: Performed By: #### P HOS, CH8, MG ####S PATHOLOGY [id number] [place], Sodium [Moles/Vol] 135 mmol/L Normal 135-148 [facility] Comment on above: Performed By: #### P HOS, CH8, MG ####S PATHOLOGY [id number] [place], Urea nitrogen [Mass/Vol] 13 mg/dL Normal 8-22 [facility] Comment on above: Performed By: #### P HOS, CH8, MG ####S PATHOLOGY [id number] [place], COMPLETE BLOOD COUNTon 06-23 Erythrocyte distribution width (RBC) [Ratio] 15.3 % High 11.5-14.5 [facility] Comment on above: Performed By: #### C BC ####[facility] [id number] [place] [address], Hematocrit (Bld) [Volume fraction] 32.8 % Low 41.0-53.0 [facility] Comment on above: Performed By: #### C BC ####S PATHOLOGY [id number] [place], Hemoglobin (Bld) [Mass/Vol] 10.7 g/dL Low 13.9-16.3 [facility] Comment on above: Performed By: #### C BC ####[facility] [id number] [place], MCH (RBC) [Entitic mass] 30.1 pg Normal 26.0-34.0 [facility] Comment on above: Performed By: #### C BC ####S PATHOLOGY [id number] [place] [address], MCHC (RBC) [Mass/Vol] 32.5 g/dL Normal 32.0-35.9 [facility] Comment on above: Performed By: #### C BC ####[facility] [id number] [place], MCV (RBC) [Entitic vol] 93 fL Normal 80-100 [facility] Comment on above: Performed By: #### C BC ####[facility] [id number] [place], Platelet mean volume (Bld) [Entitic vol] 7.7 fL Normal 7.5-11.2 [facility] Comment on above: Performed By: #### C BC ####[facility] [id number] [place], Platelets (Bld) [#/Vol] 736 10*3/uL High 150-400 [facility] Comment on above: Performed By: #### C BC ####[facility] [id number] [place], RBC (Bld) [#/Vol] 3.54 10*6/uL Low 4.50-5.90 [facility] Comment on above: Performed By: #### C BC ####[facility] [id number] [place], WBC (Bld) [#/Vol] 12.3 10*3/uL High 4.5-11.5 [facility] [place] Comment on above: Performed By: #### C BC ####[facility] [id number] [place], Care Plan Noteon 06-23-2022 Fraud Manager Authentication Interface Message Text Normal [facility] MAGNESIUMon 06-23-2022 Magnesium [Mass/Vol] 2.1 mg/dL Normal 1.6-2.8 [facility] Comment on above: Performed By: #### P HOS, CH8, MG ####[facility] [id number] [place], PHOSPHORUSon 06-23-2022 Phosphate [Mass/Vol] 3.7 mg/dL Normal 2.5-4.8 [facility] [place] Comment on above: Performed By: #### P HOS, CH8, MG ####[facility] [id number] [place], Progress Noteson 06-23-2022 Fraud Manager Authentication Interface Message Text Normal [facility] Fraud Manager Authentication Interface Message Text Normal [facility] [place] BASIC METABOLIC PANELon 05 Anion gap [Moles/Vol] 14 mmol/L Normal 10-20 [facility] [place] Comment on above: Performed By: #### SKYLER MarshallS, CH8 ####[facility] [id number] [place], Calcium [Mass/Vol] 8.3 mg/dL Low 8.4-10.4 [facility] [place] Comment on above: Performed By: #### SKYLER MarshallS, CH8 ####[facility] [id number] [place], Chloride [Moles/Vol] 103 mmol/L Normal 97-111 [facility] [place] Comment on above: Performed By: #### Sam Clevelnad PHOS, CH8 ####[facility] [id number] [place], CO2 [Moles/Vol] 25 mmol/L Normal 21-30 [facility] [place] Comment on above: Performed By: #### Sam Cleveland PHOS, CH8 ####[facility] [id number] [place], Creatinine [Mass/Vol] 0.33 mg/dL Low 0.80-1.30 [facility] Comment on above: Performed By: #### Sam Cleveland PHOS, CH8 ####[facility] [id number] [place], ESTIMATED GFR (CKD-EPI) 132 mL/min/1.73sqm Normal >=60 [facility] Comment on above: Result Comment: 2020 [...] Inclusion of Race in Diagnosing Kidney Disease. [place] Journal of Kidney Diseases 2021;79(2):268-88.e1.2. N Engl J Med 2020 Vol. 385 Issue 19 Pages 4810-0880 Performed By: #### NAHID Marshall CH8 ####[facility] [id number] [place], Glucose [Mass/Vol] 123 mg/dL High 80-116 [facility] Comment on above: Performed By: #### NAHID Marshall CH8 ####[facility] [id number] [place], Potassium [Moles/Vol] 4.5 mmol/L Normal 3.3-5.3 [facility] Comment on above: Performed By: ###NAHID Caceres CH8 ####[facility] [id number] [place], Sodium [Moles/Vol] 137 mmol/L Normal 135-148 [facility] Comment on above: Performed By: #### NAHID Marshall CH8 ####[facility] [id number] [place], Urea nitrogen [Mass/Vol] 13 mg/dL Normal 8-22 [facility] Comment on above: Performed By: #### NAHID Marshall CH8 ####[facility] [id number] [place], COMPLETE BLOOD COUNTon 06-22 Erythrocyte distribution width (RBC) [Ratio] 15.6 % High 11.5-14.5 [facility] Comment on above: Performed By: #### Tee ROUSSEAU ####[facility] [id number] [place], Hematocrit (Bld) [Volume fraction] 30.8 % Low 41.0-53.0 [facility] Comment on above: Performed By: #### Tee ROUSSEAU ####[facility] [id number] [place], Hemoglobin (Bld) [Mass/Vol] 9.9 g/dL Low 13.9-16.3 [facility] Comment on above: Performed By: #### C BC ####[facility] [id number] [place], MCH (RBC) [Entitic mass] 29.8 pg Normal 26.0-34.0 [facility] Comment on above: Performed By: #### C BC ####[facility] [id number] [place], MCHC (RBC) [Mass/Vol] 32.1 g/dL Normal 32.0-35.9 [facility] Comment on above: Performed By: #### C BC ####[facility] [id number] [place], MCV (RBC) [Entitic vol] 93 fL Normal 80-100 [facility] Comment on above: Performed By: #### C BC ####[facility] [id number] [place], Platelet mean volume (Bld) [Entitic vol] 7.8 fL Normal 7.5-11.2 [facility] Comment on above: Performed By: #### C BC ####[facility] [id number] [place], Platelets (Bld) [#/Vol] 743 10*3/uL High 150-400 [facility] Comment on above: Performed By: #### C BC ####[facility] [id number] [place], RBC (Bld) [#/Vol] 3.31 10*6/uL Low 4.50-5.90 [facility] Comment on above: Performed By: #### C BC ####[facility] [id number] [place], WBC (Bld) [#/Vol] 11.5 10*3/uL Normal 4.5-11.5 [facility] [place] Comment on above: Performed By: #### C BC ####S PATHOLOGY [id number] [place], MAGNESIUMon 06-22-2022 Magnesium [Mass/Vol] 2.1 mg/dL Normal 1.6-2.8 [facility] Comment on above: Performed By: #### M NAHID Cleveland, TERESA ####S PATHOLOGY [id number] [place], PHOSPHORUSon 06-22-2022 Phosphate [Mass/Vol] 3.9 mg/dL Normal 2.5-4.8 [facility] Comment on above: Performed By: #### NAHID Marshall CH8 ####[facility] [id number] [place], Progress Noteson 06-22-2022 Fraud Manager Authentication Interface Message Text Normal [facility] Fraud Manager Authentication Interface Message Text Normal [facility] Fraud Manager Authentication Interface Message Text Normal [facility] 1:1 Interactionon 06-21-2022 Fraud Manager Authentication Interface Message Text Normal [facility] ANTI FXA-LMW HEPARINon 06-21 ANTI FXA-LMW HEPARIN ASSAY 0.78 IU/mL Normal [facility] Comment on above: Order Comment: The r ecommended therapeutic range for treatment of thrombosis with Low Molecular Weight Heparin is 0.5 - 1.0 IU/mLThe recommended range for VTE prophylaxis with Low Molecular Weight Heparin is 0.2 - 0.4 IU/mL. Performed By: #### A XL ####S PATHOLOGY [id number] [place], BASIC METABOLIC PANELon Anion gap [Moles/Vol] 11 mmol/L Normal 10-20 [facility] Comment on above: Performed By: #### P HOS, MG, CH8 ####S PATHOLOGY [id number] [place], Calcium [Mass/Vol] 8.2 mg/dL Low 8.4-10.4 [facility] Comment on above: Performed By: #### P HOS, MG, CH8 ####S PATHOLOGY [id number] [place], Chloride [Moles/Vol] 102 mmol/L Normal 97-111 [facility] Comment on above: Performed By: #### P HOS MG, CH8 ####[facility] [id number] [place], CO2 [Moles/Vol] 27 mmol/L Normal 21-30 [facility] Comment on above: Performed By: #### P HOS MG, CH8 ####[facility] [id number] [place], Creatinine [Mass/Vol] 0.29 mg/dL Low 0.80-1.30 [facility] Comment on above: Performed By: #### P HOS MG, CH8 ####[facility] [id number] [place], ESTIMATED GFR (CKD-EPI) 138 mL/min/1.73sqm Normal >=60 [facility] Comment on above: Result Comment: 2020 CKD EPI Equation using Creatinine without RaceComment: Estimated glomerular filtration rate (eGFR) is calculated without a race coefficient. Values should be interpreted in the context of the patient's full clinical presentation.Reference:1. Eddie C, Bairene M, Griselda DC, et al.. A Unifying Approach for GFR Estimation: Recommendations of the NKF-ASN Task Force on Reassessing the Inclusion of Race in Diagnosing Kidney Disease. [place] Journal of Kidney Diseases 2021;79(2):268-88.e1.2. N Engl J Med 2020 Vol. 385 Issue 19 Pages 5381-9457 Performed By: #### P HOS, MG, CH8 ####[facility] [id number] [place], Glucose [Mass/Vol] 120 mg/dL High 80-116 [facility] Comment on above: Performed By: #### P HOS MG, CH8 ####[facility] [id number] [place], Potassium [Moles/Vol] 4.3 mmol/L Normal 3.3-5.3 [facility] Comment on above: Performed By: #### P HOS, MG, CH8 ####[facility] [id number] [place], Sodium [Moles/Vol] 136 mmol/L Normal 135-148 [facility] Comment on above: Performed By: #### P AUNDREA MG, CH8 ####S PATHOLOGY [id number] [place], Urea nitrogen [Mass/Vol] 15 mg/dL Normal 8-22 [facility] Comment on above: Performed By: #### P AUNDREA MG, CH8 ####[facility] [id number] [place], COMPLETE BLOOD COUNTon 06-21 Erythrocyte distribution width (RBC) [Ratio] 15.9 % High 11.5-14.5 [facility] Comment on above: Performed By: #### C BC ####[facility] [id number] [place], Hematocrit (Bld) [Volume fraction] 30.7 % Low 41.0-53.0 [facility] Comment on above: Performed By: #### C BC ####[facility] [id number] [place], Hemoglobin (Bld) [Mass/Vol] 9.7 g/dL Low 13.9-16.3 [facility] Comment on above: Performed By: #### C BC ####[facility] [id number] [place], MCH (RBC) [Entitic mass] 29.5 pg Normal 26.0-34.0 [facility] Comment on above: Performed By: #### C BC ####[facility] [id number] [place], MCHC (RBC) [Mass/Vol] 31.6 g/dL Low 32.0-35.9 [facility] Comment on above: Performed By: #### C BC ####S PATHOLOGY [id number] [place], MCV (RBC) [Entitic vol] 93 fL Normal 80-100 [facility] Comment on above: Performed By: #### C BC ####S PATHOLOGY [id number] [place], Platelet mean volume (Bld) [Entitic vol] 8.0 fL Normal 7.5-11.2 [facility] [place] Comment on above: Performed By: #### C BC ####[facility] [id number] [place], Platelets (Bld) [#/Vol] 714 10*3/uL High 150-400 [facility] [place] Comment on above: Performed By: #### C BC ####[facility] [id number] [place], RBC (Bld) [#/Vol] 3.29 10*6/uL Low 4.50-5.90 [facility] [place] Comment on above: Performed By: #### C BC ####[facility] [id number] [place], WBC (Bld) [#/Vol] 11.7 10*3/uL High 4.5-11.5 [facility] Comment on above: Performed By: #### C BC ####[facility] [id number] [place] [address], MAGNESIUMon 06-21-2022 Magnesium [Mass/Vol] 2.1 mg/dL Normal 1.6-2.8 [facility] Comment on above: Performed By: #### P HOS, MG, CH8 ####[facility] [id number] [place], PHOSPHORUSon 06-21-2022 Phosphate [Mass/Vol] 3.2 mg/dL Normal 2.5-4.8 [facility] Comment on above: Performed By: #### P HOS, MG, CH8 ####[facility] [id number] [place] [address], BASIC METABOLIC PANELon Anion gap [Moles/Vol] 13 mmol/L Normal 10-20 [facility] [place] Comment on above: Performed By: #### C H8, PHOS, MG ####S PATHOLOGY [id number] [place], Calcium [Mass/Vol] 8.0 mg/dL Low 8.4-10.4 [facility] Comment on above: Performed By: #### NAHID Franks MG ####[facility] [id number] [place], Chloride [Moles/Vol] 104 mmol/L Normal 97-111 [facility] Comment on above: Performed By: #### NAHID Franks MG ####[facility] [id number] [place], CO2 [Moles/Vol] 25 mmol/L Normal 21-30 [facility] Comment on above: Performed By: #### NAHID Franks MG ####[facility] [id number] [place], Creatinine [Mass/Vol] 0.29 mg/dL Low 0.80-1.30 [facility] Comment on above: Performed By: #### NAHID Franks MG ####[facility] [id number] [place], ESTIMATED GFR (CKD-EPI) 138 mL/min/1.73sqm Normal >=60 [facility] Comment on above: Result Comment: 2020 [...] Inclusion of Race in Diagnosing Kidney Disease. [place] Journal of Kidney Diseases 2021;79(2):268-88.e1.2. N Engl J Med 1 Vol. 385 Issue 19 Pages 6219-3665 Performed By: #### NAHID Franks MG ####[facility] [id number] [place], Glucose [Mass/Vol] 129 mg/dL High 80-116 [facility] Comment on above: Performed By: #### C H8, PHOS, MG ####[facility] [id number] [place], Potassium [Moles/Vol] 4.5 mmol/L Normal 3.3-5.3 [facility] Comment on above: Performed By: #### C H8, PHOS, MG ####[facility] [id number] [place], Sodium [Moles/Vol] 137 mmol/L Normal 135-148 [facility] Comment on above: Performed By: #### C H8, PHOS, MG ####[facility] [id number] [place], Urea nitrogen [Mass/Vol] 14 mg/dL Normal 8-22 [facility] Comment on above: Performed By: #### Tee HSuzi, PHOS, MG ####[facility] [id number] [place], COMPLETE BLOOD COUNTon 06-20 Erythrocyte distribution width (RBC) [Ratio] 15.8 % High 11.5-14.5 [facility] Comment on above: Performed By: #### C BC ####[facility] [id number] [place], Hematocrit (Bld) [Volume fraction] 28.0 % Low 41.0-53.0 [facility] Comment on above: Performed By: #### C BC ####[facility] [id number] [place], Hemoglobin (Bld) [Mass/Vol] 8.9 g/dL Low 13.9-16.3 [facility] Comment on above: Performed By: #### C BC ####[facility] [id number] [place], MCH (RBC) [Entitic mass] 29.4 pg Normal 26.0-34.0 [facility] Comment on above: Performed By: #### C BC ####[facility] [id number] [place], MCHC (RBC) [Mass/Vol] 31.6 g/dL Low 32.0-35.9 [facility] Comment on above: Performed By: #### C BC ####[facility] [id number] [place], MCV (RBC) [Entitic vol] 93 fL Normal 80-100 [facility] Comment on above: Performed By: #### C BC ####[facility] [id number] [place], Platelet mean volume (Bld) [Entitic vol] 8.2 fL Normal 7.5-11.2 [facility] [place] Comment on above: Performed By: #### C BC ####[facility] [id number] [place] [address], Platelets (Bld) [#/Vol] 774 10*3/uL High 150-400 [facility] [place] Comment on above: Performed By: #### C BC ####[facility] [id number] [place] [address], RBC (Bld) [#/Vol] 3.02 10*6/uL Low 4.50-5.90 [facility] [place] Comment on above: Performed By: #### C BC ####[facility] [id number] [place] [address], WBC (Bld) [#/Vol] 11.7 10*3/uL High 4.5-11.5 [facility] Comment on above: Performed By: #### C BC ####[facility] [id number] [place] [address], MAGNESIUMon 06-20-2022 Magnesium [Mass/Vol] 2.1 mg/dL Normal 1.6-2.8 [facility] Comment on above: Performed By: #### C H8, PHOS, MG ####[facility] [id number] [place], PARTIAL THROMBOPLASTIN TIMEo n 06-20-2022 aPTT Coag (Bld) [Time] 69 s High 25-37 Th [facility] Comment on above: Performed By: #### A PTT ####S PATHOLOGY [id number] [place], PHOSPHORUSon 06-20-2022 Phosphate [Mass/Vol] 3.9 mg/dL Normal 2.5-4.8 [facility] Comment on above: Performed By: #### C H8, PHOS, MG ####[facility] [id number] [place], Progress Noteson 06-20-2022 Fraud Manager Authentication Interface Message Text Normal [facility] Fraud Manager Authentication Interface Message Text Social Work ICU Note Note entered in error. See previous inpatient SW notes from needs/DC plan. Normal [facility] Fraud Manager Authentication Interface Message Text Normal [facility] Fraud Manager Authentication Interface Message Text Normal [facility] BASIC METABOLIC PANELon Anion gap [Moles/Vol] 12 mmol/L Normal 10-20 [facility] Comment on above: Performed By: #### P HOS, CH8, MG ####[facility] [id number] [place], Calcium [Mass/Vol] 8.1 mg/dL Low 8.4-10.4 [facility] Comment on above: Performed By: #### P HOS, CH8, MG ####[facility] [id number] [place], Chloride [Moles/Vol] 106 mmol/L Normal 97-111 [facility] Comment on above: Performed By: #### P HOS, CH8, MG ####[facility] [id number] [place], CO2 [Moles/Vol] 26 mmol/L Normal 21-30 [facility] Comment on above: Performed By: #### P HOS, CH8, MG ####[facility] [id number] [place], Creatinine [Mass/Vol] 0.27 mg/dL Low 0.80-1.30 [facility] Comment on above: Performed By: #### P HOS, CH8, MG ####[facility] [id number] [place], ESTIMATED GFR (CKD-EPI) 141 mL/min/1.73sqm Normal >=60 [facility] Comment on above: Result Comment: 2020 [...] Inclusion of Race in Diagnosing Kidney Disease. [place] Journal of Kidney Diseases 202;79(2):268-88.e1.2. N Engl J Med 1 Vol. 385 Issue 19 Pages 1488-1087 Performed By: #### P RAQUEL GUILLAUME8, MG ####[facility] [id number] [place], Glucose [Mass/Vol] 104 mg/dL Normal 80-116 [facility] Comment on above: Performed By: #### P HOS CH8, MG ####[facility] [id number] [place], Potassium [Moles/Vol] 4.5 mmol/L Normal 3.3-5.3 [facility] Comment on above: Performed By: #### P HOS CH8, MG ####[facility] [id number] [place], Sodium [Moles/Vol] 139 mmol/L Normal 135-148 [facility] Comment on above: Performed By: #### P HOS CH8, MG ####[facility] [id number] [place], Urea nitrogen [Mass/Vol] 14 mg/dL Normal 8-22 [facility] Comment on above: Performed By: #### P HOS CH8, MG ####[facility] [id number] [place], COMPLETE BLOOD COUNTon 06-19 Erythrocyte distribution width (RBC) [Ratio] 15.7 % High 11.5-14.5 [facility] Comment on above: Performed By: #### C BC ####[facility] [id number] [place], Hematocrit (Bld) [Volume fraction] 27.7 % Low 41.0-53.0 [facility] Comment on above: Performed By: #### C BC ####[facility] [id number] [place], Hemoglobin (Bld) [Mass/Vol] 8.6 g/dL Low 13.9-16.3 [facility] Comment on above: Performed By: #### C BC ####[facility] [id number] [place], [place], MCH (RBC) [Entitic mass] 29.0 pg Normal 26.0-34.0 [facility] Comment on above: Performed By: #### C BC ####[facility] [id number] [place], [place], MCHC (RBC) [Mass/Vol] 31.0 g/dL Low 32.0-35.9 [facility] Comment on above: Performed By: #### C BC ####[facility] [id number] [place], [place], MCV (RBC) [Entitic vol] 93 fL Normal 80-100 [facility] Comment on above: Performed By: #### C BC ####[facility] [id number] [place], Platelet mean volume (Bld) [Entitic vol] 8.9 fL Normal 7.5-11.2 [facility] Comment on above: Performed By: #### C BC ####[facility] [id number] [place], Platelets (Bld) [#/Vol] 646 10*3/uL High 150-400 [facility] Comment on above: Performed By: #### C BC ####[facility] [id number] [place], RBC (Bld) [#/Vol] 2.96 10*6/uL Low 4.50-5.90 [facility] [place] Comment on above: Performed By: #### C BC ####[facility] [id number] [place], WBC (Bld) [#/Vol] 12.1 10*3/uL High 4.5-11.5 [facility] Comment on above: Performed By: #### C BC ####[facility] [id number] [place], [place], Consultson 06-19-2022 Fraud Manager Authentication Interface Message Text Normal [facility] Fraud Manager Authentication Interface Message Text Normal [facility] Fraud Manager Authentication Interface Message Text Normal [facility] Fraud Manager Authentication Interface Message Text Normal [facility] Fraud Manager Authentication Interface Message Text Normal [facility] MAGNESIUMon 06-19-2022 Magnesium [Mass/Vol] 2.2 mg/dL Normal 1.6-2.8 [facility] Comment on above: Performed By: #### P HOS, CH8, MG ####[facility] [id number] [place], PHOSPHORUSon 06-19-2022 Phosphate [Mass/Vol] 3.5 mg/dL Normal 2.5-4.8 [facility] Comment on above: Performed By: #### P HOS, CH8, MG ####S PATHOLOGY [id number] [place], Progress Noteson 06-19-2022 Fraud Manager Authentication Interface Message Text Normal [facility] Fraud Manager Authentication Interface Message Text This encounter was opened in error. Patient was a No-Show. Please disregard. Normal [facility] Fraud Manager Authentication Interface Message Text Normal [facility] Fraud Manager Authentication Interface Message Text Normal [facility] Fraud Manager Authentication Interface Message Text Normal [facility] XR CLAVICLE LEFT 2 VIEWSon 06-19-2022 XR CLAVICLE LEFT 2 VIEWS Normal [facility] BASIC METABOLIC PANELon Anion gap [Moles/Vol] 10 mmol/L Normal 10-20 [facility] Comment on above: Performed By: #### M G, PHOS, CH8 ####[facility] [id number] [place], Calcium [Mass/Vol] 8.0 mg/dL Low 8.4-10.4 [facility] Comment on above: Performed By: #### NAHID Marshall CH8 ####[facility] [id number] [place], Chloride [Moles/Vol] 107 mmol/L Normal 97-111 [facility] Comment on above: Performed By: #### NAHID Marshall CH8 ####[facility] [id number] [place], CO2 [Moles/Vol] 27 mmol/L Normal 21-30 [facility] Comment on above: Performed By: #### NAHID Marshall CH8 ####[facility] [id number] [place], Creatinine [Mass/Vol] 0.28 mg/dL Low 0.80-1.30 [facility] Comment on above: Performed By: ###NAHID Caceres CH8 ####[facility] [id number] [place], ESTIMATED GFR (CKD-EPI) 139 mL/min/1.73sqm Normal >=60 [facility] Comment on above: Result Comment: [...] Inclusion of Race in Diagnosing Kidney Disease. [place] Journal of Kidney Diseases 2021;79(2):268-88.e1.2. N Engl J Med 1 Vol. 385 Issue 19 Pages 9862-0559 Performed By: #### NAHID Marshall CH8 ####[facility] [id number] [place], Glucose [Mass/Vol] 120 mg/dL High 80-116 [facility] Comment on above: Performed By: ###NAHID Caceres CH8 ####[facility] [id number] [place], Potassium [Moles/Vol] 4.3 mmol/L Normal 3.3-5.3 [facility] Comment on above: Performed By: #### NAHID Marshall CH8 ####S PATHOLOGY [id number] [place], Sodium [Moles/Vol] 140 mmol/L Normal 135-148 [facility] Comment on above: Performed By: #### NAHID Marshall CH8 ####S PATHOLOGY [id number] [place], Urea nitrogen [Mass/Vol] 13 mg/dL Normal 8-22 [facility] Comment on above: Performed By: #### NAHID Marshall CH8 ####S PATHOLOGY [id number] [place], COMPLETE BLOOD COUNTon 06-18 Erythrocyte distribution width (RBC) [Ratio] 16.2 % High 11.5-14.5 [facility] Comment on above: Performed By: #### C BC ####[facility] [id number] [place], Hematocrit (Bld) [Volume fraction] 26.4 % Low 41.0-53.0 [facility] Comment on above: Performed By: #### C BC ####[facility] [id number] [place], Hemoglobin (Bld) [Mass/Vol] 8.4 g/dL Low 13.9-16.3 [facility] Comment on above: Performed By: #### C BC ####S PATHOLOGY [id number] [place], MCH (RBC) [Entitic mass] 29.9 pg Normal 26.0-34.0 [facility] Comment on above: Performed By: #### C BC ####S PATHOLOGY [id number] [place], MCHC (RBC) [Mass/Vol] 31.7 g/dL Low 32.0-35.9 [facility] Comment on above: Performed By: #### C BC ####S PATHOLOGY [id number] [place], MCV (RBC) [Entitic vol] 95 fL Normal 80-100 [facility] Comment on above: Performed By: #### C BC ####[facility] [id number] [place], Plate[place] mean volume (Bld) [Entitic vol] 8.4 fL Normal 7.5-11.2 [facility] Comment on above: Performed By: #### C BC ####S PATHOLOGY [id number] [place], Platelets (Bld) [#/Vol] 692 10*3/uL High 150-400 [facility] [place] Comment on above: Performed By: #### C BC ####[facility] [id number] [place], RBC (Bld) [#/Vol] 2.80 10*6/uL Low 4.50-5.90 [facility] [place] Comment on above: Performed By: #### C BC ####[facility] [id number] [place], WBC (Bld) [#/Vol] 13.3 10*3/uL High 4.5-11.5 [facility] [place] Comment on above: Performed By: #### C BC ####S PATHOLOGY [id number] [place], Care Plan Noteon 06-18-2022 Fraud Manager Authentication Interface Message Text Normal [facility] Consultson 06-18-2022 Fraud Manager Authentication Interface Message Text Normal [facility] Fraud Manager Authentication Interface Message Text Normal [facility] MAGNESIUMon 06-18-2022 Magnesium [Mass/Vol] 2.2 mg/dL Normal 1.6-2.8 [facility] Comment on above: Performed By: #### NAHID Marshall, CH8 ####S PATHOLOGY [id number] [place], PARTIAL THROMBOPLASTIN TIMEo n 06-18-2022 aPTT Coag (Bld) [Time] 66 s High 25-37 Th [facility] Comment on above: Performed By: #### A PTT ####[facility] [id number] [place], PHOSPHORUSon 06-18-2022 Phosphate [Mass/Vol] 3.5 mg/dL Normal 2.5-4.8 [facility] Comment on above: Performed By: #### NAHID Marshall CH8 ####[facility] [id number] [place], Progress Noteson 06-18-2022 Fraud Manager Authentication Interface Message Text Normal [facility] Fraud Manager Authentication Interface Message Text Normal [facility] Fraud Manager Authentication Interface Message Text Normal [facility] Fraud Manager Authentication Interface Message Text Normal [facility] BASIC METABOLIC PANELon 05- Anion gap [Moles/Vol] 9 mmol/L Low 10-20 [facility] [place] Comment on above: Performed By: #### TERESA Marshall PHOS ####[facility] [id number] [place], Calcium [Mass/Vol] 7.8 mg/dL Low 8.4-10.4 [facility] Comment on above: Performed By: #### TERESA Marshall PHOS ####[facility] [id number] [place], Chloride [Moles/Vol] 109 mmol/L Normal 97-111 [facility] Comment on above: Performed By: #### TERESA Marshall PHOS ####[facility] [id number] [place], CO2 [Moles/Vol] 27 mmol/L Normal 21-30 [facility] Comment on above: Performed By: #### TERESA Marshall PHOS ####[facility] [id number] [place], Creatinine [Mass/Vol] 0.23 mg/dL Low 0.80-1.30 [facility] Comment on above: Performed By: #### M G, CH8, PHOS ####[facility] [id number] [place], ESTIMATED GFR (CKD-EPI) 148 mL/min/1.73sqm Normal >=60 [facility] Comment on above: Result Comment: 2020 [...] Inclusion of Race in Diagnosing Kidney Disease. [place] Journal of Kidney Diseases 2021;79(2):268-88.e1.2. N Engl J Med 1 Vol. 385 Issue 19 Pages 6407-3249 Performed By: #### TERESA Marshall, PHOS ####[facility] [id number] [place], Glucose [Mass/Vol] 111 mg/dL Normal 80-116 [facility] [place] Comment on above: Performed By: #### TERESA Marshall, PHOS ####[facility] [id number] [place], Potassium [Moles/Vol] 4.2 mmol/L Normal 3.3-5.3 [facility] Comment on above: Performed By: #### TERESA Marshall, PHOS ####[facility] [id number] [place], Sodium [Moles/Vol] 141 mmol/L Normal 135-148 [facility] Comment on above: Performed By: #### TERESA Marshall, PHOS ####[facility] [id number] [place], Urea nitrogen [Mass/Vol] 13 mg/dL Normal 8-22 [facility] Comment on above: Performed By: #### TERESA Marshall, PHOS ####[facility] [id number] [place], COMPLETE BLOOD COUNTon 06-17 Erythrocyte distribution width (RBC) [Ratio] 16.0 % High 11.5-14.5 [facility] Comment on above: Performed By: #### C BC ####[facility] [id number] [place], Hematocrit (Bld) [Volume fraction] 26.2 % Low 41.0-53.0 [facility] Comment on above: Performed By: #### C BC ####[facility] [id number] [place], Hemoglobin (Bld) [Mass/Vol] 8.5 g/dL Low 13.9-16.3 [facility] Comment on above: Performed By: #### C BC ####[facility] [id number] [place] [address], MCH (RBC) [Entitic mass] 30.7 pg Normal 26.0-34.0 [facility] [place] Comment on above: Performed By: #### C BC ####[facility] [id number] [place] [address], MCHC (RBC) [Mass/Vol] 32.4 g/dL Normal 32.0-35.9 [facility] [place] Comment on above: Performed By: #### C BC ####[facility] [id number] [place] [address], MCV (RBC) [Entitic vol] 95 fL Normal 80-100 [facility] Comment on above: Performed By: #### C BC ####[facility] [id number] [place], Platelet mean volume (Bld) [Entitic vol] 8.6 fL Normal 7.5-11.2 [facility] Comment on above: Performed By: #### C BC ####[facility] [id number] [place], Platelets (Bld) [#/Vol] 679 10*3/uL High 150-400 [facility] [place] Comment on above: Performed By: #### C BC ####[facility] [id number] [place], RBC (Bld) [#/Vol] 2.76 10*6/uL Low 4.50-5.90 [facility] Comment on above: Performed By: #### C BC ####S PATHOLOGY [id number] [place], WBC (Bld) [#/Vol] 14.8 10*3/uL High 4.5-11.5 [facility] Comment on above: Performed By: #### C BC ####S PATHOLOGY [id number] [place], Care Plan Noteon 06-17-2022 Fraud Manager Authentication Interface Message Text Normal [facility] Consultson 06-17-2022 Fraud Manager Authentication Interface Message Text Normal [facility] MAGNESIUMon 06-17-2022 Magnesium [Mass/Vol] 2.1 mg/dL Normal 1.6-2.8 [facility] Comment on above: Performed By: #### M TERESA [place], PHOS ####S PATHOLOGY [id number] [place], PARTIAL THROMBOPLASTIN TIMEo n 06-17-2022 aPTT Coag (Bld) [Time] 65 s High 25-37 Th [facility] Comment on above: Performed By: #### A PTT ####S PATHOLOGY [id number] [place], PHOSPHORUSon 06-17-2022 Phosphate [Mass/Vol] 3.3 mg/dL Normal 2.5-4.8 [facility] Comment on above: Performed By: #### M GTERESA, PHOS ####S PATHOLOGY [id number] [place], Progress Noteson 06-17-2022 Fraud Manager Authentication Interface Message Text Normal [facility] Fraud Manager Authentication Interface Message Text Normal [facility] Fraud Manager Authentication Interface Message Text Normal [facility] BASIC METABOLIC PANELon -3 Anion gap [Moles/Vol] 8 mmol/L Low 10-20 [facility] Comment on above: Performed By: #### P HOS, CH8, MG ####S PATHOLOGY [id number] [place], Calcium [Mass/Vol] 7.9 mg/dL Low 8.4-10.4 [facility] Comment on above: Performed By: #### P RAQUEL GUILLAUME8, MG ####[facility] [id number] [place], Chloride [Moles/Vol] 111 mmol/L Normal 97-111 [facility] Comment on above: Performed By: #### P HOSRAQUEL8, MG ####[facility] [id number] [place], CO2 [Moles/Vol] 28 mmol/L Normal 21-30 [facility] Comment on above: Performed By: #### P RAQUEL GUILLAUME8, MG ####[facility] [id number] [place], Creatinine [Mass/Vol] 0.27 mg/dL Low 0.80-1.30 [facility] Comment on above: Performed By: #### P RAQUEL GUILLAUME8, MG ####[facility] [id number] [place], ESTIMATED GFR (CKD-EPI) 141 mL/min/1.73sqm Normal >=60 [facility] Comment on above: Result Comment: 2020 [...] Inclusion of Race in Diagnosing Kidney Disease. [place] Journal of Kidney Diseases 2021;79(2):268-88.e1.2. N Engl J Med 1 Vol. 385 Issue 19 Pages 4477-6252 Performed By: #### P HOS CH8, MG ####[facility] [id number] [place], Glucose [Mass/Vol] 125 mg/dL High 80-116 [facility] Comment on above: Performed By: #### P HOS CH8, MG ####S PATHOLOGY [id number] [place], Potassium [Moles/Vol] 4.4 mmol/L Normal 3.3-5.3 [facility] Comment on above: Performed By: #### P HOS, CH8, MG ####S PATHOLOGY [id number] [place], Sodium [Moles/Vol] 143 mmol/L Normal 135-148 [facility] Comment on above: Performed By: #### P HOS, CH8, MG ####S PATHOLOGY [id number] [place], Urea nitrogen [Mass/Vol] 14 mg/dL Normal 8-22 [facility] Comment on above: Performed By: #### P HOS, CH8, MG ####[facility] [id number] [place], COMPLETE BLOOD COUNTon 06-16 Erythrocyte distribution width (RBC) [Ratio] 15.6 % High 11.5-14.5 [facility] Comment on above: Performed By: #### C BC ####[facility] [id number] [place], Hematocrit (Bld) [Volume fraction] 26.3 % Low 41.0-53.0 [facility] Comment on above: Performed By: #### C BC ####[facility] [id number] [place], Hemoglobin (Bld) [Mass/Vol] 8.5 g/dL Low 13.9-16.3 [facility] Comment on above: Performed By: #### C BC ####[facility] [id number] [place], MCH (RBC) [Entitic mass] 30.5 pg Normal 26.0-34.0 [facility] Comment on above: Performed By: #### C BC ####[facility] [id number] [place], MCHC (RBC) [Mass/Vol] 32.3 g/dL Normal 32.0-35.9 [facility] [place] Comment on above: Performed By: #### C BC ####[facility] [id number] [place], MCV (RBC) [Entitic vol] 95 fL Normal 80-100 [facility] [place] Comment on above: Performed By: #### C BC ####S PATHOLOGY [id number] [place], Platelet mean volume (Bld) [Entitic vol] 8.9 fL Normal 7.5-11.2 [facility] Comment on above: Performed By: #### C BC ####[facility] [id number] [place], Platelets (Bld) [#/Vol] 666 10*3/uL High 150-400 [facility] Comment on above: Performed By: #### C BC ####[facility] [id number] [place], RBC (Bld) [#/Vol] 2.78 10*6/uL Low 4.50-5.90 [facility] [place] Comment on above: Performed By: #### C BC ####[facility] [id number] [place], WBC (Bld) [#/Vol] 16.3 10*3/uL High 4.5-11.5 [facility] Comment on above: Performed By: #### C BC ####[facility] [id number] [place], CT HEAD W/O CONTRASTon 06-16 CT HEAD W/O CONTRAST Normal [facility] [place] Care Plan Noteon 06-16-2022 Fraud Manager Authentication Interface Message Text Normal [facility] [place] MAGNESIUMon 06-16-2022 Magnesium [Mass/Vol] 2.1 mg/dL Normal 1.6-2.8 [facility] [place] Comment on above: Performed By: #### P HOS, CH8, MG ####S PATHOLOGY [id number] [place], PARTIAL THROMBOPLASTIN TIMEo n 06-16-2022 aPTT Coag (Bld) [Time] 63 s High 25-37 [facility] Comment on above: Performed By: #### A PTT ####S PATHOLOGY [id number] [place], aPTT Coag (Bld) [Time] 46 s High 25-37 e [facility] Comment on above: Performed By: #### A PTT ####S PATHOLOGY [id number] [place], aPTT Coag (Bld) [Time] 32 s Normal 25-37 [facility] Comment on above: Performed By: #### A PTT ####[facility] [id number] [place], aPTT Coag (Bld) [Time] 34 s Normal -37 [facility] Comment on above: Performed By: #### A PTT ####[facility] [id number] [place], PHOSPHORUSon 06-16-2022 Phosphate [Mass/Vol] 3.2 mg/dL Normal 2.5-4.8 [facility] Comment on above: Performed By: #### P HOS, CH8, MG ####[facility] [id number] [place], Progress Noteson 06-16-2022 Fraud Manager Authentication Interface Message Text [email or web address] Normal [facility] Fraud Manager Authentication Interface Message Text Normal [facility] Fraud Manager Authentication Interface Message Text Normal [facility] BASIC METABOLIC PANELon - Anion gap [Moles/Vol] 11 mmol/L Normal 10-20 [facility] Comment on above: Performed By: #### C H8, MG, PHOS ####[facility] [id number] [place], Calcium [Mass/Vol] 7.6 mg/dL Low 8.4-10.4 [facility] Comment on above: Performed By: #### C H8, MG, PHOS ####[facility] [id number] [place], Chloride [Moles/Vol] 112 mmol/L High 97-111 [facility] Comment on above: Performed By: #### C H8, MG, PHOS ####[facility] [id number] [place], CO2 [Moles/Vol] 28 mmol/L Normal 21-30 [facility] Comment on above: Performed By: #### C H8, MG, PHOS ####[facility] [id number] [place], Creatinine [Mass/Vol] 0.26 mg/dL Low 0.80-1.30 [facility] Comment on above: Performed By: #### C H8, MG, PHOS ####[facility] [id number] [place], ESTIMATED GFR (CKD-EPI) 142 mL/min/1.73sqm Normal >=60 [facility] [place] Comment on above: Result Comment: 2020 [...] Inclusion of Race in Diagnosing Kidney Disease. [place] Journal of Kidney Diseases 2021;79(2):268-88.e1.2. N Engl J Med 2020 Vol. 385 Issue 19 Pages 5618-0524 Performed By: #### C H8, MG, PHOS ####[facility] [id number] [place], Glucose [Mass/Vol] 132 mg/dL High 80-116 [facility] Comment on above: Performed By: #### C H8, MG, PHOS ####[facility] [id number] [place], Potassium [Moles/Vol] 4.2 mmol/L Normal 3.3-5.3 [facility] Comment on above: Performed By: #### MG Franks PHOS ####[facility] [id number] [place], Sodium [Moles/Vol] 147 mmol/L Normal 135-148 [facility] Comment on above: Performed By: #### MG Franks PHOS ####[facility] [id number] [place], Urea nitrogen [Mass/Vol] 20 mg/dL Normal 8-22 [facility] Comment on above: Performed By: #### MG Franks PHOS ####[facility] [id number] [place], BLOOD GAS, ARTERIALon 2022 CR SEFERINO 4.9 mmol/L High -2.0-2.0 [facility] Comment on above: Performed By: #### C R BGA ####[facility] [id number] [place], CR PCO2 39.4 mm Hg Normal 35.0-45.0 [facility] Comment on above: Performed By: #### C R BGA ####[facility] [id number] [place], CR PHA 7.472 High 7.35-7.45 [facility] Comment on above: Performed By: #### C R BGA ####S PATHOLOGY [id number] [place], CR PO2 85 mm Hg Normal 80-100 [facility] Comment on above: Performed By: #### C R BGA ####S PATHOLOGY [id number] [place], FIO2 (CATEGORY) 60% Normal [facility] Comment on above: Performed By: #### C R BGA ####S PATHOLOGY [id number] [place], HCO3 (Bld) [Moles/Vol] 29 mmol/L High 22-28 Th [facility] Comment on above: Performed By: #### C R BGA ####[facility] [id number] [place], MODE Vent Normal [facility] Comment on above: Performed By: #### C R BGA ####[facility] [id number] [place], Oxygen saturation in Blood 96.9 % Normal >=95.1 [facility] Comment on above: Performed By: #### C R BGA ####[facility] [id number] [place], COMPLETE BLOOD COUNTon 06-15 Erythrocyte distribution width (RBC) [Ratio] 15.3 % High 11.5-14.5 [facility] Comment on above: Performed By: #### C BC ####[facility] [id number] [place], Hematocrit (Bld) [Volume fraction] 26.2 % Low 41.0-53.0 [facility] Comment on above: Performed By: #### C BC ####[facility] [id number] [place], Hemoglobin (Bld) [Mass/Vol] 8.2 g/dL Low 13.9-16.3 [facility] Comment on above: Performed By: #### C BC ####[facility] [id number] [place], [place], MCH (RBC) [Entitic mass] 30.0 pg Normal 26.0-34.0 [facility] Comment on above: Performed By: #### C BC ####[facility] [id number] [place], MCHC (RBC) [Mass/Vol] 31.3 g/dL Low 32.0-35.9 [facility] Comment on above: Performed By: #### C BC ####[facility] [id number] [place], MCV (RBC) [Entitic vol] 96 fL Normal 80-100 [facility] Comment on above: Performed By: #### C BC ####S PATHOLOGY [id number] [place], Platelet mean volume (Bld) [Entitic vol] 9.3 fL Normal 7.5-11.2 [facility] Comment on above: Performed By: #### C BC ####[facility] [id number] [place], Platelets (Bld) [#/Vol] 631 10*3/uL High 150-400 [facility] Comment on above: Performed By: #### C BC ####[facility] [id number] [place], RBC (Bld) [#/Vol] 2.74 10*6/uL Low 4.50-5.90 [facility] [place] Comment on above: Performed By: #### C BC ####[facility] [id number] [place], WBC (Bld) [#/Vol] 17.7 10*3/uL High 4.5-11.5 [facility] Comment on above: Performed By: #### C BC ####[facility] [id number] [place], [place], CT HEAD W/O CONTRASTon 06-15 CT HEAD W/O CONTRAST Normal [facility] Care Plan Noteon 06-15-2022 Fraud Manager Authentication Interface Message Text Normal [facility] Fraud Manager Authentication Interface Message Text Patient actively working towards care plan goals. Normal [facility] [place] MAGNESIUMon 06-15-2022 Magnesium [Mass/Vol] 2.2 mg/dL Normal 1.6-2.8 [facility] Comment on above: Performed By: #### C H8, MG, PHOS ####[facility] [id number] [place], PARTIAL THROMBOPLASTIN TIMEo n 06-15-2022 aPTT Coag (Bld) [Time] 33 s Normal 25-37 Th e [facility] Comment on above: Performed By: #### A PTT ####[facility] [id number] [place], PHOSPHORUSon 06-15-2022 Phosphate [Mass/Vol] 3.2 mg/dL Normal 2.5-4.8 [facility] Comment on above: Performed By: #### MG Franks PHOS ####[facility] [id number] [place], [place], Progress Noteson 06-15-2022 Fraud Manager Authentication Interface Message Text Normal [facility] Fraud Manager Authentication Interface Message Text Normal [facility] BASIC METABOLIC PANELon 05-19 Anion gap [Moles/Vol] 12 mmol/L Normal 10-20 [facility] [place] Comment on above: Performed By: #### SKYLER FranksS MG ####[facility] [id number] [place], Calcium [Mass/Vol] 7.5 mg/dL Low 8.4-10.4 [facility] [place] Comment on above: Performed By: #### SKYLER FranksS MG ####[facility] [id number] [place], Chloride [Moles/Vol] 113 mmol/L High 97-111 [facility] [place] Comment on above: Performed By: #### Tee Starkey PHOS MG ####[facility] [id number] [place], CO2 [Moles/Vol] 29 mmol/L Normal 21-30 [facility] [place] Comment on above: Performed By: #### Tee Starkey PHOS MG ####[facility] [id number] [place], Creatinine [Mass/Vol] 0.39 mg/dL Low 0.80-1.30 [facility] [place] Comment on above: Performed By: #### Tee Starkey PHOS MG ####[facility] [id number] [place], ESTIMATED GFR (CKD-EPI) 126 mL/min/1.73sqm Normal >=60 [facility] [place] Comment on above: Result Comment: 2020 [...] Inclusion of Race in Diagnosing Kidney Disease. [place] Journal of Kidney Diseases 2021;79(2):268-88.e1.2. N Engl J Med 1 Vol. 385 Issue 19 Pages 0019-2128 Performed By: #### C H8 PHOS, MG ####[facility] [id number] [place], Glucose [Mass/Vol] 136 mg/dL High 80-116 [facility] Comment on above: Performed By: #### C HSuzi PHOS, MG ####[facility] [id number] [place], Potassium [Moles/Vol] 3.7 mmol/L Normal 3.3-5.3 [facility] Comment on above: Performed By: #### C H8 PHOS, MG ####[facility] [id number] [place], Sodium [Moles/Vol] 150 mmol/L High 135-148 [facility] Comment on above: Performed By: #### Tee H8 PHOS, MG ####[facility] [id number] [place], Urea nitrogen [Mass/Vol] 28 mg/dL High 8-22 [facility] Comment on above: Performed By: #### C H8 PHOS, MG ####[facility] [id number] [place], BLOOD CULTUREon 06-14-2022 Bacteria identified Cx Nom (Bld) C BLOOD: No Growth Normal [facility] Comment on above: Performed By: #### C BLOOD ####[facility] Slkdbtvor2597 [place], [place] BLOOD GAS, ARTERIALon 2022 CR SEFERINO 6.0 mmol/L High -2.0-2.0 [facility] Comment on above: Performed By: #### C R BGA ####[facility] [id number] [place], CR PCO2 38.1 mm Hg Normal 35.0-45.0 [facility] Comment on above: Performed By: #### C R BGA ####[facility] [id number] [place], CR PHA 7.499 High 7.35-7.45 [facility] [place] Comment on above: Performed By: #### C R BGA ####[facility] [id number] [place], CR PO2 89 mm Hg Normal 80-100 [facility] Comment on above: Performed By: #### C R BGA ####[facility] [id number] [place] [address], FIO2 (CATEGORY) 70% Normal [facility] [place] Comment on above: Performed By: #### C R BGA ####[facility] [id number] [place] [address], HCO3 (Bld) [Moles/Vol] 29 mmol/L High 22-28 e [facility] Comment on above: Performed By: #### C R BGA ####[facility] [id number] [place] [address], MODE Vent Normal [facility] Comment on above: Performed By: #### C R BGA ####[facility] [id number] [place], Oxygen saturation in Blood 97.5 % Normal >=95.1 [facility] Comment on above: Performed By: #### C R BGA ####[facility] [id number] [place], COMPLETE BLOOD COUNTon 06-14 Erythrocyte distribution width (RBC) [Ratio] 15.4 % High 11.5-14.5 [facility] Comment on above: Performed By: #### C BC ####[facility] [id number] [place] [address], Hematocrit (Bld) [Volume fraction] 24.9 % Low 41.0-53.0 [facility] Comment on above: Performed By: #### C BC ####[facility] [id number] [place], Hemoglobin (Bld) [Mass/Vol] 7.9 g/dL Low 13.9-16.3 [facility] [place] Comment on above: Performed By: #### C BC ####[facility] [id number] [place], MCH (RBC) [Entitic mass] 29.5 pg Normal 26.0-34.0 [facility] [place] Comment on above: Performed By: #### C BC ####[facility] [id number] [place], MCHC (RBC) [Mass/Vol] 31.7 g/dL Low 32.0-35.9 [facility] [place] Comment on above: Performed By: #### C BC ####[facility] [id number] [place] [address], MCV (RBC) [Entitic vol] 93 fL Normal 80-100 [facility] [place] Comment on above: Performed By: #### C BC ####[facility] [id number] [place], Platelet mean volume (Bld) [Entitic vol] 9.3 fL Normal 7.5-11.2 [facility] [place] Comment on above: Performed By: #### C BC ####[facility] [id number] [place], Platelets (Bld) [#/Vol] 633 10*3/uL High 150-400 [facility] Comment on above: Performed By: #### C BC ####[facility] [id number] [place], RBC (Bld) [#/Vol] 2.67 10*6/uL Low 4.50-5.90 [facility] [place] Comment on above: Performed By: #### C BC ####[facility] [id number] [place], WBC (Bld) [#/Vol] 17.8 10*3/uL High 4.5-11.5 [facility] Comment on above: Performed By: #### C BC ####[facility] [id number] [place], [place], CT CHEST/ABD/PELVIS W/ CONTR Christa 06-14-2022 CT CHEST/ABD/PELVIS W/ CONTRAST Normal [facility] Care Plan Noteon 06-14-2022 Fraud Manager Authentication Interface Message Text Normal [facility] Consultson 06-14-2022 Fraud Manager Authentication Interface Message Text Normal [facility] MAGNESIUMon 06-14-2022 Magnesium [Mass/Vol] 2.3 mg/dL Normal 1.6-2.8 [facility] Comment on above: Performed By: #### Tee Starkey, PHOS, MG ####[facility] [id number] [place], PHOSPHORUSon 06-14-2022 Phosphate [Mass/Vol] 2.6 mg/dL Normal 2.5-4.8 [facility] Comment on above: Performed By: #### Tee Starkey, PHOS, MG ####[facility] [id number] [place], Progress Noteson 06-14-2022 Fraud Manager Authentication Interface Message Text Normal [facility] Fraud Manager Authentication Interface Message Text Normal [facility] Fraud Manager Authentication Interface Message Text Normal [facility] BASIC METABOLIC PANELon 05-19 Anion gap [Moles/Vol] 10 mmol/L Normal 10-20 [facility] Comment on above: Performed By: #### Tee H8, MG, PHOS ####[facility] [id number] [place], Calcium [Mass/Vol] 7.1 mg/dL Low 8.4-10.4 [facility] Comment on above: Performed By: #### Tee H8, MG, PHOS ####[facility] [id number] [place], Chloride [Moles/Vol] 110 mmol/L Normal 97-111 [facility] Comment on above: Performed By: #### C H8, MG, PHOS ####[facility] [id number] [place], CO2 [Moles/Vol] 30 mmol/L Normal 21-30 [facility] Comment on above: Performed By: #### MG Tiny, PHOS ####[facility] [id number] [place], Creatinine [Mass/Vol] 0.50 mg/dL Low 0.80-1.30 [facility] Comment on above: Performed By: #### MG Tiny, PHOS ####[facility] [id number] [place], ESTIMATED GFR (CKD-EPI) 117 mL/min/1.73sqm Normal >=60 [facility] Comment on above: Result Comment: 2020 [...] Inclusion of Race in Diagnosing Kidney Disease. [place] Journal of Kidney Diseases 2021;79(2):268-88.e1.2. N Engl J Med 2020 Vol. 385 Issue 19 Pages 3235-9402 Performed By: #### MG Tiny PHOS ####[facility] [id number] [place], Glucose [Mass/Vol] 184 mg/dL High 80-116 [facility] Comment on above: Performed By: #### MG Tiny, PHOS ####[facility] [id number] [place], Potassium [Moles/Vol] 3.7 mmol/L Normal 3.3-5.3 [facility] Comment on above: Performed By: #### Tee Starkey MG, PHOS ####[facility] [id number] [place], Sodium [Moles/Vol] 146 mmol/L Normal 135-148 [facility] Comment on above: Performed By: #### C MG Starkey PHOS ####[facility] [id number] [place], Urea nitrogen [Mass/Vol] 39 mg/dL High 8-22 [facility] Comment on above: Performed By: #### C MG Starkey PHOS ####[facility] [id number] [place], BLOOD GAS, ARTERIALon 2022 CR SEFERINO 7.4 mmol/L High -2.0-2.0 [facility] Comment on above: Performed By: #### C R BGA ####[facility] [id number] [place], CR PCO2 39.8 mm Hg Normal 35.0-45.0 [facility] Comment on above: Performed By: #### C R BGA ####[facility] [id number] [place] [address], CR PHA 7.502 High 7.35-7.45 [facility] Comment on above: Performed By: #### C R BGA ####[facility] [id number] [place] [address], CR PO2 71 mm Hg Low 80-100 [facility] Comment on above: Performed By: #### C R BGA ####[facility] [id number] [place], FIO2 (CATEGORY) 60% Normal [facility] [place] Comment on above: Performed By: #### C R BGA ####S PATHOLOG[facility] [id number] [place], HCO3 (Bld) [Moles/Vol] 31 mmol/L High 22-28 e [facility] Comment on above: Performed By: #### C R BGA ####S PATHOLOGY [id number] [place], MODE Vent Normal [facility] Comment on above: Performed By: #### C R BGA ####[facility] [id number] [place], Oxygen saturation in Blood 94.9 % Low >=95.1 [facility] Comment on above: Performed By: #### C R BGA ####[facility] [id number] [place], COMPLETE BLOOD COUNTon 06-13 Erythrocyte distribution width (RBC) [Ratio] 15.1 % High 11.5-14.5 [facility] Comment on above: Performed By: #### C BC ####[facility] [id number] [place] [address], Hematocrit (Bld) [Volume fraction] 23.3 % Low 41.0-53.0 [facility] Comment on above: Performed By: #### C BC ####[facility] [id number] [place] [address], Hemoglobin (Bld) [Mass/Vol] 7.3 g/dL Low 13.9-16.3 [facility] Comment on above: Performed By: #### C BC ####[facility] [id number] [place] [address], MCH (RBC) [Entitic mass] 29.3 pg Normal 26.0-34.0 [facility] Comment on above: Performed By: #### C BC ####[facility] [id number] [place], MCHC (RBC) [Mass/Vol] 31.2 g/dL Low 32.0-35.9 [facility] Comment on above: Performed By: #### C BC ####[facility] [id number] [place], MCV (RBC) [Entitic vol] 94 fL Normal 80-100 [facility] Comment on above: Performed By: #### C BC ####[facility] [id number] [place], Platelet mean volume (Bld) [Entitic vol] 9.3 fL Normal 7.5-11.2 [facility] Comment on above: Performed By: #### C BC ####[facility] [id number] [place], Platelets (Bld) [#/Vol] 577 10*3/uL High 150-400 [facility] Comment on above: Performed By: #### C BC ####S PATHOLOGY [id number] [place], RBC (Bld) [#/Vol] 2.48 10*6/uL Low 4.50-5.90 [facility] Comment on above: Performed By: #### C BC ####S PATHOLOGY [id number] [place], WBC (Bld) [#/Vol] 20.1 10*3/uL High 4.5-11.5 [facility] Comment on above: Performed By: #### C BC ####[facility] [id number] [place], Care Plan Noteon 06-13-2022 Fraud Manager Authentication Interface Message Text Normal [facility] Consultson 06-13-2022 Fraud Manager Authentication Interface Message Text Normal [facility] Fraud Manager Authentication Interface Message Text Normal [facility] MAGNESIUMon 06-13-2022 Magnesium [Mass/Vol] 2.7 mg/dL Normal 1.6-2.8 [facility] Comment on above: Performed By: #### C H8, MG, PHOS ####[facility] [id number] [place], PHOSPHORUSon 06-13-2022 Phosphate [Mass/Vol] 2.4 mg/dL Low 2.5-4.8 [facility] Comment on above: Performed By: #### C H8, MG, PHOS ####S PATHOLOGY [id number] [place], Progress Noteson 06-13-2022 Fraud Manager Authentication Interface Message Text Normal [facility] Fraud Manager Authentication Interface Message Text Normal [facility] XR CHEST AP OR PA 1 VIEWon 0 06-13-2022 XR CHEST AP OR PA 1 VIEW Normal [facility] Anesthesia Postprocedure Belkis luationon 06-12-2022 Fraud Manager Authentication Interface Message Text Normal [facility] Anesthesia Preprocedure Eval uationon 06-12-2022 Fraud Manager Authentication Interface Message Text Normal [facility] Anesthesia Transfer Of Careo n 06-12-2022 Fraud Manager Authentication Interface Message Text Normal [facility] BASIC METABOLIC PANELon - Anion gap [Moles/Vol] 10 mmol/L Normal 10-20 [facility] Comment on above: Performed By: #### SKYLER FranksS, MG ####[facility] [id number] [place], Calcium [Mass/Vol] 7.3 mg/dL Low 8.4-10.4 [facility] [place] Comment on above: Performed By: #### Tee Starkey PHOS, MG ####[facility] [id number] [place], Chloride [Moles/Vol] 112 mmol/L High 97-111 [facility] [place] Comment on above: Performed By: #### Tee Starkey PHOS, MG ####[facility] [id number] [place], CO2 [Moles/Vol] 30 mmol/L Normal 21-30 [facility] Comment on above: Performed By: #### Tee Starkey PHOS, MG ####[facility] [id number] [place], Creatinine [Mass/Vol] 0.45 mg/dL Low 0.80-1.30 [facility] [place] Comment on above: Performed By: #### Tee Starkey PHOS, MG ####[facility] [id number] [place], ESTIMATED GFR (CKD-EPI) 121 mL/min/1.73sqm Normal >=60 [facility] [place] Comment on above: Result Comment: 2020 [...] Inclusion of Race in Diagnosing Kidney Disease. [place] Journal of Kidney Diseases 2021;79(2):268-88.e1.2. N Engl J Med 1 Vol. 385 Issue 19 Pages 4900-9568 Performed By: #### C H8, PHOS, MG ####[facility] [id number] [place], Glucose [Mass/Vol] 145 mg/dL High 80-116 [facility] Comment on above: Performed By: #### C H8, PHOS, MG ####[facility] [id number] [place], Potassium [Moles/Vol] 3.7 mmol/L Normal 3.3-5.3 [facility] Comment on above: Performed By: #### C H8, PHOS, MG ####[facility] [id number] [place], Sodium [Moles/Vol] 148 mmol/L Normal 135-148 [facility] [place] Comment on above: Performed By: #### C H8, PHOS, MG ####[facility] [id number] [place], Urea nitrogen [Mass/Vol] 31 mg/dL High 8-22 [facility] [place] Comment on above: Performed By: #### C H8, PHOS, MG ####[facility] [id number] [place], BLOOD GAS, ARTERIALon 2022 CR SEFERINO 7.2 mmol/L High -2.0-2.0 [facility] [place] Comment on above: Performed By: #### C R BGA ####[facility] [id number] [place], CR PCO2 38.8 mm Hg Normal 35.0-45.0 [facility] [place] Comment on above: Performed By: #### C R BGA ####[facility] [id number] [place], CR PHA 7.508 High 7.35-7.45 [facility] Comment on above: Performed By: #### C R BGA ####S PATHOLOGY [id number] [place], CR PO2 67 mm Hg Low 80-100 [facility] Comment on above: Performed By: #### C R BGA ####[facility] [id number] [place], FIO2 (CATEGORY) 60% Normal [facility] Comment on above: Performed By: #### C R BGA ####[facility] [id number] [place], HCO3 (Bld) [Moles/Vol] 31 mmol/L High 22-28 e [facility] Comment on above: Performed By: #### C R BGA ####S PATHOLOGY [id number] [place], MODE Vent Normal [facility] Comment on above: Performed By: #### C R BGA ####S PATHOLOGY [id number] [place], Oxygen saturation in Blood 94.7 % Low >=95.1 [facility] Comment on above: Performed By: #### C R BGA ####S PATHOLOGY [id number] [place], Blood Attestationon 06-13-19 Fraud Manager Authentication Interface Message Text Normal [facility] Brief Operative Noteon 06-12 Fraud Manager Authentication Interface Message Text Normal [facility] COMPLETE BLOOD COUNTon 06-12 Erythrocyte distribution width (RBC) [Ratio] 15.0 % High 11.5-14.5 [facility] Comment on above: Performed By: #### C BC ####[facility] [id number] [place], Hematocrit (Bld) [Volume fraction] 24.7 % Low 41.0-53.0 [facility] [place] Comment on above: Performed By: #### C BC ####S PATHOLOGY [id number] [place], Hemoglobin (Bld) [Mass/Vol] 7.9 g/dL Low 13.9-16.3 [facility] Comment on above: Performed By: #### C BC ####[facility] [id number] [place], MCH (RBC) [Entitic mass] 29.7 pg Normal 26.0-34.0 [facility] [place] Comment on above: Performed By: #### C BC ####[facility] [id number] [place], MCHC (RBC) [Mass/Vol] 32.0 g/dL Normal 32.0-35.9 [facility] Comment on above: Performed By: #### C BC ####[facility] [id number] [place], MCV (RBC) [Entitic vol] 93 fL Normal 80-100 [facility] Comment on above: Performed By: #### C BC ####[facility] [id number] [place], Platelet mean volume (Bld) [Entitic vol] 9.3 fL Normal 7.5-11.2 [facility] [place] Comment on above: Performed By: #### C BC ####[facility] [id number] [place], Platelets (Bld) [#/Vol] 585 10*3/uL High 150-400 [facility] [place] Comment on above: Performed By: #### C BC ####[facility] [id number] [place], RBC (Bld) [#/Vol] 2.66 10*6/uL Low 4.50-5.90 [facility] Comment on above: Performed By: #### C BC ####[facility] [id number] [place], WBC (Bld) [#/Vol] 24.4 10*3/uL High 4.5-11.5 [facility] [place] Comment on above: Performed By: #### C BC ####[facility] [id number] [place], [place], Care Plan Noteon 06-12-2022 Fraud Manager Authentication Interface Message Text Normal [facility] MAGNESIUMon 06-12-2022 Magnesium [Mass/Vol] 2.4 mg/dL Normal 1.6-2.8 [facility] Comment on above: Performed By: #### Tee H8, PHOS, MG ####[facility] [id number] [place], [place], OP Noteon 06-12-2022 Fraud Manager Authentication Interface Message Text Normal [facility] OR Nursingon 06-12-2022 Fraud Manager Authentication Interface Message Text 5 minute notification given to unit, extra trach collar and obturator sent with chart and patient Normal [facility] Fraud Manager Authentication Interface Message Text Reort and 1/2 hour notice called to ICU nurse. Normal [facility] PHOSPHORUSon 06-12-2022 Phosphate [Mass/Vol] 2.4 mg/dL Low 2.5-4.8 [facility] Comment on above: Performed By: #### Tee Starkey, PHOS, MG ####[facility] [id number] [place], [place], Progress Noteson 06-12-2022 Fraud Manager Authentication Interface Message Text Normal [facility] Fraud Manager Authentication Interface Message Text Normal [facility] Fraud Manager Authentication Interface Message Text Normal [facility] [...] to evaluation for fluid status MACRO: None [facility] Radiology Study observation (narrative) [facility] XR Chest Single viewOrdered By: Negrito Sapin on 06-12-2022 [facility] Work Phone: BASIC METABOLIC PANELon 05-19 Anion gap [Moles/Vol] 9 mmol/L Low 10-20 [facility] Comment on above: Performed By: #### C H8, MG, PHOS ####[facility] [id number] [place], [address] Calcium [Mass/Vol] 7.4 mg/dL Low 8.4-10.4 [facility] Comment on above: Performed By: #### C H8, MG, PHOS ####[facility] [id number] [place], Chloride [Moles/Vol] 113 mmol/L High 97-111 [facility] Comment on above: Performed By: #### C H8, MG, PHOS ####[facility] [id number] [place], CO2 [Moles/Vol] 32 mmol/L High 21-30 [facility] Comment on above: Performed By: #### C H8, MG, PHOS ####[facility] [id number] [place], Creatinine [Mass/Vol] 0.53 mg/dL Low 0.80-1.30 [facility] Comment on above: Performed By: #### C H8, MG, PHOS ####[facility] [id number] [place], ESTIMATED GFR (CKD-EPI) 115 mL/min/1.73sqm Normal >=60 [facility] Comment on above: Result Comment: 2020 [...] Inclusion of Race in Diagnosing Kidney Disease. [place] Journal of Kidney Diseases 2021;79(2):268-88.e1.2. N Engl J Med 2020 Vol. 385 Issue 19 Pages 5607-7259 Performed By: #### C H8, MG, PHOS ####[facility] [id number] [place], Glucose [Mass/Vol] 144 mg/dL High 80-116 [facility] [place] Comment on above: Performed By: #### C H8, MG, PHOS ####[facility] [id number] [place], Potassium [Moles/Vol] 4.2 mmol/L Normal 3.3-5.3 [facility] Comment on above: Performed By: #### MG Franks PHOS ####[facility] [id number] [place], Sodium [Moles/Vol] 150 mmol/L High 135-148 [facility] Comment on above: Performed By: #### MG Franks PHOS ####[facility] [id number] [place], Urea nitrogen [Mass/Vol] 33 mg/dL High 8-22 [facility] Comment on above: Performed By: #### MG Franks PHOS ####[facility] [id number] [place], BLOOD GAS, ARTERIALon 2022 CR SEFERINO 6.4 mmol/L High -2.0-2.0 [facility] Comment on above: Performed By: #### C R BGA ####[facility] [id number] [place], CR PCO2 39.9 mm Hg Normal 35.0-45.0 [facility] Comment on above: Performed By: #### C R BGA ####[facility] [id number] [place], CR PHA 7.489 High 7.35-7.45 [facility] Comment on above: Performed By: #### C R BGA ####S PATHOLOGY [id number] [place], CR PO2 62 mm Hg Low 80-100 [facility] Comment on above: Performed By: #### C R BGA ####S PATHOLOGY [id number] [place], FIO2 (CATEGORY) 50% Normal [facility] Comment on above: Performed By: #### C R BGA ####S PATHOLOGY [id number] [place], HCO3 (Bld) [Moles/Vol] 30 mmol/L High 22-28 e [facility] Comment on above: Performed By: #### C R BGA ####S PATHOLOGY [id number] [place], MODE Vent Normal [facility] Comment on above: Performed By: #### C R BGA ####S PATHOLOGY [id number] [place], Oxygen saturation in Blood 91.4 % Low >=95.1 [facility] Comment on above: Performed By: #### C R BGA ####[facility] [id number] [place], CR % O2 SAT Normal >=95.1 [facility] Comment on above: Result Comment: Canc ellation requested by Maddys is a corrected result. Previous result on 06/11/2022 at 0026 EDT was 99.0 % Performed By: #### C R BGA ####[facility] [id number] [place] [address], CR SEFERINO Normal -2.0-2.0 [facility] Comment on above: Result Comment: Canc ellation requested by Maddys is a corrected result. Previous result on 06/11/2022 at 0026 EDT was 6.3 mmol/L Performed By: #### C R BGA ####S PATHOLOGY [id number] [place] [address], CR HCO3 Normal 22-28 [facility] Comment on above: Result Comment: Canc ellation requested by Maddys is a corrected result. Previous result on 06/11/2022 at 0026 EDT was 30 mmol/L Performed By: #### C R BGA ####S PATHOLOGY CDISNXTIKF[address] [place] [address], CR PCO2 Normal 35.0-45.0 [facility] Comment on above: Result Comment: Canc ellation requested by Maddys is a corrected result. Previous result on 06/11/2022 at 0026 EDT was 42.4 mm Hg Performed By: #### C R BGA ####S PATHOLOGY QPXFIUMOWQ64[address] [place] [address], CR PHA Normal 7.35-7.45 [facility] Comment on above: Result Comment: Canc ellation requested by Dony is a corrected result. Previous result on 06/11/2022 at 0026 EDT was 7.467 Performed By: #### C R BGA ####[facility] [id number] [place], CR PO2 Normal 80-100 [facility] Comment on above: Result Comment: Canc ellation requested by Dony is a corrected result. Previous result on 06/11/2022 at 0026 EDT was 128 mm Hg Performed By: #### C R BGA ####[facility] [id number] [place], FIO2 (CATEGORY) Normal [facility] Comment on above: Result Comment: This is a corrected result. Previous result on 06/11/2022 at 0026 EDT was 50% Performed By: #### C R BGA ####[facility] [id number] [place], MODE Normal [facility] Comment on above: Result Comment: This is a corrected result. Previous result on 06/11/2022 at 0026 EDT was Vent Performed By: #### C R BGA ####[facility] [id number] [place], COMPLETE BLOOD COUNTon 06-11 Erythrocyte distribution width (RBC) [Ratio] 14.8 % High 11.5-14.5 [facility] Comment on above: Performed By: #### C BC ####[facility] [id number] [place], Hematocrit (Bld) [Volume fraction] 26.6 % Low 41.0-53.0 [facility] Comment on above: Performed By: #### C BC ####[facility] [id number] [place], Hemoglobin (Bld) [Mass/Vol] 8.1 g/dL Low 13.9-16.3 [facility] Comment on above: Performed By: #### C BC ####S PATHOLOGY [id number] [place], MCH (RBC) [Entitic mass] 28.5 pg Normal 26.0-34.0 [facility] Comment on above: Performed By: #### C BC ####S PATHOLOGY [id number] [place], MCHC (RBC) [Mass/Vol] 30.6 g/dL Low 32.0-35.9 [facility] [place] Comment on above: Performed By: #### C BC ####[facility] [id number] [place], MCV (RBC) [Entitic vol] 93 fL Normal 80-100 [facility] [place] Comment on above: Performed By: #### C BC ####[facility] [id number] [place], Platelet mean volume (Bld) [Entitic vol] 9.2 fL Normal 7.5-11.2 [facility] [place] Comment on above: Performed By: #### C BC ####[facility] [id number] [place], Platelets (Bld) [#/Vol] 523 10*3/uL High 150-400 [facility] [place] Comment on above: Performed By: #### C BC ####[facility] [id number] [place], RBC (Bld) [#/Vol] 2.85 10*6/uL Low 4.50-5.90 [facility] [place] Comment on above: Performed By: #### C BC ####[facility] [id number] [place], WBC (Bld) [#/Vol] 31.6 10*3/uL Critically high 4.5-11.5 [facility] Comment on above: Performed By: #### C BC ####S PATHOLOGY [id number] [place], Care Plan Noteon 06-11-2022 Fraud Manager Authentication Interface Message Text Normal [facility] Consultson 06-11-2022 Fraud Manager Authentication Interface Message Text Normal [facility] Fraud Manager Authentication Interface Message Text Normal [facility] MAGNESIUMon 06-11-2022 Magnesium [Mass/Vol] 2.4 mg/dL Normal 1.6-2.8 [facility] Comment on above: Performed By: #### C H8, MG, PHOS ####[facility] [id number] [place], PHOSPHORUSon 06-11-2022 Phosphate [Mass/Vol] 2.6 mg/dL Normal 2.5-4.8 [facility] Comment on above: Performed By: #### Tee HSuzi, MG, PHOS ####[facility] [id number] [place], Post-Procedure Noteon 2022 Fraud Manager Authentication Interface Message Text Normal [facility] Progress Noteson 06-11-2022 Fraud Manager Authentication Interface Message Text Normal [facility] Fraud Manager Authentication Interface Message Text Normal [facility] XR CHEST AP OR PA 1 VIEWon 0 06-11-2022 XR CHEST AP OR PA 1 VIEW Normal [facility] XR CHEST AP OR PA 1 VIEW Normal [facility] XR CHEST AP OR PA 1 VIEW Normal [facility] BASIC METABOLIC PANELon 05-19 Anion gap [Moles/Vol] 11 mmol/L Normal 10-20 [facility] Comment on above: Performed By: #### Tee H8, PHOS, MG ####[facility] [id number] [place], Calcium [Mass/Vol] 7.6 mg/dL Low 8.4-10.4 [facility] Comment on above: Performed By: #### Tee H8, PHOS, MG ####[facility] [id number] [place], Chloride [Moles/Vol] 113 mmol/L High 97-111 [facility] Comment on above: Performed By: #### C H8, PHOS, MG ####[facility] [id number] [place], CO2 [Moles/Vol] 29 mmol/L Normal 21-30 [facility] [place] Comment on above: Performed By: #### NAHID Franks MG ####[facility] [id number] [place], Creatinine [Mass/Vol] 0.40 mg/dL Low 0.80-1.30 [facility] [place] Comment on above: Performed By: #### NAHID Franks MG ####[facility] [id number] [place], ESTIMATED GFR (CKD-EPI) 125 mL/min/1.73sqm Normal >=60 [facility] [place] Comment on above: Result Comment: 2020 [...] Inclusion of Race in Diagnosing Kidney Disease. [place] Journal of Kidney Diseases 2021;79(2):268-88.e1.2. N Engl J Med 2020 Vol. 385 Issue 19 Pages 7394-9624 Performed By: #### NAHID Franks MG ####[facility] [id number] [place], Glucose [Mass/Vol] 175 mg/dL High 80-116 [facility] Comment on above: Performed By: #### NAHID Franks MG ####[facility] [id number] [place], Potassium [Moles/Vol] 4.0 mmol/L Normal 3.3-5.3 [facility] [place] Comment on above: Performed By: #### NAHID Franks MG ####[facility] [id number] [place], Sodium [Moles/Vol] 149 mmol/L High 135-148 [facility] Comment on above: Performed By: #### NAHID Franks MG ####[facility] [id number] [place], Urea nitrogen [Mass/Vol] 26 mg/dL High 8-22 [facility] Comment on above: Performed By: #### C H8, PHOS, MG ####[facility] [id number] [place], BLOOD CULTUREon 06-10-2022 Bacteria identified Cx Nom (Bld) C BLOOD: No Growth Normal [facility] Comment on above: Performed By: #### C BLOOD ####[facility] Oqjvucltt0209 [place], [place] BLOOD GAS, ARTERIALon 2022 CR SEFERINO 5.8 mmol/L High -2.0-2.0 [facility] Comment on above: Performed By: #### C R BGA ####[facility] [id number] [place] [address], CR PCO2 39.6 mm Hg Normal 35.0-45.0 [facility] Comment on above: Performed By: #### C R BGA ####[facility] [address]VOATVXBWL[address] [place] [address], CR PHA 7.483 High 7.35-7.45 [facility] Comment on above: Performed By: #### C R BGA ####[facility] [id number] [place], CR PO2 61 mm Hg Low 80-100 [facility] Comment on above: Performed By: #### C R BGA ####S PATHOLOGY [id number] [place], FIO2 (CATEGORY) 50% Normal [facility] Comment on above: Performed By: #### C R BGA ####S PATHOLOGY [id number] [place], HCO3 (Bld) [Moles/Vol] 29 mmol/L High 22-28 Th e [facility] Comment on above: Performed By: #### C R BGA ####S PATHOLOGY [id number] [place], MODE Vent Normal [facility] Comment on above: Performed By: #### C R BGA ####[facility] [id number] [place], Oxygen saturation in Blood 92.0 % Low >=95.1 [facility] Comment on above: Performed By: #### C R BGA ####[facility] [id number] [place], CLOSTRIDIUM DIFFICILEon 05-19 CLOSTRIDIUM DIFFICILE Negative Normal Negative [facility] [place] Comment on above: Order Comment: Resul ts obtained by using a real-time PCR based qualitative in vitro diagnostic test for the direct detection of the C. difficile toxin A gene (tcdA) and toxin B gene (tcdB) targets in stool specimens.Results should be interpreted in conjunction with information from the patient clinical evaluation and other diagnostic testing Performed By: #### C DD ####[facility] [address] [place], [place] [address] COMPLETE BLOOD COUNTon 06-10 Erythrocyte distribution width (RBC) [Ratio] 15.1 % High 11.5-14.5 [facility] Comment on above: Performed By: #### C BC ####[facility] [id number] [place], Hematocrit (Bld) [Volume fraction] 27.8 % Low 41.0-53.0 [facility] Comment on above: Performed By: #### C BC ####[facility] [id number] [place], Hemoglobin (Bld) [Mass/Vol] 8.8 g/dL Low 13.9-16.3 [facility] Comment on above: Performed By: #### C BC ####[facility] [id number] [place], MCH (RBC) [Entitic mass] 29.3 pg Normal 26.0-34.0 [facility] Comment on above: Performed By: #### C BC ####[facility] [id number] [place], MCHC (RBC) [Mass/Vol] 31.6 g/dL Low 32.0-35.9 [facility] Comment on above: Performed By: #### C BC ####S PATHOLOGY [id number] [place], MCV (RBC) [Entitic vol] 93 fL Normal 80-100 [facility] [place] Comment on above: Performed By: #### C BC ####S PATHOLOGY [id number] [place], Platelet mean volume (Bld) [Entitic vol] 8.8 fL Normal 7.5-11.2 [facility] [place] Comment on above: Performed By: #### C BC ####[facility] [id number] [place], Platelets (Bld) [#/Vol] 528 10*3/uL High 150-400 [facility] [place] Comment on above: Performed By: #### C BC ####[facility] [id number] [place], RBC (Bld) [#/Vol] 3.00 10*6/uL Low 4.50-5.90 [facility] [place] Comment on above: Performed By: #### C BC ####[facility] [id number] [place], WBC (Bld) [#/Vol] 29.7 10*3/uL Critically high 4.5-11.5 [facility] [place] Comment on above: Performed By: #### C BC ####[facility] [id number] [place], Care Plan Noteon 06-10-2022 Fraud Manager Authentication Interface Message Text Normal [facility] Consultson 06-10-2022 Fraud Manager Authentication Interface Message Text Normal [facility] [place] MAGNESIUMon 06-10-2022 Magnesium [Mass/Vol] 2.4 mg/dL Normal 1.6-2.8 [facility] [place] Comment on above: Performed By: #### C H8, PHOS, MG ####S PATHOLOGY [id number] [place], PHOSPHORUSon 06-10-2022 Phosphate [Mass/Vol] 2.6 mg/dL Normal 2.5-4.8 [facility] Comment on above: Performed By: #### C H8, NAHID, MG ####[facility] [id number] [place], Procedureson 06-10-2022 Fraud Manager Authentication Interface Message Text Normal [facility] Fraud Manager Authentication Interface Message Text Normal [facility] Fraud Manager Authentication Interface Message Text Normal [facility] Progress Noteson 06-10-2022 Fraud Manager Authentication Interface Message Text Normal [facility] Fraud Manager Authentication Interface Message Text Normal [facility] Fraud Manager Authentication Interface Message Text Preliminary Vascular Lab Report Duplex Bilateral Upper Extremity Vein Scan There is evidence of superficial vein thrombus in the right basilic vein and left cephalic vein. Official report to follow. Ashley Kramer RVT Normal [facility] Fraud Manager Authentication Interface Message Text Normal [facility] RESPIRATORY CULTURE, MISCon 06-10-2022 CLYDE Normal [facility] Comment on above: Order Comment: No No rmal Upper Respiratory Velvet Performed By: #### C RESP ####[facility] Hxioerzyu9189 [place], [place] RESPIRATORY CULTURE, MISC Normal [facility] Comment on above: Order Comment: No No rmal Upper Respiratory Velvet Performed By: #### C RESP ####[facility] Tvahekazz7911 [place], [place] RESPIRATORY CULTURE, MISC MRSA: Methicillin-Resistant Staphylococcus aureus NOT detected by chromagar screen. C RESP: No Growth GRAM STAIN: No Polymorphonuclear Leukocytes seen No Squamous Epithelial Cells seen No organisms seen Normal [facility] Comment on above: Performed By: #### C RESP ####[facility] Mhvzihjpw9051 [place], [place] Treatment Plan Noteon 2022 Fraud Manager Authentication Interface Message Text Normal [facility] XR CHEST 1 VIEW AP OR PAon 0 06-10-2022 XR CHEST 1 VIEW AP OR PA Normal [facility] XR CHEST AP OR PA 1 VIEWon 0 06-10-2022 XR CHEST AP OR PA 1 VIEW Normal [facility] BASIC METABOLIC PANELon - Anion gap [Moles/Vol] 13 mmol/L Normal 10-20 [facility] Comment on above: Performed By: #### C H8, PHOS, MG ####[facility] [id number] [place], Calcium [Mass/Vol] 7.5 mg/dL Low 8.4-10.4 [facility] Comment on above: Performed By: #### C H8, PHOS, MG ####[facility] [id number] [place], Chloride [Moles/Vol] 113 mmol/L High 97-111 [facility] Comment on above: Performed By: #### C H8, PHOS, MG ####[facility] [id number] [place], CO2 [Moles/Vol] 26 mmol/L Normal 21-30 [facility] Comment on above: Performed By: #### C H8, PHOS, MG ####[facility] [id number] [place], Creatinine [Mass/Vol] 0.44 mg/dL Low 0.80-1.30 [facility] [place] Comment on above: Performed By: #### C H8, PHOS, MG ####[facility] [id number] [place], ESTIMATED GFR (CKD-EPI) 121 mL/min/1.73sqm Normal >=60 [facility] [place] Comment on above: Result Comment: 2020 [...] Inclusion of Race in Diagnosing Kidney Disease. [place] Journal of Kidney Diseases 2021;79(2):268-88.e1.2. N Engl J Med 1 Vol. 385 Issue 19 Pages 5819-8567 Performed By: #### C H8, PHOS, MG ####[facility] [id number] [place], Glucose [Mass/Vol] 143 mg/dL High 80-116 [facility] Comment on above: Performed By: #### NAHID Franks MG ####[facility] [id number] [place], Potassium [Moles/Vol] 4.2 mmol/L Normal 3.3-5.3 [facility] [place] Comment on above: Performed By: #### NAHID Franks MG ####[facility] [id number] [place], Sodium [Moles/Vol] 148 mmol/L Normal 135-148 [facility] [place] Comment on above: Performed By: #### NAHID Franks MG ####[facility] [id number] [place], Urea nitrogen [Mass/Vol] 26 mg/dL High 8-22 [facility] Comment on above: Performed By: #### NAHID Franks MG ####[facility] [id number] [place], BLOOD GAS, ARTERIALon 2022 CR SEFERINO 3.1 mmol/L High -2.0-2.0 The [facility] Comment on above: Performed By: #### Tee R BGA ####[facility] [id number] [place], CR PCO2 42.1 mm Hg Normal 35.0-45.0 [facility] Comment on above: Performed By: #### C R BGA ####S PATHOLOGY [id number] [place], CR PHA 7.427 Normal 7.35-7.45 [facility] Comment on above: Performed By: #### C R BGA ####S PATHOLOGY [id number] [place], CR PO2 76 mm Hg Low 80-100 [facility] Comment on above: Performed By: #### C R BGA ####S PATHOLOGY [id number] [place], FIO2 (CATEGORY) 50% Normal [facility] Comment on above: Performed By: #### C R BGA ####[facility] [id number] [place], HCO3 (Bld) [Moles/Vol] 27 mmol/L Normal 22-28 Th e [facility] Comment on above: Performed By: #### C R BGA ####[facility] [id number] [place], [place], MODE Vent Normal [facility] Comment on above: Performed By: #### C R BGA ####[facility] [id number] [place], [place], Oxygen saturation in Blood 95.1 % Normal >=95.1 [facility] Comment on above: Performed By: #### C R BGA ####[facility] [id number] [place] [address], COMPLETE BLOOD COUNTon 06-09 Erythrocyte distribution width (RBC) [Ratio] 14.6 % High 11.5-14.5 [facility] Comment on above: Performed By: #### C BC ####[facility] [id number] [place] [address], Hematocrit (Bld) [Volume fraction] 26.2 % Low 41.0-53.0 [facility] [place] Comment on above: Performed By: #### C BC ####[facility] [id number] [place] [address], Hemoglobin (Bld) [Mass/Vol] 8.6 g/dL Low 13.9-16.3 [facility] Comment on above: Performed By: #### C BC ####[facility] [id number] [place], MCH (RBC) [Entitic mass] 30.0 pg Normal 26.0-34.0 [facility] [place] Comment on above: Performed By: #### C BC ####[facility] [id number] [place], MCHC (RBC) [Mass/Vol] 32.7 g/dL Normal 32.0-35.9 [facility] Comment on above: Performed By: #### C BC ####[facility] [id number] [place], MCV (RBC) [Entitic vol] 92 fL Normal 80-100 [facility] [place] Comment on above: Performed By: #### C BC ####[facility] [id number] [place], Platelet mean volume (Bld) [Entitic vol] 9.2 fL Normal 7.5-11.2 [facility] [place] Comment on above: Performed By: #### C BC ####[facility] [id number] [place], Platelets (Bld) [#/Vol] 463 10*3/uL High 150-400 [facility] Comment on above: Performed By: #### C BC ####[facility] [id number] [place], RBC (Bld) [#/Vol] 2.85 10*6/uL Low 4.50-5.90 [facility] [place] Comment on above: Performed By: #### C BC ####[facility] [id number] [place], WBC (Bld) [#/Vol] 24.9 10*3/uL High 4.5-11.5 [facility] [place] Comment on above: Performed By: #### Tee BC ####[facility] [id number] [place], Care Plan Noteon 06-09-2022 Fraud Manager Authentication Interface Message Text Normal [facility] [place] MAGNESIUMon 06-09-2022 Magnesium [Mass/Vol] 2.3 mg/dL Normal 1.6-2.8 [facility] [place] Comment on above: Performed By: ###Valentina Starkey, PHOS, MG ####S PATHOLOGY [id number] [place], PHOSPHORUSon 06-09-2022 Phosphate [Mass/Vol] 3.2 mg/dL Normal 2.5-4.8 [facility] Comment on above: Performed By: #### C H8, PHOS, MG ####[facility] [id number] [place], [place], Progress Noteson 06-09-2022 Fraud Manager Authentication Interface Message Text Normal [facility] XR CHEST 1 VIEW AP OR PAon 0 06-09-2022 XR CHEST 1 VIEW AP OR PA Normal [facility] XR CHEST 1 VIEW AP OR PA Normal [facility] BASIC METABOLIC PANELon 05-19 Anion gap [Moles/Vol] 10 mmol/L Normal 10-20 [facility] [place] Comment on above: Performed By: #### P HOS, CH8, MG ####[facility] [id number] [place], Calcium [Mass/Vol] 7.7 mg/dL Low 8.4-10.4 [facility] [place] Comment on above: Performed By: #### P HOS, CH8, MG ####[facility] [id number] [place], Chloride [Moles/Vol] 115 mmol/L High 97-111 [facility] [place] Comment on above: Performed By: #### P HOS, CH8, MG ####[facility] [id number] [place], CO2 [Moles/Vol] 28 mmol/L Normal 21-30 [facility] [place] Comment on above: Performed By: #### P HOS, CH8, MG ####[facility] [id number] [place], Creatinine [Mass/Vol] 0.47 mg/dL Low 0.80-1.30 [facility] [place] Comment on above: Performed By: #### P HOS, CH8, MG ####[facility] [id number] [place], ESTIMATED GFR (CKD-EPI) 119 mL/min/1.73sqm Normal >=60 [facility] [place] Comment on above: Result Comment: 2020 CKD EPI Equation using Creatinine without RaceComment: Estimated glomerular filtration rate (eGFR) is calculated without a race coefficient. Values should be interpreted in the context of the patient's full clinical presentation.Reference:1. Eddie Oliveira, Addy Vargas, Griselda TORRES, et al.. A Unifying Approach for GFR Estimation: Recommendations of the NKF-ASN Task Force on Reassessing the Inclusion of Race in Diagnosing Kidney Disease. [place] Journal of Kidney Diseases 2021;79(2):268-88.e1.2. N Engl J Med 2020 Vol. 385 Issue 19 Pages 3930-7966 Performed By: #### P HOS CH8, MG ####[facility] [id number] [place], Glucose [Mass/Vol] 128 mg/dL High 80-116 [facility] Comment on above: Performed By: #### P HOS CH8, MG ####[facility] [id number] [place], Potassium [Moles/Vol] 3.8 mmol/L Normal 3.3-5.3 [facility] Comment on above: Performed By: #### P HOS CH8, MG ####[facility] [id number] [place], Sodium [Moles/Vol] 149 mmol/L High 135-148 [facility] Comment on above: Performed By: #### P HOS CH8, MG ####[facility] [id number] [place], Urea nitrogen [Mass/Vol] 25 mg/dL High 8-22 [facility] Comment on above: Performed By: #### P HOS, CH8, MG ####[facility] [id number] [place], BLOOD GAS, ARTERIALon 2022 CR SEFERINO 1.6 mmol/L Normal -2.0-2.0 [facility] Comment on above: Performed By: #### C R BGA ####[facility] [id number] [place], CR PCO2 42.2 mm Hg Normal 35.0-45.0 [facility] Comment on above: Performed By: #### C R BGA ####[facility] [id number] [place], CR PHA 7.406 Normal 7.35-7.45 [facility] Comment on above: Performed By: #### C R BGA ####[facility] [id number] [place], CR PO2 96 mm Hg Normal 80-100 [facility] Comment on above: Performed By: #### C R BGA ####[facility] [id number] [place] [address], FIO2 (CATEGORY) 50% Normal [facility] Comment on above: Performed By: #### C R BGA ####[facility] [id number] [place], HCO3 (Bld) [Moles/Vol] 26 mmol/L Normal 22-28 e [facility] Comment on above: Performed By: #### C R BGA ####[facility] OFXGEFHZQR2[address] [place] [address], MODE Vent Normal [facility] [place] Comment on above: Performed By: #### C R BGA ####[facility] [id number] [place] [address], Oxygen saturation in Blood 97.5 % Normal >=95.1 [facility] Comment on above: Performed By: #### C R BGA ####[facility] EACSFNPSLC[address] [place] [address], CR SEFERINO 2.5 mmol/L High -2.0-2.0 [facility] [place] Comment on above: Performed By: #### C R BGA ####[facility] [id number] [place] [address], CR PCO2 39.6 mm Hg Normal 35.0-45.0 [facility] Comment on above: Performed By: #### C R BGA ####[facility] [id number] [place], CR PHA 7.438 Normal 7.35-7.45 [facility] [place] Comment on above: Performed By: #### C R BGA ####[facility] TIXSKPBRUV66[address] [place] [address], CR PO2 84 mm Hg Normal 80-100 [facility] Comment on above: Performed By: #### C R BGA ####S PATHOLOGY [id number] [place], FIO2 (CATEGORY) 60% Normal [facility] Comment on above: Performed By: #### C R BGA ####[facility] [id number] [place], HCO3 (Bld) [Moles/Vol] 26 mmol/L Normal 22-28 [facility] [place] Comment on above: Performed By: #### C R BGA ####[facility] [id number] [place], MODE Vent Normal [facility] Comment on above: Performed By: #### C R BGA ####[facility] [id number] [place], Oxygen saturation in Blood 96.9 % Normal >=95.1 [facility] [place] Comment on above: Performed By: #### C R BGA ####[facility] [id number] [place] [address], COMPLETE BLOOD COUNTon 06-08 Erythrocyte distribution width (RBC) [Ratio] 14.7 % High 11.5-14.5 [facility] [place] Comment on above: Performed By: #### C BC ####[facility] [id number] [place], Hematocrit (Bld) [Volume fraction] 25.6 % Low 41.0-53.0 [facility] Comment on above: Performed By: #### C BC ####[facility] [id number] [place], Hemoglobin (Bld) [Mass/Vol] 8.2 g/dL Low 13.9-16.3 [facility] Comment on above: Performed By: #### C BC ####[facility] [id number] [place], MCH (RBC) [Entitic mass] 29.9 pg Normal 26.0-34.0 [facility] Comment on above: Performed By: #### C BC ####S PATHOLOGY [id number] [place], MCHC (RBC) [Mass/Vol] 32.1 g/dL Normal 32.0-35.9 [facility] Comment on above: Performed By: #### C BC ####[facility] [id number] [place], MCV (RBC) [Entitic vol] 93 fL Normal 80-100 [facility] Comment on above: Performed By: #### C BC ####[facility] [id number] [place], Platelet mean volume (Bld) [Entitic vol] 9.2 fL Normal 7.5-11.2 [facility] [place] Comment on above: Performed By: #### C BC ####[facility] [id number] [place], Platelets (Bld) [#/Vol] 371 10*3/uL Normal 150-400 [facility] [place] Comment on above: Performed By: #### C BC ####[facility] [id number] [place], RBC (Bld) [#/Vol] 2.76 10*6/uL Low 4.50-5.90 [facility] [place] Comment on above: Performed By: #### C BC ####[facility] [id number] [place], WBC (Bld) [#/Vol] 24.7 10*3/uL High 4.5-11.5 [facility] [place] Comment on above: Performed By: #### C BC ####[facility] [id number] [place], Care Plan Noteon 06-08-2022 Fraud Manager Authentication Interface Message Text Normal [facility] Fraud Manager Authentication Interface Message Text Normal [facility] MAGNESIUMon 06-08-2022 Magnesium [Mass/Vol] 2.2 mg/dL Normal 1.6-2.8 [facility] Comment on above: Performed By: #### P HOS, CH8, MG ####[facility] [id number] [place], PHOSPHORUSon 06-08-2022 Phosphate [Mass/Vol] 3.9 mg/dL Normal 2.5-4.8 [facility] Comment on above: Performed By: #### P HOS, CH8, MG ####S PATHOLOGY [id number] [place], Progress Noteson 06-08-2022 Fraud Manager Authentication Interface Message Text Normal [facility] Fraud Manager Authentication Interface Message Text Normal [facility] XR CHEST 1 VIEW AP OR PAon 0 06-08-2022 XR CHEST 1 VIEW AP OR PA Normal [facility] XR CHEST 1 VIEW AP OR PA Normal [facility] BASIC METABOLIC PANELon 05-19 Anion gap [Moles/Vol] 12 mmol/L Normal 10-20 [facility] Comment on above: Performed By: #### C H8 ####[facility] [id number] [place], CO2 [Moles/Vol] 27 mmol/L Normal 21-30 [facility] Comment on above: Performed By: #### C H8 ####S PATHOLOGY [id number] [place], Glucose [Mass/Vol] 128 mg/dL High 80-116 [facility] Comment on above: Performed By: #### C H8 ####S PATHOLOGY [id number] [place], Potassium [Moles/Vol] 3.9 mmol/L Normal 3.3-5.3 [facility] Comment on above: Performed By: #### C H8 ####S PATHOLOGY [id number] [place], Sodium [Moles/Vol] 150 mmol/L High 135-148 [facility] Comment on above: Performed By: #### C H8 ####S PATHOLOGY [id number] [place], Anion gap [Moles/Vol] 10 mmol/L Normal 10-20 [facility] [place] Comment on above: Performed By: #### C H8 ####[facility] [id number] [place], Calcium [Mass/Vol] 7.8 mg/dL Low 8.4-10.4 [facility] Comment on above: Performed By: #### C H8 ####[facility] [id number] [place], Performed By: #### TERESA Marshall, PHOS ####S PATHOLOGY [id number] [place], Chloride [Moles/Vol] 115 mmol/L High 97-111 [facility] Comment on above: Performed By: #### C H8 ####[facility] [id number] [place], Performed By: #### Sam Cleveland CH8, PHOS ####S PATHOLOGY GVEGXYEKYK2734 [place], CO2 [Moles/Vol] 30 mmol/L Normal 21-30 [facility] [place] Comment on above: Performed By: #### C H8 ####[facility] [id number] [place], Creatinine [Mass/Vol] 0.48 mg/dL Low 0.80-1.30 [facility] Comment on above: Performed By: #### C H8 ####[facility] [id number] [place], ESTIMATED GFR (CKD-EPI) 118 mL/min/1.73sqm Normal >=60 [facility] Comment on above: Result Comment: 2020 [...] Inclusion of Race in Diagnosing Kidney Disease. [place] Journal of Kidney Diseases 2021;79(2):268-88.e1.2. N Engl J Med 1 Vol. 385 Issue 19 Pages 2993-3717 Performed By: #### Tee H8 ####S PATHOLOGY [id number] [place], Glucose [Mass/Vol] 133 mg/dL High 80-116 [facility] Comment on above: Performed By: #### Tee Hurst8 ####S PATHOLOGY MASHAWXKNR6405 [place], Potassium [Moles/Vol] 3.7 mmol/L Normal 3.3-5.3 [facility] Comment on above: Performed By: #### Tee Hurst8 ####S PATHOLOGY [id number] [place], Sodium [Moles/Vol] 151 mmol/L High 135-148 [facility] Comment on above: Performed By: #### Tee Hurst8 ####S PATHOLOGY RDYQZYOKMM9856 [place], Urea nitrogen [Mass/Vol] 27 mg/dL High 8-22 [facility] Comment on above: Performed By: #### Tee Starkey ####S PATHOLOGY IBEWIFVGZS6019 [place], Anion gap [Moles/Vol] 13 mmol/L Normal 10-20 [facility] Comment on above: Performed By: #### TERESA Marshall PHOS ####[facility] [id number] [place], CO2 [Moles/Vol] 29 mmol/L Normal 21-30 [facility] Comment on above: Performed By: #### TERESA Marshall, NAHID ####S PATHOLOGY YVUPLRIMLE1782 [place], Creatinine [Mass/Vol] 0.50 mg/dL Low 0.80-1.30 [facility] [place] Comment on above: Performed By: #### Tee Starkey ####S PATHOLOGY [id number] [place], Performed By: #### TERESA Marshall, NAHID ####S PATHOLOGY NOFHHQWTJG7338 [place], ESTIMATED GFR (CKD-EPI) 117 mL/min/1.73sqm Normal >=60 [facility] Comment on above: Result Comment: 2020 [...] Inclusion of Race in Diagnosing Kidney Disease. [place] Journal of Kidney Diseases 202;79(2):268-88.e1.2. N Engl J Med 2020 Vol. 385 Issue 19 Pages 2071-1390 Performed By: #### Tee H8 ####[facility] BPLJHMKXRQ3005 [place], Performed By: #### TERESA Marshall, PHOS ####[facility] [id number] [place], Glucose [Mass/Vol] 151 mg/dL High 80-116 [facility] Comment on above: Performed By: #### TERESA Marshall, PHOS ####[facility] DNRUZSMXZW9678 [place], Potassium [Moles/Vol] 3.5 mmol/L Normal 3.3-5.3 [facility] Comment on above: Performed By: #### TERESA Marshall, PHOS ####[facility] [id number] [place], Sodium [Moles/Vol] 153 mmol/L High 135-148 [facility] Comment on above: Performed By: #### TERESA Marshall, PHOS ####[facility] [id number] [place], Urea nitrogen [Mass/Vol] 28 mg/dL High 8-22 [facility] Comment on above: Performed By: #### TERESA Marshall, PHOS ####[facility] [id number] [place], BLOOD CULTUREon 06-07-2022 Bacteria identified Cx Nom (Bld) C BLOOD: No Growth Normal [facility] Comment on above: Performed By: #### C BLOOD ####[facility] Msndtekfe9277 [place], [place] BLOOD GAS, ARTERIALon 2022 CR SEFERINO 4.8 mmol/L High -2.0-2.0 [facility] Comment on above: Performed By: #### C R BGA ####[facility] VWFURNIMEB[address] [place] [address], CR PCO2 45.9 mm Hg High 35.0-45.0 [facility] Comment on above: Performed By: #### C R BGA ####[facility] PNEIKHKYCW98[address] [place] [address], CR PHA 7.421 Normal 7.35-7.45 [facility] Comment on above: Performed By: #### C R BGA ####[facility] MDXMBNHKIB32[address] [place] [address], CR PO2 72 mm Hg Low 80-100 [facility] Comment on above: Performed By: #### C R BGA ####[facility] UZRPSKBZHQ06[address] [place] [address], FIO2 (CATEGORY) 60% Normal [facility] Comment on above: Performed By: #### C R BGA ####[facility] [id number] [place], HCO3 (Bld) [Moles/Vol] 29 mmol/L High 22-28 Th e [facility] Comment on above: Performed By: #### C R BGA ####S PATHOLOGY JWMLEXELJV9580 [place], MODE Vent Normal [facility] Comment on above: Performed By: #### C R BGA ####S PATHOLOGY WWSYXXECPB0158 [place], Oxygen saturation in Blood 94.2 % Low >=95.1 [facility] Comment on above: Performed By: #### C R BGA ####S PATHOLOGY VUVRPJKJNO[address] [place] [address], COMPLETE BLOOD COUNTon 06-07 Erythrocyte distribution width (RBC) [Ratio] 14.7 % High 11.5-14.5 [facility] Comment on above: Performed By: #### C BC ####[facility] [id number] [place], Hematocrit (Bld) [Volume fraction] 25.1 % Low 41.0-53.0 [facility] [place] Comment on above: Performed By: #### C BC ####[facility] [address]ZJPHFZOO[address] [place] [address], Hemoglobin (Bld) [Mass/Vol] 8.0 g/dL Low 13.9-16.3 [facility] [place] Comment on above: Performed By: #### C BC ####[facility] CFCHXNZIRQ4[address] [place] [address], MCH (RBC) [Entitic mass] 29.2 pg Normal 26.0-34.0 [facility] [place] Comment on above: Performed By: #### C BC ####[facility] KIZUDVKYTN[address] [place] [address], MCHC (RBC) [Mass/Vol] 31.6 g/dL Low 32.0-35.9 [facility] Comment on above: Performed By: #### C BC ####[facility] [id number] [place], MCV (RBC) [Entitic vol] 92 fL Normal 80-100 [facility] Comment on above: Performed By: #### C BC ####[facility] VICCAZAFZJ[address] [place] [address], Platelet mean volume (Bld) [Entitic vol] 9.0 fL Normal 7.5-11.2 [facility] Comment on above: Performed By: #### C BC ####[facility] KJOTIFNNCK23[address] [place] [address], Platelets (Bld) [#/Vol] 306 10*3/uL Normal 150-400 [facility] [place] Comment on above: Performed By: #### C BC ####[facility] [id number] [place], RBC (Bld) [#/Vol] 2.73 10*6/uL Low 4.50-5.90 [facility] Comment on above: Performed By: #### C BC ####S PATHOLOGY [id number] [place], WBC (Bld) [#/Vol] 27.4 10*3/uL Critically high 4.5-11.5 [facility] Comment on above: Performed By: #### C BC ####[facility] [id number] [place], [place], CT CHEST/ABD/PELVIS W/ CONTR Christa 06-07-2022 CT CHEST/ABD/PELVIS W/ CONTRAST Normal [facility] Care Plan Noteon 06-07-2022 Fraud Manager Authentication Interface Message Text Normal [facility] Consultson 06-07-2022 Fraud Manager Authentication Interface Message Text Normal [facility] Fraud Manager Authentication Interface Message Text Normal [facility] MAGNESIUMon 06-07-2022 Magnesium [Mass/Vol] 2.1 mg/dL Normal 1.6-2.8 [facility] Comment on above: Performed By: #### TERESA Marshall, PHOS ####S PATHOLOGY [id number] [place], PHOSPHORUSon 06-07-2022 Phosphate [Mass/Vol] 3.4 mg/dL Normal 2.5-4.8 [facility] Comment on above: Performed By: ###TERESA Caceres, PHOS ####S PATHOLOGY JNVXOFYHBY1667 [place], Progress Noteson 06-07-2022 Fraud Manager Authentication Interface Message Text Normal [facility] Fraud Manager Authentication Interface Message Text Normal [facility] Fraud Manager Authentication Interface Message Text Normal [facility] Progress Notes - NoteWritero n 06-07-2022 Fraud Manager Authentication Interface Message Text Normal [facility] RESPIRATORY CULTURE, MISCon 06-07-2022 CLYDE Normal [facility] Comment on above: Order Comment: THIS IS A PRELIMINARY REPORT. Final results will follow. Results of the preliminary report may be modified as additional information becomes available. Performed By: #### C RESP ####[facility] Oguedckzn3560 [place], [place] RESPIRATORY CULTURE, MISC Normal [facility] Comment on above: Order Comment: THIS IS A PRELIMINARY REPORT. Final results will follow. Results of the preliminary report may be modified as additional information becomes available. Performed By: #### C RESP ####[facility] Srxlilbrk1472 [place], [place] XR CHEST 1 VIEW AP OR PAon 0 06-07-2022 XR CHEST 1 VIEW AP OR PA Normal [facility] 1:1 Interactionon 06-06-2022 Fraud Manager Authentication Interface Message Text Normal [facility] BASIC METABOLIC PANELon 05-19 Anion gap [Moles/Vol] 13 mmol/L Normal 10-20 [facility] Comment on above: Performed By: #### C H8 ####[facility] [id number] [place], [place], Calcium [Mass/Vol] 8.0 mg/dL Low 8.4-10.4 [facility] Comment on above: Performed By: #### C H8 ####S PATHOLOGY [id number] [place], Chloride [Moles/Vol] 113 mmol/L High 97-111 [facility] Comment on above: Performed By: #### C H8 ####S PATHOLOGY [id number] [place], CO2 [Moles/Vol] 30 mmol/L Normal 21-30 [facility] Comment on above: Performed By: #### C H8 ####[facility] [id number] [place], Creatinine [Mass/Vol] 0.52 mg/dL Low 0.80-1.30 [facility] Comment on above: Performed By: #### C H8 ####[facility] [id number] [place], ESTIMATED GFR (CKD-EPI) 115 mL/min/1.73sqm Normal >=60 [facility] Comment on above: Result Comment: 2020 [...] Inclusion of Race in Diagnosing Kidney Disease. [place] Journal of Kidney Diseases 2021;79(2):268-88.e1.2. N Engl J Med 2020 Vol. 385 Issue 19 Pages 6984-6221 Performed By: #### C H8 ####[facility] [id number] [place], Glucose [Mass/Vol] 135 mg/dL High 80-116 The [facility] Comment on above: Performed By: #### C H8 ####[facility] [id number] [place], Potassium [Moles/Vol] 3.4 mmol/L Normal 3.3-5.3 The [facility] [place] Comment on above: Performed By: #### C H8 ####[facility] [id number] [place], Sodium [Moles/Vol] 153 mmol/L High 135-148 [facility] Comment on above: Performed By: #### C H8 ####[facility] [id number] [place], Urea nitrogen [Mass/Vol] 27 mg/dL High 8-22 The [facility] Comment on above: Performed By: #### C H8 ####[facility] [id number] [place], Anion gap [Moles/Vol] 10 mmol/L Normal 10-20 The [facility] [place] Comment on above: Performed By: ###NAHID Caceres, CH8 ####[facility] [id number] [place], Calcium [Mass/Vol] 7.9 mg/dL Low 8.4-10.4 [facility] Comment on above: Performed By: #### NAHID Marshall CH8 ####[facility] [id number] [place], Chloride [Moles/Vol] 113 mmol/L High 97-111 [facility] Comment on above: Performed By: #### NAHID Marshall CH8 ####[facility] [id number] [place], CO2 [Moles/Vol] 34 mmol/L High 21-30 [facility] Comment on above: Performed By: #### NAHID Marshall CH8 ####[facility] [id number] [place], Creatinine [Mass/Vol] 0.48 mg/dL Low 0.80-1.30 [facility] Comment on above: Performed By: #### NAHID Marshall CH8 ####S PATHOLOGY [id number] [place], ESTIMATED GFR (CKD-EPI) 118 mL/min/1.73sqm Normal >=60 [facility] Comment on above: Result Comment: 2020 [...] Inclusion of Race in Diagnosing Kidney Disease. [place] Journal of Kidney Diseases 2021;79(2):268-88.e1.2. N Engl J Med 2020 Vol. 385 Issue 19 Pages 2729-2071 Performed By: #### NAHID Marshall CH8 ####[facility] [id number] [place], Glucose [Mass/Vol] 130 mg/dL High 80-116 [facility] Comment on above: Performed By: #### NAHID Marshall CH8 ####[facility] [id number] [place], Potassium [Moles/Vol] 3.5 mmol/L Normal 3.3-5.3 The [facility] [place] Comment on above: Performed By: #### NAHID Marshall CH8 ####S PATHOLOGY [id number] [place], Sodium [Moles/Vol] 153 mmol/L High 135-148 The [facility] Comment on above: Performed By: #### NAHID Marshall CH8 ####S PATHOLOGY [id number] [place], Urea nitrogen [Mass/Vol] 27 mg/dL High 8-22 The [facility] Comment on above: Performed By: #### NAHID Marshall CH8 ####[facility] [id number] [place], BLOOD GAS, ARTERIALon 2022 CR SEFERINO 8.7 mmol/L High -2.0-2.0 The [facility] Comment on above: Performed By: #### C R BGA ####[facility] [id number] [place], CR PCO2 43.9 mm Hg Normal 35.0-45.0 The [facility] Comment on above: Performed By: #### C R BGA ####S PATHOLOGY [id number] [place], CR PHA 7.486 High 7.35-7.45 The [facility] Comment on above: Performed By: #### C R BGA ####S PATHOLOGY [id number] [place], CR PO2 53 mm Hg Low 80-100 The [facility] Comment on above: Performed By: #### C R BGA ####S PATHOLOGY [id number] [place], FIO2 (CATEGORY) 60% Normal The [facility] Comment on above: Performed By: #### C R BGA ####S PATHOLOGY [id number] [place], HCO3 (Bld) [Moles/Vol] 33 mmol/L High 22-28 e [facility] Comment on above: Performed By: #### C R BGA ####[facility] [id number] [place], MODE Vent Normal [facility] Comment on above: Performed By: #### C R BGA ####[facility] [id number] [place], Oxygen saturation in Blood 88.2 % Low >=95.1 The [facility] [place] Comment on above: Performed By: #### C R BGA ####[facility] [id number] [place], COMPLETE BLOOD COUNTon 06-06 Erythrocyte distribution width (RBC) [Ratio] 14.7 % High 11.5-14.5 The [facility] [place] Comment on above: Performed By: #### C BC ####[facility] [id number] [place], Hematocrit (Bld) [Volume fraction] 23.2 % Low 41.0-53.0 The [facility] [place] Comment on above: Performed By: #### C BC ####[facility] [id number] [place], Hemoglobin (Bld) [Mass/Vol] 7.4 g/dL Low 13.9-16.3 The [facility] [place] Comment on above: Performed By: #### C BC ####[facility] [id number] [place], MCH (RBC) [Entitic mass] 29.3 pg Normal 26.0-34.0 The [facility] Comment on above: Performed By: #### C BC ####[facility] [id number] [place], MCHC (RBC) [Mass/Vol] 32.0 g/dL Normal 32.0-35.9 [facility] Comment on above: Performed By: #### C BC ####[facility] [id number] [place], MCV (RBC) [Entitic vol] 92 fL Normal 80-100 [facility] Comment on above: Performed By: #### C BC ####[facility] [id number] [place], Platelet mean volume (Bld) [Entitic vol] 8.8 fL Normal 7.5-11.2 [facility] Comment on above: Performed By: #### Tee BC ####S PATHOLOGY [id number] [place], Platelets (Bld) [#/Vol] 244 10*3/uL Normal 150-400 [facility] Comment on above: Performed By: #### C BC ####S PATHOLOGY [id number] [place], RBC (Bld) [#/Vol] 2.53 10*6/uL Low 4.50-5.90 [facility] Comment on above: Performed By: #### Tee BC ####[facility] [id number] [place], WBC (Bld) [#/Vol] 28.3 10*3/uL Critically high 4.5-11.5 [facility] Comment on above: Performed By: #### Tee BC ####[facility] [id number] [place], Care Plan Noteon 06-06-2022 Fraud Manager Authentication Interface Message Text Normal [facility] Consultson 06-06-2022 Fraud Manager Authentication Interface Message Text Normal [facility] MAGNESIUMon 06-06-2022 Magnesium [Mass/Vol] 2.2 mg/dL Normal 1.6-2.8 [facility] Comment on above: Performed By: #### NAHID Marshall CH8 ####[facility] [id number] [place], PHOSPHORUSon 06-06-2022 Phosphate [Mass/Vol] 1.8 mg/dL Low 2.5-4.8 [facility] Comment on above: Performed By: #### NAHID Marshall CH8 ####[facility] [id number] [place], Progress Noteson 06-06-2022 Fraud Manager Authentication Interface Message Text Chart accessed for [employer] 3 follow up Normal [facility] Fraud Manager Authentication Interface Message Text Normal [facility] XR CHEST 1 VIEW AP OR PAon 0 06-06-2022 XR CHEST 1 VIEW AP OR PA Normal [facility] BASIC METABOLIC PANELon 04- Anion gap [Moles/Vol] 12 mmol/L Normal 10-20 [facility] Comment on above: Performed By: #### C H8, MG, PHOS ####[facility] [id number] [place], Calcium [Mass/Vol] 7.6 mg/dL Low 8.4-10.4 [facility] Comment on above: Performed By: #### Tee H8 MG, PHOS ####[facility] [id number] [place], Chloride [Moles/Vol] 114 mmol/L High 97-111 [facility] Comment on above: Performed By: #### Tee H8 MG, PHOS ####[facility] [id number] [place], CO2 [Moles/Vol] 28 mmol/L Normal 21-30 [facility] Comment on above: Performed By: #### Tee H8 MG, PHOS ####[facility] [id number] [place], Creatinine [Mass/Vol] 0.45 mg/dL Low 0.80-1.30 [facility] Comment on above: Performed By: #### C H8 MG, PHOS ####[facility] [id number] [place], ESTIMATED GFR (CKD-EPI) 121 mL/min/1.73sqm Normal >=60 [facility] Comment on above: Result Comment: 2020 [...] Inclusion of Race in Diagnosing Kidney Disease. [place] Journal of Kidney Diseases 2021;79(2):268-88.e1.2. N Engl J Med 1 Vol. 385 Issue 19 Pages 3691-9154 Performed By: #### MG Franks PHOS ####[facility] [id number] [place], Glucose [Mass/Vol] 123 mg/dL High 80-116 [facility] Comment on above: Performed By: #### MG Tiny, SKYLERS ####[facility] [id number] [place], Potassium [Moles/Vol] 3.8 mmol/L Normal 3.3-5.3 [facility] Comment on above: Performed By: #### MG Franks PHOS ####[facility] [id number] [place], Sodium [Moles/Vol] 150 mmol/L High 135-148 The [facility] Comment on above: Performed By: #### MG Franks PHOS ####[facility] NTAIAFFCNZ5135 [place], Urea nitrogen [Mass/Vol] 23 mg/dL High 8-22 The [facility] Comment on above: Performed By: #### MG Franks PHOS ####[facility] [id number] [place], BLOOD CULTUREon 06-05-2022 Bacteria identified Cx Nom (Bld) C BLOOD: No Growth Normal The [facility] Comment on above: Performed By: #### C BLOOD ####[facility] Tfwjfdmtr1832 [place], [place] BLOOD GAS, ARTERIALon 2022 CR SEFERINO 5.6 mmol/L High -2.0-2.0 The [facility] Comment on above: Performed By: #### C R BGA ####[facility] [id number] [place], CR PCO2 42.4 mm Hg Normal 35.0-45.0 [facility] Comment on above: Performed By: #### C R BGA ####[facility] [id number] [place], CR PHA 7.457 High 7.35-7.45 The [facility] Comment on above: Performed By: #### C R BGA ####[facility] [id number] [place] [address], CR PO2 146 mm Hg High 80-100 [facility] Comment on above: Performed By: #### C R BGA ####[facility] HINDJAJRHI[address] [place] [address], FIO2 (CATEGORY) 100% Normal [facility] Comment on above: Performed By: #### C R BGA ####[facility] YJUUSLKNJD09[address] [place] [address], HCO3 (Bld) [Moles/Vol] 30 mmol/L High 22-28 Th e [facility] Comment on above: Performed By: #### C R BGA ####[facility] [id number] [place] [address], MODE Vent Normal [facility] Comment on above: Performed By: #### C R BGA ####[facility] DJETPSHFZD256[address] [place] [address], Oxygen saturation in Blood 99.0 % Normal >=95.1 [facility] Comment on above: Performed By: #### C R BGA ####[facility] VEIUNIVGMI774[address] [place] [address], CR SEFERINO 5.3 mmol/L High -2.0-2.0 [facility] Comment on above: Performed By: #### C R BGA ####[facility] BJEJUOMOWS[address] [place] [address], CR PCO2 46.8 mm Hg High 35.0-45.0 [facility] Comment on above: Performed By: #### C R BGA ####[facility] GGURJUDJTC6[address] [place] [address], CR PHA 7.420 Normal 7.35-7.45 [facility] Comment on above: Performed By: #### C R BGA ####S PATHOLOGY [id number] [place], CR PO2 141 mm Hg High 80-100 [facility] Comment on above: Performed By: #### C R BGA ####S PATHOLOGY [id number] [place], FIO2 (CATEGORY) 100% Normal [facility] Comment on above: Performed By: #### C R BGA ####[facility] [id number] [place], HCO3 (Bld) [Moles/Vol] 30 mmol/L High 22-28 e [facility] Comment on above: Performed By: #### C R BGA ####[facility] [id number] [place] [address], MODE Vent Normal [facility] Comment on above: Performed By: #### C R BGA ####[facility] [id number] [place] [address], Oxygen saturation in Blood 99.0 % Normal >=95.1 [facility] Comment on above: Performed By: #### C R BGA ####[facility] YYHAIVLIHC[address] [place] [address], COMPLETE BLOOD COUNTon 06-05 Erythrocyte distribution width (RBC) [Ratio] 14.5 % Normal 11.5-14.5 [facility] Comment on above: Performed By: #### C BC ####[facility] GUZNPFFUPK8[address] [place] [address], Hematocrit (Bld) [Volume fraction] 22.7 % Low 41.0-53.0 [facility] Comment on above: Performed By: #### C BC ####[facility] [id number] [place] [address], Hemoglobin (Bld) [Mass/Vol] 7.6 g/dL Low 13.9-16.3 [facility] Comment on above: Performed By: #### C BC ####[facility] [id number] [place] [address], MCH (RBC) [Entitic mass] 30.2 pg Normal 26.0-34.0 [facility] Comment on above: Performed By: #### C BC ####[facility] [id number] [place], MCHC (RBC) [Mass/Vol] 33.5 g/dL Normal 32.0-35.9 [facility] Comment on above: Performed By: #### C BC ####[facility] [id number] [place], MCV (RBC) [Entitic vol] 90 fL Normal 80-100 [facility] Comment on above: Performed By: #### C BC ####[facility] [id number] [place], Platelet mean volume (Bld) [Entitic vol] 8.4 fL Normal 7.5-11.2 [facility] Comment on above: Performed By: #### C BC ####[facility] OENCFQRXOG[address] [place] [address], Platelets (Bld) [#/Vol] 198 10*3/uL Normal 150-400 [facility] Comment on above: Performed By: #### C BC ####[facility] [id number] [place], RBC (Bld) [#/Vol] 2.52 10*6/uL Low 4.50-5.90 [facility] Comment on above: Performed By: #### C BC ####[facility] DGTIJHDHYU[address] [place] [address], WBC (Bld) [#/Vol] 23.6 10*3/uL High 4.5-11.5 The [facility] [place] Comment on above: Performed By: #### C BC ####[facility] [id number] [place], Care Plan Noteon 06-05-2022 Fraud Manager Authentication Interface Message Text Normal [facility] MAGNESIUMon 06-05-2022 Magnesium [Mass/Vol] 2.2 mg/dL Normal 1.6-2.8 [facility] Comment on above: Performed By: #### C H8, MG, PHOS ####[facility] [id number] [place], PHOSPHORUSon 06-05-2022 Phosphate [Mass/Vol] 1.7 mg/dL Low 2.5-4.8 [facility] Comment on above: Performed By: #### Tee Starkey MG, PHOS ####[facility] [id number] [place], Progress Noteson 06-05-2022 Fraud Manager Authentication Interface Message Text Normal [facility] Fraud Manager Authentication Interface Message Text Normal [facility] Fraud Manager Authentication Interface Message Text Normal [facility] Fraud Manager Authentication Interface Message Text 2054 Dr. Baez notified of critical blood culture: anaerobic bottle yields Gram Positive Cocci In Clusters and Staphylococcus aureus. Dr. Baez read back critical results. New orders received. Normal The [facility] XR CHEST 1 VIEW AP OR PAon 0 06-05-2022 XR CHEST 1 VIEW AP OR PA Normal [facility] BASIC METABOLIC PANELon 05-18 Anion gap [Moles/Vol] 10 mmol/L Normal 10-20 [facility] Comment on above: Performed By: #### Tee Starkey MG, PHOS ####[facility] [id number] [place], Calcium [Mass/Vol] 7.7 mg/dL Low 8.4-10.4 [facility] Comment on above: Performed By: #### Tee Starkey MG, PHOS ####[facility] [id number] [place], Chloride [Moles/Vol] 112 mmol/L High 97-111 The [facility] [place] Comment on above: Performed By: #### Tee Starkey MG, PHOS ####[facility] [id number] [place], CO2 [Moles/Vol] 27 mmol/L Normal 21-30 [facility] Comment on above: Performed By: #### Tee HSuzi MG, PHOS ####[facility] [id number] [place], Creatinine [Mass/Vol] 0.63 mg/dL Low 0.80-1.30 [facility] Comment on above: Performed By: #### MG Franks PHOS ####[facility] [id number] [place], ESTIMATED GFR (CKD-EPI) 109 mL/min/1.73sqm Normal >=60 [facility] Comment on above: Result Comment: [...] Inclusion of Race in Diagnosing Kidney Disease. [place] Journal of Kidney Diseases 2021;79(2):268-88.e1.2. N Engl J Med 1 Vol. 385 Issue 19 Pages 5975-6320 Performed By: #### MG Franks PHOS ####[facility] [id number] [place], Glucose [Mass/Vol] 137 mg/dL High 80-116 [facility] Comment on above: Performed By: #### MG Franks PHOS ####[facility] [id number] [place], Potassium [Moles/Vol] 3.8 mmol/L Normal 3.3-5.3 [facility] Comment on above: Performed By: #### MG Franks PHOS ####[facility] [id number] [place], Sodium [Moles/Vol] 145 mmol/L Normal 135-148 [facility] Comment on above: Performed By: ###MG Bustos PHOS ####[facility] [id number] [place], Urea nitrogen [Mass/Vol] 33 mg/dL High 8-22 [facility] Comment on above: Performed By: #### C H8, MG, PHOS ####[facility] [id number] [place], BLOOD GAS, ARTERIALon 2022 CR % O2 SAT > 99.4 Normal >=95.1 [facility] Comment on above: Performed By: #### C R BGA ####[facility] [id number] [place], CR SEFERINO 4.4 mmol/L High -2.0-2.0 [facility] Comment on above: Performed By: #### C R BGA ####[facility] [id number] [place], CR PCO2 44.9 mm Hg Normal 35.0-45.0 [facility] Comment on above: Performed By: #### C R BGA ####[facility] IAHOOICINA[address] [place] [address], CR PHA 7.423 Normal 7.35-7.45 [facility] Comment on above: Performed By: #### C R BGA ####[facility] MAHKISHKCR[address] [place] [address], CR PO2 144 mm Hg High 80-100 [facility] Comment on above: Performed By: #### C R BGA ####[facility] RFULYTTKWX12[address] [place] [address], FIO2 (CATEGORY) 100% Normal [facility] Comment on above: Performed By: #### C R BGA ####[facility] [id number] [place] [address], HCO3 (Bld) [Moles/Vol] 29 mmol/L High 22-28 Th e [facility] Comment on above: Performed By: #### C R BGA ####[facility] [id number] [place], MODE Vent Normal [facility] Comment on above: Performed By: #### C R BGA ####[facility] [id number] [place], CR SEFERINO 2.9 mmol/L High -2.0-2.0 [facility] Comment on above: Performed By: #### C R BGA ####[facility] [id number] [place], CR PCO2 43.9 mm Hg Normal 35.0-45.0 [facility] Comment on above: Performed By: #### C R BGA ####[facility] DAKOBZMDUG[address] [place] [address], CR PHA 7.409 Normal 7.35-7.45 [facility] Comment on above: Performed By: #### C R BGA ####[facility] [id number] [place], CR PO2 86 mm Hg Normal 80-100 [facility] Comment on above: Performed By: #### C R BGA ####[facility] [id number] [place] [address], FIO2 (CATEGORY) 60% Normal [facility] Comment on above: Performed By: #### C R BGA ####[facility] LXSDWGQPEV[address] [place] [address], HCO3 (Bld) [Moles/Vol] 27 mmol/L Normal 22-28 e [facility] [place] Comment on above: Performed By: #### C R BGA ####[facility] [id number] [place] [address], MODE Vent Normal The [facility] [place] Comment on above: Performed By: #### C R BGA ####[facility] [id number] [place], Oxygen saturation in Blood 97.3 % Normal >=95.1 The [facility] Comment on above: Performed By: #### C R BGA ####[facility] [id number] [place], CR SEFERINO 2.0 mmol/L Normal -2.0-2.0 The [facility] [place] Comment on above: Performed By: #### C R BGA ####[facility] FKKQAPMCHP[address] [place] [address], CR PCO2 46.0 mm Hg High 35.0-45.0 [facility] Comment on above: Performed By: #### C R BGA ####[facility] [id number] [place], CR PHA 7.384 Normal 7.35-7.45 [facility] [facility] Comment on above: Performed By: #### C R BGA ####[facility] [id number] [place], [place], CR PO2 111 mm Hg High 80-100 [facility] Comment on above: Performed By: #### C R BGA ####[facility] [id number] [place], FIO2 (CATEGORY) 80% Normal [facility] Comment on above: Performed By: #### C R BGA ####[facility] [id number] [place] [address], Oxygen saturation in Blood 98.9 % Normal >=95.1 [facility] Comment on above: Performed By: #### C R BGA ####[facility] [id number] [place] [address], COMPLETE BLOOD COUNTon 06-04 Erythrocyte distribution width (RBC) [Ratio] 14.3 % Normal 11.5-14.5 [facility] Comment on above: Performed By: #### C BC ####[facility] [id number] [place] [address], Hematocrit (Bld) [Volume fraction] 22.6 % Low 41.0-53.0 [facility] Comment on above: Performed By: #### C BC ####[facility] [id number] [place] [address], Hemoglobin (Bld) [Mass/Vol] 7.5 g/dL Low 13.9-16.3 [facility] Comment on above: Performed By: #### C BC ####[facility] [id number] [place] [address], MCH (RBC) [Entitic mass] 30.1 pg Normal 26.0-34.0 [facility] Comment on above: Performed By: #### C BC ####[facility] [id number] [place], MCHC (RBC) [Mass/Vol] 33.5 g/dL Normal 32.0-35.9 [facility] Comment on above: Performed By: #### C BC ####[facility] [id number] [place], MCV (RBC) [Entitic vol] 90 fL Normal 80-100 [facility] Comment on above: Performed By: #### C BC ####[facility] [id number] [place], Platelet mean volume (Bld) [Entitic vol] 8.9 fL Normal 7.5-11.2 [facility] Comment on above: Performed By: #### C BC ####[facility] [id number] [place], Platelets (Bld) [#/Vol] 179 10*3/uL Normal 150-400 [facility] [place] Comment on above: Performed By: #### C BC ####[facility] [id number] [place], RBC (Bld) [#/Vol] 2.51 10*6/uL Low 4.50-5.90 [facility] Comment on above: Performed By: #### C BC ####[facility] [id number] [place], WBC (Bld) [#/Vol] 22.9 10*3/uL High 4.5-11.5 [facility] Comment on above: Performed By: #### C BC ####[facility] [id number] [place], Erythrocyte distribution width (RBC) [Ratio] 13.4 % Normal 11.5-14.5 [facility] Comment on above: Performed By: #### C BC ####[facility] [id number] [place], Hematocrit (Bld) [Volume fraction] 18.3 % Critically low 41.0-53.0 [facility] Comment on above: Performed By: #### C BC ####[facility] [id number] [place], Hemoglobin (Bld) [Mass/Vol] 5.8 g/dL Critically low 13.9-16.3 [facility] Comment on above: Performed By: #### C BC ####[facility] [id number] [place], MCH (RBC) [Entitic mass] 29.5 pg Normal 26.0-34.0 [facility] Comment on above: Performed By: #### C BC ####[facility] [id number] [place], MCHC (RBC) [Mass/Vol] 31.6 g/dL Low 32.0-35.9 [facility] Comment on above: Performed By: #### C BC ####[facility] [id number] [place], MCV (RBC) [Entitic vol] 93 fL Normal 80-100 [facility] Comment on above: Performed By: #### C BC ####[facility] [id number] [place], Platelet mean volume (Bld) [Entitic vol] 8.7 fL Normal 7.5-11.2 [facility] Comment on above: Performed By: #### C BC ####[facility] [id number] [place], Platelets (Bld) [#/Vol] 189 10*3/uL Normal 150-400 [facility] Comment on above: Performed By: #### C BC ####[facility] [id number] [place], RBC (Bld) [#/Vol] 1.96 10*6/uL Low 4.50-5.90 [facility] Comment on above: Performed By: #### C BC ####[facility] [id number] [place], WBC (Bld) [#/Vol] 22.3 10*3/uL High 4.5-11.5 [facility] [place] Comment on above: Performed By: #### C BC ####[facility] [id number] [place], Erythrocyte distribution width (RBC) [Ratio] 13.4 % Normal 11.5-14.5 [facility] Comment on above: Performed By: #### C BC ####[facility] [id number] [place], Hematocrit (Bld) [Volume fraction] 18.3 % Critically low 41.0-53.0 [facility] Comment on above: Performed By: #### C BC ####[facility] [id number] [place], Hemoglobin (Bld) [Mass/Vol] 6.0 g/dL Critically low 13.9-16.3 [facility] Comment on above: Performed By: #### C BC ####[facility] [id number] [place], MCH (RBC) [Entitic mass] 30.2 pg Normal 26.0-34.0 [facility] Comment on above: Performed By: #### C BC ####[facility] [id number] [place], MCHC (RBC) [Mass/Vol] 32.7 g/dL Normal 32.0-35.9 [facility] Comment on above: Performed By: #### C BC ####[facility] [id number] [place], MCV (RBC) [Entitic vol] 92 fL Normal 80-100 [facility] [place] Comment on above: Performed By: #### C BC ####[facility] [id number] [place], Platelet mean volume (Bld) [Entitic vol] 8.9 fL Normal 7.5-11.2 [facility] Comment on above: Performed By: #### C BC ####[facility] [id number] [place], Platelets (Bld) [#/Vol] 187 10*3/uL Normal 150-400 [facility] Comment on above: Performed By: #### C BC ####S PATHOLOGY [id number] [place], RBC (Bld) [#/Vol] 1.98 10*6/uL Low 4.50-5.90 [facility] Comment on above: Performed By: #### C BC ####S PATHOLOGY [id number] [place], WBC (Bld) [#/Vol] 22.7 10*3/uL High 4.5-11.5 [facility] Comment on above: Performed By: #### C BC ####[facility] [id number] [place], MAGNESIUMon 06-04-2022 Magnesium [Mass/Vol] 2.2 mg/dL Normal 1.6-2.8 [facility] Comment on above: Performed By: #### Tee H8, MG, PHOS ####S PATHOLOGY [id number] [place], PHOSPHORUSon 06-04-2022 Phosphate [Mass/Vol] 1.4 mg/dL Low 2.5-4.8 [facility] Comment on above: Performed By: #### Tee Starkey, MG, PHOS ####[facility] [id number] [place], [place], Procedureson 06-04-2022 Fraud Manager Authentication Interface Message Text Normal [facility] Progress Noteson 06-04-2022 Fraud Manager Authentication Interface Message Text Normal [facility] Fraud Manager Authentication Interface Message Text Normal [facility] Fraud Manager Authentication Interface Message Text Normal [facility] RED BLOOD CELL COMPONENTon 0 06-04-2022 BB ORDER ITEM Product status info to follow Normal [facility] Comment on above: Performed By: #### R AMBROCIO ####S PATHOLOGY [id number] [place], RED BLOOD CELL UNIT STATUSon 06-04-2022 BLOOD PRODUCT CODE [id number] Normal [facility] Comment on above: Performed By: #### Daya BU ####S PATHOLOGY [id number] [place], BLOOD PRODUCT DESCRIPTION Red Blood Cells Normal [facility] Comment on above: Performed By: #### R BU ####S PATHOLOGY [id number] [place], BLOOD PRODUCT STATUS Transfused Normal [facility] Comment on above: Performed By: #### R BU ####S PATHOLOGY [id number] [place], BLOOD PRODUCT UNIT INFO [id number] Normal [facility] Comment on above: Performed By: #### R BU ####S PATHOLOGY [id number] [place], BLOOD PRODUCT UNIT INFO [id number] Normal [facility] Comment on above: Performed By: #### R BU ####S PATHOLOGY [id number] [place], BLOOD PRODUCT UNIT TYPE 9500 Normal [facility] Comment on above: Result Comment: O Ne g Performed By: #### R BU ####S PATHOLOGY [id number] [place], CROSSMATCH INTERPRETATION Compatible (E) Normal [facility] Comment on above: Performed By: #### R BU ####S PATHOLOGY [id number] [place], TYPE AND SCREENon 06-04-2022 ABO and Rh group Nom (Bld) Blood group O Rh(D) negative Normal [facility] Comment on above: Result Comment: Weak D (Du) testing not performed on this specimen. Two or more specimens were previously tested as Weak D negative on this patient. Performed By: #### T S ####S PATHOLOGY [id number] [place], ABSC INT Negative Normal [facility] Comment on above: Performed By: #### T S ####S PATHOLOGY [id number] [place], XR CHEST 1 VIEW AP OR PAon 0 06-04-2022 XR CHEST 1 VIEW AP OR PA Normal [facility] XR KNEE LEFT AP+LATon 2022 XR KNEE LEFT AP+LAT Normal [facility] XR LT FEMUR MIN 2 VIEWSon XR LT FEMUR MIN 2 VIEWS Normal [facility] BASIC METABOLIC PANELon 05-18 Anion gap [Moles/Vol] 13 mmol/L Normal 10-20 [facility] Comment on above: Performed By: #### P HOS, TRIG, MG, CH8 ####[facility] [id number] [place], Calcium [Mass/Vol] 7.7 mg/dL Low 8.4-10.4 [facility] [place] Comment on above: Performed By: #### P HOS, TRIG, MG, CH8 ####[facility] [id number] [place], Chloride [Moles/Vol] 109 mmol/L Normal 97-111 [facility] Comment on above: Performed By: #### P HOS, TRIG, MG, CH8 ####S PATHOLOGY [id number] [place], CO2 [Moles/Vol] 25 mmol/L Normal 21-30 [facility] Comment on above: Performed By: #### P HOS, TRIG, MG, CH8 ####S PATHOLOGY [id number] [place], Creatinine [Mass/Vol] 1.13 mg/dL Normal 0.80-1.30 [facility] Comment on above: Performed By: #### P HOS, TRIG, MG, CH8 ####S PATHOLOGY [id number] [place], ESTIMATED GFR (CKD-EPI) 74 mL/min/1.73sqm Normal >=60 [facility] Comment on above: Result Comment: 2020 [...] Inclusion of Race in Diagnosing Kidney Disease. [place] Journal of Kidney Diseases 2021;79(2):268-88.e1.2. N Engl J Med 2020 Vol. 385 Issue 19 Pages 7160-8782 Performed By: #### P HOS, TRIG, MG, CH8 ####[facility] [id number] [place], Glucose [Mass/Vol] 126 mg/dL High 80-116 [facility] Comment on above: Performed By: #### P HOS, TRIG, MG, CH8 ####[facility] [id number] [place], Potassium [Moles/Vol] 4.7 mmol/L Normal 3.3-5.3 [facility] Comment on above: Performed By: #### P HOS, TRIG, MG, CH8 ####[facility] [id number] [place], Sodium [Moles/Vol] 142 mmol/L Normal 135-148 [facility] Comment on above: Performed By: #### P HOS, TRIG, MG, CH8 ####[facility] [id number] [place], Urea nitrogen [Mass/Vol] 34 mg/dL High 8-22 [facility] Comment on above: Performed By: #### P HOS, TRIG, MG, CH8 ####[facility] [id number] [place], BLOOD CULTUREon 06-03-2022 Bacteria identified Cx Nom (Bld) C BLOOD: Positive Culture Report STAPHYLOCOCCUS AUREUS Anaerobic bottle yields Staphylococcus aureus Identification by nucleic acid based testing GRAM STAIN: Anaerobic bottle yields Gram Positive Cocci In Clusters Normal [facility] Comment on above: Performed By: #### C BLOOD ####[facility] Jxkfbrpre4218 [place], [place] Bacteria identified Cx Nom (Bld) C BLOOD: No Growth Normal [facility] Comment on above: Performed By: #### C BLOOD ####[facility] Rziuvlfww2848 [place], [place] CLYDE Normal [facility] Comment on above: Performed By: #### C BLOOD ####[facility] Hzbrbdgep5503 [place], [place] BLOOD GAS, ARTERIALon 2022 CR SEFERINO 0.4 mmol/L Normal -2.0-2.0 [facility] Comment on above: Performed By: #### C R BGA ####[facility] YECUHNMAFR[address] [place] [address], CR PCO2 44.0 mm Hg Normal 35.0-45.0 [facility] Comment on above: Performed By: #### C R BGA ####[facility] WXSVYNXGFS55[address] [place] [address], CR PHA 7.375 Normal 7.35-7.45 [facility] Comment on above: Performed By: #### C R BGA ####[facility] [id number] [place], CR PO2 168 mm Hg High 80-100 [facility] Comment on above: Performed By: #### C R BGA ####[facility] OVOPQVGRPE319[address] [place] [address], FIO2 (CATEGORY) 90% Normal [facility] Comment on above: Result Comment: 09/02 Performed By: #### C R BGA ####[facility] [id number] [place] [address], HCO3 (Bld) [Moles/Vol] 25 mmol/L Normal 22-28 e [facility] Comment on above: Performed By: #### C R BGA ####[facility] RTRCZOGAFY6787[address] [place] [address], MODE Vent Normal [facility] Comment on above: Performed By: #### C R BGA ####S PATHOLOGY [id number] [place], Oxygen saturation in Blood 99.1 % Normal >=95.1 [facility] Comment on above: Performed By: #### C R BGA ####[facility] JSTBUNBOFX37[address] [place] [address], CR % O2 SAT > 99.4 Normal >=95.1 [facility] Comment on above: Performed By: #### C R BGA ####[facility] [id number] [place], CR SEFERINO -0.9 mmol/L Normal -2.0-2.0 [facility] Comment on above: Performed By: #### C R BGA ####[facility] [id number] [place], CR PCO2 49.3 mm Hg High 35.0-45.0 [facility] Comment on above: Performed By: #### C R BGA ####[facility] [id number] [place], CR PHA 7.318 Low 7.35-7.45 [facility] Comment on above: Performed By: #### C R BGA ####[facility] UZURWSQXDT4[address] [place] [address], CR PO2 211 mm Hg High 80-100 [facility] Comment on above: Performed By: #### C R BGA ####[facility] QTQBPWJIFM84[address] [place] [address], FIO2 (CATEGORY) 100% Normal [facility] Comment on above: Performed By: #### C R BGA ####[facility] GFNTVKADVU7813[address] [place] [address], HCO3 (Bld) [Moles/Vol] 25 mmol/L Normal 22-28 Th e [facility] Comment on above: Performed By: #### C R BGA ####[facility] LTSKHSOMLU2540[address] [place] [address], MODE Vent Normal [facility] Comment on above: Performed By: #### C R BGA ####[facility] WAXOQQSXAG8120[address] [place] [address], CR SEFERION -1.6 mmol/L Normal -2.0-2.0 [facility] Comment on above: Performed By: #### C R BGA ####[facility] SYNBANJSMV4799[address] [place] [address], CR PCO2 49.0 mm Hg High 35.0-45.0 [facility] Comment on above: Performed By: #### C R BGA ####[facility] VOIDIMWUZR5774 [place], CR PHA 7.310 Low 7.35-7.45 [facility] Comment on above: Performed By: #### C R BGA ####[facility] [id number] [place], CR PO2 175 mm Hg High 80-100 [facility] Comment on above: Performed By: #### C R BGA ####[facility] [id number] [place], FIO2 (CATEGORY) 100% Normal [facility] Comment on above: Performed By: #### C R BGA ####[facility] [id number] [place], HCO3 (Bld) [Moles/Vol] 24 mmol/L Normal 22-28 e [facility] Comment on above: Performed By: #### C R BGA ####[facility] VIGYFDXCBE88[address] [place] [address], MODE Vent Normal [facility] Comment on above: Performed By: #### C R BGA ####[facility] [id number] [place] [address], Oxygen saturation in Blood 99.1 % Normal >=95.1 [facility] Comment on above: Performed By: #### C R BGA ####[facility] SWOHETCWKF1132[address] [place] [address], CR SEFERINO -0.8 mmol/L Normal -2.0-2.0 [facility] Comment on above: Performed By: #### C R BGA ####[facility] [id number] [place], CR PCO2 60.5 mm Hg High 35.0-45.0 [facility] Comment on above: Performed By: #### C R BGA ####S PATHOLOGY FPBUKTNCCV1999[address] [place] [address], CR PHA 7.257 Low 7.35-7.45 [facility] Comment on above: Performed By: #### C R BGA ####S PATHOLOGY UDRFLDBBON3977 [place], CR PO2 115 mm Hg High 80-100 [facility] Comment on above: Performed By: #### C R BGA ####S PATHOLOGY [id number] [place], FIO2 (CATEGORY) 100% Normal [facility] Comment on above: Performed By: #### C R BGA ####[facility] [id number] [place], HCO3 (Bld) [Moles/Vol] 26 mmol/L Normal 22-28 e [facility] Comment on above: Performed By: #### C R BGA ####[facility] FMPIFRKWMP34[address] [place] [address], MODE Vent Normal [facility] Comment on above: Performed By: #### C R BGA ####[facility] [id number] [place] [address], Oxygen saturation in Blood 98.2 % Normal >=95.1 [facility] Comment on above: Performed By: #### C R BGA ####[facility] BIYLCBUQFX647[address] [place] [address], CR SEFERINO -2.1 mmol/L Low -2.0-2.0 [facility] Comment on above: Performed By: #### C R BGA ####S PATHOLOGY SFDQHPUSQK6169 [place], CR PCO2 69.1 mm Hg Critically high 35.0-45.0 [facility] Comment on above: Performed By: #### C R BGA ####S PATHOLOGY EZQKUNGXOK4722 [place], CR PHA 7.197 Critically low 7.35-7.45 [facility] Comment on above: Performed By: #### C R BGA ####S PATHOLOGY EYLJTMYULE192[address] [place] [address], CR PO2 120 mm Hg High 80-100 [facility] Comment on above: Performed By: #### C R BGA ####[facility] [id number] [place], FIO2 (CATEGORY) 100% Normal [facility] Comment on above: Performed By: #### C R BGA ####[facility] [id number] [place], HCO3 (Bld) [Moles/Vol] 26 mmol/L Normal 22-28 Th [facility] Comment on above: Performed By: #### C R BGA ####[facility] [id number] [place], MODE Vent Normal [facility] Comment on above: Performed By: #### C R BGA ####[facility] [id number] [place], Oxygen saturation in Blood 98.3 % Normal >=95.1 [facility] Comment on above: Performed By: #### C R BGA ####[facility] ZQCTSUMKJJ64[address] [place] [address], COMPLETE BLOOD COUNTon 06-03 Erythrocyte distribution width (RBC) [Ratio] 13.2 % Normal 11.5-14.5 [facility] [place] Comment on above: Performed By: #### C BC ####[facility] [address]YDHDZNRO[address] [place] [address], Hematocrit (Bld) [Volume fraction] 23.0 % Low 41.0-53.0 [facility] Comment on above: Performed By: #### C BC ####[facility] HMZSESJJWJ34[address] [place] [address], Hemoglobin (Bld) [Mass/Vol] 7.6 g/dL Low 13.9-16.3 [facility] Comment on above: Performed By: #### C BC ####[facility] [id number] [place], MCH (RBC) [Entitic mass] 31.1 pg Normal 26.0-34.0 [facility] Comment on above: Performed By: #### C BC ####[facility] [id number] [place], MCHC (RBC) [Mass/Vol] 33.1 g/dL Normal 32.0-35.9 [facility] [place] Comment on above: Performed By: #### C BC ####[facility] [id number] [place], MCV (RBC) [Entitic vol] 94 fL Normal 80-100 [facility] [place] Comment on above: Performed By: #### C BC ####[facility] [id number] [place], Platelet mean volume (Bld) [Entitic vol] 8.3 fL Normal 7.5-11.2 [facility] [place] Comment on above: Performed By: #### C BC ####[facility] [id number] [place], Platelets (Bld) [#/Vol] 199 10*3/uL Normal 150-400 [facility] [place] Comment on above: Performed By: #### C BC ####[facility] [id number] [place], RBC (Bld) [#/Vol] 2.45 10*6/uL Low 4.50-5.90 [facility] [place] Comment on above: Performed By: #### C BC ####[facility] [id number] [place], WBC (Bld) [#/Vol] 26.5 10*3/uL Critically high 4.5-11.5 [facility] [place] Comment on above: Performed By: #### C BC ####[facility] [id number] [place], MAGNESIUMon 06-03-2022 Magnesium [Mass/Vol] 2.3 mg/dL Normal 1.6-2.8 [facility] Comment on above: Performed By: #### P HOS, TRIG, MG, CH8 ####[facility] [id number] [place], PHOSPHORUSon 06-03-2022 Phosphate [Mass/Vol] 2.9 mg/dL Normal 2.5-4.8 [facility] Comment on above: Performed By: #### P HOS, TRIG, MG, CH8 ####[facility] [id number] [place], [place], Progress Noteson 06-03-2022 Fraud Manager Authentication Interface Message Text Normal [facility] Fraud Manager Authentication Interface Message Text [id number]: I have reviewed and agree with Patricia Reno's (Student Nurse) documentation for [id number] shift. Normal [facility] Fraud Manager Authentication Interface Message Text Normal [facility] [employer] Progress Notes - NoteWritero n 06-03-2022 Fraud Manager Authentication Interface Message Text 2244: Dr. Baez notified of critical pH result of 7.19 and PCO2 or 69. Dr. Baez read back these results. New orders pending. 2247: Dr. Baez notified of critical WBC result of 26.5. Dr. Baez read back results. No new orders at this time. Normal [facility] TRIGLYCERIDESon 06-03-2022 Triglyceride [Mass/Vol] 144 mg/dL Normal <151 [facility] Comment on above: Performed By: #### P HOS, TRIG, MG, CH8 ####[facility] [id number] [place], [place], XR CHEST 1 VIEW AP OR PAon 0 06-03-2022 XR CHEST 1 VIEW AP OR PA Normal [facility] 1:1 Interactionon 06-02-2022 Fraud Manager Authentication Interface Message Text Normal [facility] BASIC METABOLIC PANELon 04-1 Anion gap [Moles/Vol] 12 mmol/L Normal 10-20 [facility] Comment on above: Performed By: #### M G, CH8, PHOS ####[facility] [id number] [place], Calcium [Mass/Vol] 7.7 mg/dL Low 8.4-10.4 [facility] Comment on above: Performed By: #### M G, CH8, PHOS ####[facility] [id number] [place], Chloride [Moles/Vol] 109 mmol/L Normal 97-111 [facility] Comment on above: Performed By: #### TERESA Marshall, SKYLERS ####[facility] [id number] [place], CO2 [Moles/Vol] 25 mmol/L Normal 21-30 [facility] [place] Comment on above: Performed By: #### TERESA Marshall, SKYLERS ####[facility] [id number] [place], Creatinine [Mass/Vol] 1.23 mg/dL Normal 0.80-1.30 [facility] [place] Comment on above: Performed By: #### TERESA Marshall, PHOS ####[facility] [id number] [place], ESTIMATED GFR (CKD-EPI) 67 mL/min/1.73sqm Normal >=60 [facility] [place] Comment on above: Result Comment: 2020 [...] Inclusion of Race in Diagnosing Kidney Disease. [place] Journal of Kidney Diseases 2021;79(2):268-88.e1.2. N Engl J Med 2020 Vol. 385 Issue 19 Pages 2935-5306 Performed By: #### TERESA Marshall PHOS ####[facility] [id number] [place], Glucose [Mass/Vol] 147 mg/dL High 80-116 [facility] Comment on above: Performed By: #### TERESA Marshall PHOS ####[facility] [id number] [place], Potassium [Moles/Vol] 4.1 mmol/L Normal 3.3-5.3 [facility] Comment on above: Performed By: #### TERESA Marshall, PHOS ####[facility] [id number] [place], Sodium [Moles/Vol] 142 mmol/L Normal 135-148 [facility] Comment on above: Performed By: #### TERESA Marshall, NAHID ####[facility] [id number] [place], Urea nitrogen [Mass/Vol] 23 mg/dL High 8-22 [facility] Comment on above: Performed By: #### TERESA Marshall, NAHID ####[facility] [id number] [place], BLOOD GAS, ARTERIALon 2022 CR SEFERINO -2.6 mmol/L Low -2.0-2.0 [facility] Comment on above: Performed By: #### C R BGA ####[facility] [id number] [place], CR PCO2 58.7 mm Hg High 35.0-45.0 [facility] Comment on above: Performed By: #### C R BGA ####[facility] [id number] [place] [address], CR PHA 7.249 Low 7.35-7.45 [facility] Comment on above: Performed By: #### C R BGA ####[facility] [id number] [place], CR PO2 72 mm Hg Low 80-100 [facility] Comment on above: Performed By: #### C R BGA ####[facility] [id number] [place], FIO2 (CATEGORY) 100% Normal [facility] Comment on above: Performed By: #### C R BGA ####S PATHOLOGY [id number] [place], HCO3 (Bld) [Moles/Vol] 25 mmol/L Normal 22-28 e [facility] Comment on above: Performed By: #### C R BGA ####[facility] [id number] [place], MODE Vent Normal [facility] Comment on above: Performed By: #### C R BGA ####[facility] [id number] [place], Oxygen saturation in Blood 92.1 % Low >=95.1 [facility] Comment on above: Performed By: #### C R BGA ####[facility] [id number] [place] [address], CR SEFERINO 0.9 mmol/L Normal -2.0-2.0 [facility] Comment on above: Performed By: #### C R BGA ####[facility] [id number] [place], CR PCO2 49.4 mm Hg High 35.0-45.0 [facility] Comment on above: Performed By: #### C R BGA ####[facility] [id number] [place] [address], CR PHA 7.345 Low 7.35-7.45 [facility] Comment on above: Performed By: #### C R BGA ####[facility] [id number] [place] [address], CR PO2 118 mm Hg High 80-100 [facility] Comment on above: Performed By: #### C R BGA ####[facility] [id number] [place] [address], FIO2 (CATEGORY) 100% Normal [facility] Comment on above: Performed By: #### C R BGA ####[facility] [id number] [place], HCO3 (Bld) [Moles/Vol] 26 mmol/L Normal 22-28 e [facility] Comment on above: Performed By: #### C R BGA ####[facility] [id number] [place], MODE Vent Normal [facility] Comment on above: Performed By: #### C R BGA ####S PATHOLOGY [id number] [place], Oxygen saturation in Blood 99.2 % Normal >=95.1 [facility] Comment on above: Performed By: #### C R BGA ####[facility] [id number] [place], CR SEFERINO 1.0 mmol/L Normal -2.0-2.0 [facility] Comment on above: Performed By: #### C R BGA ####[facility] UVIDXOWTMI7244[address] [place] [address], CR PCO2 50.1 mm Hg High 35.0-45.0 [facility] Comment on above: Performed By: #### C R BGA ####[facility] [id number] [place] [address], CR PHA 7.343 Low 7.35-7.45 [facility] Comment on above: Performed By: #### C R BGA ####[facility] [id number] [place] [address], CR PO2 88 mm Hg Normal 80-100 [facility] Comment on above: Performed By: #### C R BGA ####[facility] [id number] [place] [address], FIO2 (CATEGORY) 100% Normal [facility] Comment on above: Performed By: #### C R BGA ####[facility] HEOAGHZSLW8640[address] [place] [address], HCO3 (Bld) [Moles/Vol] 26 mmol/L Normal 22-28 e [facility] Comment on above: Performed By: #### C R BGA ####[facility] [id number] [place] [address], MODE Vent Normal [facility] Comment on above: Performed By: #### C R BGA ####[facility] [id number] [place] [address], Oxygen saturation in Blood 97.0 % Normal >=95.1 [facility] Comment on above: Performed By: #### C R BGA ####S PATHOLOGY CPAMVTCGYN403[address] [place] [address], CR SEFERINO 1.3 mmol/L Normal -2.0-2.0 [facility] Comment on above: Performed By: #### C R BGA, LACT ####[facility] [id number] [place], CR PCO2 47.1 mm Hg High 35.0-45.0 [facility] Comment on above: Performed By: #### C R BGA, LACT ####[facility] [id number] [place], CR PHA 7.367 Normal 7.35-7.45 [facility] Comment on above: Performed By: #### C R BGA, LACT ####[facility] [id number] [place], CR PO2 77 mm Hg Low 80-100 [facility] Comment on above: Performed By: #### C R BGA, LACT ####[facility] [id number] [place], FIO2 (CATEGORY) 50% Normal [facility] Comment on above: Performed By: #### C R BGA, LACT ####[facility] [id number] [place] [address], HCO3 (Bld) [Moles/Vol] 26 mmol/L Normal 22-28 e [facility] Comment on above: Performed By: #### C R BGA, LACT ####[facility] [id number] [place] [address], MODE Vent Normal [facility] Comment on above: Performed By: #### C R BGA, LACT ####[facility] [id number] [place] [address], Oxygen saturation in Blood 95.7 % Normal >=95.1 [facility] Comment on above: Performed By: #### C R BGA, LACT ####[facility] [id number] [place], COMPLETE BLOOD COUNTon 06-02 Erythrocyte distribution width (RBC) [Ratio] 13.2 % Normal 11.5-14.5 [facility] [place] Comment on above: Performed By: #### C BC ####[facility] OVIQGDILNO[address] [place] [address], Hematocrit (Bld) [Volume fraction] 22.7 % Low 41.0-53.0 The [facility] Comment on above: Performed By: #### C BC ####[facility] [id number] [place], Hemoglobin (Bld) [Mass/Vol] 7.2 g/dL Low 13.9-16.3 [facility] Comment on above: Performed By: #### C BC ####[facility] [id number] [place], MCH (RBC) [Entitic mass] 29.7 pg Normal 26.0-34.0 [facility] Comment on above: Performed By: #### C BC ####[facility] [id number] [place] [address], MCHC (RBC) [Mass/Vol] 31.9 g/dL Low 32.0-35.9 [facility] Comment on above: Performed By: #### C BC ####[facility] DYOVPFTFNX409[address] [place] [address], MCV (RBC) [Entitic vol] 93 fL Normal 80-100 [facility] Comment on above: Performed By: #### C BC ####[facility] [id number] [place] [address], Platelet mean volume (Bld) [Entitic vol] 8.4 fL Normal 7.5-11.2 [facility] Comment on above: Performed By: #### C BC ####[facility] [id number] [place], Platelets (Bld) [#/Vol] 195 10*3/uL Normal 150-400 [facility] Comment on above: Performed By: #### C BC ####[facility] [id number] [place], RBC (Bld) [#/Vol] 2.43 10*6/uL Low 4.50-5.90 [facility] Comment on above: Performed By: #### C BC ####[facility] [id number] [place], WBC (Bld) [#/Vol] 23.4 10*3/uL High 4.5-11.5 [facility] Comment on above: Performed By: #### C BC ####[facility] DSUATAIWNV326[address] [place] [address], Erythrocyte distribution width (RBC) [Ratio] 13.2 % Normal 11.5-14.5 [facility] [place] Comment on above: Performed By: #### C BC ####[facility] PPUVDSGAHK3375[address] [place] [address], Hematocrit (Bld) [Volume fraction] 22.2 % Low 41.0-53.0 [facility] Comment on above: Performed By: #### C BC ####[facility] [id number] [place] [address], Hemoglobin (Bld) [Mass/Vol] 7.2 g/dL Low 13.9-16.3 [facility] [place] Comment on above: Performed By: #### C BC ####[facility] [id number] [place] [address], MCH (RBC) [Entitic mass] 29.8 pg Normal 26.0-34.0 [facility] [place] Comment on above: Performed By: #### C BC ####[facility] RXUIOLOCKE8868[address] [place] [address], MCHC (RBC) [Mass/Vol] 32.3 g/dL Normal 32.0-35.9 [facility] Comment on above: Performed By: #### C BC ####[facility] EVTVIFLZEN096[address] [place] [address], MCV (RBC) [Entitic vol] 92 fL Normal 80-100 [facility] Comment on above: Performed By: #### C BC ####[facility] [id number] [place] [address], Platelet mean volume (Bld) [Entitic vol] 8.6 fL Normal 7.5-11.2 [facility] [place] Comment on above: Performed By: #### C BC ####[facility] [id number] [place] [address], Platelets (Bld) [#/Vol] 172 10*3/uL Normal 150-400 [facility] Comment on above: Performed By: #### C BC ####[facility] [id number] [place], RBC (Bld) [#/Vol] 2.41 10*6/uL Low 4.50-5.90 [facility] Comment on above: Performed By: #### C BC ####[facility] [id number] [place] [address], WBC (Bld) [#/Vol] 22.5 10*3/uL High 4.5-11.5 [facility] Comment on above: Performed By: #### C BC ####[facility] [id number] [place] [address], Erythrocyte distribution width (RBC) [Ratio] 13.0 % Normal 11.5-14.5 [facility] Comment on above: Performed By: #### C BC ####[facility] ZNZDPVERZH[address] [place] [address], Hematocrit (Bld) [Volume fraction] 25.5 % Low 41.0-53.0 [facility] Comment on above: Performed By: #### C BC ####[facility] [id number] [place] [address], Hemoglobin (Bld) [Mass/Vol] 8.5 g/dL Low 13.9-16.3 [facility] [place] Comment on above: Performed By: #### C BC ####[facility] YRKBKTDHNU[address]19[address] [place] [address], MCH (RBC) [Entitic mass] 31.0 pg Normal 26.0-34.0 [facility] Comment on above: Performed By: #### C BC ####[facility] [id number] [place], MCHC (RBC) [Mass/Vol] 33.3 g/dL Normal 32.0-35.9 [facility] [place] Comment on above: Performed By: #### C BC ####[facility] [id number] [place], MCV (RBC) [Entitic vol] 93 fL Normal 80-100 [facility] Comment on above: Performed By: #### C BC ####[facility] [id number] [place], Platelet mean volume (Bld) [Entitic vol] 8.4 fL Normal 7.5-11.2 [facility] Comment on above: Performed By: #### C BC ####[facility] [id number] [place] [address], Platelets (Bld) [#/Vol] 198 10*3/uL Normal 150-400 [facility] Comment on above: Performed By: #### C BC ####[facility] POIFABJINI[address] [place] [address], RBC (Bld) [#/Vol] 2.74 10*6/uL Low 4.50-5.90 [facility] [place] Comment on above: Performed By: #### C BC ####[facility] [id number] [place] [address], WBC (Bld) [#/Vol] 19.1 10*3/uL High 4.5-11.5 [facility] [place] Comment on above: Performed By: #### C BC ####[facility] [id number] [place] [address], Erythrocyte distribution width (RBC) [Ratio] 13.1 % Normal 11.5-14.5 [facility] [place] Comment on above: Performed By: #### C BC ####[facility] [id number] [place] [address], Hematocrit (Bld) [Volume fraction] 25.4 % Low 41.0-53.0 [facility] Comment on above: Performed By: #### C BC ####[facility] [id number] [place], Hemoglobin (Bld) [Mass/Vol] 8.5 g/dL Low 13.9-16.3 [facility] Comment on above: Performed By: #### C BC ####[facility] [id number] [place], MCH (RBC) [Entitic mass] 31.0 pg Normal 26.0-34.0 [facility] Comment on above: Performed By: #### C BC ####[facility] [id number] [place], MCHC (RBC) [Mass/Vol] 33.3 g/dL Normal 32.0-35.9 [facility] Comment on above: Performed By: #### C BC ####[facility] [id number] [place], MCV (RBC) [Entitic vol] 93 fL Normal 80-100 [facility] Comment on above: Performed By: #### C BC ####[facility] [id number] [place], Platelet mean volume (Bld) [Entitic vol] 8.4 fL Normal 7.5-11.2 [facility] [place] Comment on above: Performed By: #### C BC ####[facility] [id number] [place], Platelets (Bld) [#/Vol] 213 10*3/uL Normal 150-400 [facility] Comment on above: Performed By: #### C BC ####[facility] [id number] [place], RBC (Bld) [#/Vol] 2.73 10*6/uL Low 4.50-5.90 [facility] [place] Comment on above: Performed By: #### C BC ####[facility] [id number] [place], WBC (Bld) [#/Vol] 15.5 10*3/uL High 4.5-11.5 [facility] Comment on above: Performed By: #### C BC ####[facility] [id number] [place], COVID/INFLUENZAon 06-02-2022 INFLUENZA A Not detected Normal Not Detected [facility] Comment on above: Order Comment: This test is intended for use only under Emergency Use Authorization (EUA). This test was developed, and its performance characteristics determined by [facility] which is certified under CLIA as qualified to perform high complexity clinical laboratory testing.Not Detected results are indicative of the absence of SARS-CoV-2 in the specimen submitted for testing. False negative results are possible based on the timing and quality of specimen submitted for testing. Result Comment: This assay was performed using Marty JE RTPCR technology. Performed By: #### F RONY/COVID ####[facility] [id number] [place], INFLUENZA B Not detected Normal Not Detected [facility] Comment on above: Order Comment: This test is intended for use only under Emergency Use Authorization (EUA). This test was developed, and its performance characteristics determined by [facility] which is certified under CLIA as qualified to perform high complexity clinical laboratory testing.Not Detected results are indicative of the absence of SARS-CoV-2 in the specimen submitted for testing. False negative results are possible based on the timing and quality of specimen submitted for testing. Result Comment: This assay was performed using Marty JE RTPCR technology. Performed By: #### F RONY/COVID ####[facility] [id number] [place], SARS-CoV-2 (COVID-19) RNA CALIN+probe Ql (Unsp spec) Not detected Normal Not Detected [facility] [place] Comment on above: Order Comment: This test is intended for use only under Emergency Use Authorization (EUA). This test was developed, and its performance characteristics determined by [facility] which is certified under CLIA as qualified to perform high complexity clinical laboratory testing.Not Detected results are indicative of the absence of SARS-CoV-2 in the specimen submitted for testing. False negative results are possible based on the timing and quality of specimen submitted for testing. Result Comment: This assay was performed using Marty JE RTPCR technology. Performed By: #### F RONY/COVID ####S PATHOLOGY [id number] [place], [place], CT CHEST W/ CONTRASTon 06-02 CT CHEST W/ CONTRAST Normal [facility] HEAD W/O CONTRASTon 06-02 CT HEAD W/O CONTRAST Normal [facility] Consultson 06-02-2022 Fraud Manager Authentication Interface Message Text Normal [facility] LACTIC ACIDon 06-02-2022 CR LACT 1.5 mmol/L Normal 0.5-2.0 [facility] Comment on above: Performed By: #### C R BGA, LACT ####[facility] [id number] [place], MAGNESIUMon 06-02-2022 Magnesium [Mass/Vol] 1.9 mg/dL Normal 1.6-2.8 [facility] Comment on above: Performed By: #### Sam Cleveland CH8, PHOS ####[facility] [id number] [place], PHOSPHORUSon 06-02-2022 Phosphate [Mass/Vol] 3.4 mg/dL Normal 2.5-4.8 [facility] Comment on above: Performed By: #### TERESA Marshall, PHOS ####[facility] [id number] [place], Procedureson 06-02-2022 Fraud Manager Authentication Interface Message Text Normal [facility] Fraud Manager Authentication Interface Message Text Normal [facility] Progress Noteson 06-02-2022 Fraud Manager Authentication Interface Message Text Normal [facility] Fraud Manager Authentication Interface Message Text Normal [facility] Fraud Manager Authentication Interface Message Text Normal [facility] RESPIRATORY CULTURE, MISCon 06-02-2022 CLYDE Normal [facility] Comment on above: Performed By: #### C RESP ####[facility] [address] [place], [place] RESPIRATORY CULTURE, MISC Normal [facility] Comment on above: Performed By: #### C RESP ####[facility] Vtm[address]ulmb5[address] [place], [place] XR CHEST 1 VIEW AP OR PAon 0 06-02-2022 XR CHEST 1 VIEW AP OR PA Normal [facility] XR CHEST 1 VIEW AP OR PA Normal [facility] XR CHEST 1 VIEW AP OR PA Normal [facility] 1:1 Interactionon 06-01-2022 Fraud Manager Authentication Interface Message Text Normal [facility] BASIC METABOLIC PANELon Anion gap [Moles/Vol] 17 mmol/L Normal 10-20 [facility] Comment on above: Performed By: #### NAHID Franks MG ####[facility] [id number] [place], Calcium [Mass/Vol] 8.2 mg/dL Low 8.4-10.4 [facility] Comment on above: Performed By: #### NAHID Franks MG ####[facility] [id number] [place], Chloride [Moles/Vol] 102 mmol/L Normal 97-111 [facility] Comment on above: Performed By: #### NAHID Franks MG ####[facility] [id number] [place], CO2 [Moles/Vol] 27 mmol/L Normal 21-30 [facility] Comment on above: Performed By: #### NAHID Franks MG ####[facility] [id number] [place], [place], Creatinine [Mass/Vol] 1.25 mg/dL Normal 0.80-1.30 [facility] Comment on above: Performed By: #### NAHID Franks MG ####[facility] [id number] [place], ESTIMATED GFR (CKD-EPI) 66 mL/min/1.73sqm Normal >=60 [facility] [place] Comment on above: Result Comment: 2020 [...] Inclusion of Race in Diagnosing Kidney Disease. [place] Journal of Kidney Diseases 2021;79(2):268-88.e1.2. N Engl J Med 1 Vol. 385 Issue 19 Pages 3789-1955 Performed By: #### C H8, PHOS, MG ####[facility] [id number] [place], [place], Glucose [Mass/Vol] 133 mg/dL High 80-116 [facility] Comment on above: Performed By: #### C H8, PHOS, MG ####[facility] [id number] [place], Potassium [Moles/Vol] 4.3 mmol/L Normal 3.3-5.3 [facility] Comment on above: Performed By: #### C H8, PHOS, MG ####[facility] [id number] [place], Sodium [Moles/Vol] 142 mmol/L Normal 135-148 [facility] Comment on above: Performed By: #### C H8, PHOS, MG ####[facility] [id number] [place], Urea nitrogen [Mass/Vol] 17 mg/dL Normal 8-22 [facility] Comment on above: Performed By: #### C H8, PHOS, MG ####[facility] [id number] [place], BETA-2 TRANSFERRINon 023 BETA-2 TRANSFERRIN Not detected Normal Not Detected [facility] Comment on above: Order Comment: Karina lema Agency Address Site ID: AMD Name: [email or web address] Address: [address] [place] [address] [place], [place] Director: Sujatha Rivas M.D.,PhD Result Comment: No B eta-2 Transferrin (spinal fluid) detected Performed By: #### B ETA2TR ####[facility] Gongidkrg0936 [place], [place] BLOOD GAS, ARTERIALon 2022 CR SEFEIRNO -0.5 mmol/L Normal -2.0-2.0 [facility] Comment on above: Performed By: #### C R BGA ####[facility] [id number] [place], [place], CR PCO2 42.9 mm Hg Normal 35.0-45.0 [facility] Comment on above: Performed By: #### C R BGA ####[facility] [id number] [place], CR PHA 7.370 Normal 7.35-7.45 [facility] Comment on above: Performed By: #### C R BGA ####[facility] [address]VEGUAHN[address] [place] [address], CR PO2 87 mm Hg Normal 80-100 [facility] Comment on above: Performed By: #### C R BGA ####[facility] [id number] [place] [address], FIO2 (CATEGORY) 50% Normal [facility] Comment on above: Performed By: #### C R BGA ####[facility] [id number] [place] [address], HCO3 (Bld) [Moles/Vol] 24 mmol/L Normal 22-28 e [facility] Comment on above: Performed By: #### C R BGA ####[facility] KVXIQGYHDS[address] [place] [address], MODE Vent Normal [facility] Comment on above: Performed By: #### C R BGA ####[facility] CBSUFAPLTX76[address] [place] [address], Oxygen saturation in Blood 96.8 % Normal >=95.1 [facility] Comment on above: Performed By: #### C R BGA ####[facility] JBKARTHIQS[address] [place] [address], CR SEFERINO 0.7 mmol/L Normal -2.0-2.0 [facility] Comment on above: Performed By: #### C R BGA ####[facility] CXQTUCLQNO46[address] [place] [address], CR PCO2 45.4 mm Hg High 35.0-45.0 [facility] Comment on above: Performed By: #### C R BGA ####[facility] [id number] [place] [address], CR PHA 7.370 Normal 7.35-7.45 [facility] Comment on above: Performed By: #### C R BGA ####[facility] [id number] [place], CR PO2 76 mm Hg Low 80-100 [facility] Comment on above: Performed By: #### C R BGA ####[facility] HUDPOTDGLQ[address] [place] [address], FIO2 (CATEGORY) 50% Normal [facility] Comment on above: Performed By: #### C R BGA ####[facility] [id number] [place], HCO3 (Bld) [Moles/Vol] 26 mmol/L Normal 22-28 e [facility] Comment on above: Performed By: #### C R BGA ####[facility] [id number] [place] [address], MODE Vent Normal [facility] Comment on above: Performed By: #### C R BGA ####[facility] VJVRJPRNUH[address] [place] [address], Oxygen saturation in Blood 95.7 % Normal >=95.1 [facility] Comment on above: Performed By: #### C R BGA ####[facility] [id number] [place], CR SEFERINO -1.1 mmol/L Normal -2.0-2.0 [facility] Comment on above: Performed By: #### C R BGA ####[facility] OWEETDUXYE9326[address] [place] [address], CR PCO2 48.5 mm Hg High 35.0-45.0 [facility] Comment on above: Performed By: #### C R BGA ####[facility] [id number] [place], [place], CR PHA 7.326 Low 7.35-7.45 [facility] Comment on above: Performed By: #### C R BGA ####[facility] JPMHQXUPGV329[address] [place] [address], CR PO2 96 mm Hg Normal 80-100 [facility] Comment on above: Performed By: #### C R BGA ####[facility] [id number] [place], FIO2 (CATEGORY) 60% Normal [facility] Comment on above: Performed By: #### C R BGA ####[facility] [id number] [place] [address], HCO3 (Bld) [Moles/Vol] 25 mmol/L Normal 22-28 e [facility] Comment on above: Performed By: #### C R BGA ####[facility] [id number] [place] [address], MODE Vent Normal [facility] Comment on above: Performed By: #### C R BGA ####[facility] SUZYOIHNRG8[address] [place] [address], Oxygen saturation in Blood 97.7 % Normal >=95.1 [facility] [place] Comment on above: Performed By: #### C R BGA ####[facility] LVANLICSZS20[address] [place] [address], CR SEFERINO -1.1 mmol/L Normal -2.0-2.0 [facility] [place] Comment on above: Performed By: #### C R BGA, CR ICA, LACT ####[facility] [id number] [place] [address], CR PCO2 55.9 mm Hg High 35.0-45.0 [facility] Comment on above: Performed By: #### C R BGA, CR ICA, LACT ####[facility] HAFNMYDPVP0416[address] [place] [address], CR PHA 7.284 Low 7.35-7.45 [facility] Comment on above: Performed By: #### C R BGA, CR ICA, LACT ####[facility] [id number] [place] [address], CR PO2 115 mm Hg High 80-100 [facility] [place] Comment on above: Performed By: #### C R BGA, CR ICA, LACT ####[facility] [id number] [place] [address], FIO2 (CATEGORY) 60% Normal [facility] Comment on above: Performed By: #### C R BGA, CR ICA, LACT ####[facility] IELSASTLUR5[address] [place] [address], HCO3 (Bld) [Moles/Vol] 26 mmol/L Normal 22-28 Th e [facility] Comment on above: Performed By: #### C R BGA, CR ICA, LACT ####[facility] LEUVVIPLOC079[address] [place] [address], MODE Vent Normal [facility] Comment on above: Performed By: #### C R BGA, CR ICA, LACT ####[facility] [id number] [place] [address], Oxygen saturation in Blood 98.3 % Normal >=95.1 [facility] Comment on above: Performed By: #### C R BGA, CR ICA, LACT ####[facility] DJLSGCOVBJ4138[address] [place] [address], CALCIUM, IONIZEDon CR ICA 1.10 mmol/L Normal 1.10-1.40 [facility] Comment on above: Performed By: #### C R BGA, CR ICA, LACT ####[facility] QNKVAZMPHQ8614[address] [place] [address], COMPLETE BLOOD COUNTon 06-01 Erythrocyte distribution width (RBC) [Ratio] 13.0 % Normal 11.5-14.5 [facility] [place] Comment on above: Performed By: #### C BC ####[facility] [id number] [place] [address], Hematocrit (Bld) [Volume fraction] 28.2 % Low 41.0-53.0 [facility] Comment on above: Performed By: #### C BC ####[facility] [id number] [place] [address], Hemoglobin (Bld) [Mass/Vol] 9.6 g/dL Low 13.9-16.3 [facility] Comment on above: Performed By: #### C BC ####[facility] [id number] [place], MCH (RBC) [Entitic mass] 31.4 pg Normal 26.0-34.0 [facility] Comment on above: Performed By: #### C BC ####[facility] [id number] [place], MCHC (RBC) [Mass/Vol] 34.0 g/dL Normal 32.0-35.9 [facility] Comment on above: Performed By: #### C BC ####[facility] [id number] [place], MCV (RBC) [Entitic vol] 92 fL Normal 80-100 [facility] Comment on above: Performed By: #### C BC ####[facility] [id number] [place], Platelet mean volume (Bld) [Entitic vol] 7.9 fL Normal 7.5-11.2 [facility] Comment on above: Performed By: #### C BC ####[facility] [id number] [place], Platelets (Bld) [#/Vol] 227 10*3/uL Normal 150-400 [facility] Comment on above: Performed By: #### C BC ####[facility] [id number] [place], RBC (Bld) [#/Vol] 3.05 10*6/uL Low 4.50-5.90 [facility] Comment on above: Performed By: #### C BC ####[facility] [id number] [place], WBC (Bld) [#/Vol] 16.3 10*3/uL High 4.5-11.5 [facility] Comment on above: Performed By: #### C BC ####[facility] [id number] [place], Erythrocyte distribution width (RBC) [Ratio] 13.2 % Normal 11.5-14.5 [facility] [place] Comment on above: Performed By: #### C BC ####[facility] [id number] [place], Hematocrit (Bld) [Volume fraction] 31.1 % Low 41.0-53.0 [facility] Comment on above: Performed By: #### C BC ####[facility] [id number] [place], Hemoglobin (Bld) [Mass/Vol] 10.4 g/dL Low 13.9-16.3 [facility] Comment on above: Performed By: #### C BC ####[facility] [id number] [place], MCH (RBC) [Entitic mass] 31.1 pg Normal 26.0-34.0 [facility] [place] Comment on above: Performed By: #### C BC ####[facility] [id number] [place], MCHC (RBC) [Mass/Vol] 33.5 g/dL Normal 32.0-35.9 [facility] [place] Comment on above: Performed By: #### C BC ####[facility] [id number] [place], MCV (RBC) [Entitic vol] 93 fL Normal 80-100 [facility] Comment on above: Performed By: #### C BC ####[facility] [id number] [place], Platelet mean volume (Bld) [Entitic vol] 8.5 fL Normal 7.5-11.2 [facility] Comment on above: Performed By: #### C BC ####[facility] [id number] [place], Platelets (Bld) [#/Vol] 199 10*3/uL Normal 150-400 [facility] Comment on above: Performed By: #### C BC ####[facility] [id number] [place], RBC (Bld) [#/Vol] 3.35 10*6/uL Low 4.50-5.90 [facility] [place] Comment on above: Performed By: #### C BC ####[facility] [id number] [place], WBC (Bld) [#/Vol] 21.2 10*3/uL High 4.5-11.5 [facility] Comment on above: Performed By: #### C BC ####[facility] [id number] [place], Erythrocyte distribution width (RBC) [Ratio] 13.0 % Normal 11.5-14.5 [facility] [place] Comment on above: Performed By: #### C BC ####[facility] [id number] [place], Hematocrit (Bld) [Volume fraction] 33.6 % Low 41.0-53.0 [facility] Comment on above: Performed By: #### C BC ####[facility] [id number] [place], Hemoglobin (Bld) [Mass/Vol] 11.3 g/dL Low 13.9-16.3 [facility] [place] Comment on above: Performed By: #### C BC ####[facility] [id number] [place], MCH (RBC) [Entitic mass] 31.3 pg Normal 26.0-34.0 [facility] [place] Comment on above: Performed By: #### C BC ####[facility] [id number] [place], MCHC (RBC) [Mass/Vol] 33.5 g/dL Normal 32.0-35.9 [facility] [place] Comment on above: Performed By: #### C BC ####[facility] [id number] [place], MCV (RBC) [Entitic vol] 94 fL Normal 80-100 [facility] [place] Comment on above: Performed By: #### C BC ####[facility] [id number] [place], Platelet mean volume (Bld) [Entitic vol] 8.1 fL Normal 7.5-11.2 [facility] Comment on above: Performed By: #### C BC ####S PATHOLOGY [id number] [place], Platelets (Bld) [#/Vol] 257 10*3/uL Normal 150-400 [facility] Comment on above: Performed By: #### C BC ####S PATHOLOGY [id number] [place], RBC (Bld) [#/Vol] 3.59 10*6/uL Low 4.50-5.90 [facility] Comment on above: Performed By: #### C BC ####[facility] [id number] [place], WBC (Bld) [#/Vol] 25.3 10*3/uL Critically high 4.5-11.5 [facility] Comment on above: Performed By: #### C BC ####[facility] [id number] [place], [place], CT HEAD W/O CONTRASTon 06-01 CT HEAD W/O CONTRAST Normal [facility] CT INNER EAR W/O CONTRASTon 06-01-2022 CT INNER EAR W/O CONTRAST Normal [facility] CTA NECK W/on 06-01-2022 CTA NECK W/ Normal [facility] Consultson 06-01-2022 Fraud Manager Authentication Interface Message Text Normal [facility] Fraud Manager Authentication Interface Message Text Normal [facility] Fraud Manager Authentication Interface Message Text Normal [facility] Fraud Manager Authentication Interface Message Text Normal [facility] Fraud Manager Authentication Interface Message Text Normal [facility] Fraud Manager Authentication Interface Message Text Normal [facility] ED Noteson 06-01-2022 Fraud Manager Authentication Interface Message Text Pt to IR Normal [facility] ED Provider Noteson 06-02-19 Fraud Manager Authentication Interface Message Text HE for SP 60 M Cat 1 txf LONGTERM with extensive injuries (skull fx basilar, pneumocephalus, splenic lac, s/p intubation, +FAST but HDS). In IR getting spleen embolization, going to TICU Normal [facility] FFPon 06-01-2022 BB ORDER ITEM Product status info to follow Normal [facility] Comment on above: Performed By: #### F FO ####S PATHOLOGY [id number] [place], GLUCOSE, FINGERSTICK-IN OFFI CEon 06-01-2022 Glucose [Mass/Vol] 157 mg/dL High 80-116 [facility] Comment on above: Performed By: #### 8 2948 ####NURSING GLUCOSE [id number] [place], LACTIC ACIDon 06-01-2022 CR LACT 2.3 mmol/L High 0.5-2.0 [facility] [place] Comment on above: Performed By: #### L ACT ####[facility] [id number] [place], CR LACT 2.6 mmol/L High 0.5-2.0 [facility] Comment on above: Performed By: #### C R BGA, CR ICA, LACT ####[facility] [id number] [place], MAGNESIUMon 06-01-2022 Magnesium [Mass/Vol] 2.2 mg/dL Normal 1.6-2.8 [facility] Comment on above: Performed By: #### C H8, PHOS, MG ####S PATHOLOGY [id number] [place], PHOSPHORUSon 06-01-2022 Phosphate [Mass/Vol] 6.9 mg/dL High 2.5-4.8 [facility] Comment on above: Performed By: #### C H8, PHOS, MG ####S PATHOLOGY [id number] [place], PLASMA STATUSon 06-01-2022 BLOOD PRODUCT CODE [id number] Normal [facility] Comment on above: Performed By: #### F FU ####S PATHOLOGY [id number] [place], BLOOD PRODUCT DESCRIPTION FFP Normal [facility] Comment on above: Performed By: #### F FU ####S PATHOLOGY [id number] [place], BLOOD PRODUCT STATUS Transfused Normal [facility] Comment on above: Performed By: #### F FU ####[facility] [id number] [place], BLOOD PRODUCT UNIT INFO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 Start: 07-23-2023 End: 07-23-2023 ambulatory RYAN FAGAN Not Available Start: 07-23-2023 End: 07-23-2023 Refill Bean Darlene Nahun DO Work Phone: [facility] Internal Medicine - Family Medicine Comment on above: Acute torn meniscus of knee, unspecified laterality, subsequent encounter Start: 07-17-2023 End: 07-17-2023 ambulatory ROB BAILEY Not Available Start: 07-10-2023 End: 07-10-2023 ambulatory ROB CADETERSSHILPA Not Available Start: 07-02-2023 End: 07-02-2023 ambulatory LEYDI Lin APLING Not Available Start: 07-01-2023 End: 07-01-2023 ambulatory RYAN FAGAN Not Available Start: 06-26-2023 End: 06-26-2023 ambulatory ROB BAILEY Not Available Start: 06-24-2023 End: 06-24-2023 ambulatory RYAN FAGAN Not Available Start: 06-20-2023 End: 06-20-2023 ambulatory RYAN FAGAN Not Available Start: 06-17-2023 End: 06-19-2023 ambulatory ROB CADETERSSHILPA Not Available Start: 06-09-2023 End: 06-09-2023 ambulatory ROB BAILEY Not Available Start: 06-06-2023 End: 06-06-2023 ambulatory LADONNA LIMA Not Available Start: 06-04-2023 End: 06-04-2023 ambulatory LEYDI WEISS Not Available Start: 05-28-2023 End: 05-28-2023 Evaluation and management of inpatient MATTHEW WOO [facility] Start: 05-28-2023 End: 05-28-2023 Evaluation and management of inpatient [facility]DE[facility] Start: 05-23-2023 Refill Bean schulz DO Work Phone: [facility] Internal Medicine - Family Medicine Start: 05-20-2023 End: 05-20-2023 Patient encounter procedure Bean Garnica DO Work Phone: [facility] Internal Medicine - Family Medicine Comment on above: Medicare annual well ness visit, subsequent (Primary Dx); Screening for depression Start: 05-20-2023 Orders Only Bean Son ng DO Work Phone: [facility] Internal Medicine - Family Medicine Comment on above: Primary hypertension Start: 05-15-2023 End: 05-15-2023 Office outpatient visit 25 minutes Bean Garnica DO Work Phone: [facility] Internal Medicine - Family Medicine Comment on above: Acute medial meniscu s tear of left knee, subsequent encounter (Primary Dx); Pre-operative clearance; Abnormality of gait and mobility; Essential thrombocythemia ([facility]-HCC); Primary hypertension; Coronary artery disease involving [place] coronary artery of [place] heart without angina pectoris Start: 05-15-2023 End: 05-15-2023 Preoperative state Bean Garnica DO Work Phone: [facility] [employer] [facility] Start: 05-11-2023 Letter encounter [employer] [employer] Work Phone: Start: 05-01-2023 End: 05-01-2023 ambulatory [facility] Comment on above: Primary hypertension Start: 05-01-2023 End: 05-01-2023 Patient encounter procedure [facility] Pre-Admission Testing 1 [facility] - Pre Admit Comment on above: Primary hypertension (Primary Dx); Obstructive sleep apnea (adult) (pediatric); Thrombocytosis; Clotting disorder ([facility]-HCC); Preop examination Start: 05-01-2023 End: 05-01-2023 Preprocedural examination done [facility] 1 [facility] Start: 05-01-2023 End: 05-01-2023 ambulatory [facility] Start: 05-01-2023 Encounter for other preprocedural examination BEAN [facility] Start: 05-01-2023 End: 05-02-2023 ambulatory [facility] Comment on above: Primary hypertension Start: 04-29-2023 Refill Kamille Grullon PYTHON ENGINEER [facility] Internal [facility] - Family Medicine Comment on above: Primary hypertension Start: 04-21-2023 Refill Charito Downs PYTHON ENGINEER [facility] Internal Medicine - Family Medicine Comment on above: Acute torn meniscus of knee, unspecified laterality, subsequent encounter; Drug-induced hypokalemia; Primary hypertension Start: 04-01-2023 End: 04-01-2023 Office outpatient visit 25 minutes Valdez Grijalva DO Work Phone: [facility] Comment on above: Chronic pain of left knee (Primary Dx); Internal derangement of left knee; Acute medial meniscus tear of left knee, initial encounter Start: 04-01-2023 End: 04-01-2023 ambulatory VALDEZ GRIJALVA Not Available Start: 04-01-2023 Bamboo flowsheet Valdez almanza DO Work Phone: [facility] Start: 04-01-2023 Bamboo Haitaobeiheet Valdez boggson DO Work Phone: [facility] Start: 03-28-2023 End: 04-01-2023 Evaluation and management of inpatient WILIAM TREVINO [facility] Start: 03-27-2023 End: 03-27-2023 ambulatory BEAN [facility] Start: 02-18-2023 End: 03-20-2023 ambulatory [facility] Start: 02-04-2023 End: 02-04-2023 ambulatory VALDEZ GRIJALVA Not Available Start: 01-29-2023 End: 01-29-2023 ambulatory LEYDI WEISS Not Available Start: 01-27-2023 End: 02-17-2023 ambulatory [facility] Start: 12-31-2022 End: 01-01-2023 ambulatory UNKNOWN PROVIDER Facility: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 Start: 10-01-2022 Encounter for other preprocedural examination UNKNOWN PROVIDER [facility] Start: 10-01-2022 End: 10-01-2022 Patient encounter procedure Candy Manuel COLLET GLUER-DIESEL ENGINE II PIPE FITTER Work Phone: [facility] Pre Surgical Evaluation Comment on above: Preop testing (Prima ry Dx); Body mass index (BMI) 29.0-29.9, adult Start: 10-01-2022 End: 10-01-2022 Patient encounter status Candy Manuel COLLET GLUER-DIESEL ENGINE II PIPE FITTER Work Phone: [facility] Work Phone: Start: 09-25-2022 Letter encounter Sneha nj MD Work Phone: [facility] Vascular Surgery Start: 09-10-2022 End: 09-11-2022 ambulatory UNKNOWN PROVIDER Facility:[facility] Start: 09-10-2022 Telephone encounter Sary Magana RN [facility] Line Comment on above: Cancel Appointment Start: 09-10-2022 End: 09-10-2022 Subsequent hospital visit by physician Rowena Ip/Op Angio 1 [facility] Radiology Comment on above: Presence of IVC filt er Start: 08-30-2022 End: 09-02-2022 ambulatory UNKNOWN PROVIDER Facility:[facility] Start: 08-30-2022 End: 08-30-2022 Office outpatient visit 10 minutes Wiliam Tenorio MD Work Phone: [facility] Orthopedics Comment on above: Rupture of anterior cruciate ligament of left knee, initial encounter (Primary Dx); Complete tear of medial collateral ligament of left knee, initial encounter Start: 08-30-2022 End: 09-02-2022 Patient encounter procedure Zohreh Driscoll MD Work Phone: [facility] Orthopedic Hand Comment on above: Closed displaced fra cture of shaft of left clavicle with routine healing, subsequent encounter (Primary Dx) Start: 08-28-2022 Telephone encounter Sujatha gonzales MD Work Phone: [facility] Radiology Start: 08-21-2022 End: 08-22-2022 ambulatory UNKNOWN PROVIDER Facility:[facility] Start: 08-21-2022 End: 08-21-2022 Office outpatient visit 15 minutes Ent Chief Resident Work Phone: [facility] Otolaryngology (ENT) Comment on above: Facial nerve paralys is (Primary Dx); Exposure keratitis; Tracheostomy care (HCC) Start: 08-14-2022 End: 08-14-2022 ambulatory Amisha BarreraCCC-A Work Phone: [facility] Audiology Comment on above: Sensorineural hearin g loss (SNHL), bilateral (Primary Dx) Start: 08-14-2022 End: 08-14-2022 ambulatory UNKNOWN PROVIDER Facility:[facility] Start: 08-14-2022 End: 08-14-2022 Office outpatient visit 25 minutes Ent Chief Resident Work Phone: [facility] Otolaryngology (ENT) Comment on above: Tracheostomy care (H CC) (Primary Dx); Closed fracture of temporal bone with routine healing, subsequent encounter; Facial nerve paralysis; Sensorineural hearing loss (SNHL) of both ears Start: 08-13-2022 ambulatory SNEHA MAC Facility :[facility] Start: 08-13-2022 Telephone encounter Aida ku Work Phone: [facility] Trauma Surgery Start: 08-12-2022 Telephone encounter Aida ku Work Phone: [facility] Trauma Surgery Start: 08-12-2022 End: 08-12-2022 ambulatory UNKNOWN PROVIDER Facility:[facility] Start: 08-12-2022 End: 08-12-2022 Office outpatient new 30 minutes Sneha Mac MD Work Phone: [facility] Vascular Surgery Comment on above: Presence of IVC filt er (Primary Dx) Start: 08-07-2022 End: 08-07-2022 ambulatory UNKNOWN PROVIDER Facility:[facility] Start: 08-07-2022 End: 08-07-2022 Office outpatient visit 15 minutes Neurosurgery Resident [facility] Neurosurgery Comment on above: Contusion of right t emporal lobe with loss of consciousness, subsequent encounter (Primary Dx) Contusion of right t emporal lobe with loss of consciousness, subsequent encounter (Primary Dx); Body mass index (BMI) 37.0-37.9, adult Start: 08-02-2022 End: 08-03-2022 ambulatory UNKNOWN PROVIDER Facility:[facility] Start: 08-02-2022 End: 08-02-2022 Subsequent hospital visit by physician Ip/Op Ct Scan Main 2(Edge) [facility] Radiology CT Comment on above: Intracranial contusi on (HCC) Start: 07-23-2022 Telephone encounter Shawna Marroquin RN [facility] Orthopedic Hand Start: 07-22-2022 End: 07-23-2022 ambulatory UNKNOWN PROVIDER Facility:[facility] Start: 07-22-2022 End: 07-22-2022 Subsequent hospital visit by physician Rowena Op Xray 5 [facility] Radiology Comment on above: Closed displaced fra cture of shaft of left clavicle, initial encounter Start: 07-22-2022 End: 07-22-2022 Office outpatient new 30 minutes Naz Reagan PA-C Work Phone: [facility] Orthopedic Hand Comment on above: Closed displaced fra cture of shaft of left clavicle, initial encounter (Primary Dx); Eye pain, right Rupture of anterior cruciate ligament of left knee, initial encounter (Primary Dx); Complete tear of medial collateral ligament of left knee, initial encounter; Acute medial meniscus tear of left knee, initial encounter Start: 07-05-2022 ambulatory Lori Jenkins RN [facility] Care Management/Patient Access Start: 07-05-2022 Follow-up encounter Lori Ramon [facility] Care Management/Patient Access Comment on above: ER follow-up; Hospit al follow-up (Discharged to a SNF) Start: 06-29-2022 Evaluation and management of inpatient UNKNOWN PROVIDER Facility:[facility] Start: 06-28-2022 Evaluation and management of inpatient SUJATHA MALUSO Facility:[facility] Start: 06-27-2022 ambulatory UNKNOWN PROVIDER Facili ty:[facility] Start: 06-19-2022 Evaluation and management of inpatient SUJATHA MALUSO Facility:[facility] Start: 06-17-2022 End: 06-17-2022 Patient encounter procedure Zohreh Driscoll MD Work Phone: [facility] Orthopedic Hand Comment on above: NO SHOW (Primary Dx) ; Left shoulder pain, unspecified chronicity Start: 06-16-2022 Evaluation and management of inpatient SUJATHA MALUSO Facility:[facility] Start: 06-15-2022 Evaluation and management of inpatient SUJATHA MALUSO Facility:[facility] Start: 06-14-2022 ambulatory Abhi Crisostomo [facility] Start: 06-14-2022 Evaluation and management of inpatient SUJATHA MALUSO Facility:[facility] Start: 06-13-2022 Evaluation and management of inpatient UNKNOWN PROVIDER Facility:[facility] Start: 06-12-2022 ambulatory Abhi Crisostomo [facility] Start: 06-12-2022 End: 06-13-2022 Evaluation and management of inpatient UNKNOWN PROVIDER Facility:[facility] Start: 06-12-2022 End: 06-12-2022 Evaluation and management of inpatient Sujatha Selenao Work Phone: [facility] Radiology Comment on above: Arrived Start: 06-11-2022 Evaluation and management of inpatient UNKNOWN PROVIDER Facility:[facility] Start: 06-11-2022 Evaluation and management of inpatient UNKNOWN PROVIDER Facility:[facility] Start: 06-10-2022 ambulatory Abhi Crisostomo [facility] Start: 06-10-2022 Evaluation and management of inpatient UNKNOWN PROVIDER Facility:[facility] Start: 06-09-2022 Evaluation and management of inpatient UNKNOWN PROVIDER Facility:[facility] Start: 06-08-2022 Evaluation and management of inpatient SUJATHA MALUSO Facility:[facility] Start: 06-07-2022 Evaluation and management of inpatient SUJATHA MALUSO Facility:[facility] Start: 06-06-2022 Evaluation and management of inpatient SUJATHA MALUSO Facility:[facility] Start: 06-04-2022 End: 06-05-2022 ambulatory UNKNOWN PROVIDER Facility:[facility] Start: 06-04-2022 End: 06-04-2022 Subsequent hospital visit by physician Ip Transmission Superintendent 4 [facility] Non Invasive Cardiology Start: 06-04-2022 Evaluation and management of inpatient SUJATHA MALUSO Facility:[facility] Start: 06-03-2022 ambulatory Abhi Crisostomo [facility] Start: 06-03-2022 Evaluation and management of inpatient SUJATHA MALUSO Facility:[facility] Start: 06-02-2022 Evaluation and management of inpatient SUJATHA MALUSO Facility:[facility] Start: 06-01-2022 End: 07-04-2022 Evaluation and management of inpatient IP SURGERY NEURO CONSULT [facility] Start: 05-31-2022 End: 05-31-2022 Emergency department patient visit NON STAFF Facility:[facility] Start: 06-01-2022 End: 06-01-2022 E.D. Visit Geeta Duarte VOCATIONAL REHABILITATION TEACHER Work Phone: [facility] Social Work Comment on above: Trauma/complex Medic al Situation Start: 05-31-2022 End: 05-31-2022 Emergency department patient visit DO Reema Delarosa [facility] Work Phone: Start: 02-01-2022 End: 02-01-[address] MARIAM MEJIA Facility:[facility] Start: 07-27-[address] MARIAM MEJIA Facili ty:[facility] Procedures Date Procedure Procedure Detail Performing Clinician Start: 05-20-2024 Adult depression scr eening assessment Bean Furlong DO Work Phone: Start: 05-17-2024 IOL BIOMETRY W/ IOL CALC OU (BOTH EYES) Jaleesa Allred MD Work Phone: Start: 05-04-2024 Adult depression scr eening assessment Bean Furlong DO Work Phone: Start: 05-04-2024 Lipid 1996 panel - S fitz or Plasma Pacc 1 Work Phone: Start: 04-13-2024 Computerized ophthal clyde imaging retina Jaleesa Allred MD Work Phone: Start: 08-07-2023 Adult depression scr eening assessment Bean Furlong DO Work Phone: Start: 05-20-2023 Adult depression scr eening assessment Bean Furlong DO Work Phone: Start: 05-19-2023 Doppler echocard pul se wave w/spectral display Bean G Furlong DO Work Phone: Start: 05-15-2023 Adult depression scr eening assessment Bean Furlong DO Work Phone: Start: 03-28-2023 Colonoscopy Bean Fur long DO Work Phone: Start: 01-13-2023 Adult depression scr eening assessment [facility] 1 Start: 01-13-2023 Lipid 1996 panel - S fitz or Plasma Jaleesa Allred MD Work Phone: Start: 10-01-2022 Ecg routine ecg w/le ast 12 lds trcg only w/o i&r Candy Manuel COLLET GLUER-DIESEL ENGINE II PIPE FITTER Work Phone: Start: 08-14-2022 Laryngoscopy flexibl e diagnostic Tera Vigil MD Work Phone: Start: 08-14-2022 Compre audiometry threshold eval sp recognij Amisha Redman Au.D.[facility] Work Phone: Start: 08-14-2022 AUDIOGRAM Amisha Cuello Au.D.[facility] Work Phone: Start: 08-02-2022 Ct head/brain w/o co ntrast material Tenishasly Mcgrath PA-C Work Phone: Start: 07-22-2022 Radex clavicle complete Naz Reagan PA-C Work Phone: Start: 06-12-2022 Radiologic exam ches t single view Carlos Alberto Smith MD Work Phone: Start: 05-31-2022 Antibody screen Comment on above: Result Comment: PERF ORMED BY: [facility] [address] [place] [address] PATHOLOGIST INVESTMENT ADVISOR DEREJE HAYWARD M.D. Start: 05-31-2022 Plain chest [...] Treatment Date Care Activity Detail Author Start: 2036 RSV Vaccine (1 - 1-dose 75+ series) RSV Vaccine (1 - 1-dose 75+ series) [facility] Start: 03-28-2033 Screening for malignant neoplasm of colon Colonoscopy [facility] Start: 05-31-2032 DTaP,Tdap and Td Vaccines (2 - Td or Tdap) DTaP,Tdap and Td Vaccines (2 - Td or Tdap) [facility] Start: 05-31-2032 Tetanus vaccination Tetanus (Td or Tdap) Booster [facility] Start: 05-31-2032 Urine microalbumin profile DTaP,Tdap,Td Vaccine (2 - Td or Tdap) [facility] Start: 05-04-2029 Lipid panel Lipid Screening [facility] Start: 05-04-2029 Prostate specific antigen measurement Prostate Cancer Screening Discussion [facility] Start: 01-14-2028 Lipid panel Lipid Screening [facility] Start: 05-05-2027 Diabetes Screening Diabetes Screening [facility] Start: 04-30-2026 Diabetes Screening Diabetes Screening [facility] Start: 05-24-2025 End: 05-24-2025 Patient encounter procedure 05/24/2025 3:00 PM EDT [facility] [address] [place] [address] [facility] Internal Medicine - Family Medicine Start: 05-20-2025 Adult BMI Screening Adult BMI Screening [facility] Start: 05-20-2025 Depression Screening Depression Screening [facility] Start: 05-20-2025 Tobacco Screening Tobacco Screening [facility] Start: 05-04-2025 Adult BMI Screening Adult BMI Screening [facility] Start: 05-04-2025 Depression Screening Depression Screening [facility] Start: 05-04-2025 Tobacco Screening Tobacco Screening [facility] [facility] Start: 11-04-2024 End: 11-04-2024 Patient encounter procedure 11/04/2024 1:30 PM EDT [facility] [address] [place] [address] Bean Garnica DO [address] [place] [address] [facility] Internal Medicine - Family Medicine Start: 2024 End: 2024 Patient encounter procedure 2024 2:00 PM EDT Office Visit [facility] [address] [id number] Kristine Mitchell MD [address] [place], [place] [id number] RTC Dr. Paula Work[facility] Comment on above: RTC Dr. Paula Brito Start: 10-18-2024 Influenza vaccination [facility] Start: 09-24-2024 Adult BMI Screening Adult BMI Screening [facility] Start: 08-25-2024 Tobacco Screening Tobacco Screening [facility] Start: 08-19-2024 Screening for malignant neoplasm of lung Lung Cancer Screening [facility] Start: 08-06-2024 Adult BMI Screening Adult BMI Screening [facility] Start: 08-06-2024 Depression Screening Depression Screening [facility] Start: 08-06-2024 Tobacco Screening Tobacco Screening [facility] Start: 06-30-2024 End: 06-30-2024 Patient encounter procedure 06/30/2024 3:30 PM EDT Office Visit [facility] [address] [place] [address] Cas Helm, OD [address] [place] [address] 1 MONTH Ophthalmology Comment on above: 1 MONTH Start: 06-09-2024 End: 09-02-2025 CORNEAL TOPOGRAPHY ATLAS OU (BOTH EYES) CORNEAL TOPOGRAPHY ATLAS OU (BOTH EYES) [facility] Imaging Routine Nuclear sclerosis of both eyes Expected: 06/09/2024, Expires: 09/02/2025 [facility] Work Phone: Comment on above: Expected: 06/09/2024, Expires: Start: 06-02-2024 End: 06-02-2024 Patient encounter procedure 06/02/2024 3:15 PM EDT Office Visit [facility] [address] [facility] [place] [address] Cas Helm, OD [address] [place] [address] 1 WEEK Ophthalmology Comment on above: 1 WEEK Start: 05-27-2024 Adult BMI Screening Adult BMI Screening [facility] Start: 05-27-2024 Tobacco Screening Tobacco Screening [facility] Start: 05-26-2024 End: 05-26-2024 Patient encounter procedure 05/26/2024 3:15 PM EDT Office Visit [facility] [address] [facility] [place] [address] Jaleesa Allred MD [address] [place] [address] 1 DAY Ophthalmology Comment on above: 1 DAY Start: 05-25-2024 End: 05-25-2024 Admission to same day surgery center 05/25/2024 10:10 AM EDT - 05/25/2024 10:42 AM EDT Surgery Ambulatory Surgery [address] [facility] [place] [address] Jaleesa Allred MD [address] [place] [address] PHACOEMULSIFICATION CATARACT IMPLANT INTRAOCULAR LENS W/O ENDOSCOPIC CYCLOPHOTOCOAGULATION Ambulatory Surgery Comment on above: PHACOEMULSIFICATION CATARACT IMPLANT INT RAOCULAR LENS W/O ENDOSCOPIC CYCLOPHOTOCOAGULATION Start: 05-25-2024 End: 05-25-2024 Oph bmtry prtl coher intrfrmtry io lens pwr megan OPHTHALMIC BIOMETRY BY PARTIAL COHERENCE INTERFEROMETRY W/INTRAOCULAR LENS POWER CALCULATION Nuclear sclerosis of both eyes 05/25/2024 10:10 AM EDT [facility] Start: 05-25-2024 Subsequent hospital visit by physician 05/25/2024 10:10 AM EDT Hospital Encounter Ambulatory Surgery [address] [facility] [place] [address] Jaleesa Allred MD [address] [place] [address] Nuclear sclerosis of both eyes [H25.13] Ambulatory Surgery Comment on above: Nuclear sclerosis of both eyes [H25.13] Start: 05-25-2024 End: 05-25-2024 Xcapsl ctrc rmvl insj io lens prosth w/o ecp PHACOEMULSIFICATION CATARACT IMPLANT INTRAOCULAR LENS W/O ENDOSCOPIC CYCLOPHOTOCOAGULATION Nuclear sclerosis of both eyes 05/25/2024 10:10 AM EDT [facility] Start: 05-20-2024 End: 05-20-2024 Patient encounter procedure 05/20/2024 1:00 PM EDT [facility] [address] [place] [address] [facility] Internal Medicine Family [facility] Start: 05-19-2024 Adult BMI Screening Adult BMI Screening [facility] Start: 05-19-2024 Depression Screening Depression Screening [facility] Start: 05-19-2024 Tobacco Screening Tobacco Screening [facility] Start: 05-14-2024 Adult BMI Screening Adult BMI Screening [facility] Start: 05-14-2024 Depression Screening Depression Screening [facility] Start: 05-14-2024 Tobacco Screening Tobacco Screening [facility] Start: 04-30-2024 Adult BMI Screening Adult BMI Screening [facility] Start: 04-30-2024 Tobacco Screening Tobacco Screening [facility] Start: 04-29-2024 End: 04-29-2024 Patient encounter procedure 04/29/2024 2:15 PM EDT [facility] [address] [place] [address] Bean Garnica DO [address] [facility] [place] [address] [facility] Start: 03-30-2024 End: 03-30-2024 Patient encounter procedure 03/30/2024 3:00 PM EST Office Visit [facility] Internal Medicine - Family Medicine [address] [place] [address] Bean Garnica, [address] [place] [address] [facility] Internal Medicine - Family Medicine Start: 03-28-2024 Adult BMI Screening Adult BMI Screening [facility] Start: 03-28-2024 Tobacco Screening Tobacco Screening [facility] Start: 03-01-2024 End: 03-01-2024 Patient encounter procedure 03/01/2024 1:45 PM EST Office Visit [facility] Internal Medicine - Family Medicine [address] [place] [address] Bean Garnica, [address] [place] [address] [facility] Internal Medicine - Family Medicine Start: 01-14-2024 Depression Screening Depression Screening [facility] Start: 01-06-2024 Tobacco Counseling Tobacco Counseling [facility] Start: 12-22-2023 End: 12-22-2023 Patient encounter procedure 12/22/2023 1:00 PM EST Office Visit [facility] Internal Medicine - Family Medicine [address] [place] [address] Bean Garnica DO [address] [place] [address] [facility] Internal Medicine - Family Medicine Start: 10-19-2023 Covid-19 Vaccine ( season) Covid-19 Vaccine ( season) [facility] Start: 10-19-2023 Influenza vaccination [facility] Start: 10-15-2023 End: 10-15-2023 ambulatory 10/15/2023 4:00 PM EDT Treatment [facility] [address] [place] [address] Ladonna Lima, PT [facility] Start: 10-07-2023 End: 10-07-2023 ambulatory 10/07/2023 3:00 PM EDT Treatment [facility] [address] [facility] [address] [place] [address] Ryan Fagan, AED TRAINER Arrived [facility] Comment on above: Arrived Start: 08-26-2023 End: 08-25-2024 PT Skull base to mid-thigh PET CT skull to thigh Imaging Routine Multiple lung nodules on CT Expected: 08/26/2023, Expires: 08/25/2024 [facility] Work Phone: Comment on above: Expected: 08/26/2023, Expires: Start: 08-07-2023 End: 08-07-2023 Patient encounter procedure 08/07/2023 4:15 PM EDT Office Visit [facility] Internal Medicine - Family Medicine [address] [place] [address] Bean Garnica DO [address], [facility] [place] [address] [facility] Internal [facility] - Family Medicine Start: 08-07-2023 End: 08-06-2024 CT Chest for screening WO contrast CT low dose lung screening (Annual) Imaging Routine Cigarette smoker Expected: 08/07/2023, Expires: 08/06/2024 [facility] Work Phone: Comment on above: Expected: 08/07/2023, Expires: Start: 05-28-2023 End: 05-28-2023 Admission to same day surgery center 05/28/2023 1:45 PM EDT - 05/28/2023 2:45 PM EDT Surgery [facility] - Surgery [address] [place] [address] Valdez Grijalva DO [address] [facility] [address] [place] [address] ARTHROSCOPIC MENISCECTOMY KNEE [20476 (CPT )] [facility] Comment on above: ARTHROSCOPIC MENISCECTOMY KNEE [42195 (C PT )] Start: 05-28-2023 End: 05-28-2023 Arthrs kne surg w/meniscectomy med/lat w/shvg ARTHROSCOPIC MENISCECTOMY KNEE left knee meniscal tear 05/28/2023 1:45 PM EDT [facility] Start: 05-28-2023 Subsequent hospital visit by physician 05/28/2023 1:45 PM EDT Hospital Encounter [facility] [address] [place] [address] Valdez Grijalva, DO [address] [facility] [address] [place] [address] [facility] Start: 05-20-2023 End: 05-20-2023 Patient encounter procedure 05/20/2023 4:00 PM EDT Office Visit [facility] Internal Medicine -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
[2024-10-15 15:30] LABS: Anion Gap 12.3; Blood Urea Nitrogen 5.0 mg/dL (7.0-18.0); Calcium 8.9 mg/dL (8.5-10.1); Carbon Dioxide 31.5 mmol/L (21.0-32.0); Chloride 102 mmol/L (98-107); Cholesterol 125 mg/dL (<=200); Estimated GFR (African America >60 (>=60 mL/min/1.73m^2); Estimated GFR (Non-African Ame >60 (>=60 mL/min/1.73m^2); Glucose 90 mg/dL (74-106); HDL Cholesterol 50 mg/dL (40-60); Potassium 3.8 mmol/L (3.5-5.1); Sodium 142 mmol/L (136-145); Triglycerides 55 mg/dL (<=150); VLDL CHOLESTEROL 11.0 mg/dL
== END 2024-10-15 14:21 | disposition home or self-care (01) ==
LOC: LAB 14:21
PROVIDERS: PCP Family Medicine
DX: E78.2 Mixed hyperlipidemia (principal); I10 Essential (primary) hypertension
CPT/HCPCS: 36415; 80048; 80061